=== PATIENT | female | born 1960 | race Caucasian/White ===

== ENCOUNTER 2017-02-24 10:51 | Observation (INO) | payer OTHER ==
[2017-02-24] MEDS ORDERED: NITROGLYCERIN SL TABS 0.4 MG TAB SUBLINGUAL STA ×3 (11:09)
[2017-02-24] MEDS ORDERED: ASPIRIN 81 MG CHEW PO STA (11:09)
--- NOTE | 2017-02-24 11:11 | ED ---
General Adult HPI - General Chief complaint: Chest Pain Stated complaint: CHEST PAIN Time Seen by Provider: 02/24/17 11:06 Source: patient, RN notes reviewed Mode of arrival: wheelchair Limitations: no limitations - History of Present Illness Initial comments: Patient is a pleasant 56-year-old female presenting to the emergency department complaining of chest discomfort. Symptoms have been intermittent over the past week. Patient has pressure in the left sternal region. Discomfort somewhat improves with pushing on the area. Patient did feel nauseated earlier. No dyspnea or diaphoresis. No history of similar symptoms previously. No leg pain or swelling. No radiation of pain. - Related Data Home Medications Medication Instructions Recorded Confirmed ARIPiprazole [Abilify] 10 mg PO HS 02/24/17 02/24/17 Cholecalciferol (Vitamin D3) 2,000 unit PO DAILY 02/24/17 02/24/17 [Vitamin D3] FLUoxetine HCL [PROzac] 80 mg PO DAILY 02/24/17 02/24/17 Levothyroxine Sodium [Synthroid] 50 mcg PO DAILY 02/24/17 02/24/17 Allergies Allergy/AdvReac Type Severity Reaction Status Date / Time No Known Allergies Allergy Verified 02/24/17 12:16 Review of Systems ROS Statement: Those systems with pertinent positive or pertinent negative responses have been documented in the HPI. ROS Other: All systems not noted in ROS Statement are negative. Constitutional: Denies: fever Eyes: Denies: eye pain ENT: Denies: ear pain Respiratory: Denies: cough, dyspnea Cardiovascular: Reports: chest pain Endocrine: Denies: fatigue Gastrointestinal: Denies: abdominal pain Genitourinary: Denies: dysuria Musculoskeletal: Denies: back pain Skin: Denies: rash Neurological: Denies: weakness Past Medical History Past Medical History: No Reported History History of Any Multi-Drug Resistant Organisms: None Reported Past Surgical History: No Surgical Hx Reported Past Anesthesia/Blood Transfusion Reactions: No Reported Reaction Past Psychological History: Bipolar Smoking Status: Current every day smoker Past Alcohol Use History: Occasional Past Drug Use History: None Reported General Exam Limitations: no limitations General appearance: alert, in no apparent distress Head exam: Present: atraumatic Eye exam: Present: normal appearance, PERRL ENT exam: Present: normal oropharynx Neck exam: Present: normal inspection Respiratory exam: Present: normal lung sounds bilaterally. Absent: chest wall tenderness Cardiovascular Exam: Present: normal rhythm, bradycardia Expanded Peripheral pulses: 2+: Radial (R), Radial (L), Posterior Tibialis (R), Posterior Tibialis (L) GI/Abdominal exam: Present: soft. Absent: tenderness Extremities exam: Present: normal inspection. Absent: pedal edema, calf tenderness Neurological exam: Present: alert Psychiatric exam: Present: normal affect, normal mood Skin exam: Present: normal color Course Vital Signs 02/24/17 02/24/17 02/24/17 10:59 11:23 11:28 Temperature 98.3 F Pulse Rate 50 L 50 L 51 L Respiratory 18 16 15 Rate Blood Pressure 150/77 131/65 105/52 O2 Sat by Pulse 92 L 97 97 Oximetry 02/24/17 11:42 Temperature Pulse Rate 54 L Respiratory 15 Rate Blood Pressure 109/71 O2 Sat by Pulse 95 Oximetry EKG Findings - EKG Comments: EKG Findings:: Sinus bradycardia 49. ID 172. QRS 78. QTC 464. QTC 419. Normal axis. Low QRS voltage. No acute ST change. Medical Decision Making - Medical Decision Making Patient reexamined and resting comfortably in bed. Patient states symptoms have improved with nitroglycerin. Patient updated on results and plan. Case discussed in detail with Dr. Richards, who will admit for hospital call. - Lab Data Result diagrams: 02/24/17 11:15 02/24/17 11:15 Lab Results 02/24/17 02/24/17 02/24/17 Range/Units 11:15 11:15 11:15 WBC 8.0 (3.8-10.6) k/uL RBC 5.10 (3.80-5.40) m/uL Hgb 16.0 (11.4-16.0) gm/dL Hct 48.8 H (34.0-46.0) % MCV 95.5 (80.0-100.0) fL MCH 31.4 (25.0-35.0) pg MCHC 32.8 (31.0-37.0) g/dL RDW 14.7 (11.5-15.5) % Plt Count 305 (150-450) k/uL Neutrophils % 67 % Lymphocytes % 24 % Monocytes % 5 % Eosinophils % 2 % Basophils % 1 % Neutrophils # 5.4 (1.3-7.7) k/uL Lymphocytes # 1.9 (1.0-4.8) k/uL Monocytes # 0.4 (0-1.0) k/uL Eosinophils # 0.1 (0-0.7) k/uL Basophils # 0.1 (0-0.2) k/uL PT (9.0-12.0) sec INR (<1.2) APTT (22.0-30.0) sec Sodium 142 (137-145) mmol/L Potassium 4.1 (3.5-5.1) mmol/L Chloride 109 H (98-107) mmol/L Carbon Dioxide 22 (22-30) mmol/L Anion Gap 11 mmol/L BUN 11 (7-17) mg/dL Creatinine 0.85 (0.52-1.04) mg/dL Est GFR (MDRD) Af Amer >60 (>60 ml/min/1.73 sqM) Est GFR (MDRD) Non-Af >60 (>60 ml/min/1.73 sqM) Glucose 93 (74-99) mg/dL Calcium 9.3 (8.4-10.2) mg/dL Magnesium 1.8 (1.6-2.3) mg/dL Total Bilirubin 0.6 (0.2-1.3) mg/dL AST 23 (14-36) U/L ALT 37 (9-52) U/L Alkaline Phosphatase 93 (38-126) U/L Total Creatine Kinase 252 H (30-135) U/L CK-MB (CK-2) 1.7 (0.0-2.4) ng/mL CK-MB (CK-2) Rel Index 0.7 Troponin I <0.012 (0.000-0.034) ng/mL Total Protein 7.4 (6.3-8.2) g/dL Albumin 4.2 (3.5-5.0) g/dL 02/24/17 Range/Units 11:15 WBC (3.8-10.6) k/uL RBC (3.80-5.40) m/uL Hgb (11.4-16.0) gm/dL Hct (34.0-46.0) % MCV (80.0-100.0) fL MCH (25.0-35.0) pg MCHC (31.0-37.0) g/dL RDW (11.5-15.5) % Plt Count (150-450) k/uL Neutrophils % % Lymphocytes % % Monocytes % % Eosinophils % % Basophils % % Neutrophils # (1.3-7.7) k/uL Lymphocytes # (1.0-4.8) k/uL Monocytes # (0-1.0) k/uL Eosinophils # (0-0.7) k/uL Basophils # (0-0.2) k/uL PT 10.3 (9.0-12.0) sec INR 1.0 (<1.2) APTT 25.0 (22.0-30.0) sec Sodium (137-145) mmol/L Potassium (3.5-5.1) mmol/L Chloride (98-107) mmol/L Carbon Dioxide (22-30) mmol/L Anion Gap mmol/L BUN (7-17) mg/dL Creatinine (0.52-1.04) mg/dL Est GFR (MDRD) Af Amer (>60 ml/min/1.73 sqM) Est GFR (MDRD) Non-Af (>60 ml/min/1.73 sqM) Glucose (74-99) mg/dL Calcium (8.4-10.2) mg/dL Magnesium (1.6-2.3) mg/dL Total Bilirubin (0.2-1.3) mg/dL AST (14-36) U/L ALT (9-52) U/L Alkaline Phosphatase (38-126) U/L Total Creatine Kinase (30-135) U/L CK-MB (CK-2) (0.0-2.4) ng/mL CK-MB (CK-2) Rel Index Troponin I (0.000-0.034) ng/mL Total Protein (6.3-8.2) g/dL Albumin (3.5-5.0) g/dL - Radiology Data Radiology results: image reviewed (Chest x-ray shows no acute process) Critical Care Time Critical Care Time: Yes Total Critical Care Time: 31 Disposition Clinical Impression: Unstable angina pectoris Disposition: ADMITTED IP TO THIS [facility] Referrals: Kirsty Neal MD [Primary Care Provider] - 1-2 days Decision Time: 12:57
[2017-02-24 11:24] LABS: Basophils # (A) 0.1 k/uL (0-0.2); Basophils % (A) 1 %; CH 32.2; CHCM 33.9; Eosinophils # (A) 0.1 k/uL (0-0.7); Eosinophils % (A) 2 %; HCT 48.8 % (34.0-46.0); Luc # (Auto) 0.15; Luc % (Auto) 2; Lymphocytes # (A) 1.9 k/uL (1.0-4.8); Lymphocytes % (A) 24 %; MCH 31.4 pg (25.0-35.0); MCHC 32.8 g/dL (31.0-37.0); MCV 95.5 fL (80.0-100.0); Mean Platelet Volume 7.4; Monocytes # (A) 0.4 k/uL (0-1.0); Monocytes % (A) 5 %; Neutrophils # (A) 5.4 k/uL (1.3-7.7); Neutrophils % (A) 67 %; RDW 14.7 % (11.5-15.5); WBC (Perox) 8.15
[2017-02-24 11:33] LABS: ALT 37 U/L (9-52); AST 23 U/L (14-36); Alkaline Phosphatase 93 U/L (38-126); Anion Gap 11 mmol/L; Blood Urea Nitrogen 11 mg/dL (7-17); Calcium 9.3 mg/dL (8.4-10.2); Carbon Dioxide 22 mmol/L (22-30); Chloride 109 mmol/L (98-107); Glucose 93 mg/dL (74-99); Magnesium 1.8 mg/dL (1.6-2.3); Non-African American GFR(MDRD) >60 (>60 ml/min/1.73 sqM); Potassium 4.1 mmol/L (3.5-5.1); Prothrombin Time 10.3 sec (9.0-12.0); Sodium 142 mmol/L (137-145); Total Bilirubin 0.6 mg/dL (0.2-1.3); Total Protein 7.4 g/dL (6.3-8.2)
--- NOTE | 2017-02-24 11:43 | XR ---
EXAMINATION TYPE: XR chest 2V DATE OF EXAM: 02/24/2017 HISTORY: Chest Pain. REFERENCE: Previous study dated 12/11/2012. FINDINGS: The lungs are clear. Pleural space are clear. The heart is not enlarged. IMPRESSION: NO ACTIVE INTRATHORACIC DISEASE.
[2017-02-24 12:09] LABS: Creatine Kinase 252 U/L (30-135)
[2017-02-24 12:21] LABS: Creatine Kinase MB 1.7 ng/mL (0.0-2.4); Troponin I <0.012 ng/mL (0.000-0.034)
[2017-02-24] MEDS ORDERED: NITROGLYCERIN SL TABS 0.4 MG TAB SUBLINGUAL PRN (12:57)
[2017-02-24] MEDS ORDERED: HEPARIN SODIUM,PORCINE 5,000 UNIT/ML 1 ML VIAL IV ONE (12:57)
[2017-02-24] MEDS ORDERED: HEPARIN SODIUM,PORCINE 5,000 UNIT/ML 1 ML VIAL IV PRN (12:57)
[2017-02-24] MEDS ORDERED: HEPARIN SODIUM,PORCINE/D5W PMX 25,000 UNIT in DEXTROSE/WATER 1 500ML.BAG IV SCH (13:00)
[2017-02-24 14:04] VITALS: BMI 40.8
--- NOTE | 2017-02-24 15:56 | P.HPIM ---
History of Present Illness 56-year-old female came in with complaints of chest discomfort patient has multiple similar episodes going on for about a week last for normally for an hour today lasted for 2 hours improved with nitroglycerin in about 6-7 x 10 in severity nonradiating pressure-like sensation not associated with food, denied any shortness of breath had some nausea today, denied any fever denied any cough nonpleuritic in nature, nonexertional denied any associated lightheadedness, diaphoresis. Patient denied any history of coronary artery disease in the past denied any premature coronary artery disease in the family. Patient does smoke. Denied any history of diabetes mellitus or hypertension, denied any history of hyperlipidemia. Review of Systems REVIEW OF SYSTEMS: CONSTITUTIONAL: No fever, no malaise, no fatigue. HEENT: No recent visual problems or hearing problems. Denied any sore throat. CARDIOVASCULAR: No orthopnea, PND, no palpitations, no syncope. PULMONARY: No shortness of breath, no cough, no hemoptysis. GASTROINTESTINAL: No diarrhea, no nausea, no vomiting, no abdominal pain. Normoactive bowel sounds. NEUROLOGICAL: No headaches, no weakness, no numbness. HEMATOLOGICAL: Denies any bleeding or petechiae. GENITOURINARY: Denies any burning micturition, frequency, or urgency. MUSCULOSKELETAL/RHEUMATOLOGICAL: Denies any joint pain, swelling, or any muscle pain. ENDOCRINE: Denies any polyuria or polydipsia. The rest of the 14-point review of systems is negative. Past Medical History Past Medical History: No Reported History Additional Past Medical History / Comment(s): pt states she had no medical hx History of Any Multi-Drug Resistant Organisms: None Reported Past Surgical History: No Surgical Hx Reported Additional Past Surgical History / Comment(s): pt states she has no sx hx Past Anesthesia/Blood Transfusion Reactions: No Reported Reaction Past Psychological History: Bipolar, Depression Additional Psychological History / Comment(s): pt states "personality disorder" Smoking Status: Current every day smoker Past Alcohol Use History: Occasional Additional Past Alcohol Use History / Comment(s): pt states she smokes 1/2 a ppd. Past Drug Use History: None Reported - Past Family History Father Additional Family Medical History / Comment(s): pt states heart dx runs in the family Mother Family Medical History: Diabetes Mellitus Additional Family Medical History / Comment(s): pt states heart disease runs in the family Medications and Allergies Home Medications Medication Instructions Recorded Confirmed Type ARIPiprazole [Abilify] 10 mg PO HS 02/24/17 02/24/17 History Cholecalciferol (Vitamin D3) 2,000 unit PO DAILY 02/24/17 02/24/17 History [Vitamin D3] FLUoxetine HCL [PROzac] 80 mg PO DAILY 02/24/17 02/24/17 History Levothyroxine Sodium [Synthroid] 50 mcg PO DAILY 02/24/17 02/24/17 History Allergies Allergy/AdvReac Type Severity Reaction Status Date / Time No Known Allergies Allergy Verified 02/24/17 12:16 Physical Exam Vitals: Vital Signs Temp Pulse Pulse Pulse Resp BP BP 02/24/17 14:10 97.9 F 45 L 45 L 14 122/68 02/24/17 13:23 97.5 F L 45 L 14 126/62 02/24/17 12:57 47 L 15 113/66 02/24/17 11:42 54 L 15 109/71 02/24/17 11:28 51 L 15 105/52 02/24/17 11:23 50 L 16 131/65 02/24/17 10:59 98.3 F 50 L 18 150/77 Pulse Ox 02/24/17 14:10 92 L 02/24/17 13:23 02/24/17 12:57 99 02/24/17 11:42 95 02/24/17 11:28 97 02/24/17 11:23 97 02/24/17 10:59 92 L Intake and Output 02/24/17 02/24/17 02/24/17 06:59 14:59 22:59 Other: Voiding Method Toilet Weight 108.1 kg Patient Weight 02/25/17 06:59 Weight 108.1 kg PHYSICAL EXAMINATION: GENERAL: The patient is alert and oriented x3, not in any acute distress. Well developed, well nourished. HEENT: Pupils are round and equally reacting to light. EOMI. No scleral icterus. No conjunctival pallor. Normocephalic, atraumatic. No pharyngeal erythema. No thyromegaly. CARDIOVASCULAR: S1 and S2 present. No murmurs, rubs, or gallops. PULMONARY: Chest is clear to auscultation, no wheezing or crackles. ABDOMEN: Soft, nontender, nondistended, normoactive bowel sounds. No palpable organomegaly. MUSCULOSKELETAL: No joint swelling or deformity. EXTREMITIES: No cyanosis, clubbing, or pedal edema. NEUROLOGICAL: Gross neurological examination did not reveal any focal deficits. SKIN: No rashes. Results CBC & Chem 7: 02/24/17 11:15 02/24/17 11:15 Labs: Abnormal Lab Results - Last 24 Hours (Table) 02/24/17 02/24/17 02/24/17 Range/Units 11:15 11:15 11:15 Hct 48.8 H (34.0-46.0) % Chloride 109 H (98-107) mmol/L Total Creatine Kinase 252 H (30-135) U/L Thrombosis Risk Factor Assmnt - Choose All That Apply Any of the Below Risk Factors Present?: Yes Each Factor Represents 1 point: Age 41-60 years, Obesity (BMI >25) Other Risk Factors: No Thrombosis Risk Factor Assessment Total Risk Factor Score: 2 Thrombosis Risk Factor Assessment Level: Low Risk Assessment and Plan Plan: #1 chest pain: We'll rule out acute coronary syndromes and unstable angina. One set of troponin is negative EKG showed sinus bradycardia a symptomatically from sinus bradycardia at this time. TSH level will be obtained. And patient will be a valid by cardiology. Patient regarding stress test will be made by cardiology. #2 hypothyroidism: Obtain TSH continue with present dose of levothyroxine. #3 depression continue with fluoxetine. And Abilify. #4 sinus bradycardia:asymptomatic.
[2017-02-24] MEDS: NITROGLYCERIN OINT 1 INCH/GM PACKET TOPICAL SCH (18:47)
[2017-02-24 18:54] LABS: Creatine Kinase 200 U/L (30-135)
[2017-02-24 19:07] LABS: Creatine Kinase MB 1.4 ng/mL (0.0-2.4); Troponin I <0.012 ng/mL (0.000-0.034)
[2017-02-24] MEDS ORDERED: ARIPiprazole 10 MG TAB PO SCH (21:00)
[2017-02-25 00:33] LABS: Creatine Kinase 191 U/L (30-135)
[2017-02-25 00:46] LABS: Creatine Kinase MB 1.2 ng/mL (0.0-2.4); Troponin I <0.012 ng/mL (0.000-0.034)
[2017-02-25] MEDS: NITROGLYCERIN OINT 1 INCH/GM PACKET TOPICAL SCH ×2 (06:00→11:45)
[2017-02-25] MEDS ORDERED: LEVOTHYROXINE 50 MCG TAB PO SCH (06:30)
[2017-02-25 07:38] VITALS: RESP 18
[2017-02-25 07:45] LABS: Cholesterol 210 mg/dL (<200); HDL Cholesterol 50 mg/dL (40-60)
[2017-02-25] MEDS ORDERED: FLUoxetine HCL 20 MG CAP PO SCH (09:00)
[2017-02-25] MEDS ORDERED: ASPIRIN 325 MG TAB PO SCH (09:00)
[2017-02-25 11:53] VITALS: BP 103/59; PULSE 58; TEMP 97.5
--- NOTE | 2017-02-25 12:20 | ECHOF ---
Referral Reason:chest pain MEASUREMENTS -------- HEIGHT: 162.6 cm WEIGHT: 108.0 kg BP: 140/40 IVSd: 1.1 cm (0.6 - 1.1) LVIDd: 4.3 cm (3.9 - 5.3) LVPWd: 1.1 cm (0.6 - 1.1) IVSs: 1.5 cm LVIDs: 2.7 cm LVPWs: 1.1 cm LAESV Index (A-L): 26.52 ml/m Ao Diam: 2.5 cm (2.0 - 3.7) AV Cusp: 1.7 cm (1.5 - 2.6) LA Diam: 4.0 cm (2.7 - 3.8) MV EXCURSION: 15.271 mm (> 18.000) MV EF SLOPE: 57 mm/s (70 - 150) EPSS: 0.9 cm MV E Ariel: 0.77 m/s MV DecT: 246 ms MV A Ariel: 0.27 m/s MV E/A Ratio: 2.80 RAP: 5.00 mmHg RVSP: 26.63 mmHg FINDINGS -------- Sinus rhythm. This was a technically adequate study. There is mild concentric left ventricular hypertrophy. Overall left ventricular systolic function is normal with, an EF between 55 - 60 %. The right ventricle is normal in size. Normal LA size by volume 22+/-6 ml/m2. The right atrial size is normal. The aortic valve is trileaflet, and appears structurally normal. No aortic stenosis or regurgitation. Mild mitral regurgitation is present. Mild tricuspid regurgitation present. There is no evidence of pulmonary hypertension. The right ventricular systolic pressure, as measured by Doppler, is 26.63mmHg. There is no pulmonic regurgitation present. The aortic root size is normal. There is no pericardial effusion. CONCLUSIONS -------- 1. There is mild concentric left ventricular hypertrophy. 2. Overall left ventricular systolic function is normal with, an EF between 55 - 60 %. 3. Mild mitral regurgitation is present. 4. Mild tricuspid regurgitation present. 5. There is no evidence of pulmonary hypertension. 6. The right ventricular systolic pressure, as measured by Doppler, is 26.63mmHg. 7. There is no pulmonic regurgitation present. 8. The aortic root size is normal. 9. There is no pericardial effusion. RESPIRATORY CLINICIAN: Sarahi Boland RDCS
--- NOTE | 2017-02-25 13:15 | P.CRDCN ---
History of Present Illness Consult date: 02/25/17 History of present illness: This is a 56-year-old female who presented to the emergency department with complaints of chest pressure. The pressure is located in the left chest wall. She states she has been having this discomfort off and on for the previous week. She states the pain comes on when she is up walking and she can usually make it go away with gentle massage to the anterior chest wall. This episode that she had yesterday she could not relieve with gentle massage. It persisted until she presented to the emergency department and was given nitroglycerin. She also had mild nausea with this episode. She denies palpitations, dizziness , diaphoresis, radiation of the pain or vomiting. She denies any chest pain at this time. The pain is nonreproducible and not associated with deep inspiration. Her troponins have been negative 3. EKG indicates sinus bradycardia. Her cardiac tracings indicate her heart rate in the 50s although her EKG this morning shows heart rate of 33. She has no significant abnormalities. EKG is sinus bradycardia. She has a daily smoker for greater than 30 years. Denies history of diabetes, hypertension or hyperlipidemia. She states she has never seen a pouch maker for any reason and does recall having a stress test many years ago with her primary care doctor. Review of Systems REVIEW OF SYSTEMS: Patient denies any chest discomfort. No shortness of breath. No diaphoresis. He denies headache, dizziness, blurred vision, double vision. No dyspnea on exertion. Patient denies any stomach discomfort. No nausea, vomiting. No hematochezia. No hematemesis. Denies any black stools or blood in his stools. No syncope. No palpitations. No cough. No recent fever or chills. Denies dysuria or hematuria. No muscle weakness or numbness. Past Medical History Past Medical History: No Reported History Additional Past Medical History / Comment(s): pt states she had no medical hx History of Any Multi-Drug Resistant Organisms: None Reported Past Surgical History: No Surgical Hx Reported Additional Past Surgical History / Comment(s): pt states she has no sx hx Past Anesthesia/Blood Transfusion Reactions: No Reported Reaction Past Psychological History: Bipolar, Depression Additional Psychological History / Comment(s): pt states "personality disorder" Smoking Status: Current every day smoker Past Alcohol Use History: Occasional Additional Past Alcohol Use History / Comment(s): pt states she smokes 1/2 a ppd. Past Drug Use History: None Reported - Past Family History Father Additional Family Medical History / Comment(s): pt states heart dx runs in the family Mother Family Medical History: Diabetes Mellitus Additional Family Medical History / Comment(s): pt states heart disease runs in the family Medications and Allergies Home Medications Medication Instructions Recorded Confirmed Type ARIPiprazole [Abilify] 10 mg PO HS 02/24/17 02/24/17 History Cholecalciferol (Vitamin D3) 2,000 unit PO DAILY 02/24/17 02/24/17 History [Vitamin D3] FLUoxetine HCL [PROzac] 80 mg PO DAILY 02/24/17 02/24/17 History Levothyroxine Sodium [Synthroid] 50 mcg PO DAILY 02/24/17 02/24/17 History Allergies Allergy/AdvReac Type Severity Reaction Status Date / Time No Known Allergies Allergy Verified 02/24/17 12:16 Physical Exam Vitals: Vital Signs Temp Pulse Pulse Pulse Resp BP BP 02/25/17 07:37 98.1 F 46 L 18 104/59 02/25/17 04:00 44 L 16 02/25/17 03:25 98.0 F 50 L 16 140/62 02/25/17 00:00 42 L 16 02/24/17 23:27 98.1 F 43 L 16 100/56 02/24/17 21:05 02/24/17 20:00 55 L 16 02/24/17 19:33 97.9 F 52 L 16 110/64 02/24/17 16:00 45 L 51 L 12 02/24/17 15:53 97.6 F 51 L 12 105/56 02/24/17 14:10 97.9 F 45 L 45 L 14 122/68 02/24/17 13:23 97.5 F L 45 L 14 126/62 02/24/17 12:57 47 L 15 113/66 02/24/17 11:42 54 L 15 109/71 02/24/17 11:28 51 L 15 105/52 02/24/17 11:23 50 L 16 131/65 02/24/17 10:59 98.3 F 50 L 18 150/77 Pulse Ox 02/25/17 07:37 98 02/25/17 04:00 02/25/17 03:25 94 L 02/25/17 00:00 02/24/17 23:27 93 L 02/24/17 21:05 95 02/24/17 20:00 02/24/17 19:33 94 L 02/24/17 16:00 02/24/17 15:53 94 L 02/24/17 14:10 92 L 02/24/17 13:23 02/24/17 12:57 99 02/24/17 11:42 95 02/24/17 11:28 97 02/24/17 11:23 97 02/24/17 10:59 92 L Intake and Output 02/24/17 02/25/17 02/25/17 22:59 06:59 14:59 Intake Total 352.333 Balance 352.333 Intake: Intake, IV Titration 112.333 Amount Heparin Sodium,Porcine/ 112.333 D5w Pmx 25,000 unit In Dextrose/Water 1 500ml. bag @ 9.59 UNITS/KG/HR 20 mls/hr IV .Q24H [facility] Rx#: [id number] Oral 240 Other: Voiding Method Toilet Toilet # Voids 1 1 Weight 108.1 kg GENERAL: This is a 56-year-old female in no apparent distress at the time of my examination. HEENT: Head is atraumatic, normocephalic. Pupils are equal, round. Sclerae anicteric. Conjunctivae are clear. Mucous membranes of the mouth are moist. Neck is supple. There is no jugular venous distention. No carotid bruit is heard. LUNGS: Clear to auscultation and precussion. No chest wall tenderness is noted on palpation or with deep breathing. HEART: Regular rate and rhythm without murmurs, rubs or gallops. S1 and S2 heard. ABDOMEN: Soft, nontender. Bowel sounds are heard. No organomegaly noted. EXTREMITIES: 2+ peripheral pulses with no evidence of peripheral edema and no calf tenderness noted]. NEUROLOGIC: Patient is awake, alert and oriented x3. Results 02/25/17 06:44 02/24/17 11:15 Cardiac Enzymes 02/24/17 02/24/17 02/24/17 Range/Units 11:15 11:15 18:16 AST 23 (14-36) U/L CK-MB (CK-2) 1.7 1.4 (0.0-2.4) ng/mL Troponin I <0.012 <0.012 (0.000-0.034) ng/mL 02/24/17 Range/Units 23:50 AST (14-36) U/L CK-MB (CK-2) 1.2 (0.0-2.4) ng/mL Troponin I <0.012 (0.000-0.034) ng/mL Coagulation 02/24/17 02/24/17 02/24/17 Range/Units 11:15 18:16 23:50 PT 10.3 (9.0-12.0) sec APTT 25.0 45.8 H 75.9 H (22.0-30.0) sec Lipids 02/25/17 Range/Units 06:42 Triglycerides 148 (<150) mg/dL Cholesterol 210 H (<200) mg/dL HDL Cholesterol 50 (40-60) mg/dL CBC 02/24/17 02/25/17 Range/Units 11:15 06:44 WBC 8.0 (3.8-10.6) k/uL RBC 5.10 (3.80-5.40) m/uL Hgb 16.0 (11.4-16.0) gm/dL Hct 48.8 H (34.0-46.0) % Plt Count 305 250 (150-450) k/uL Comprehensive Metabolic Panel 02/24/17 Range/Units 11:15 Sodium 142 (137-145) mmol/L Potassium 4.1 (3.5-5.1) mmol/L Chloride 109 H (98-107) mmol/L Carbon Dioxide 22 (22-30) mmol/L BUN 11 (7-17) mg/dL Creatinine 0.85 (0.52-1.04) mg/dL Glucose 93 (74-99) mg/dL Calcium 9.3 (8.4-10.2) mg/dL AST 23 (14-36) U/L ALT 37 (9-52) U/L Alkaline Phosphatase 93 (38-126) U/L Total Protein 7.4 (6.3-8.2) g/dL Albumin 4.2 (3.5-5.0) g/dL Current Medications Generic Name Dose Route Start Last Admin Trade Name Freq PRN Reason Stop Dose Admin Aripiprazole 10 mg 02/24/17 21:00 02/24/17 19:54 Abilify PO 10 mg HS AJ Administration Aspirin 325 mg 02/25/17 09:00 Aspirin PO DAILY AJ Fluoxetine HCl 80 mg 02/25/17 09:00 Prozac PO DAILY AJ Heparin Sodium (Porcine) 0 unit 02/24/17 12:57 02/24/17 18:55 Heparin IV 2,702.5 unit Q6HR PRN Administration Low PTT Protocol Heparin Sodium/Dextrose 25,000 500 mls @ 20 mls/hr 02/24/17 13:00 02/24/17 18 :56 unit/ IV Solution IV 11.59 units/kg/hr .Q24H AJ 24.18 mls/hr Protocol Titration 9.59 UNITS/KG/HR Levothyroxine Sodium 50 mcg 02/25/17 06:30 02/25/17 06:34 Synthroid PO Not Given DAILY@0630 [facility] Nitroglycerin 1 inch 02/24/17 18:00 02/25/17 06:00 Nitro-Bid Oint TOPICAL Not Given Q6HR [facility] Nitroglycerin 0.4 mg 02/24/17 12:57 Nitrostat SUBLINGUAL Q5M PRN Chest Pain Sodium Chloride 10 ml 02/24/17 21:00 02/24/17 23:45 Saline Flush IV Not Given BID AJ Intake and Output 02/24/17 02/25/17 02/25/17 22:59 06:59 14:59 Intake Total 352.333 Balance 352.333 Intake: Intake, IV Titration 112.333 Amount Heparin Sodium,Porcine/ 112.333 D5w Pmx 25,000 unit In Dextrose/Water 1 500ml. bag @ 9.59 UNITS/KG/HR 20 mls/hr IV .Q24H [facility] Rx#: [id number] Oral 240 Other: Voiding Method Toilet Toilet # Voids 1 1 Weight 108.1 kg 02/25/17 06:44 02/24/17 11:15 - EKG Interpretation EKG: sinus rhythm, normal QRS, normal ST/T EKG shows: bradycardia Assessment and Plan Plan: ASSESSMENT 1. Chest pain, atypical. 2. Bradycardia. 3. Hypothyroidism. 4. []. 5. []. PLAN We will obtain echocardiogram and stress echo to rule out coronary artery stenosis. If these tests are normal the patient can be discharged home from a cardiac standpoint. We will recommend for the patient have a 30 day event monitor to rule out high degree AV block or arrhythmia. We'll increase her dose of Synthroid to 75 mcg daily. The patient can follow-up with Dr. VC Vergara in the office in 2 weeks. Nurse Practitioner note has been reviewed, I agree with a documented findings and plan of care. Patient was seen and examined.
--- NOTE | 2017-02-25 15:40 | P.DS ---
Providers Date of admission: 02/24/17 12:57 Attending physician: Zita Richards Consults: 02/24/17 12:57 Consult Physician Urgent Consulting Provider: Shabbir Samayoa Consult Reason/Comments: ua Do you want consulting provider notified?: Yes Primary care physician: Kirsty Neal [facility] Course: Patient was admitted for chest pain rule out acute coronary syndromes underwent stress test which was negative, cleared by cardiology patient will be discharged today patient just pain is probably related to her anxiety disorder. PHYSICAL EXAMINATION: GENERAL: The patient is alert and oriented x3, not in any acute distress. Well developed, well nourished. HEENT: Pupils are round and equally reacting to light. EOMI. No scleral icterus. No conjunctival pallor. Normocephalic, atraumatic. No pharyngeal erythema. No thyromegaly. CARDIOVASCULAR: S1 and S2 present. No murmurs, rubs, or gallops. PULMONARY: Chest is clear to auscultation, no wheezing or crackles. ABDOMEN: Soft, nontender, nondistended, normoactive bowel sounds. No palpable organomegaly. MUSCULOSKELETAL: No joint swelling or deformity. EXTREMITIES: No cyanosis, clubbing, or pedal edema. NEUROLOGICAL: Gross neurological examination did not reveal any focal deficits. SKIN: No rashes. Plan - Discharge Summary New Discharge Prescriptions: New Levothyroxine Sodium [Synthroid] 75 mcg PO DAILY@0630 #30 tab Discontinued Levothyroxine Sodium [Synthroid] 50 mcg PO DAILY No Action FLUoxetine HCL [PROzac] 80 mg PO DAILY Cholecalciferol (Vitamin D3) [Vitamin D3] 2,000 unit PO DAILY ARIPiprazole [Abilify] 10 mg PO HS Discharge Medication List ARIPiprazole [Abilify] 10 mg PO HS 02/24/17 [History] Cholecalciferol (Vitamin D3) [Vitamin D3] 2,000 unit PO DAILY 02/24/17 [History] FLUoxetine HCL [PROzac] 80 mg PO DAILY 02/24/17 [History] Levothyroxine Sodium [Synthroid] 75 mcg PO DAILY@0630 #30 tab 02/25/17 [Rx] Follow up Appointment(s)/Referral(s): Kirsty Neal MD [Primary Care Provider] - 3 Days Faith Vergara MD [STAFF PHYSICIAN] - 2 Weeks (Office will mail out monitor to patients home) Patient Instructions/Handouts: Chest Pain (DC) Activity/Diet/Wound Care/Special Instructions: Cardiology mailing out heart monitor with instructions. Discharge Disposition: HOME SELF-CARE
--- NOTE | 2017-02-25 16:10 | EST ---
Referral Reason:chest pain MEASUREMENTS -------- HEIGHT: 162.6 cm WEIGHT: 108.0 kg BP: 130/60 FINDINGS -------- Utilizing the standard Luiz protocol the patient was exercised for 5 minutes, 30seconds, achieving a maximum heart rate of 124 , which is 75 % of predicted maximal heart rate. There was physiologic heart rate and blood pressure response to exercise. Max Heart Rate: 124 % of Max Predicted Heart Rate: 75 Rest Heart Rate: 45 Rest BP: 122/59 Max BP: 228/71 Mets Achieved: 7 Sinus rhythm. Resting bradycardia (HR<60bpm). In response to stress, the ECG showed no ST-T wave changes (see exercise report for details). LV size, wall thickness and systolic function are normal, with an EF of 60%. Echo images were acquired at peak stress which demonstrated appropriate augmentation of all left ventricular segments with slight decrease in cavity size. CONCLUSIONS -------- 1. Sinus rhythm. 2. Resting bradycardia (HR<60bpm). 3. In response to stress, the ECG showed no ST-T wave changes (see exercise report for details). 4. LV size, wall thickness and systolic function are normal, with an EF of 60%. 5. Echo images were acquired at peak stress which demonstrated appropriate augmentation of all left ventricular segments with slight decrease in cavity size. 6. No 2D echocardiographic evidence of inducible ischemia to achieved workload. ACTIVITY DIRECTOR: Sarahi Boland RDCS MTDD
[2017-02-26] MEDS ORDERED: LEVOTHYROXINE 75 MCG TAB PO SCH (06:30)
== END 2017-02-25 15:11 | disposition home or self-care (01) ==
LOC: EC 10:51 → 3OBS 12:57
PROVIDERS: ADMIT Internal Medicine; ATTEND Internal Medicine
DX: R07.89 Other chest pain (principal); Z79.899 Other long term (current) drug therapy; F17.200 Nicotine dependence, unspecified, uncomplicated; F31.9 Bipolar disorder, unspecified; Z83.3 Family history of diabetes mellitus; E03.9 Hypothyroidism, unspecified; R00.1 Bradycardia, unspecified; F41.9 Anxiety disorder, unspecified
CPT/HCPCS: 99291; 96376 ×3; 96365; 96366 ×2; 36415; 94760; 93005; 93017; 93306; 80061; 80053; 82550; 82553; 83735; 84443; 84484; 85025; 85049; 85610; 85730; 71020; G0378 ×2; C8928; J1644 ×2; Q9957; 93350

== ENCOUNTER 2019-10-08 09:21 | Emergency (ER) | payer OTHER ==
[2019-10-08 09:27] VITALS: TEMP 98.4
--- NOTE | 2019-10-08 11:12 | ED ---
General Adult HPI - General Source: patient, RN notes reviewed Mode of arrival: ambulatory Limitations: no limitations <Juan C Auguste - Last Filed: 10/08/19 17:15> <Tiffanie Calzada - Last Filed: 10/13/19 01:06> - General Chief complaint: Psychiatric Symptoms Stated complaint: Mental Health Time Seen by Provider: 10/08/19 09:36 - History of Present Illness Initial comments: 59-year-old female presents to the emergency department for a chief complaint of depression. Patient states that she has always felt depressed her whole life. However this has worsened over the past few days. Patient states that she is taking care of her granddaughter at home who is a 5-year-old and it is very difficult. States over the past few days she has had thoughts of harming herself. Patient has not thought of a plan of doing this. Patient was previously taking medications for depression and insomnia however stopped these about a year ago after she left them at her previous house. Patient has no other complaints at this time including shortness of breath, chest pain, abdominal pain, nausea or vomiting, headache, or visual changes. (Juan C Auguste) - Related Data Home Medications Medication Instructions Recorded Confirmed No Known Home Medications 10/08/19 10/08/19 Allergies Allergy/AdvReac Type Severity Reaction Status Date / Time No Known Allergies Allergy Verified 10/12/19 16:22 Review of Systems ROS Other: All systems not noted in ROS Statement are negative. <Juan C Auguste - Last Filed: 10/08/19 17:15> ROS Other: All systems not noted in ROS Statement are negative. <Tiffanie Calzada - Last Filed: 10/13/19 01:06> ROS Statement: Those systems with pertinent positive or pertinent negative responses have been documented in the HPI. Past Medical History Past Medical History: No Reported History Additional Past Medical History / Comment(s): pt states she had no medical hx History of Any Multi-Drug Resistant Organisms: None Reported Past Surgical History: No Surgical Hx Reported Additional Past Surgical History / Comment(s): pt states she has no sx hx Past Anesthesia/Blood Transfusion Reactions: No Reported Reaction Past Psychological History: Bipolar, Depression Smoking Status: Current every day smoker Past Alcohol Use History: Occasional Past Drug Use History: Marijuana - Past Family History Father Additional Family Medical History / Comment(s): pt states heart dx runs in the family Mother Family Medical History: Diabetes Mellitus Additional Family Medical History / Comment(s): pt states heart disease runs in the family <Juan C Auguste - Last Filed: 10/08/19 17:15> General Exam Limitations: no limitations General appearance: alert, in no apparent distress Head exam: Present: atraumatic, normocephalic, normal inspection Eye exam: Present: normal appearance, PERRL, EOMI. Absent: scleral icterus, conjunctival injection, periorbital swelling ENT exam: Present: normal exam, mucous membranes moist Neck exam: Present: normal inspection, full ROM. Absent: tenderness, meningismus, lymphadenopathy Respiratory exam: Present: normal lung sounds bilaterally. Absent: respiratory distress, wheezes, rales, rhonchi, stridor Cardiovascular Exam: Present: regular rate, normal rhythm, normal heart sounds. Absent: systolic murmur, diastolic murmur, rubs, gallop, clicks GI/Abdominal exam: Present: soft, normal bowel sounds. Absent: distended, tenderness, guarding, rebound, rigid Psychiatric exam: Present: depressed (Tearful) <Juan C Auguste - Last Filed: 10/08/19 17:15> Course Vital Signs 10/08/19 10/08/19 09:23 12:41 Temperature 98.4 F Pulse Rate 103 H 81 Respiratory 18 16 Rate Blood Pressure 171/103 133/76 O2 Sat by Pulse 98 99 Oximetry Medical Decision Making <Juan C Auguste - Last Filed: 10/08/19 17:15> <Tiffanie Calzada - Last Filed: 10/13/19 01:06> - Medical Decision Making Patient was evaluated by EPS, currently recommending outpatient treatment. They have appointment set up with [facility] and access has been contacted. I reevaluated patient and she is not having any thoughts of harming herself. She is in much better. She appears upbeat. She is in agreement with treatment plan. She is also agreeable to returning if symptoms worsen. (Juan C Auguste) I was available for consultation in the emergency department. The history and physical exam were done by the midlevel provider. I was consulted for this patients care. I reviewed the case with the midlevel provider and based on their presentation of the patient, I agree with the assessment, medical decision making and plan of care as documented. Chart was dictated using [employer] dictation software. Attempts were made to correct any dictation errors however some typographical errors may persist. (Tiffanie Calzada) - Lab Data Lab Results 10/08/19 Range/Units 10:48 Urine Opiates Screen Not Detected (NotDetected) Ur Oxycodone Screen Not Detected (NotDetected) Urine Methadone Screen Not Detected (NotDetected) Ur Propoxyphene Screen Not Detected (NotDetected) Ur Barbiturates Screen Not Detected (NotDetected) U Tricyclic Antidepress Not Detected (NotDetected) Ur Phencyclidine Scrn Not Detected (NotDetected) Ur Amphetamines Screen Not Detected (NotDetected) U Methamphetamines Scrn Not Detected (NotDetected) U Benzodiazepines Scrn Not Detected (NotDetected) Urine Cocaine Screen Not Detected (NotDetected) U Marijuana (THC) Screen Detected H (NotDetected) Disposition Is patient prescribed a controlled substance at d/c from ED?: No Time of Disposition: 12:35 <Juan C Auguste - Last Filed: 10/08/19 17:15> <Tiffanie Calzada - Last Filed: 10/13/19 01:06> Clinical Impression: Depression Disposition: HOME SELF-CARE Condition: Good Instructions (If sedation given, give patient instructions): Depression (ED) Additional Instructions: Please follow up with access tonight. If you have any worsening symptoms return to the emergency department. Referrals: Kirsty Neal MD [Primary Care Provider] - 1-2 days
[2019-10-08 11:26] LABS: Amphetamine Screen,Urine Not Detected (NotDetected); Barbiturate Screen,Urine Not Detected (NotDetected); Benzodiazepines Screen,Urine Not Detected (NotDetected); Cocaine Screen,Urine Not Detected (NotDetected); Methadone Screen, Urine Not Detected (NotDetected); Opiate Screen,Urine Not Detected (NotDetected); Oxycodone Screen, Urine Not Detected (NotDetected); Phencyclidine Screen,Urine Not Detected (NotDetected); Tricyclic Antidepressant,Urine Not Detected (NotDetected); Urn Cannabinoid Scrn Detected (NotDetected)
[2019-10-08 12:42] VITALS: BP 133/76; PULSE 81; RESP 16
== END 2019-10-08 12:42 | disposition home or self-care (01) ==
LOC: EC 09:21
DX: F32.9 Major depressive disorder, single episode, unspecified (principal); F17.200 Nicotine dependence, unspecified, uncomplicated
CPT/HCPCS: 80306; 82075; 99284

== ENCOUNTER 2019-10-12 16:20 | Emergency (ER) | payer OTHER ==
--- NOTE | 2019-10-12 16:44 | ED ---
General Adult HPI - General Source: patient, RN notes reviewed, old records reviewed Mode of arrival: ambulatory Limitations: no limitations <Justice Petty - Last Filed: 10/12/19 16:41> <Tiffanie Calzada - Last Filed: 10/12/19 21:05> - General Chief complaint: Psychiatric Symptoms Stated complaint: Mental Health Time Seen by Provider: 10/12/19 16:28 - History of Present Illness Initial comments: 59-year-old female presents for mental health evaluation. This is patient's repeat visit she was here several days ago with similar complaints of increased depression and suicidal thoughts. She states that she's had worsening depression for some time and has been thinking of hurting herself. She is currently homeless and does not have a place to stay. She denies any specific suicide attempt. She does not have an exact plan. She denies any self-harm. She has no physical complaints. (Justice Petty) - Related Data Home Medications Medication Instructions Recorded Confirmed No Known Home Medications 10/08/19 10/08/19 Allergies Allergy/AdvReac Type Severity Reaction Status Date / Time No Known Allergies Allergy Verified 10/12/19 16:22 Review of Systems ROS Other: All systems not noted in ROS Statement are negative. <Justice Petty - Last Filed: 10/12/19 16:41> ROS Other: All systems not noted in ROS Statement are negative. <Tiffanie Calzada - Last Filed: 10/12/19 21:05> ROS Statement: Those systems with pertinent positive or pertinent negative responses have been documented in the HPI. Past Medical History Past Medical History: No Reported History Additional Past Medical History / Comment(s): pt states she had no medical hx History of Any Multi-Drug Resistant Organisms: None Reported Past Surgical History: No Surgical Hx Reported Additional Past Surgical History / Comment(s): pt states she has no sx hx Past Anesthesia/Blood Transfusion Reactions: No Reported Reaction Past Psychological History: Bipolar, Depression Smoking Status: Current every day smoker Past Alcohol Use History: None Reported Past Drug Use History: Marijuana - Past Family History Father Additional Family Medical History / Comment(s): pt states heart dx runs in the family Mother Family Medical History: Diabetes Mellitus Additional Family Medical History / Comment(s): pt states heart disease runs in the family <Justice Petty - Last Filed: 10/12/19 16:41> General Exam Limitations: no limitations General appearance: alert, in no apparent distress Head exam: Present: atraumatic, normocephalic Eye exam: Present: normal appearance, PERRL, EOMI ENT exam: Present: normal exam Neck exam: Present: normal inspection. Absent: tenderness, meningismus Respiratory exam: Present: normal lung sounds bilaterally. Absent: respiratory distress, wheezes, rales Cardiovascular Exam: Present: regular rate, normal rhythm GI/Abdominal exam: Present: soft. Absent: distended, tenderness, guarding Extremities exam: Present: normal inspection, normal capillary refill. Absent: pedal edema Neurological exam: Present: alert, oriented X3, CN II-XII intact. Absent: motor sensory deficit Psychiatric exam: Present: depressed, flat affect, suicidal ideation Skin exam: Present: warm, dry, intact. Absent: cyanosis, diaphoretic <Justice Petty - Last Filed: 10/12/19 16:41> Course <Justice Petty - Last Filed: 10/12/19 16:41> Vital Signs 10/12/19 10/12/19 10/12/19 16:27 17:27 18:17 Respiratory 18 20 20 Rate 10/12/19 18:27 Respiratory 20 Rate - Reevaluation(s) Reevaluation #1: 10/12/19 1700 Patient's care is signed out at shift change to Dr. Calzada awaiting EPS evaluation. (Justice Petty) Medical Decision Making <Tiffanie Calzada - Last Filed: 10/12/19 21:05> - Medical Decision Making The patient was signed out to me. She was evaluated by EPS. The patient states that she is not suicidal. She does live with her daughter states that her statements were due to the fact that they were arguing. She does not want be hospitalized at this time and she is concerned about the current pandemic. She states that she does feel comfortable going home and wants to live. She is able to contract for safety. Denies suicidal or homicidal ideations. Yanna does set her up with [facility]. Patient is to follow up as directed. Return to the emergency room for any new or worsening symptoms. Patient is discharged in stable condition (Tiffanie Calzada) Disposition <Justice Petty - Last Filed: 10/12/19 16:41> Is patient prescribed a controlled substance at d/c from ED?: No Time of Disposition: 18:01 <Tiffanie Calzada - Last Filed: 10/12/19 21:05> Clinical Impression: Depression Disposition: HOME SELF-CARE Condition: Stable Instructions (If sedation given, give patient instructions): Depression (ED) Additional Instructions: Please follow-up with your appointment at [facility]. Return to the emergency room for any new or worsening symptoms Referrals: Kirsty Neal MD [Primary Care Provider] - 1-2 days
[2019-10-12 18:18] VITALS: RESP 20
[2019-10-12 23:16] LABS: Urine Alcohol Negative (Negative); Urine Barbiturate Negative (Negative); Urine Cocaine Negative (Negative); Urine Methadone Negative (Negative); Urine Opiates Negative (Negative); Urine Phencyclidine Negative (Negative)
== END 2019-10-12 18:30 | disposition home or self-care (01) ==
LOC: EC 16:20
DX: F32.9 Major depressive disorder, single episode, unspecified (principal); R45.851 Suicidal ideations; F17.200 Nicotine dependence, unspecified, uncomplicated; Z59.0 Homelessness
CPT/HCPCS: 80306; 99285

== ENCOUNTER 2019-10-26 07:46 | Inpatient (IN) | payer OTHER ==
[2019-10-26] MEDS ORDERED: SODIUM CHLORIDE 0.9% 1,000 ML IV ONE ×2 (07:53)
[2019-10-26 08:02] LABS: Glucose,Whole Blood 203 mg/dL (75-99)
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
[2019-10-26 08:27] LABS: Basophils % (A) 0 %; Eosinophils # (A) 0.1 k/uL (0-0.7); Eosinophils % (A) 0 %; Lymphocytes # (A) 4.4 k/uL (1.0-4.8); Lymphocytes % (A) 21 %; MCH 30.9 pg (25.0-35.0); MCHC 31.6 g/dL (31.0-37.0); MCV 98.1 fL (80.0-100.0); Mean Platelet Volume 8.3; Monocytes # (A) 0.7 k/uL (0-1.0); Monocytes % (A) 3 %; Neutrophils # (A) 15.8 k/uL (1.3-7.7); Neutrophils % (A) 74 %; Platelet Count 380 k/uL (150-450); RBC 5.81 m/uL (3.80-5.40); RDW 13.2 % (11.5-15.5); WBC 21.5 k/uL (3.8-10.6)
[2019-10-26 08:38] LABS: HCT 56.9 % (34.0-46.0)
[2019-10-26 08:48] LABS: Appearance,Urine Turbid (Clear); Bacteria,Urine Many /hpf; Bilirubin,Urine Negative (Negative); Blood,Urine Small (Negative); Color,Urine Yellow; Glucose,Urine (UA) Negative (Negative); Ketones,Urine Negative (Negative); Leukocyte Esterase,Urine Small (Negative); Mucus,Urine Moderate /hpf; Nitrite,Urine Negative (Negative); PH, Urine 5.5 (5.0-8.0); Protein,Urine 1+ (Negative); RBC,Urine 8 /hpf (0-5); Specific Gravity,Urine 1.025 (1.001-1.035); Squamous Epithelial Cell,Urine 10 /hpf (0-4); Urobilinogen,Urine <2.0 mg/dL (<2.0); WBC,Urine 37 /hpf (0-5)
[2019-10-26 08:51] LABS: Amphetamine Screen,Urine Not Detected (NotDetected); Barbiturate Screen,Urine Not Detected (NotDetected); Benzodiazepines Screen,Urine Not Detected (NotDetected); Cocaine Screen,Urine Not Detected (NotDetected); Methadone Screen, Urine Not Detected (NotDetected); Opiate Screen,Urine Not Detected (NotDetected); Oxycodone Screen, Urine Not Detected (NotDetected); Phencyclidine Screen,Urine Detected (NotDetected); Tricyclic Antidepressant,Urine Not Detected (NotDetected); Urn Cannabinoid Scrn Detected (NotDetected)
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
--- NOTE | 2019-10-26 09:00 | XR ---
EXAMINATION TYPE: XR chest 1V portable DATE OF EXAM: 10/26/2019 COMPARISON: 02/24/2017 HISTORY: Altered mental status TECHNIQUE: Single frontal view of the chest is obtained. FINDINGS: Patchy right infrahilar airspace disease is seen. Remainder the lungs are well aerated. Ca rdiomediastinal silhouette is mildly enlarged although may be exaggerated due to portable technique. No acute osseous process seen. IMPRESSION: Right basilar patchy opacity could represent pulmonary edema, atelectasis or pneumonia. Cardiomediastinal silhouette is relatively enlarged in comparison to the prior however this could rel ate to portable technique.
[2019-10-26] MEDS ORDERED: cefTRIAXone IN SWFI 1,000 MG/10 ML SYRINGE IVP STA (09:38)
[2019-10-26 09:43] LABS: INR 0.9 (<1.2)
[2019-10-26 09:45] LABS: Partial Thromboplastin Time 21.4 sec (22.0-30.0); Prothrombin Time 9.7 sec (9.0-12.0)
[2019-10-26] MEDS: SODIUM CHLORIDE 0.9% 1,000 ML IV SCH ×2 (09:55→20:54)
[2019-10-26 10:08] LABS: ALT 17 U/L (4-34); Acetaminophen <10.0 ug/mL; African American GFR (CKD) 70 (>60 ml/min/1.73 sqM); Albumin 3.5 g/dL (3.5-5.0); Alcohol <10 mg/dL; Anion Gap 10 mmol/L; Blood Urea Nitrogen 19 mg/dL (7-17); Calcium 8.2 mg/dL (8.4-10.2); Carbon Dioxide 19 mmol/L (22-30); Chloride 109 mmol/L (98-107); Creatine Kinase 502 U/L (30-135); Glucose 176 mg/dL (74-99); Non-African American GFR(CKD) 61 (>60 ml/min/1.73 sqM); Salicylate <1.0 mg/dL; Sodium 138 mmol/L (137-145); Total Bilirubin 0.3 mg/dL (0.2-1.3); Total Protein 6.4 g/dL (6.3-8.2)
[2019-10-26 10:12] LABS: AST 31 U/L (14-36); Alkaline Phosphatase 86 U/L (38-126); Potassium 4.1 mmol/L (3.5-5.1)
[2019-10-26] MEDS ORDERED: NALOXONE 0.4 MG/ML 1 ML VIAL IV PRN (10:44)
[2019-10-26] MEDS ORDERED: PNEUMOCOCCAL VACC-PNEUMOVAX 23 25 MCG/0.5 ML VIAL IM ONE (11:35)
[2019-10-26 12:16] LABS: Glucose,Whole Blood 84 mg/dL (75-99)
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
[2019-10-26 13:30] VITALS: BMI 46.9
--- NOTE | 2019-10-26 14:01 | P.CN ---
Psychiatric Consult - . Consult date: 10/26/19 Consult:: 10/26/19 13:50 IDENTIFYING DATA: This patient is a 59-year-old female who is currently homeless has 1 kid and is single and currently unemployed. HISTORY OF PRESENT ILLNESS: The patient presented to the hospital today via EMS after patient was found minimally responsive in the river. Patient was noted to not be completely submerged into the river at the time she was found. Patient did not have any signs of trauma and was initially uncooperative and guarded during questioning. Patient's creatinine kinase was elevated at 502 her white cell count was elevated at 25 and ANC elevated at 15.8. Patient's CT of her head and neck did not show any hemorrhages or any fractures that were significant. Patient was noted by nurse to be guarded and constricted in her affect. Patient was seen at the bedside with a sitter and appeared to have a depressed affect. She was able to speak with chief underwriter however was fairly guarded and evasive about the events that occurred. She states that she has been seen in the ER several times for depression and suicidal ideations however states that she has not followed up with [facility] and also has not been taking her medications at home. She states that she was recently kicked out of her home for "stealing medications and possibly money" and states that she was not allowed back and was feeling overwhelmed and worthless along with feeling depressed. She claimed that she "wished I never was born" and spoke about "hatred towards everybody". She admitted to anhedonia and guilt. She claimed that she had nowhere to go. She admitted to it being a suicide attempt to drown herself however patient did not elaborate how it happened. She also did speak of overdosing on Tegretol. She admitted to poor sleep and poor appetite. At this time patient denies any homical ideations, intent or plan however did state that she has continuing suicidal ideations however no specific plan to hurt herself in the hospital. Patient denies any visual hallucinations and denies any paranoia or delusions patient did admit to hearing voices however could not describe them. Patients admits to using cigarettes and marijuana in her UDS was positive for PCP however patient declined using this at this time. PAST PSYCHIATRIC HISTORY: She has a history of Bipolar depression. She has been seen several times in the ER for suicidal ideations and impressions and patient has not followed up with [facility] for her appointments. Patient was previously on Celexa 40 mg daily and Trileptal 3 mg twice a day. Patient admitted to 2 times in the past cutting herself in a suicide attempt. She denies any outpatient psychiatric follow-up. PAST MEDICAL HISTORY: denies. ALLERGIES: as per EMR. CHEMICAL DEPENDENCY HISTORY: as per HPI. FAMILY PSYCHIATRIC/SUBSTANCE USE HISTORY: denies SOCIAL HISTORY: She states that she was born and raised in [facility] and moved to [place] and lived there for 28 years and recently moved back to [place]. She claims that she is now homeless and has 1 kid and is single. She completed college in [place] and worked in [employer]. MENTAL STATUS EXAM: General Appearance: Patient appears to be stated age is obese, alert, guarded/evasive. Patient appears to have poor hygiene and grooming wearing hospital gown with poor eye contact. Behavior: Patient is calmly lying in bed without any agitated behavior. Evasive/guarded. Speech: Patient's speech is fluent and nonpressured. Mood/Affect: Patient reports their mood is "depressed and hopeless", affect is congruent and constricted. Suicidality/Homicidality: Patient denies having any suicidal or homicidal ideation intent or plan. Perceptions: Patient denies any visual hallucinations and admits to auditory hallucinations hearing voices however cannot describe them. Though content/process: [place], guarded/evasive. No delusions or preoccupations. Depressive content. Memory and concentration: AOX3, grossly intact for the purposes of this session. Can spell "WORLD" backwards Judgment and insight: poor/impulsive. IMPRESSIONS: Bipolar disorder, currently depressed Cannabis use disorder Nicotine dependence. PLAN: -At this time patient DOES meet criteria for inpatient psychiatric admission. -Would recommend the following medication changes/additions: Will hold off on psychiatric medications at this time this patient claims that she overdosed on Tegretol. -Continue 1:1 sitter for safety -Cannot leave AMA at this time. Patient will need a petition and certification if attempting to leave AMA. -When medically stable, patient is eligible for transfer to a psych bed when available. Patient's white count and electrolytes should be stabilized within the next 24-48 hours and patient should have stable vital signs before being transferred to mental health unit. -Psychiatry will sign off at this point, please contact with any questions.
[2019-10-26] MEDS ORDERED: OXcarbazepine 300 MG TAB PO SCH (21:00)
[2019-10-26] MEDS ORDERED: MELATONIN 3 MG TABLET PO SCH (21:00)
[2019-10-26 22:38] VITALS: RESP 16
[2019-10-27] MEDS: SODIUM CHLORIDE 0.9% 1,000 ML IV SCH (04:17)
[2019-10-27 05:29] VITALS: PULSE 53
[2019-10-27 08:15] LABS: African American GFR (CKD) >90 (>60 ml/min/1.73 sqM); Anion Gap 6 mmol/L; Blood Urea Nitrogen 11 mg/dL (7-17); Calcium 8.4 mg/dL (8.4-10.2); Carbon Dioxide 22 mmol/L (22-30); Chloride 107 mmol/L (98-107); Glucose 134 mg/dL (74-99); Non-African American GFR(CKD) 84 (>60 ml/min/1.73 sqM); Potassium 4.4 mmol/L (3.5-5.1); Sodium 135 mmol/L (137-145)
[2019-10-27 08:38] LABS: HCT 44.6 % (34.0-46.0); MCH 30.7 pg (25.0-35.0); MCHC 32.9 g/dL (31.0-37.0); MCV 93.3 fL (80.0-100.0); Mean Platelet Volume 7.5; Platelet Count 285 k/uL (150-450); RBC 4.78 m/uL (3.80-5.40); RDW 13.4 % (11.5-15.5)
[2019-10-27] MEDS ORDERED: CITALOPRAM HYDROBROMIDE 20 MG TAB PO SCH (09:00)
[2019-10-27 09:03] LABS: HGB 14.7 gm/dL (11.4-16.0)
[2019-10-27] MEDS ORDERED: NICOTINE 14MG/24HR PATCH TRANSDERM SCH (12:15)
[2019-10-27 12:17] VITALS: BP 142/80; TEMP 97.5
--- NOTE | 2019-10-27 12:30 | P.DS ---
Providers Date of admission: 10/26/19 10:44 Expected date of discharge: 10/27/19 Attending physician: Zita Richards Consults: 10/26/19 10:44 Consult Physician Urgent Consulting Provider: Mundo Ochoa Consult Reason/Comments: acute suicide attempt Do you want consulting provider notified?: Already Contacted Primary care physician: [facility] Course: Final diagnosis -Hyperlipidemia, leukocytosis: Secondary to some anticoagulation in [place] no evidence of infection at this time -Lactic acidosis secondary to decreased organ perfusion secondary to hypothermia -Leukocytosis secondary to hypovolemia -Depression and suicidal ideation -anion gap metabolic acidosis secondary to lactic acidosis -Marijuana and other drug abuse -DVT prophylaxis Discharge disposition Patient is being transferred in a stable condition to inpatient psychiatric facility here in [facility]. It is recommended for repeat labs tomorrow. Total time taken is 35 minutes. History of present illness This is a 59-year-old female who was recently found unresponsive and found in the river with admission to suicidal attempt and was being closely monitored. Patient sitter at the bedside at all times. Patient was seen and evaluated by psychiatry recommending inpatient psychiatric admission once stabilized. Patient's repeat labs today continue to improve and recommend repeat labs in the morning to monitor white blood count. Scripts were provided. Currently no reports of chest pain, worsening shortness of breath, or palpitations. Patient states she has intermittent shortness of breath because she smokes about a pack of cigarettes a day. Nicotine patch was provided as well. No reports of nausea or vomiting and patient is tolerating diet. Currently patient's condition is stable and medically clear for inpatient psychiatric transfer today. On exam vital signs are stable. Temp is 97.5F, pulse is 53, respirations are 16, blood pressure is 142/80, oxygen saturation is 95% on room air. Cardio S1, S2 are present. Respiratory sounds clear to auscultation. Abdomen is soft and nontender. Nervous system shows no focal deficits. Please refer to medication reconciliation sheet for a list of medications. Patient Condition at Discharge: Stable Plan - Discharge Summary Discharge Rx Participant: No New Discharge Prescriptions: New Nicotine 14Mg/24Hr Patch [Habitrol] 1 patch TRANSDERM DAILY patch Melatonin 3 mg PO HS tablet Continue Citalopram Hydrobromide [CeleXA] 40 mg PO DAILY Discontinued OXcarbazepine [Trileptal] 300 mg PO BID Discharge Medication List Citalopram Hydrobromide [CeleXA] 40 mg PO DAILY 10/26/19 [History] Melatonin 3 mg PO HS tablet 10/27/19 [Rx] Nicotine 14Mg/24Hr Patch [Habitrol] 1 patch TRANSDERM DAILY patch 10/27/19 [Rx] Follow up Appointment(s)/Referral(s): Kirsty Neal MD [Primary Care Provider] - 1-2 days Ambulatory/Diagnostic Orders: Basic Metabolic Panel [LAB.AMB] Time Frame: 1 Day, Location: None Selected Complete Blood Count w/diff [LAB.AMB] Time Frame: 1 Day, Location: None Selected Activity/Diet/Wound Care/Special Instructions: Patient going to inpatient psychiatric unit Continue with regular diet Repeat labs in one day Discharge Disposition: TRANSFER TO PSYCH HOSP/UNIT
--- NOTE | 2019-10-27 14:14 | P.GSCN ---
History of Present Illness History of present illness: This is a pleasant 59-year-old female past medical history significant for bipolar depression, previous suicide attempts, chronic nicotine and marijuana dependence. She was brought to the emergency department yesterday morning via EMS after being found unresponsive in the river. According to the ER documentation she was not completely submerged and there was an unknown amount of time she was in the river. She was minimally responsive upon arrival. Core temperature was 91.2F. Bear hugger was applied and she was initially sent to the intensive care unit. She is seen and examined today sitting up eating lunch in no acute distress. Oral temperature this morning was 98.2F blood pressure 114/68 heart rate 53. She denies symptoms of chest pain, shortness of breath, dizziness, nausea, vomiting or headache. She has no outward signs of injury. Laboratory data reviewed WBC on admission 21.5, repeat today 13, hemoglobin 18 on admission repeat today 14.7, platelets 285, sodium 135, potassium 4.4, creatinine 0.79, lactic acid on admission 8.1 repeat today 1.3, CK 502. REVIEW OF SYSTEMS At the time of my exam: CONSTITUTIONAL: Denies fever or chills. CARDIOVASCULAR: Denies chest pain, shortness of breath, orthopnea, PND or palpitations. RESPIRATORY: Denies cough. GASTROINTESTINAL: Denies abdominal pain, diarrhea, constipation, nausea or vomiting. MUSCULOSKELETAL: Denies myalgias. NEUROLOGIC: Denies numbness, tingling or weakness. ENDOCRINE: Denies fatigue, weight change, polydipsia or polyurina. GENITOURINARY: Denies burning, hematuria or urgency with micturation. HEMATOLOGIC: Denies history of anemia or bleeding. PHYSICAL EXAMINATION CONSTITUTIONAL: No apparent distress. HEENT: Head is normocephalic. Pupils are equal, round. Sclerae anicteric. Mucous membranes of the mouth are moist. No JVD. No carotid bruit. ABDOMEN: Soft, nontender. Positive bowel sounds. EXTREMITIES: 2+ peripheral pulses, no lower extremity edema and no calf tenderness. NEUROLOGIC EXAMINATION: Patient is awake, alert and oriented x3. ASSESSMENT Hypothermia, improved Leukocytosis, improved Lactic acidosis, improved Suicidal ideation status post suicide attempt. Sitter at the bedside. History of bipolar depression PLAN Stable from a surgical/trauma perspective. There are no surgical injuries related to her suicide attempt. No plans for surgical intervention. Stable for discharge to mental health unit. Thank you kindly for this consultation. The above impression and plan of care have been discussed and directed by the signing physician. Carolyn Blum, nurse practitioner, acting as scribe for signing physician. Past Medical History Past Medical History: Cancer, Chest Pain / Angina, GERD/Reflux, Hyperlipidemia, Thyroid Disorder Additional Past Medical History / Comment(s): Hidradenitis suppurativa axillaes, rectal/buttock abscesses, cervical cancer with procedure. History of Any Multi-Drug Resistant Organisms: None Reported Past Surgical History: No Surgical Hx Reported Additional Past Surgical History / Comment(s): I&Ds rectal/buttock abscesses, I&Ds multiple axillae abscesses, procedure to remove cervical cancer. Past Anesthesia/Blood Transfusion Reactions: No Reported Reaction Past Psychological History: Bipolar, Depression Additional Psychological History / Comment(s): Pt states she is homeless and has been moving around and staying with friends and family. She states she is suicidal and that she walked into the river to committ suicide. Smoking Status: Current every day smoker Past Alcohol Use History: None Reported Additional Past Alcohol Use History / Comment(s): Pt started smoking in 1975 and is a half ppd smoker. Past Drug Use History: Marijuana Additional Drug Use History / Comment(s): Pt states she smokes medical marijuana. - Past Family History Father History Unknown: Yes Additional Family Medical History / Comment(s): Father is . Mother Family Medical History: Coronary Artery Disease (CAD), Diabetes Mellitus Additional Family Medical History / Comment(s): Mother is . Medications and Allergies Home Medications Medication Instructions Recorded Confirmed Type Citalopram Hydrobromide [CeleXA] 40 mg PO DAILY 10/26/19 10/26/19 History Melatonin 3 mg PO HS tablet 10/27/19 Rx Nicotine 14Mg/24Hr Patch [Habitrol] 1 patch TRANSDERM DAILY patch 10/27/19 Rx Allergies Allergy/AdvReac Type Severity Reaction Status Date / Time No Known Allergies Allergy Verified 10/26/19 10:32 Surgical - Exam Vital Signs Temp Pulse Resp BP Pulse Ox 91.2 F L 98 30 H 148/122 100 10/26/19 07:47 10/26/19 07:47 10/26/19 07:47 10/26/19 07:47 10/26/19 07:47 Results - Labs 10/27/19 07:46 10/27/19 07:46 Abnormal Lab Results - Last 24 Hours (Table) 10/27/19 10/27/19 Range/Units 07:46 07:46 WBC 13.0 H (3.8-10.6) k/uL Sodium 135 L (137-145) mmol/L Glucose 134 H (74-99) mg/dL Microbiology - Last 24 Hours (Table) 10/26/19 10:04 Blood Culture - Preliminary Blood No Growth after 24 hours 10/26/19 08:13 Urine Culture - Final Urine,Voided Diabetes panel 10/27/19 Range/Units 07:46 Sodium 135 L (137-145) mmol/L Potassium 4.4 (3.5-5.1) mmol/L Chloride 107 (98-107) mmol/L Carbon Dioxide 22 (22-30) mmol/L BUN 11 (7-17) mg/dL Creatinine 0.79 (0.52-1.04) mg/dL Glucose 134 H (74-99) mg/dL Calcium 8.4 (8.4-10.2) mg/dL Calcium panel 10/27/19 Range/Units 07:46 Calcium 8.4 (8.4-10.2) mg/dL Pituitary panel 10/27/19 Range/Units 07:46 Sodium 135 L (137-145) mmol/L Potassium 4.4 (3.5-5.1) mmol/L Chloride 107 (98-107) mmol/L Carbon Dioxide 22 (22-30) mmol/L BUN 11 (7-17) mg/dL Creatinine 0.79 (0.52-1.04) mg/dL Glucose 134 H (74-99) mg/dL Calcium 8.4 (8.4-10.2) mg/dL Adrenal panel 10/27/19 Range/Units 07:46 Sodium 135 L (137-145) mmol/L Potassium 4.4 (3.5-5.1) mmol/L Chloride 107 (98-107) mmol/L Carbon Dioxide 22 (22-30) mmol/L BUN 11 (7-17) mg/dL Creatinine 0.79 (0.52-1.04) mg/dL Glucose 134 H (74-99) mg/dL Calcium 8.4 (8.4-10.2) mg/dL
== END 2019-10-27 17:21 | DRG 923 ==
LOC: EC 07:46 → 2SICU 10:44 → 5NMEDONC 14:48
PROVIDERS: ADMIT Internal Medicine; ATTEND Internal Medicine
DX: T75.1XXA Unspecified effects of drowning and nonfatal submersion, initial encounter (principal); E87.2 Acidosis; F31.30 Bipolar disorder, current episode depressed, mild or moderate severity, unspecified; T68.XXXA Hypothermia, initial encounter; E78.5 Hyperlipidemia, unspecified; E86.1 Hypovolemia; D64.9 Anemia, unspecified; K21.9 Gastro-esophageal reflux disease without esophagitis; E07.9 Disorder of thyroid, unspecified; F12.10 Cannabis abuse, uncomplicated; F17.210 Nicotine dependence, cigarettes, uncomplicated; Z71.6 Tobacco abuse counseling; X71.9XXA Intentional self-harm by drowning and submersion, unspecified, initial encounter; Z79.899 Other long term (current) drug therapy; Z71.51 Drug abuse counseling and surveillance of drug abuser; Z85.41 Personal history of malignant neoplasm of cervix uteri; Z59.0 Homelessness; Z98.890 Other specified postprocedural states; Z91.5 Personal history of self-harm; Z82.49 Family history of ischemic heart disease and other diseases of the circulatory system; Z83.3 Family history of diabetes mellitus
CPT/HCPCS: 36415; 70450; 71045; 72125; 80048; 80053; 80306; 80320; 80329; 81001; 82550; 83520; 83605; 85025; 85027; 85610; 85730; 87040; 87086; 90732; 96360; 96361; 96374; 99285

== ENCOUNTER 2019-10-27 17:30 | Inpatient (IN) | payer MEDICAID ==
[2019-10-27] MEDS ORDERED: MAGNESIUM HYDROXIDE 2,400 MG/10 ML CUP PO PRN (17:40)
[2019-10-27] MEDS ORDERED: MAG HYDROX/AL HYDROX/SIMETH 30 ML CUP PO PRN (17:40)
[2019-10-27] MEDS ORDERED: LORazepam 1 MG TAB PO PRN (17:40)
[2019-10-27] MEDS: MELATONIN 3 MG TABLET PO SCH (22:00)
[2019-10-27 23:16] LABS: Cholesterol 167 mg/dL (<200); HDL Cholesterol 44 mg/dL (40-60); LDL Cholesterol,Calculated 91 mg/dL (0-99); Triglycerides 162 mg/dL (<150)
[2019-10-28] MEDS: ACETAMINOPHEN TAB 325 MG TAB PO PRN (00:51)
[2019-10-28] MEDS: CITALOPRAM HYDROBROMIDE 20 MG TAB PO SCH (08:49)
[2019-10-28] MEDS: NICOTINE 14MG/24HR PATCH TRANSDERM SCH (08:49)
--- NOTE | 2019-10-28 11:24 | P.HP ---
Psychiatric H&P - . History & Physical: IDENTIFYING DATA: This patient is a 59-year-old female who is currentl y homeless has 1 kid and is single and currently unemployed. HISTORY OF PRESENT ILLNESS: The patient presented to the hospital today via EMS after patient was found minimally responsive in the river. Patient was noted to not be completely submerged into the river at the time she was found. Patient did not have any signs of trauma and was initially uncooperative and guarded during questioning. Patient's creatinine kinase was elevated at 502 her white cell count was elevated at 25 and ANC elevated at 15.8. Patient's CT of her head and neck did not show any hemorrhages or any fractures that were significant. She states that she has been seen in the ER several times for depression and suicidal ideations however states that she has not followed up with [facility] and also has not been taking her medications at home. She states that she was recently kicked out of her home for "stealing medications and possibly money" and states that she was not allowed back and was feeling overwhelmed and worthless along with feeling depressed. She claimed that she "wished I never was born" and spoke about "hatred towards everybody". She admitted to anhedonia and guilt. She claimed that she had nowhere to go. She admitted to it being a suicide attempt to drown herself however patient did not elaborate how it happened. She also did speak of overdosing on Tegretol. She admitted to poor sleep and poor appetite. At this time patient denies any homicidal ideations, intent or plan however did state that she has continuing suicidal ideations however no specific plan to hurt herself in the hospital. Patient denies any visual hallucinations and denies any paranoia or delusions patient did admit to hearing voices however could not describe them. Patients admits to using cigarettes and marijuana in her UDS was positive for PCP however patient declined using this at this time. PAST PSYCHIATRIC HISTORY: She has a history of Bipolar depression. She has been seen several times in the ER for suicidal ideations and impressions and patient has not followed up with [facility] for her appointments. Patient was previously on Celexa 40 mg daily and Trileptal 3 mg twice a day. Patient admitted to 2 times in the past cutting herself in a suicide attempt. She denies any outpatient psychiatric follow-up. PAST MEDICAL HISTORY: denies. ALLERGIES: as per EMR. CHEMICAL DEPENDENCY HISTORY: Patients admits to using cigarettes and marijuana in her UDS was positive for PCP however patient declined using this at this time. FAMILY PSYCHIATRIC/SUBSTANCE USE HISTORY: denies SOCIAL HISTORY: She states that she was born and raised in [facility] and moved to [place] and lived there for 28 years and recently moved back to [place]. She claims that she is now homeless and has 1 kid and is single. 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 MENTAL STATUS EXAM: General Appearance: Patient appears to be stated age is obese, alert, guarded/evasive. Patient appears to have poor hygiene and grooming wearing hospital gown with poor eye contact. Behavior: Patient is sitting comfortably without any agitated behavior. Evasive/guarded. Speech: Patient's speech is fluent and nonpressured. Mood/Affect: Patient reports their mood is "depressed", affect is congruent and constricted. Suicidality/Homicidality: Patient denies having any suicidal or homicidal ideation intent or plan. Perceptions: Patient denies any visual hallucinations and admits to auditory hallucinations hearing voices however cannot describe them. Though content/process: [place], guarded/evasive. No delusions or preoccupations. Depressive content. Memory and concentration: AOX3, grossly intact for the purposes of this session. Judgment and insight: poor/impulsive. Allergies Allergy/AdvReac Type Severity Reaction Status Date / Time No Known Allergies Allergy Verified 10/27/19 21:20 Vital Signs Temp 98.2 F 10/28/19 06:32 Pulse 72 10/28/19 06:32 Resp 16 10/28/19 06:32 BP 163/94 10/28/19 06:32 Pulse Ox 93 L 10/28/19 06:32 Intake & Output 10/27/19 10/28/19 10/28/19 18:59 06:59 18:59 Weight 106.8 kg Laboratory Last Values Triglycerides 162 mg/dL (<150) H 10/27/19 07:46 Cholesterol 167 mg/dL (<200) 10/27/19 07:46 LDL Cholesterol, Calc 91 mg/dL (0-99) 10/27/19 07:46 HDL Cholesterol 44 mg/dL (40-60) 10/27/19 07:46 10/28/19 10:52 Assessment and Plan Assessment: IMPRESSIONS: Bipolar disorder, currently depressed Cannabis use disorder Nicotine dependence. Plan: PLAN: PLAN: Admit to the mental health unit. Placed on suicidal precautions and 15 minute checks for safety. Consults internal medicine team for history and physical and management of medical problems. Provide the patient individual, group therapy, substance use disorder counseling to give better insight and learn coping skills. Medications: Continue Celexa 40 mg by mouth daily. Decrease Ativan to 1 mg by mouth daily at bedtime. Start Trileptal 300 mg by mouth twice a day. Adjust medications and monitor closely for the patient's symptoms getting worse and /or possible side effects on medications. Discharge patient to OUTPATIENT services upon a stabilization Expected LOS: 3-5 days
[2019-10-28] MEDS ORDERED: LORazepam 1 MG TAB PO PRN (11:27)
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
[2019-10-28] MEDS: risperiDONE 0.5 MG TAB PO SCH ×2 (11:58→21:10)
[2019-10-28 13:41] LABS: Hemoglobin A1C 5.8 % (4.0-6.0)
[2019-10-28] MEDS: OXcarbazepine 150 MG TAB PO SCH (21:10)
[2019-10-28] MEDS: MELATONIN 3 MG TABLET PO SCH (21:10)
[2019-10-29] MEDS: NICOTINE 14MG/24HR PATCH TRANSDERM SCH (08:43)
[2019-10-29] MEDS: risperiDONE 0.5 MG TAB PO SCH ×2 (08:43→21:27)
[2019-10-29] MEDS: CITALOPRAM HYDROBROMIDE 20 MG TAB PO SCH (08:44)
[2019-10-29] MEDS: OXcarbazepine 150 MG TAB PO SCH (08:44)
[2019-10-29] MEDS ORDERED: LORazepam 0.5 MG TAB PO PRN (11:57)
--- NOTE | 2019-10-29 11:59 | P.PN ---
Subjective Progress Note Date: 10/29/19 Chief complaint: "I still feel tired and confused" Subjective: The patient has been seen today as follow-up, chart reviewed, case discussed with the treatment team. Patient has been going to selected groups and other unit activities. Patient reports poor appetite. She reports improved sleep last night. The patient denies any auditory or visual hallucinations. Also the patient denies any paranoid ideation. The patient denies any suicidal or homicidal ideations. The patient is compliant with his medications and denies any adverse reactions. Objective - Vital Signs Vital signs: Vital Signs Temp 97.9 F 10/29/19 06:18 Pulse 84 10/29/19 06:18 Resp 16 10/29/19 06:18 BP 144/88 10/29/19 06:18 Pulse Ox 96 10/28/19 19:31 - Exam Mental Status Exam: General Appearance: Patient appears to be stated age is alert, directable. fPatient has fair eye contact. Behavior: Patient is seated without any agitated behavior. Appears to be anxious Speech: Patient's speech is goal-directed and nonpressured. Slow and soft tone. Mood/Affect: Patient reports their mood/anxiety is depressed, affect is congruent Suicidality/Homicidality: Patient reports having suicidal ideation. Perceptions: Patient reports auditory hallucinations. Though content/process: Paranoia Memory and concentration: AOX3, grossly intact for the purposes of this session. Judgment and insight: Limited Assessment and Plan Assessment: IMPRESSIONS: Bipolar disorder, currently depressed Cannabis use disorder Nicotine dependence. Plan: PLAN: PLAN: Admit to the mental health unit. Placed on suicidal precautions and 15 minute checks for safety. Consults internal medicine team for history and physical and management of medical problems. Provide the patient individual, group therapy, substance use disorder counseling to give better insight and learn coping skills. Medications: Continue Celexa 40 mg by mouth daily. Decrease Ativan to 0.5 mg by mouth daily at bedtime. Increase Trileptal 300 mg by mouth twice a day. Adjust medications and monitor closely for the patient's symptoms getting worse and /or possible side effects on medications. Discharge patient to OUTPATIENT services upon a stabilization Expected LOS: 3-5 days
[2019-10-29] MEDS: MELATONIN 3 MG TABLET PO SCH (21:27)
[2019-10-29] MEDS: OXcarbazepine 300 MG TAB PO SCH (21:27)
[2019-10-30] MEDS: NICOTINE 14MG/24HR PATCH TRANSDERM SCH (08:54)
[2019-10-30] MEDS: risperiDONE 0.5 MG TAB PO SCH ×2 (08:54→21:17)
[2019-10-30] MEDS: OXcarbazepine 300 MG TAB PO SCH ×2 (08:54→21:17)
[2019-10-30] MEDS: CITALOPRAM HYDROBROMIDE 20 MG TAB PO SCH (08:54)
--- NOTE | 2019-10-30 12:21 | P.PN ---
Subjective Progress Note Date: 10/30/19 Chief complaint: "I feel the same as yesterday" Subjective: The patient has been seen today as follow-up, chart reviewed, case discussed with the treatment team. The patient continues to report feeling depressed and complains of having racing thoughts. The patient remained withdrawn and isolative on the unit. Patient has been going to selected groups and other unit activities. Patient reports poor appetite but reports some improvement in sleep last night. The patient denies any auditory or visual hallucinations. Also the patient denies any paranoid ideation but appears preoccupied. The patient denies any suicidal or homicidal ideations. The patient is compliant with his medications and denies any adverse reactions. Objective - Vital Signs Vital signs: Vital Signs Temp 98.2 F 10/30/19 12:00 Pulse 62 10/30/19 06:10 Resp 16 10/30/19 06:10 BP 135/74 10/30/19 06:10 Pulse Ox 98 10/30/19 06:10 - Exam Mental Status Exam: General Appearance: Patient appears to be stated age is alert, directable. fPatient has fair eye contact. Behavior: Patient is seated without any agitated behavior. Appears to be anxious Speech: Patient's speech is goal-directed and nonpressured. Slow and soft tone. Mood/Affect: Patient reports their mood/anxiety is depressed, affect is congruent Suicidality/Homicidality: Patient reports having suicidal ideation. Perceptions: Patient reports auditory hallucinations. Though content/process: Paranoia Memory and concentration: AOX3, grossly intact for the purposes of this session. Judgment and insight: Limited Assessment and Plan Assessment: IMPRESSIONS: Bipolar disorder, currently depressed Cannabis use disorder Nicotine dependence. Plan: PLAN: PLAN: Admit to the mental health unit. Placed on suicidal precautions and 15 minute checks for safety. Consults internal medicine team for history and physical and management of med ical problems. Provide the patient individual, group therapy, substance use disorder counseling to give better insight and learn coping skills. Medications: Continue Celexa 40 mg by mouth daily. Discontinue Ativan. Start Abilify 2 mg PO qam and plan to titrate up the dose if tolerated. Continue Trileptal 300 mg by mouth twice a day. Adjust medications and monitor closely for the patient's symptoms getting worse and /or possible side effects on medications. Discharge patient to OUTPATIENT services upon a stabilization Expected LOS: 3-5 days
[2019-10-30] MEDS: MELATONIN 3 MG TABLET PO SCH (21:17)
[2019-10-31] MEDS: NICOTINE 14MG/24HR PATCH TRANSDERM SCH (08:23)
[2019-10-31] MEDS: OXcarbazepine 300 MG TAB PO SCH ×2 (08:23→21:10)
[2019-10-31] MEDS: CITALOPRAM HYDROBROMIDE 20 MG TAB PO SCH (08:23)
[2019-10-31] MEDS: risperiDONE 0.5 MG TAB PO SCH (08:24)
--- NOTE | 2019-10-31 10:07 | P.PN ---
Progress Note - Text Progress Note Date: 10/31/19 Interval history: Patient was seen laying down in her bed and was directable and agreeable to s peak with junior underwriter. Patient appeared to be lethargic and mildly confused this morning. Patient was oriented 3. She spoke more about her suicide attempt and states that she wanted to "end my life". She understood the reasons why she is in the hospital and states that she is continuing to have some suicidal ideations. She claims that she is feeling depressed still. She did not endorse any delusions or any paranoia at this time. She states that she had trouble sleeping last night and feels tired this morning. At this time patient denies any homicidal ideations intent or plan. Denies any Auditory or visual hallucinations. Patient denies any side effects from the medications and has been compliant with meds. Mental status exam: General Appearance: Patient appears to be overweight, stated age is alert, directable, and appears to be lethargic. Poor hygiene and grooming. Behavior: No agitated behavior. Patient is calm and directable Speech: Patient's speech is fluent and nonpressured. Mood/Affect: Mood is depressed, affect is congruent and constricted Suicidality/Homicidality: Patient denies having any suicidal or homicidal ideation intent or plan. Perceptions: Patient denies any auditory or visual hallucinations. Though content/process: There is no evidence of any delusional thought content and thought process is linear and goal-directed. Poverty of content. Memory and concentration: AOX3, grossly intact for the purposes of this session Judgment and insight: improving mildly Assessment/Plan: Continue with current diagnosis. Patient continues to meet criteria for inpatient psychiatric admission for symptom stabilization and safety.Patient will be maintained on current psychotropic medication regimen with the exception of changing Risperdal by mouth to 2mg daily at bedtime to help with sleep and mood stabilization. Monitor for medication compliance and for any psychotropic medication side effects. Will continue to monitor ongoing response to treatment. Encouraged participation in milieu.
[2019-10-31] MEDS: MELATONIN 3 MG TABLET PO SCH (21:09)
[2019-10-31] MEDS: risperiDONE 2 MG TAB PO SCH (21:10)
[2019-11-01] MEDS: NICOTINE 14MG/24HR PATCH TRANSDERM SCH (08:46)
[2019-11-01] MEDS: CITALOPRAM HYDROBROMIDE 20 MG TAB PO SCH (08:46)
[2019-11-01] MEDS: OXcarbazepine 300 MG TAB PO SCH ×2 (08:47→20:23)
--- NOTE | 2019-11-01 09:38 | P.PN ---
Progress Note - Text Progress Note Date: 11/01/19 Interval history: Patient was seen laying down in her bed this morning was directable to speak to the telegraphic typewriter operator chief. Patient continues to appear lethargic and have poor hygiene and grooming. She states that she is continuing to feel "about the same depression". She claims that she went to 2 groups yesterday however was not finding them helpful. She is continuing to have some suicidal ideations which are fleeting however states that she has no intent or plan in the hospital. She did not endorse any delusions or any paranoia at this time. She stated that she slept better last night. At this time patient denies any homicidal ideations intent or plan. Denies any Auditory or visual hallucinations. Patient denies any side effects from the medications and has been compliant with meds. Mental status exam: General Appearance: Patient appears to be overweight, stated age is alert, directable, and appears to be lethargic. Poor hygiene and grooming. Behavior: No agitated behavior. Patient is calm and directable Speech: Patient's speech is fluent and nonpressured. Mood/Affect: Mood is depressed, affect is congruent and constricted Suicidality/Homicidality: Patient denies having any homicidal ideation intent or plan. Admits to fleeting thoughts of suicide no intent or plan. Perceptions: Patient denies any auditory or visual hallucinations. Though content/process: There is no evidence of any delusional thought content and thought process is linear and goal-directed. Poverty of content. Memory and concentration: AOX3, grossly intact for the purposes of this session Judgment and insight: improving mildly Assessment/Plan: Continue with current diagnosis. Patient continues to meet criteria for inpatient psychiatric admission for symptom stabilization and safety.Patient will be maintained on current psychotropic medication regimen. Monitor for medication compliance and for any psychotropic medication side effects. Will continue to monitor ongoing response to treatment. Encouraged participation in milieu.
[2019-11-01] MEDS: MELATONIN 3 MG TABLET PO SCH (20:23)
[2019-11-01] MEDS: risperiDONE 2 MG TAB PO SCH (20:23)
[2019-11-02] MEDS: OXcarbazepine 300 MG TAB PO SCH ×2 (08:41→21:21)
[2019-11-02] MEDS: NICOTINE 14MG/24HR PATCH TRANSDERM SCH (08:41)
[2019-11-02] MEDS: CITALOPRAM HYDROBROMIDE 20 MG TAB PO SCH (08:41)
--- NOTE | 2019-11-02 13:26 | P.PN ---
Subjective Progress Note Date: 11/02/19 Chief complaint: "I feel better today" Subjective: The patient has been seen today as follow-up, chart reviewed, case discussed with the treatment team. The patient reports slow improvement in mood and functioning. She continues to report poor concentration and racing thoughts. The patient remained withdrawn and isolative on the unit. Patient has been going to selected groups and other unit activities. Patient reports improved sleep and appetite. The patient denies any auditory or visual hallucinations. The patient denies any paranoid ideation but appears preoccupied. The patient denies any suicidal or homicidal ideations. The patient is compliant with his medications and denies any adverse reactions. Objective - Vital Signs Vital signs: Vital Signs Temp 97.3 F L 11/02/19 12:00 Pulse 57 L 11/02/19 06:48 Resp 16 11/02/19 06:48 BP 112/85 11/02/19 06:48 Pulse Ox 96 10/31/19 08:00 Intake & Output 11/01/19 11/02/19 11/02/19 18:59 06:59 18:59 Weight 103.6 kg - Exam Mental Status Exam: General Appearance: Patient appears to be stated age is alert, directable. fPatient has fair eye contact. Behavior: Patient is seated without any agitated behavior. Appears to be anxious Speech: Patient's speech is goal-directed and nonpressured. Slow and soft tone. Mood/Affect: Patient reports their mood/anxiety is improving, affect is congrue nt Suicidality/Homicidality: Patient reports having suicidal ideation. Perceptions: Patient denies any auditory or visual hallucinations. Though content/process: No thought disorder Memory and concentration: AOX3, grossly intact for the purposes of this session. Judgment and insight: Limited Assessment and Plan Assessment: IMPRESSIONS: Bipolar disorder, currently depressed Cannabis use disorder Nicotine dependence. Plan: PLAN: PLAN: Admit to the mental health unit. Placed on suicidal precautions and 15 minute checks for safety. Consults internal medicine team for history and physical and management of medical problems. Provide the patient individual, group therapy, substance use disorder counseling to give better insight and learn coping skills. Medications: Continue Celexa 40 mg by mouth daily. Continue Risperdal 2 mg by mouth daily at bedtime Continue Trileptal 300 mg by mouth twice a day. Adjust medications and monitor closely for the patient's symptoms getting worse and /or possible side effects on medications. Will initiate discharge planning Discharge patient to OUTPATIENT services upon a stabilization. Expected LOS: 3-5 days
[2019-11-02] MEDS: risperiDONE 2 MG TAB PO SCH (21:21)
[2019-11-02] MEDS: MELATONIN 3 MG TABLET PO SCH (21:21)
[2019-11-03] MEDS: NICOTINE 14MG/24HR PATCH TRANSDERM SCH (08:14)
[2019-11-03] MEDS: OXcarbazepine 300 MG TAB PO SCH ×2 (08:15→21:43)
[2019-11-03] MEDS: CITALOPRAM HYDROBROMIDE 20 MG TAB PO SCH (08:15)
[2019-11-03] MEDS: ACETAMINOPHEN TAB 325 MG TAB PO PRN (11:46)
--- NOTE | 2019-11-03 12:43 | P.PN ---
Subjective Progress Note Date: 11/03/19 Chief complaint: "I feel tired" Subjective: The patient has been seen today as follow-up, chart reviewed, case discussed with the treatment team. The patient reports feeling tired and exhausted. She reports lack of energy and motivation. She continues to report poor concentration and racing thoughts. The patient remained withdrawn and isolative on the unit. Patient has been going to selected groups and other unit activities. Patient reports improved sleep and appetite. The patient denies any auditory or visual hallucinations. The patient denies any paranoid ideation but appears preoccupied. The patient denies any suicidal or homicidal ideations. The patient is compliant with his medications and denies any adverse reactions. Objective - Vital Signs Vital signs: Vital Signs Temp 98.8 F 11/03/19 12:24 Pulse 63 11/03/19 06:45 Resp 16 11/03/19 06:45 BP 148/90 11/03/19 06:45 Pulse Ox 97 11/03/19 06:45 - Exam Mental Status Exam: General Appearance: Patient appears to be stated age is alert, directable. fPatient has fair eye contact. Behavior: Patient is seated without any agitated behavior. Speech: Patient's speech is goal-directed and nonpressured. Slow and soft tone. Mood/Affect: Patient reports their mood/anxiety is improving, affect is congruent Suicidality/Homicidality: Patient denies any active suicidal or homicidal ideations at this time. Perceptions: Patient denies any auditory or visual hallucinations. Though content/process: No thought disorder Memory and concentration: AOX3, grossly intact for the purposes of this session. Judgment and insight: Limited Assessment and Plan Assessment: IMPRESSIONS: Bipolar disorder, currently depressed Cannabis use disorder Nicotine dependence. Plan: PLAN: Continue inpatient care. Provide the patient individual, group therapy, substance use disorder counseling to give better insight and learn coping skills. Medications: Continue Celexa 40 mg by mouth daily. Continue Risperdal 2 mg by mouth daily at bedtime Continue Trileptal 300 mg by mouth twice a day. Adjust medications and monitor closely for the patient's symptoms getting worse and /or possible side effects on medications. Will initiate discharge planning Discharge patient to OUTPATIENT services upon a stabilization. Expected LOS: 3-5 days
[2019-11-03] MEDS: risperiDONE 2 MG TAB PO SCH (21:43)
[2019-11-03] MEDS: MELATONIN 3 MG TABLET PO SCH (21:43)
[2019-11-04] MEDS: NICOTINE 14MG/24HR PATCH TRANSDERM SCH (09:02)
[2019-11-04] MEDS: OXcarbazepine 300 MG TAB PO SCH ×2 (09:03→20:59)
[2019-11-04] MEDS: CITALOPRAM HYDROBROMIDE 20 MG TAB PO SCH (09:03)
--- NOTE | 2019-11-04 14:46 | P.PN ---
Subjective Progress Note Date: 11/04/19 Chief complaint: "I feel better" Subjective: The patient has been seen today as follow-up, chart reviewed, case discussed with the treatment team. The patient reports feeling a little better. She reports improvement in her mood but continues to report periods of anxiety. The patient reports improved sleep and fair appetite. She reports improvement in energy and motivation and has been less withdrawn. Patient has been going to selected groups and other unit activities. The patient denies any auditory or visual hallucinations but reports weak paranoid ideations about people trying to avoid her. The patient denies any suicidal or homicidal ideations. The patient tried to leave another message for her daughter who has not been returning her phone calls. The transition social worker is working on placement. The patient is compliant with his medications and denies any adverse reactions. Objective - Vital Signs Vital signs: Vital Signs Temp 97.5 F L 11/04/19 06:41 Pulse 88 11/04/19 09:03 Resp 16 11/04/19 06:41 BP 121/57 11/04/19 09:03 Pulse Ox 97 11/03/19 06:45 - Exam Mental Status Exam: General Appearance: Patient appears to be stated age is alert, directable. Patient has fair eye contact. Behavior: Patient is seated without any agitated behavior. Speech: Patient's speech is goal-directed and nonpressured. Slow and soft tone. Mood/Affect: Patient reports their mood/anxiety is improving, affect is congruent Suicidality/Homicidality: Patient denies any active suicidal or homicidal ideations at this time. Perceptions: Patient denies any auditory or visual hallucinations. Though content/process: Patient reports vague paranoid ideations about people trying to avoid her. Memory and concentration: AOX3, grossly intact for the purposes of this session. Judgment and insight: Limited Assessment and Plan Assessment: IMPRESSIONS: Bipolar disorder, currently depressed Cannabis use disorder Nicotine dependence. Plan: PLAN: Continue inpatient care. Provide the patient individual, group therapy, substance use disorder counseling to give better insight and learn coping skills. Medications: Continue Celexa 40 mg by mouth daily. Continue Risperdal 2 mg by mouth daily at bedtime Continue Trileptal 300 mg by mouth twice a day. Adjust medications and monitor closely for the patient's symptoms getting worse and /or possible side effects on medications. Will initiate discharge planning Discharge plans in progress. The daughter has not returned the phone calls. The transition social worker is looking for placement. Discharge patient to OUTPATIENT services upon a stabilization. Expected LOS: 3-5 days
[2019-11-04] MEDS: MELATONIN 3 MG TABLET PO SCH (20:59)
[2019-11-04] MEDS: risperiDONE 2 MG TAB PO SCH (21:00)
[2019-11-05] MEDS: NICOTINE 14MG/24HR PATCH TRANSDERM SCH (08:10)
[2019-11-05] MEDS: CITALOPRAM HYDROBROMIDE 20 MG TAB PO SCH (08:10)
[2019-11-05] MEDS: OXcarbazepine 300 MG TAB PO SCH ×2 (08:11→20:54)
--- NOTE | 2019-11-05 11:41 | P.PN ---
Subjective Progress Note Date: 11/05/19 The patient seen in the chart was reviewed. The patient complained of feeling increasingly depressed and anxious. She reports feeling worried about having [place] The patient complained of poor sleep last night. She reports fair appetite. The patient reports having crying spells and was tearful during the session. She denies any auditory or visual hallucinations. She denies any active suicidal or homicidal ideations at this time. The patient has been compliant with the medications and denies any side effects on them. Objective - Vital Signs Vital signs: Vital Signs Temp 97.8 F 11/05/19 06:36 Pulse 83 11/05/19 08:13 Resp 17 11/05/19 06:36 BP 113/66 11/05/19 06:36 Pulse Ox 95 11/05/19 08:13 Intake & Output 11/04/19 11/05/19 11/05/19 18:59 06:59 18:59 Weight 103.6 kg - Exam Mental Status Exam: General Appearance: Patient appears to be stated age is alert, directable. Patient has fair eye contact. She was tearful during this session. Behavior: Patient is seated without any agitated behavior. Speech: Patient's speech is goal-directed and nonpressured. Slow and soft tone. Mood/Affect: Patient reports their mood/anxiety is "not good", affect is congruent Suicidality/Homicidality: Patient denies any active suicidal or homicidal ideations at this time. Perceptions: Patient denies any auditory or visual hallucinations. Though content/process: Patient reports vague paranoid ideations about people trying to avoid her. Memory and concentration: AOX3, grossly intact for the purposes of this session. Judgment and insight: Limited Assessment and Plan Assessment: IMPRESSIONS: Bipolar disorder, currently depressed Cannabis use disorder Nicotine dependence. Plan: PLAN: Continue inpatient care. Provide the patient individual, group therapy, substance use disorder counseling to give better insight and learn coping skills. Medications: Continue Celexa 40 mg by mouth daily. Continue Risperdal 2 mg by mouth daily at bedtime Continue Trileptal 300 mg by mouth twice a day. Adjust medications and monitor closely for the patient's symptoms getting worse and /or possible side effects on medications. Will initiate discharge planning Discharge plans in progress. The daughter has not returned the phone calls. The professor of social work is looking for placement. Discharge patient to OUTPATIENT services upon a stabilization. Expected LOS: 3-5 days
[2019-11-05] MEDS: MELATONIN 3 MG TABLET PO SCH (20:55)
[2019-11-05] MEDS: risperiDONE 2 MG TAB PO SCH (20:55)
[2019-11-06] MEDS: NICOTINE 14MG/24HR PATCH TRANSDERM SCH (08:01)
[2019-11-06] MEDS: CITALOPRAM HYDROBROMIDE 20 MG TAB PO SCH (08:01)
[2019-11-06] MEDS: OXcarbazepine 300 MG TAB PO SCH ×2 (08:01→20:41)
--- NOTE | 2019-11-06 12:09 | P.PN ---
Subjective Progress Note Date: 11/06/19 The patient seen in the chart was reviewed. The patient reports feeling depressed but reports a little improvement in her depression and anxiety. She continues to report feelings of hopelessness and helplessness. The patient reports good sleep and appetite. The patient reports having lesser crying spel ls. She remains withdrawn and isolative on the unit and does not attend milieu therapy. She denies any auditory or visual hallucinations. She denies any active suicidal or homicidal ideations at this time. The patient has been compliant with the medications and denies any side effects on them. Objective - Vital Signs Vital signs: Vital Signs Temp 97.9 F 11/06/19 06:15 Pulse 51 L 11/06/19 06:15 Resp 15 11/06/19 06:15 BP 126/60 11/06/19 06:15 Pulse Ox 95 11/05/19 08:13 - Exam Mental Status Exam: General Appearance: Patient appears to be stated age is alert, directable. Patient has fair eye contact. Behavior: Patient is seated without any agitated behavior. Speech: Patient's speech is goal-directed and nonpressured. Slow and soft tone. Mood/Affect: Patient reports their mood/anxiety is "not good", affect is congruent Suicidality/Homicidality: Patient denies any active suicidal or homicidal ideations at this time. Perceptions: Patient denies any auditory or visual hallucinations. Though content/process: Patient reports vague paranoid ideations about people trying to avoid her. Memory and concentration: AOX3, grossly intact for the purposes of this session. Judgment and insight: Limited Assessment and Plan Assessment: IMPRESSIONS: Bipolar disorder, currently depressed Cannabis use disorder Nicotine dependence. Plan: PLAN: Continue inpatient care. Provide the patient individual, group therapy, substance use disorder counseling to give better insight and learn coping skills. Medications: Continue Celexa 40 mg by mouth daily. Continue Risperdal 2 mg by mouth daily at bedtime Continue Trileptal 300 mg by mouth twice a day. Adjust medications and monitor closely for the patient's symptoms getting worse and /or possible side effects on medications. Will initiate discharge planning Discharge plans in progress. The daughter has not returned the phone calls. The social services counselor is looking for placement. Discharge patient to OUTPATIENT services upon a stabilization. Expected LOS: 3-5 days
[2019-11-06] MEDS: risperiDONE 2 MG TAB PO SCH (20:42)
[2019-11-06] MEDS: MELATONIN 3 MG TABLET PO SCH (20:42)
[2019-11-07] MEDS: OXcarbazepine 300 MG TAB PO SCH ×2 (08:19→20:57)
[2019-11-07] MEDS: NICOTINE 14MG/24HR PATCH TRANSDERM SCH (08:19)
[2019-11-07] MEDS: CITALOPRAM HYDROBROMIDE 20 MG TAB PO SCH (08:19)
[2019-11-07] MEDS: risperiDONE 2 MG TAB PO SCH ×2 (15:06→20:58)
--- NOTE | 2019-11-07 18:17 | PN ---
PROGRESS NOTE DATE OF SERVICE: 11/07/2019. CHIEF COMPLAINT: [place]. She had been kicked out of her home. She has poor self-esteem. INTERVAL HISTORY: Patient continues to have significant problems with mood and functions. She generally does not attend groups. It is noted that she made a comment today that she does not feel she is worth taking up other people's time in groups. She was reporting some improvement in mood yesterday, though today I did not get a sense that she felt that there was much change since coming into the hospital. She continues to have a poor outlook. She notes that she spends a lot of time in her room and just will sleep. She does not interact much with others. She was able to acknowledge that poor self-esteem issues go back to much of her life and were clearly present in her growing up. She reports no problems with her psychotropic medications. MENTAL STATUS: Patient sat with some restlessness. Eye contact was fair at best. She answered questions with brief responses. Her thoughts were clear and coherent. She did not say a lot. She was not spontaneous or interactive. Her affect was flat. Her mood depressed. She was significantly distressed. There was no outward evidence of thought disorder. Cognition was clear. ASSESSMENT: I will continue the current diagnosis and treatment plan. I had an extensive discussion with the patient regarding medication issues. Given that she is on 40 mg of Celexa, there would not be any further dose increase. There might be consideration for starting an alternative antidepressant if she does not show response. I discussed that Respirdal she is on may help reduce physiologic stress response relating to some of the stress issue she has been experiencing including the situation of her being kicked out of her home and homeless. Also, her very significant negative self issue may reflect some degree of thought disorder. As such, I will increase her Risperdal to 2 mg twice a day. She will continue Celexa 40 mg a day and Trileptal 300 mg twice a day. I strongly encouraged the patient to attend groups and that the goal could be for her just to be in group and not to feel she needed to share anything. I discussed her getting into some therapeutic walking to help reduce some of her anxiety complaints. We will continue to focus on stabilization and discharge planning. MMODL / IJN: [id number] /
[2019-11-07] MEDS: MELATONIN 3 MG TABLET PO SCH (20:57)
[2019-11-08] MEDS: CITALOPRAM HYDROBROMIDE 20 MG TAB PO SCH (09:49)
[2019-11-08] MEDS: NICOTINE 14MG/24HR PATCH TRANSDERM SCH (09:49)
[2019-11-08] MEDS: OXcarbazepine 300 MG TAB PO SCH ×2 (09:50→20:56)
[2019-11-08] MEDS: risperiDONE 2 MG TAB PO SCH ×2 (09:50→20:56)
--- NOTE | 2019-11-08 16:06 | PN ---
PROGRESS NOTE DATE OF SERVICE: 11/08/2019. CHIEF COMPLAINT: The patient [place] the [place] minimally responsive in a suicide attempt. She had been kicked out of her home. She has poor self-esteem. INTERVAL HISTORY: The patient has been doing fair. She had a quiet evening last night. The patient tends to keep to herself. She will spend a fair amount of time in her room. It is noteworthy that she attended two groups yesterday afternoon. In one of the groups, she made the comment that she did not want to engage in the group process because it made her nervous. On the other hand, it seemed to be a plus that she actually came to the group. She slept fairly well last night. Today she again has spent a fair amount of time in her room. She so far has been reluctant to go to groups. She did not really identify any immediate concerns or issues, though she does not communicate much about her thoughts or feelings. She appears to tolerate her psychotropic medications. MENTAL STATUS: Patient gave fair eye contact at best. Psychomotor activity was slowed. Speech was monotone. She did not say much. She gave brief answers. Her affect was flat. Her mood depressed. She seemed moderately distressed. It was difficult to assess thought disorder. She did not voice thoughts of harm to self or others. Cognition was clear. ASSESSMENT: I will continue the current diagnosis and treatment plan. The patient continues to show difficulty in making progress regarding mood as well as her own self-esteem. She tolerates psychotropic medications which will be continued the same. I encouraged the patient to continue to make efforts to get involved in groups. We will focus on stabilization and discharge planning. OSBALDO / LOU: [id number] /
[2019-11-08] MEDS: MELATONIN 3 MG TABLET PO SCH (20:56)
[2019-11-09] MEDS: OXcarbazepine 300 MG TAB PO SCH ×2 (08:59→20:51)
[2019-11-09] MEDS: CITALOPRAM HYDROBROMIDE 20 MG TAB PO SCH (08:59)
[2019-11-09] MEDS: NICOTINE 14MG/24HR PATCH TRANSDERM SCH (08:59)
[2019-11-09] MEDS: risperiDONE 2 MG TAB PO SCH ×2 (08:59→20:51)
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
[2019-11-09] MEDS: MELATONIN 3 MG TABLET PO SCH (20:51)
[2019-11-10] MEDS: risperiDONE 2 MG TAB PO SCH (08:57)
[2019-11-10] MEDS: OXcarbazepine 300 MG TAB PO SCH (08:57)
[2019-11-10] MEDS: NICOTINE 14MG/24HR PATCH TRANSDERM SCH (08:57)
[2019-11-10] MEDS: CITALOPRAM HYDROBROMIDE 20 MG TAB PO SCH (08:58)
[2019-11-10] MEDS: OXcarbazepine 150 MG TAB PO SCH ×2 (10:43→21:03)
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
[2019-11-10] MEDS: LITHIUM CARBONATE 300 MG CAP PO SCH (21:02)
[2019-11-10] MEDS: risperiDONE 1 MG TAB PO SCH (21:03)
[2019-11-10] MEDS: MELATONIN 3 MG TABLET PO SCH (21:03)
[2019-11-11] MEDS: risperiDONE 1 MG TAB PO SCH ×2 (09:03→21:02)
[2019-11-11] MEDS: LITHIUM CARBONATE 300 MG CAP PO SCH ×2 (09:03→21:02)
[2019-11-11] MEDS: NICOTINE 14MG/24HR PATCH TRANSDERM SCH (09:03)
[2019-11-11] MEDS: OXcarbazepine 150 MG TAB PO SCH ×2 (09:03→21:02)
[2019-11-11] MEDS: CITALOPRAM HYDROBROMIDE 20 MG TAB PO SCH (09:03)
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
[2019-11-11] MEDS: MELATONIN 3 MG TABLET PO SCH (21:02)
[2019-11-12] MEDS: risperiDONE 1 MG TAB PO SCH ×2 (08:14→20:48)
[2019-11-12] MEDS: OXcarbazepine 150 MG TAB PO SCH ×2 (08:14→20:48)
[2019-11-12] MEDS: LITHIUM CARBONATE 300 MG CAP PO SCH ×2 (08:14→20:48)
[2019-11-12] MEDS: CITALOPRAM HYDROBROMIDE 20 MG TAB PO SCH (08:14)
[2019-11-12] MEDS: NICOTINE 14MG/24HR PATCH TRANSDERM SCH (08:14)
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
[2019-11-12] MEDS: MELATONIN 3 MG TABLET PO SCH (20:48)
[2019-11-13] MEDS: LITHIUM CARBONATE 300 MG CAP PO SCH ×2 (08:17→21:02)
[2019-11-13] MEDS: NICOTINE 14MG/24HR PATCH TRANSDERM SCH (08:17)
[2019-11-13] MEDS: OXcarbazepine 150 MG TAB PO SCH ×2 (08:17→21:03)
[2019-11-13] MEDS: CITALOPRAM HYDROBROMIDE 20 MG TAB PO SCH (08:17)
[2019-11-13] MEDS: risperiDONE 1 MG TAB PO SCH ×2 (08:18→21:03)
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
[2019-11-13] MEDS: MELATONIN 3 MG TABLET PO SCH (21:02)
[2019-11-14] MEDS: NICOTINE 14MG/24HR PATCH TRANSDERM SCH (08:46)
[2019-11-14] MEDS: LITHIUM CARBONATE 300 MG CAP PO SCH ×2 (08:46→20:42)
--- NOTE | 2019-11-14 12:42 | P.PN ---
Progress Note - Text Interval history: The patient is found in the [facility] she follows me to an interview room. She reports that her mood is okay. She describes the circumstances precipitating this admission. She states that she attempted suicide by going into the [place]. She states that her suicidal thoughts are gone but she is worried about where she is going once discharged. She indicates that she was staying with her daughter until her daughter asked her to leave and she has nowhere else to go. The patient states that she has been unable to reach her daughter via phone. We discussed the lithium the patient has no questions. She reports that she has been eating but she has more gas since using the lithium. She describes no other side effect. She has been attempting to attend groups. Mental status exam: The patient is a female appearing her stated age she is dressed in her own clothing eye contact is appropriate speech is fluent and spontaneous nonpressured. She maintains a constricted to bland affect. She reports that her mood is better than when she came in. She is reporting no suicidal ideation intent or plan. She does express concern repetitively regarding her disposition upon discharge. She reports no homicidal ideation intent or plan. She is reporting no auditory or visual hallucinations or any specific delusions there is no observed evidence of psychosis. She demonstrates no tangential thinking loose associations or flight of ideas. She demonstrates no verbal or physical aggressiveness. She demonstrates no repetitive involuntary movements. With outstretched arms there is a very fine tremor noted of her fingers. She is not sure if that was present prior to use of lithium. Insight and judgment improving. Plan: The patient will continue on her current psychotropic medication, the lithium level drawn in the morning. We will continue to monitor her for safety. She is encouraged to participate in the milieu. Vital signs reviewed.
[2019-11-14] MEDS: MELATONIN 3 MG TABLET PO SCH (20:42)
[2019-11-15] MEDS: LITHIUM CARBONATE 300 MG CAP PO SCH ×2 (08:55→20:39)
[2019-11-15] MEDS: NICOTINE 14MG/24HR PATCH TRANSDERM SCH (08:55)
--- NOTE | 2019-11-15 11:44 | P.PN ---
Progress Note - Text Interval history: The patient is found in the [facility] she follows me to an interview room. She reports that her mood is depressed. She continues to report hopelessness thinking. She feels that suicidal thoughts are absent at this time. She states that on a scale of 0-10 with 0 being the worst and 10 the best she is a 6. She states it was a 0 when she was admitted. She indicates her appetite is stable she indicates she slept last night she states that she has not showered since she's been here stating she has no energy or motivation to do so. She states "I know I'm not meeting my needs". Mental status exam: The patient is a female appearing her stated age she is dressed in her own clothing. She is mildly disheveled hygiene is impaired. Eye contact is appropriate speech is fluent nonspontaneous she provides answers to questions. She indicates her mood is still depressed she continues to endorse hopelessness thinking. She reports no thoughts of harming others. She is endorsing no auditory or visual hallucinations or any specific delusions. She demonstrates no clear evidence of psychosis. She demonstrates no tangential thinking loose associations or flight of ideas. Insight and judgment limited. Plan: The patient will continue on the lithium as written the lithium level was 0.6 which was drawn this morning. It appears that she may benefit from addition of an antidepressant and the patient will discuss this further with Dr. Yepez tomorrow. We will continue to monitor her for safety she is encouraged to participate fully in the milieu.
[2019-11-15 13:02] VITALS: BMI 39.8
[2019-11-15] MEDS: MELATONIN 3 MG TABLET PO SCH (20:39)
[2019-11-15 22:04] VITALS: RESP 18
[2019-11-15 22:43] VITALS: BP 166/100; PULSE 80
[2019-11-15 22:54] VITALS: TEMP 98.9
== END 2019-11-15 23:41 | disposition short-term general hospital (02) | DRG 885 ==
LOC: 3MHU 17:30
PROVIDERS: ADMIT Psychiatry & Neurology Psychiatry; ATTEND Psychiatry & Neurology Psychiatry
DX: F31.9 Bipolar disorder, unspecified (principal); T75.1XXA Unspecified effects of drowning and nonfatal submersion, initial encounter; L02.31 Cutaneous abscess of buttock; F41.9 Anxiety disorder, unspecified; F60.0 Paranoid personality disorder; L73.2 Hidradenitis suppurativa; E78.5 Hyperlipidemia, unspecified; F12.10 Cannabis abuse, uncomplicated; F17.210 Nicotine dependence, cigarettes, uncomplicated; T42.1X1A Poisoning by iminostilbenes, accidental (unintentional), initial encounter; X71.9XXA Intentional self-harm by drowning and submersion, unspecified, initial encounter; Z56.0 Unemployment, unspecified; L89.320 Pressure ulcer of left buttock, unstageable; Z59.0 Homelessness; Z79.899 Other long term (current) drug therapy; Z82.49 Family history of ischemic heart disease and other diseases of the circulatory system; Z83.3 Family history of diabetes mellitus; Z85.41 Personal history of malignant neoplasm of cervix uteri; Z91.5 Personal history of self-harm; E03.9 Hypothyroidism, unspecified
CPT/HCPCS: 80061; 80178; 83036; 93005

== ENCOUNTER 2019-11-15 23:41 | Inpatient (IN) | payer OTHER ==
[2019-11-16] MEDS: HEPARIN SODIUM,PORCINE 5,000 UNIT/ML 1 ML VIAL SQ SCH ×3 (00:30→22:54)
[2019-11-16 01:48] LABS: Basophils % (A) 0 %; Eosinophils # (A) 0.2 k/uL (0-0.7); Eosinophils % (A) 2 %; HCT 42.8 % (34.0-46.0); HGB 14.1 gm/dL (11.4-16.0); Lymphocytes # (A) 1.7 k/uL (1.0-4.8); Lymphocytes % (A) 17 %; MCH 31.6 pg (25.0-35.0); MCHC 32.9 g/dL (31.0-37.0); MCV 95.9 fL (80.0-100.0); Mean Platelet Volume 7.3; Monocytes # (A) 0.7 k/uL (0-1.0); Monocytes % (A) 7 %; Neutrophils % (A) 71 %; Platelet Count 263 k/uL (150-450); RBC 4.46 m/uL (3.80-5.40); RDW 13.3 % (11.5-15.5); WBC 9.9 k/uL (3.8-10.6)
[2019-11-16 01:55] LABS: ALT 18 U/L (4-34); AST 25 U/L (14-36); African American GFR (CKD) >90 (>60 ml/min/1.73 sqM); Albumin 3.8 g/dL (3.5-5.0); Alkaline Phosphatase 95 U/L (38-126); Anion Gap 9 mmol/L; Blood Urea Nitrogen 13 mg/dL (7-17); Calcium 9.4 mg/dL (8.4-10.2); Carbon Dioxide 23 mmol/L (22-30); Chloride 102 mmol/L (98-107); Glucose 122 mg/dL (74-99); Lithium 0.8 mmol/L; Non-African American GFR(CKD) 88 (>60 ml/min/1.73 sqM); Sodium 134 mmol/L (137-145); Total Bilirubin 0.3 mg/dL (0.2-1.3); Total Protein 6.9 g/dL (6.3-8.2)
[2019-11-16 06:25] LABS: Basophils % (A) 0 %; Eosinophils # (A) 0.2 k/uL (0-0.7); Eosinophils % (A) 2 %; HCT 43.1 % (34.0-46.0); HGB 14.2 gm/dL (11.4-16.0); Lymphocytes # (A) 1.8 k/uL (1.0-4.8); Lymphocytes % (A) 18 %; MCH 31.4 pg (25.0-35.0); MCHC 32.9 g/dL (31.0-37.0); MCV 95.6 fL (80.0-100.0); Mean Platelet Volume 7.4; Monocytes # (A) 0.8 k/uL (0-1.0); Monocytes % (A) 8 %; Neutrophils # (A) 6.8 k/uL (1.3-7.7); Neutrophils % (A) 69 %; Platelet Count 283 k/uL (150-450); RBC 4.51 m/uL (3.80-5.40); RDW 13.2 % (11.5-15.5); WBC 9.9 k/uL (3.8-10.6)
[2019-11-16 06:39] LABS: ALT 17 U/L (4-34); AST 23 U/L (14-36); African American GFR (CKD) >90 (>60 ml/min/1.73 sqM); Albumin 3.7 g/dL (3.5-5.0); Alkaline Phosphatase 102 U/L (38-126); Anion Gap 6 mmol/L; Blood Urea Nitrogen 11 mg/dL (7-17); Calcium 9.3 mg/dL (8.4-10.2); Carbon Dioxide 26 mmol/L (22-30); Chloride 103 mmol/L (98-107); Glucose 91 mg/dL (74-99); Lithium 0.6 mmol/L; Non-African American GFR(CKD) >90 (>60 ml/min/1.73 sqM); Potassium 4.1 mmol/L (3.5-5.1); Sodium 135 mmol/L (137-145); Total Bilirubin 0.2 mg/dL (0.2-1.3); Total Protein 6.7 g/dL (6.3-8.2)
--- NOTE | 2019-11-16 11:23 | P.CRDCN ---
<Nahed James - Last Filed: 11/16/19 09:57> History of Present Illness History of present illness: This is Nahed James PA-C dictating a consult on this patient The patient was interviewed and examined by Dr. Gutierrez HPI Patient is a 59-year-old female with a history of depression and sucidal ideations who was recently started on lithium. Cardiology is consulted for bradycardia. Patient had bradycardia in the 40s and 50s. EKG showed sinus bradycardia. She states she felt dizzy and lightheaded. No syncope. She denies any chest pain or shortness of breath. She denies any history of hypertension, dyslipidemia ROS: No fevers, chills or rigors, no cough, phlegm or expectoration, no nausea, vomiting or diarrhea, no hematuria, dysuria, no musculoskeletal complaints, no strokes or seizures, EXAMINATION: Patient is afebrile, pulse in the 50s, respirations 18, blood pressure 123/85, oxygen saturation 96% on room air Patient seen and examined by Dr. Gutierrez Heart is regular, normal S1-S2, no audible murmurs lungs are clear to auscultation bilaterally, no rhonchi, wheezing or crackles No lower extremity edema No hepatojugular reflux REVIEW OF LABS, ECG & MEDICAL DATA WBC 9.9, hemoglobin 14.2, platelets 283, sodium 135, potassium 4.1, BUN 11, creatinine 0.69, troponins negative IMPRESSION / ASSESSMENT: Symptomatic sinus bradycardia the 40s and 50s, likely secondary to lithium PLAN: discontinue [place] Obtain TSH and lipid panel Obtain 2-D echocardiogram and Doppler studies to assess cardiac structure and function Continue to monitor on telemetry Past Medical History Past Medical History: Cancer, Chest Pain / Angina, GERD/Reflux, Hyperlipidemia, Thyroid Disorder Additional Past Medical History / Comment(s): Hidradenitis suppurativa axillaes, rectal/buttock abscesses, cervical cancer with procedure. History of Any Multi-Drug Resistant Organisms: None Reported Past Surgical History: No Surgical Hx Reported Additional Past Surgical History / Comment(s): I&Ds rectal/buttock abscesses, I&Ds multiple axillae abscesses, procedure to remove cervical cancer. Past Anesthesia/Blood Transfusion Reactions: No Reported Reaction Past Psychological History: Anxiety, Bipolar, Depression Additional Psychological History / Comment(s): Pt states she is homeless and has been moving around and staying with friends and family. She states she is [place] and [place]. Smoking Status: Current every day smoker Past Alcohol Use History: None Reported Additional Past Alcohol Use History / Comment(s): Pt started smoking in 1975 and is a half ppd smoker. Past Drug Use History: Marijuana Additional Drug Use History / Comment(s): Pt states she smokes medical marijuana. - Past Family History Father History Unknown: Yes Additional Family Medical History / Comment(s): pt states heart dx runs in the family Mother Family Medical History: Diabetes Mellitus Additional Family Medical History / Comment(s): pt states heart disease runs in the family Medications and Allergies Home Medications Medication Instructions Recorded Confirmed Type Citalopram Hydrobromide [CeleXA] 40 mg PO DAILY 10/26/19 11/16/19 History Melatonin 3 mg PO HS tablet 10/27/19 11/16/19 Rx Nicotine 14Mg/24Hr Patch [Habitrol] 1 patch TRANSDERM DAILY patch 10/27/19 11/16/19 Rx Allergies Allergy/AdvReac Type Severity Reaction Status Date / Time No Known Allergies Allergy Verified 10/27/19 21:20 Physical Exam Vitals: Vital Signs Temp Pulse Resp BP Pulse Ox 11/16/19 04:00 97.7 F 49 L 18 107/59 96 11/16/19 00:00 97.4 F L 50 L 18 123/85 96 Intake and Output 11/15/19 11/16/19 11/16/19 22:59 06:59 14:59 Output Total 100 Balance -100 Output: Urine 100 Other: Voiding Method Toilet # Voids 1 # Bowel Movements 1 Weight 107.3 kg Results 11/16/19 06:01 11/16/19 06:01 Cardiac Enzymes 11/16/19 11/16/19 11/16/19 Range/Units 01:06 01:06 06:01 AST 25 23 (14-36) U/L Troponin I <0.012 (0.000-0.034) ng/mL 11/16/19 Range/Units 06:01 AST (14-36) U/L Troponin I <0.012 (0.000-0.034) ng/mL CBC 11/16/19 11/16/19 Range/Units 01:06 06:01 WBC 9.9 9.9 (3.8-10.6) k/uL RBC 4.46 4.51 (3.80-5.40) m/uL Hgb 14.1 14.2 (11.4-16.0) gm/dL Hct 42.8 43.1 (34.0-46.0) % Plt Count 263 283 (150-450) k/uL Comprehensive Metabolic Panel 11/16/19 11/16/19 Range/Units 01:06 06:01 Sodium 134 L 135 L (137-145) mmol/L Potassium 4.0 4.1 (3.5-5.1) mmol/L Chloride 102 103 (98-107) mmol/L Carbon Dioxide 23 26 (22-30) mmol/L BUN 13 11 (7-17) mg/dL Creatinine 0.75 0.69 (0.52-1.04) mg/dL Glucose 122 H 91 (74-99) mg/dL Calcium 9.4 9.3 (8.4-10.2) mg/dL AST 25 23 (14-36) U/L ALT 18 17 (4-34) U/L Alkaline Phosphatase 95 102 (38-126) U/L Total Protein 6.9 6.7 (6.3-8.2) g/dL Albumin 3.8 3.7 (3.5-5.0) g/dL Current Medications Generic Name Dose Route Start Last Admin Trade Name Freq PRN Reason Stop Dose Admin Heparin Sodium (Porcine) 5,000 unit 11/16/19 00:15 11/16/19 09:33 Heparin SQ 5,000 unit Q12HR AJ Administration Intake and Output 11/15/19 11/16/19 11/16/19 22:59 06:59 14:59 Output Total 100 Balance -100 Output: Urine 100 Other: Voiding Method Toilet # Voids 1 # Bowel Movements 1 Weight 107.3 kg 11/16/19 06:01 11/16/19 06:01 <Florin Gutierrez - Last Filed: 11/16/19 11:22> History of Present Illness History of present illness: TSH 13 Abnormal lipid panel noted Suggest Treatment of hypothyroidism Continue to hold lithium for now Start atorvastatin 20 mg by mouth daily Physical Exam Vitals: Vital Signs Temp Pulse Resp BP Pulse Ox 11/16/19 08:00 97.4 F L 51 L 18 97/54 94 L 11/16/19 04:00 97.7 F 49 L 18 107/59 96 11/16/19 00:00 97.4 F L 50 L 18 123/85 96 Intake and Output 11/15/19 11/16/19 11/16/19 22:59 06:59 14:59 Output Total 100 Balance -100 Output: Urine 100 Other: Voiding Method Toilet # Voids 1 # Bowel Movements 1 Weight 107.3 kg Results 11/16/19 06:01 11/16/19 06:01 Cardiac Enzymes 11/16/19 11/16/19 11/16/19 Range/Units 01:06 01:06 06:01 AST 25 23 (14-36) U/L Troponin I <0.012 (0.000-0.034) ng/mL 11/16/19 Range/Units 06:01 AST (14-36) U/L Troponin I <0.012 (0.000-0.034) ng/mL Lipids 11/16/19 Range/Units 06:01 Triglycerides 153 H (<150) mg/dL Cholesterol 213 H (<200) mg/dL HDL Cholesterol 44 (40-60) mg/dL CBC 11/16/19 11/16/19 Range/Units 01:06 06:01 WBC 9.9 9.9 (3.8-10.6) k/uL RBC 4.46 4.51 (3.80-5.40) m/uL Hgb 14.1 14.2 (11.4-16.0) gm/dL Hct 42.8 43.1 (34.0-46.0) % Plt Count 263 283 (150-450) k/uL Comprehensive Metabolic Panel 11/16/19 11/16/19 Range/Units 01:06 06:01 Sodium 134 L 135 L (137-145) mmol/L Potassium 4.0 4.1 (3.5-5.1) mmol/L Chloride 102 103 (98-107) mmol/L Carbon Dioxide 23 26 (22-30) mmol/L BUN 13 11 (7-17) mg/dL Creatinine 0.75 0.69 (0.52-1.04) mg/dL Glucose 122 H 91 (74-99) mg/dL Calcium 9.4 9.3 (8.4-10.2) mg/dL AST 25 23 (14-36) U/L ALT 18 17 (4-34) U/L Alkaline Phosphatase 95 102 (38-126) U/L Total Protein 6.9 6.7 (6.3-8.2) g/dL Albumin 3.8 3.7 (3.5-5.0) g/dL Current Medications Generic Name Dose Route Start Last Admin Trade Name Freq PRN Reason Stop Dose Admin Heparin Sodium (Porcine) 5,000 unit 11/16/19 00:15 11/16/19 09:33 Heparin SQ 5,000 unit Q12HR AJ Administration Intake and Output 11/15/19 11/16/19 11/16/19 22:59 06:59 14:59 Output Total 100 Balance -100 Output: Urine 100 Other: Voiding Method Toilet # Voids 1 # Bowel Movements 1 Weight 107.3 kg 11/16/19 06:01 11/16/19 06:01
[2019-11-16 11:28] LABS: T4, Free (Free Thyroxine) 0.8 ng/dL (0.78-2.19)
--- NOTE | 2019-11-16 15:20 | HP ---
HISTORY AND PHYSICAL DATE OF SERVICE: 11/16/2019 CHIEF COMPLAINTS: Bradycardia. HISTORY OF PRESENT ILLNESS: This is a 59-year-old woman with a past medical history of multiple medical problems including history of GERD, history of chest pain, angina, hyperlipidemia, hypothyroidism, history of anxiety, bipolar depression being followed by Dr. Kirsty Neal in the outpatient setting, was admitted to the psych floor for suicidal ideations, but apparently the [place] and the patient is started on lithium and the patient's noted to have bradycardia, the low straight was 37, sinus rhythm was noted. The patient was transferred to telemetry and admitted for evaluation and treatment. Patient's cholesterol, LDL is also elevated. TSH is always elevated up to 13.6, but free T4 is normal. There is no history of fever, rigors, no headache, loss of consciousness, seizures, history of chest pain, palpitations, hematochezia or melena at this time. [place] level of 0.8 and 0.6. PAST MEDICAL HISTORY: History of recent suicidal attempt as mentioned earlier, history of GERD, hyperlipidemia, hypothyroidism, and suppurative anxiety, bipolar depression. MEDICATIONS: Prior to admission the home medications include Habitrol 14 daily, melatonin 3 mg q.h.s., Celexa 40 mg p.o. daily. ALLERGIES: None. FAMILY HISTORY: History of diabetes in the family. SOCIAL HISTORY: History of THC, history of nicotine dependence. REVIEW OF SYSTEMS: ENT: No diminished vision or hearing. CARDIOVASCULAR: No angina or palpitations. RESPIRATORY: As mentioned earlier. GI: No nausea, vomiting, diarrhea. : No dysuria. NERVOUS SYSTEM: No numbness or weakness. ALLERGY/IMMUNOLOGY: No asthma or hay fever. MUSCULOSKELETAL: As mentioned earlier. HEMATOLOGY: No history of anemia. ENDOCRINE: No history of diabetes or hypothyroidism. CONSTITUTIONAL: As mentioned earlier. DERMATOLOGY: Negative. RHEUMATOLOGY: Negative. PSYCHIATRY: As mentioned earlier. PHYSICAL EXAMINATION: Patient is alert, oriented x3. Pulse is 51, blood pressure is 97/54, respiration 18, temperature 97.4, pulse ox 94% on room air. HEENT: Conjunctivae normal. Oral mucosa moist. NECK: No jugular venous distention. No lymph node enlargement. CARDIOVASCULAR SYSTEM: S1, S2, muffled. RESPIRATORY: Breath sounds diminished at the bases, no rhonchi, no crackles. ABDOMEN: Soft, nontender. No mass palpable. LEGS: No edema, no swelling. NERVOUS SYSTEM: Higher functions as mentioned earlier. Moves all 4 limbs. No focal motor deficits. LYMPHATICS: No lymph node enlargement in the neck or axillae. SKIN: No ulcer, no rash and no bleeding. JOINTS: No active deforming arthropathy. LABS: CBC within normal limits, sodium 135, triglycerides 153 and cholesterol 213, LDL is 138, TSH is 13.600. ASSESSMENT: 1. Severe sinus bradycardia, possibly lithium induced. 2. Hyponatremia. 3. Hypercholesteremia. 4. Hypertriglyceridemia. 5. Elevated ESR, normal free T4, possibly sick euthyroid syndrome. 6. History of depression and suicidal attempt recently. 7. History of chest pain angina. 8. History of gastroesophageal reflux disease. 9. Hyperlipidemia. 10.Hypothyroidism. 11.History of hydradenitis suppurative. 12.History of cervical cancer. 13.History of anxiety, bipolar depression. 14.History of nicotine dependence. 15.History of THC. 16.Obesity with body mass index of 40.6. RECOMMENDATION: This is a 59-year-old woman who presented with multiple complex medical issues, will monitor the patient closely. Continue with the current management. I recommend stop the lithium. Resume the home medications. Previous medications. Otherwise monitor closely and once the patient is stable, patient may be transferred back to the inpatient psych floor. The patient also had hyperlipidemia. I would recommend dietary evaluation and possibly address with medication management as outpatient. Once again, the prognosis extremely guarded because of multiple complex medical issues and further recommendations to follow. A copy of this will be forwarded to Dr. Kirsty Neal who is the primary physician. Closely follow with Cardiology, 2 D echo has been pending. MMODL / IJN: [id number] / SAMREEN
[2019-11-16] MEDS: CITALOPRAM HYDROBROMIDE 20 MG TAB PO SCH (18:09)
[2019-11-16] MEDS: NICOTINE 14MG/24HR PATCH TRANSDERM SCH (18:09)
[2019-11-16] MEDS ORDERED: MELATONIN 3 MG TABLET PO SCH (21:00)
[2019-11-17 05:58] LABS: Basophils % (A) 0 %; Eosinophils # (A) 0.2 k/uL (0-0.7); Eosinophils % (A) 2 %; HCT 44.2 % (34.0-46.0); HGB 14.3 gm/dL (11.4-16.0); Lymphocytes # (A) 1.9 k/uL (1.0-4.8); Lymphocytes % (A) 21 %; MCH 31.4 pg (25.0-35.0); MCHC 32.3 g/dL (31.0-37.0); MCV 97.1 fL (80.0-100.0); Mean Platelet Volume 7.4; Monocytes # (A) 0.5 k/uL (0-1.0); Monocytes % (A) 6 %; Neutrophils # (A) 6.1 k/uL (1.3-7.7); Neutrophils % (A) 67 %; Platelet Count 268 k/uL (150-450); RBC 4.55 m/uL (3.80-5.40); RDW 13.2 % (11.5-15.5)
[2019-11-17 06:11] LABS: ALT 17 U/L (4-34); AST 24 U/L (14-36); African American GFR (CKD) >90 (>60 ml/min/1.73 sqM); Albumin 3.5 g/dL (3.5-5.0); Alkaline Phosphatase 82 U/L (38-126); Anion Gap 8 mmol/L; Blood Urea Nitrogen 13 mg/dL (7-17); Calcium 8.9 mg/dL (8.4-10.2); Carbon Dioxide 22 mmol/L (22-30); Chloride 104 mmol/L (98-107); Glucose 104 mg/dL (74-99); Non-African American GFR(CKD) 84 (>60 ml/min/1.73 sqM); Potassium 4.2 mmol/L (3.5-5.1); Sodium 134 mmol/L (137-145); Total Bilirubin 0.3 mg/dL (0.2-1.3); Total Protein 6.6 g/dL (6.3-8.2)
[2019-11-17 08:48] VITALS: RESP 16
--- NOTE | 2019-11-17 08:50 | ECHOF ---
Referral Reason:presyncope MEASUREMENTS -------- HEIGHT: 162.6 cm WEIGHT: 107.0 kg BP: 107/59 RVIDd: 2.7 cm (< 3.3) IVSd: 1.5 cm (0.6 - 1.1) LVIDd: 2.8 cm (3.9 - 5.3) LVPWd: 1.5 cm (0.6 - 1.1) IVSs: 1.7 cm LVIDs: 2.0 cm LVPWs: 1.6 cm LAESV Index (A-L): 23.78 ml/m Ao Diam: 2.6 cm (2.0 - 3.7) AV Cusp: 1.9 cm (1.5 - 2.6) LA Diam: 3.4 cm (2.7 - 3.8) MV EXCURSION: 17.701 mm (> 18.000) MV EF SLOPE: 113 mm/s (70 - 150) EPSS: 0.4 cm MV E Ariel: 0.88 m/s MV DecT: 233 ms MV A Ariel: 0.98 m/s MV E/A Ratio: 0.90 RAP: 5.00 mmHg RVSP: 13.09 mmHg FINDINGS -------- Resting bradycardia (HR<60bpm). This was a technically good study. The left ventricular size is normal. There is moderate concentric left ventricular hypertrophy. O verall left ventricular systolic function is normal with, an EF between 55 - 60 %. The diastolic fi lling pattern is normal for the age of the patient 11.19. The right ventricle is normal in size. The left atrial size is normal. Normal LA size by volume 22+/-6 ml/m2. The right atrial size is normal. The aortic valve is trileaflet and appears structurally normal. The mitral valve is normal. There is trace mitral regurgitation. The tricuspid valve appears structurally normal. Mild tricuspid regurgitation present. Right vent ricular systolic pressure is normal at < 35 mmHg. There is no pulmonic regurgitation present. The aortic root size is normal. Normal inferior vena cava with normal inspiratory collapse consistent with estimated right atrial pre ssure of 5 mmHg. There is no pericardial effusion. CONCLUSIONS -------- 1. Resting bradycardia (HR<60bpm). 2. This was a technically good study. 3. The left ventricular size is normal. 4. There is moderate concentric left ventricular hypertrophy. 5. Overall left ventricular systolic function is normal with, an EF between 55 - 60 %. 6. The diastolic filling pattern is normal for the age of the patient 11.19 7. The right ventricle is normal in size. 8. The left atrial size is normal. 9. Normal LA size by volume 22+/-6 ml/m2. 10. The right atrial size is normal. 11. The aortic valve is trileaflet and appears structurally normal. 12. The mitral valve is normal. 13. There is trace mitral regurgitation. 14. The tricuspid valve appears structurally normal. 15. Right ventricular systolic pressure is normal at < 35 mmHg. 16. There is no pulmonic regurgitation present. 17. The aortic root size is normal. 18. Normal inferior vena cava with normal inspiratory collapse consistent with estimated right atrial pressure of 5 mmHg. 19. There is no pericardial effusion. PERSONNEL ADVISER: Carolyn Richey RDCS
[2019-11-17] MEDS: CITALOPRAM HYDROBROMIDE 20 MG TAB PO SCH (08:55)
[2019-11-17] MEDS: NICOTINE 14MG/24HR PATCH TRANSDERM SCH (08:56)
[2019-11-17] MEDS: HEPARIN SODIUM,PORCINE 5,000 UNIT/ML 1 ML VIAL SQ SCH (08:56)
--- NOTE | 2019-11-17 12:14 | P.DS ---
Providers Date of admission: 11/15/19 23:42 Expected date of discharge: 11/17/19 Attending physician: Missael Mantilla MD Consults: 11/15/19 23:56 Consult Physician Routine Consulting Provider: Demetrio Chawla Consult Reason/Comments: New onset bradycardia Do you want consulting provider notified?: Yes, Notify in am Placement Type Exists?: Yes Primary care physician: Stated None Hospital Course: Final diagnosis Severe sinus bradycardia, possibly lithium induced Hyponatremia Hypercholesteremia Hypertriglyceridemia Elevated ESR, normal free T4, possibly sick euthyroid syndrome History of depression and suicidal attempt recently History of chest pain angina history of gastroesophageal reflux disease Hyperlipidemia Hypothyroidism history of hydradenitis suppurative History of cervical cancer history of anxiety, bipolar depression History of nicotine dependence history of THC Obesity with body mass index of 40.6 Discharge disposition Patient is being transferred back to [facility] psychiatric unit. Total time taken is 35 minutes. History of present illness This is a 59-year-old female who was recently admitted to the inpatient psych floor for suicidal ideations with recent attempt and was initiated on lithium while inpatient. Patient was noted to have bradycardia and transferred to the inpatient cardiology unit for close monitoring and cardiology evaluation. [place] has been discontinued. Patient underwent 2-D echo showing overall left ventricular systolic function is normal with an EF between 55 and 60%. Patient was also found to have hyperlipidemia along with hypertriglyceridemia. Patient will need follow-up with primary care provider Dr. Steele once discharged to monitor cholesterol and thyroid in the outpatient setting. Currently no reports of chest pain, shortness of breath, or palpitations. Patient is afebrile. No reports of nausea or vomiting and patient is tolerating diet. Currently patient's condition is stable and is able to transfer back to psych unit. On exam vital signs are stable. Temp is 97.3F, pulse is 53-56, respirations are 16, blood pressure is 111/68, oxygen saturation is 100% on room air. Cardio S1, S2 are present. Respiratory system shows diminished breath sounds at the bases with no wheezing or rhonchi noted. Abdomen is soft and nontender. Nervous system shows no focal deficits. Please refer to medication reconciliation sheet for a list of medications. Patient Condition at Discharge: Stable Plan - Discharge Summary Discharge Rx Participant: No New Discharge Prescriptions: Continue Citalopram Hydrobromide [CeleXA] 40 mg PO DAILY Nicotine 14Mg/24Hr Patch [Habitrol] 1 patch TRANSDERM DAILY patch Melatonin 3 mg PO HS tablet Discharge Medication List Citalopram Hydrobromide [CeleXA] 40 mg PO DAILY 10/26/19 [History] Melatonin 3 mg PO HS tablet 10/27/19 [Rx] Nicotine 14Mg/24Hr Patch [Habitrol] 1 patch TRANSDERM DAILY patch 10/27/19 [Rx] Activity/Diet/Wound Care/Special Instructions: Patient to return to inpatient psych unit Continue low-cholesterol heart healthy diet Activity as tolerated Continue with inpatient psychiatric eval Discharge Disposition: TRANSFER TO PSYCH HOSP/UNIT Plan of Treatment: Patient to be transferred back to inpatient psychiatric unit after EPS nurse or psychiatry evaluation
[2019-11-17 16:36] VITALS: BP 103/52; PULSE 57; TEMP 98
== END 2019-11-17 17:40 | DRG 309 ==
LOC: 3SCARD 23:42
PROVIDERS: ADMIT Internal Medicine; ATTEND Internal Medicine
DX: R00.1 Bradycardia, unspecified (principal); F31.30 Bipolar disorder, current episode depressed, mild or moderate severity, unspecified; R45.851 Suicidal ideations; E87.1 Hypo-osmolality and hyponatremia; Z68.41 Body mass index [BMI] 40.0-44.9, adult; E78.5 Hyperlipidemia, unspecified; E03.9 Hypothyroidism, unspecified; K21.9 Gastro-esophageal reflux disease without esophagitis; F41.9 Anxiety disorder, unspecified; F17.210 Nicotine dependence, cigarettes, uncomplicated; E78.1 Pure hyperglyceridemia; E07.81 Sick-euthyroid syndrome; L73.2 Hidradenitis suppurativa; E66.9 Obesity, unspecified; F12.90 Cannabis use, unspecified, uncomplicated; T43.595A Adverse effect of other antipsychotics and neuroleptics, initial encounter; Z59.0 Homelessness; Z79.899 Other long term (current) drug therapy; Z85.41 Personal history of malignant neoplasm of cervix uteri; Z98.890 Other specified postprocedural states; Z83.3 Family history of diabetes mellitus
CPT/HCPCS: 80053; 80061; 80178; 84439; 84443; 84484; 85025; 93306

== ENCOUNTER 2019-11-17 16:38 | Inpatient (IN) | payer MEDICAID, OTHER ==
[2019-11-17] MEDS ORDERED: MAG HYDROX/AL HYDROX/SIMETH 30 ML CUP PO PRN (16:49)
[2019-11-17] MEDS ORDERED: MAGNESIUM HYDROXIDE 2,400 MG/10 ML CUP PO PRN (16:49)
[2019-11-17 18:14] VITALS: RESP 16
[2019-11-17] MEDS: MELATONIN 3 MG TABLET PO SCH (21:21)
[2019-11-18] MEDS: CITALOPRAM HYDROBROMIDE 20 MG TAB PO SCH (08:30)
[2019-11-18] MEDS: NICOTINE 14MG/24HR PATCH TRANSDERM SCH (08:30)
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
--- NOTE | 2019-11-18 20:48 | CONS ---
CONSULTATION DATE OF SERVICE: 11/18/2019 REASON FOR CONSULTATION: Advice regarding bradycardia and other medical issues, requested by Psychiatry. HISTORY OF PRESENT ILLNESS: This 59-year-old woman with a past medical history of multiple medical problems, including history of chest pain, history of GERD, hyperlipidemia, history of hypothyroidism, history of hidradenitis suppurative, history of anxiety, bipolar depression, being followed by Dr. Kirsty Neal in the outpatient setting, was admitted for psychiatric evaluation for evaluation of depression without any psychotic features. The patient was started on lithium. Patient developed bradycardia. Patient was subsequently sent to med/surge floor, which was monitored. Cardiology consultation was ordered and cardiac workup was basically negative. The patient was transferred back to the psych floor. The heart rate is 54 and 84 at this time. There is no history of chest pain, no history of palpitations, no history of headache, loss of consciousness, seizures. No history of any diarrhea, fever, rigor or chills at this time. PAST MEDICAL HISTORY: History of chest pain, history of GERD, history of hyperlipidemia, history of hypothyroidism, hidradenitis suppurativa, history of anxiety, bipolar depression. MEDICATIONS PRIOR TO ADMISSION: Her medications prior to admission include: 1. Habitrol 14 daily. 2. Melatonin 3 mg at bedtime. 3. Celexa 40 mg p.o. daily. ALLERGIES: NONE. FAMILY HISTORY: History of diabetes mellitus in the family. SOCIAL HISTORY: History of smoking. History of THC. REVIEW OF SYSTEMS: ENT: No diminished hearing. No diminished vision. CARDIOVASCULAR SYSTEM: No angina, palpitations. RESPIRATORY SYSTEM: No cough, hemoptysis. GI: No nausea, vomiting, diarrhea. : No dysuria or retention. NERVOUS SYSTEM: No numbness, weakness. ALLERGY/IMMUNOLOGY: No asthma, hayfever. MUSCULOSKELETAL: As mentioned earlier. HEMATOLOGY/ONCOLOGY: No history of anemia. ENDOCRINE: No history of diabetes, hypothyroidism. CONSTITUTIONAL: As mentioned earlier. DERMATOLOGY: Negative. RHEUMATOLOGY: Negative. PSYCHIATRY: As mentioned earlier. PHYSICAL EXAMINATION: Patient alert and oriented x3. Pulse 84, blood pressure 108/73, respirations 16, temperature 97.6, pulse ox normal. HEENT: Conjunctivae normal. Oral mucosa moist. NECK: No jugular venous distention. No carotid bruit. No lymph node enlargement. CARDIOVASCULAR SYSTEM: S1, S2 muffled. No S3. No S4. RESPIRATORY SYSTEM: Breath sounds diminished at the bases. No rhonchi. No crackles. ABDOMEN: Soft, non-tender. No mass palpable. LEGS: No edema. No swelling. NERVOUS SYSTEM: Higher functions as mentioned earlier. Cranial nerves 2 through 12 grossly intact. Eye movements are full in all directions. No nystagmus. No diplopia. No facial deviation. Moves all 4 limbs. No signs of cerebellar dysfunction. No motor or power loss. Gait is normal. SKIN: No ulcer, rash, bleeding. JOINTS: No active deforming arthropathy. LYMPHATICS: No lymph node palpable in neck, axillae or groin. LABS: Labs were recently done on medical floor. Hematology is okay, normal. Coags are normal. Sodium is 134, triglycerides 153 and cholesterol is 213. LDL 188. TSH of 13.6, but free T4 is normal at 0.8. ASSESSMENT: 1. Sinus bradycardia, possibly secondary to lithium. 2. Depression. 3. Hyponatremia, mild. 4. Hypercholesteremia. 5. Hypertriglyceridemia. 6. Elevated TSH and normal free T4, possibly sick euthyroid syndrome. 7. History of depression with suicidal attempts recently. 8. History of chest pain, angina. 9. History of gastroesophageal reflux disease. 10.Hyperlipidemia. 11.Hypothyroidism history. 12.History of hidradenitis suppurativa. 13.History of cervical cancer. 14.History of anxiety, bipolar depression. 15.History of nicotine dependence. 16.History of tetrahydrocannabinol. 17.Obesity with body mass index of 40.6. RECOMMENDATIONS AND DISCUSSION: In this 59-year-old woman who presented with multiple complex medical issues, we will monitor the patient closely, continue the current medications, continue symptomatic treatment. Otherwise, as mentioned earlier, the workup was done on the medical floor. I would recommend followup with primary physician and recommend low-fat, low- cholesterol diet and continue to monitor. Will check a lipid panel with the primary care physician in the next couple of months and adjust medication. Otherwise, thyroid function appears to be stable at this time. We will follow the patient closely with you. Thank you for letting us participate in the care of this patient. MMODL / IJN: [id number] /
[2019-11-18] MEDS: MELATONIN 3 MG TABLET PO SCH (20:55)
[2019-11-18] MEDS: ACETAMINOPHEN TAB 325 MG TAB PO PRN (21:38)
[2019-11-19] MEDS: CITALOPRAM HYDROBROMIDE 20 MG TAB PO SCH (09:18)
[2019-11-19] MEDS: NICOTINE 14MG/24HR PATCH TRANSDERM SCH (09:18)
--- NOTE | 2019-11-19 13:58 | P.PN ---
Subjective Progress Note Date: 11/19/19 Principal diagnosis: Bipolar disorder most recent episode depressed without psychotic features, lithium-induced bradycardia resolved, lack of income, lack of housing I reviewed the medical record, interviewed the patient and discussed her treatment and treatment plan during team meeting. She reported that she is feeling better. She denied feeling depressed and feels more hopeful the future. Her social media sr strategy manager has arranged to interview with a homeless long-term. Her only complaint was diarrhea. She experience constipation while she was taking lithium. After she stopped lithium he complained of frequent loose stools. We discussed treatment options and she agreed to a trial of Cymbalta. Objective - Vital Signs Vital signs: Vital Signs Temp 98.0 F 11/19/19 06:19 Pulse 54 L 11/19/19 06:19 Resp 16 11/19/19 06:19 BP 107/61 11/19/19 06:19 Pulse Ox 95 11/19/19 06:19 - Exam She was casually groomed and neatly dressed. She made eye contact and attended to interview. She had a blunted shipping and receiving weigher right facial expression. She has slight psychomotor retardation but no abnormal movements. Her speech was spontaneous with normal rate and rhythm but decreased volume. Her affect was blunted but stable and reactive. She denied suicidal ideation and wishes. She denied homicidal ideation. She denied feeling hopeless, helpless or worthless. She d id not express ideas reference, paranoid ideation or delusions. Her thinking was concrete. Associations were coherent and logical. She denied hallucinations and did not appear to responding to internal stimuli. Assessment and Plan Assessment: She is much improved from admission and is denying suicidal ideation and wishes. Plan: Continue inpatient hospitalization. Continue seeing precautions. Continue Celexa 40 mg daily and melatonin 3 mg at bedtime. Lomotil all 1 every 6 when necessary for diarrhea. Encourage continued participation in therapeutic groups and activities. Evaluate clinical status response to treatment daily basis.
[2019-11-19] MEDS: DIPHENOX-ATROP 2.5-0.025 MG 1 EACH TAB PO PRN (14:50)
[2019-11-19] MEDS: ACETAMINOPHEN TAB 325 MG TAB PO PRN (18:33)
[2019-11-19] MEDS: MELATONIN 3 MG TABLET PO SCH (20:38)
[2019-11-20 06:44] VITALS: BP 119/76; PULSE 73
[2019-11-20] MEDS: CITALOPRAM HYDROBROMIDE 20 MG TAB PO SCH (08:12)
[2019-11-20] MEDS: DIPHENOX-ATROP 2.5-0.025 MG 1 EACH TAB PO PRN (08:12)
[2019-11-20] MEDS: NICOTINE 14MG/24HR PATCH TRANSDERM SCH (08:12)
[2019-11-20 12:22] VITALS: TEMP 97
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
== END 2019-11-20 16:10 | disposition home or self-care (01) | DRG 885 ==
LOC: 3MHU 18:01
PROVIDERS: ADMIT Psychiatry & Neurology Psychiatry; ATTEND Psychiatry & Neurology Psychiatry
DX: F31.30 Bipolar disorder, current episode depressed, mild or moderate severity, unspecified (principal); E87.1 Hypo-osmolality and hyponatremia; Z68.41 Body mass index [BMI] 40.0-44.9, adult; T75.1XXA Unspecified effects of drowning and nonfatal submersion, initial encounter; E03.9 Hypothyroidism, unspecified; E66.9 Obesity, unspecified; E78.00 Pure hypercholesterolemia, unspecified; E78.1 Pure hyperglyceridemia; E78.5 Hyperlipidemia, unspecified; K59.00 Constipation, unspecified; X71.9XXA Intentional self-harm by drowning and submersion, unspecified, initial encounter; Z56.0 Unemployment, unspecified; Z59.0 Homelessness; Z79.899 Other long term (current) drug therapy; Z83.3 Family history of diabetes mellitus; Z85.41 Personal history of malignant neoplasm of cervix uteri; Z87.891 Personal history of nicotine dependence; Z91.5 Personal history of self-harm

== ENCOUNTER 2020-05-23 21:56 | Emergency (ER) | payer OTHER ==
[2020-05-23 22:00] VITALS: BP 128/81; PULSE 79; RESP 18; TEMP 98.8
[2020-05-23] MEDS ORDERED: LIDOCAINE 1%-EPI 1:100,000 20 ML VIAL SQ STA (22:43)
--- NOTE | 2020-05-23 22:51 | ED ---
Skin/Abscess/FB HPI - General Chief complaint: Skin/Abscess/Foreign Body Stated complaint: Poss Rectal Abscess Time Seen by Provider: 05/23/20 22:18 Source: patient Mode of arrival: ambulatory Limitations: no limitations - History of Present Illness Initial comments: Nahed is a 59yo F with PMH of perirectal abscess which was drained 5 years ago, she has no history of Crohn's or UC. Patient reports that over the past few days she has noted worsening pain in her buttock similar to previous abscess. She denies any fevers, chills, nausea or vomiting, she denies any pain with bowel movements. - Related Data Previous Rx's Medication Instructions Recorded Citalopram Hydrobromide [CeleXA] 40 mg PO DAILY #30 tab 11/20/19 Diphenox-Atrop 2.5-0.025 mg 1 each PO Q6HR PRN #30 tab 11/20/19 [Lomotil] Melatonin 3 mg PO HS #30 tablet 11/20/19 Nicotine 14Mg/24Hr Patch [Habitrol] 1 patch TRANSDERM DAILY #28 patch 11/20/19 Clindamycin [Cleocin] 450 mg PO Q8H #21 cap 05/23/20 Allergies Allergy/AdvReac Type Severity Reaction Status Date / Time Sulfa (Sulfonamide Allergy Rash/Hives Verified 05/23/20 22:00 Antibiotics) Review of Systems ROS Statement: Those systems with pertinent positive or pertinent negative responses have been documented in the HPI. ROS Other: All systems not noted in ROS Statement are negative. Past Medical History Past Medical History: Cancer, Chest Pain / Angina, GERD/Reflux, Hyperlipidemia, Thyroid Disorder Additional Past Medical History / Comment(s): Hidradenitis suppurativa axillaes, rectal/buttock abscesses, cervical cancer with procedure. History of Any Multi-Drug Resistant Organisms: None Reported Past Surgical History: No Surgical Hx Reported Additional Past Surgical History / Comment(s): I&Ds rectal/buttock abscesses, I&Ds multiple axillae abscesses, procedure to remove cervical cancer. Past Anesthesia/Blood Transfusion Reactions: No Reported Reaction Past Psychological History: Anxiety, Bipolar, Depression Smoking Status: Current every day smoker Past Alcohol Use History: None Reported Past Drug Use History: Marijuana - Past Family History Father History Unknown: Yes Additional Family Medical History / Comment(s): pt states heart dx runs in the family Mother Family Medical History: Diabetes Mellitus Additional Family Medical History / Comment(s): pt states heart disease runs in the family General Exam - General Exam Comments Initial Comments: Physical Exam GENERAL: Patient is well-developed and well-nourished. Patient is nontoxic and well-hydrated and is in no distress. HENT: Normocephalic, Atraumatic. EYES: PERRL, EOMI PULMONARY: Unlabored respirations. CARDIOVASCULAR: RRR Warm and well perfused extremities ABDOMEN: Non-distended SKIN: No rashes or bruising Abscess on buttock as noted below : Rectal exam with external hemorrhoids, no pain with digital rectal exam Abscess noted on left buttock approximately 2cm lateral to rectum Large scar on left buttock lateral to current abscess consistent with previous large I&D NEUROLOGIC: Alert and oriented Normal speech Normal gait MUSCULOSKELETAL: Moving all extremities with no apparent injury PSYCHIATRIC: No SI/HI Limitations: no limitations Course Vital Signs 05/23/20 21:58 Temperature 98.8 F Pulse Rate 79 Respiratory 18 Rate Blood Pressure 128/81 O2 Sat by Pulse 97 Oximetry Procedures - [place] Protocol (Time Out) Procedure Performed:: I&D Performing Provider: Essie Zavala Nurse: Kimberley Bonds Timeout Date: 05/23/20 Timeout Time: 23:10 Patient Identification (2 identifiers required): Chart, Verbal Patient/Legal Construction Checker has Confirmed: Identity, Site, Procedure, Consent Site Marked: No Site Verified With Patient/Guardian: Yes Final Confirmation: Procedure, Site, Laterality, Patient Position, Special Equipment, Confirmed w/Provider - Incision & Drainage Consent Obtained: verbal consent Indication: abscess Site: buttock Size (cm): 3 Anesthetic Used: lidocaine 1%, with epi Amount (mLs): 4 I&D Cleaning Method: Alcohol Wipe Sterile Field Used?: No Scalpel Used: #11 Needle Aspiration Performed?: Yes Irrigation Performed?: No I&D Drainage Obtained: Pus (approximately 30cc) Packing: Iodoform Culture Obtained?: No Patient Tolerated Procedure: well Disposition Clinical Impression: Abscess Disposition: HOME SELF-CARE Condition: Stable Instructions (If sedation given, give patient instructions): Abscess Incision and Drainage (DC) Prescriptions: Clindamycin [Cleocin] 450 mg PO Q8H #21 cap Is patient prescribed a controlled substance at d/c from ED?: No Referrals: Kirsty Neal MD [Primary Care Provider] - 1-2 days
[2020-05-23] MEDS ORDERED: CLINDAMYCIN 150 MG CAP PO STA (23:24)
== END 2020-05-24 00:02 | disposition home or self-care (01) ==
LOC: EC 21:56
DX: L02.31 Cutaneous abscess of buttock (principal); F17.200 Nicotine dependence, unspecified, uncomplicated; Z88.2 Allergy status to sulfonamides; Z85.41 Personal history of malignant neoplasm of cervix uteri
CPT/HCPCS: 10060; 99283

== ENCOUNTER 2021-05-05 23:23 | Observation (INO) | payer OTHER ==
--- NOTE | 2021-05-06 00:13 | ED ---
General Adult HPI - General Chief complaint: Shortness of Breath Stated complaint: Chest Pain Time Seen by Provider: 05/05/21 23:38 Source: patient, EMS Mode of arrival: EMS Limitations: no limitations - History of Present Illness Initial comments: 's patient is a 60-year-old woman who presents to be evaluated for shortness of breath and chest pain. She had mentioned going on for up to 3 days at triage staff but when I asked her she states that it started in the morning last for number of hours and resolved. She states that it recurred in the evening. She describes left upper chest wall with some numbness to the left arm. She also has been having some shortness of breath. Onset/Timin -: hour(s) Location: chest Radiation: non-radiation Quality: aching Consistency: intermittent Improves with: none Worsens with: none Associated Symptoms: denies other symptoms Treatments Prior to Arrival: none - Related Data Previous Rx's Medication Instructions Recorded Aspirin 81 mg PO DAILY tab 05/06/21 Allergies Allergy/AdvReac Type Severity Reaction Status Date / Time Sulfa (Sulfonamide Allergy Rash/Hives Verified 05/06/21 09:22 Antibiotics) Review of Systems ROS Statement: Those systems with pertinent positive or pertinent negative responses have been documented in the HPI. ROS Other: All systems not noted in ROS Statement are negative. Constitutional: Denies: fever, chills, weakness Respiratory: Reports: dyspnea. Denies: cough, wheezes, hemoptysis Cardiovascular: Reports: chest pain. Denies: palpitations, orthopnea, edema, syncope Gastrointestinal: Reports: diarrhea. Denies: abdominal pain, nausea, vomiting Genitourinary: Denies: dysuria, hematuria Musculoskeletal: Denies: back pain Skin: Denies: rash Neurological: Denies: headache, weakness, numbness Past Medical History Past Medical History: Cancer, Chest Pain / Angina, GERD/Reflux, Hyperlipidemia, Thyroid Disorder Additional Past Medical History / Comment(s): Hidradenitis suppurativa axillaes, rectal/buttock abscesses, cervical cancer with procedure. History of Any Multi-Drug Resistant Organisms: None Reported Past Surgical History: No Surgical Hx Reported Additional Past Surgical History / Comment(s): I&Ds rectal/buttock abscesses, I&Ds multiple axillae abscesses, procedure to remove cervical cancer. Past Anesthesia/Blood Transfusion Reactions: No Reported Reaction Past Psychological History: Anxiety, Bipolar, Depression Smoking Status: Current every day smoker Past Alcohol Use History: None Reported Past Drug Use History: Marijuana - Past Family History Father History Unknown: Yes Additional Family Medical History / Comment(s): pt states heart dx runs in the family Mother Family Medical History: Diabetes Mellitus Additional Family Medical History / Comment(s): pt states heart disease runs in the family General Exam General appearance: alert, in no apparent distress Head exam: Present: atraumatic, normocephalic Eye exam: Present: normal appearance. Absent: scleral icterus, conjunctival injection Neck exam: Present: normal inspection, full ROM Respiratory exam: Present: normal lung sounds bilaterally. Absent: respiratory distress, wheezes, rales, rhonchi, stridor, chest wall tenderness Cardiovascular Exam: Present: normal rhythm, bradycardia, normal heart sounds. Absent: systolic murmur, diastolic murmur, rubs, gallop GI/Abdominal exam: Present: soft. Absent: distended, tenderness, guarding, rebound, rigid, mass Extremities exam: Present: normal inspection, normal capillary refill. Absent: pedal edema, calf tenderness Back exam: Present: normal inspection. Absent: CVA tenderness (R), CVA tenderness (L) Neurological exam: Present: alert Skin exam: Present: warm, dry, intact, normal color. Absent: rash Course Vital Signs 05/05/21 05/05/21 05/06/21 23:28 23:49 01:51 Temperature 98.7 F Pulse Rate 50 L 57 L Pulse Rate [ 46 L Director Of Personnel ] Respiratory 16 16 16 Rate Blood Pressure 100/61 115/62 O2 Sat by Pulse 97 98 Oximetry EKG Findings - EKG Results: EKG: interpreted by ERMD, sinus rhythm (Normal), normal axis (Normal), normal QRS (Normal), normal ST/T (Normal) EKG shows: bradycardia (Rate 46 bpm) Medical Decision Making - Lab Data Result diagrams: 05/06/21 00:24 05/06/21 00:24 Lab Results 05/06/21 05/06/21 05/06/21 Range/Units 00:24 00:24 00:24 WBC 8.1 (3.8-10.6) k/uL RBC 4.19 (3.80-5.40) m/uL Hgb 13.4 (11.4-16.0) gm/dL Hct 41.1 (34.0-46.0) % MCV 97.9 (80.0-100.0) fL MCH 31.9 (25.0-35.0) pg MCHC 32.6 (31.0-37.0) g/dL RDW 13.8 (11.5-15.5) % Plt Count 278 (150-450) k/uL MPV 7.1 Neutrophils % 62 % Lymphocytes % 25 % Monocytes % 6 % Eosinophils % 3 % Basophils % 1 % Neutrophils # 5.0 (1.3-7.7) k/uL Lymphocytes # 2.0 (1.0-4.8) k/uL Monocytes # 0.5 (0-1.0) k/uL Eosinophils # 0.2 (0-0.7) k/uL Basophils # 0.0 (0-0.2) k/uL PT 9.8 (9.0-12.0) sec INR 0.9 (<1.2) APTT 24.0 (22.0-30.0) sec D-Dimer 0.34 (<0.60) mg/L FEU Sodium 138 (137-145) mmol/L Potassium 4.3 (3.5-5.1) mmol/L Chloride 110 H (98-107) mmol/L Carbon Dioxide 22 (22-30) mmol/L Anion Gap 6 mmol/L BUN 22 H (7-17) mg/dL Creatinine 0.99 (0.52-1.04) mg/dL Est GFR (CKD-EPI)AfAm 72 (>60 ml/min/1.73 sqM) Est GFR (CKD-EPI)NonAf 63 (>60 ml/min/1.73 sqM) Glucose 91 (74-99) mg/dL Calcium 9.1 (8.4-10.2) mg/dL Magnesium 2.1 (1.6-2.3) mg/dL Total Bilirubin 0.3 (0.2-1.3) mg/dL AST 25 (14-36) U/L ALT 17 (4-34) U/L Alkaline Phosphatase 100 (38-126) U/L Troponin I (0.000-0.034) ng/mL NT-Pro-B Natriuret Pep pg/mL Total Protein 6.5 (6.3-8.2) g/dL Albumin 3.4 L (3.5-5.0) g/dL TSH (0.350-5.500) uIU/mL 05/06/21 05/06/21 05/06/21 Range/Units 00:24 00:24 00:24 WBC (3.8-10.6) k/uL RBC (3.80-5.40) m/uL Hgb (11.4-16.0) gm/dL Hct (34.0-46.0) % MCV (80.0-100.0) fL MCH (25.0-35.0) pg MCHC (31.0-37.0) g/dL RDW (11.5-15.5) % Plt Count (150-450) k/uL MPV Neutrophils % % Lymphocytes % % Monocytes % % Eosinophils % % Basophils % % Neutrophils # (1.3-7.7) k/uL Lymphocytes # (1.0-4.8) k/uL Monocytes # (0-1.0) k/uL Eosinophils # (0-0.7) k/uL Basophils # (0-0.2) k/uL PT (9.0-12.0) sec INR (<1.2) APTT (22.0-30.0) sec D-Dimer (<0.60) mg/L FEU Sodium (137-145) mmol/L Potassium (3.5-5.1) mmol/L Chloride (98-107) mmol/L Carbon Dioxide (22-30) mmol/L Anion Gap mmol/L BUN (7-17) mg/dL Creatinine (0.52-1.04) mg/dL Est GFR (CKD-EPI)AfAm (>60 ml/min/1.73 sqM) Est GFR (CKD-EPI)NonAf (>60 ml/min/1.73 sqM) Glucose (74-99) mg/dL Calcium (8.4-10.2) mg/dL Magnesium (1.6-2.3) mg/dL Total Bilirubin (0.2-1.3) mg/dL AST (14-36) U/L ALT (4-34) U/L Alkaline Phosphatase (38-126) U/L Troponin I <0.012 (0.000-0.034) ng/mL NT-Pro-B Natriuret Pep 73 pg/mL Total Protein (6.3-8.2) g/dL Albumin (3.5-5.0) g/dL TSH 5.380 (0.350-5.500) uIU/mL Disposition Clinical Impression: Syncope, Bradycardia Disposition: ADMITTED IP TO THIS HOSP Condition: Good Is patient prescribed a controlled substance at d/c from ED?: No
[2021-05-06 00:40] LABS: Basophils % (A) 1 %; Eosinophils # (A) 0.2 k/uL (0-0.7); Eosinophils % (A) 3 %; HCT 41.1 % (34.0-46.0); HGB 13.4 gm/dL (11.4-16.0); Lymphocytes % (A) 25 %; MCH 31.9 pg (25.0-35.0); MCHC 32.6 g/dL (31.0-37.0); MCV 97.9 fL (80.0-100.0); Mean Platelet Volume 7.1; Monocytes # (A) 0.5 k/uL (0-1.0); Monocytes % (A) 6 %; Neutrophils % (A) 62 %; Platelet Count 278 k/uL (150-450); RBC 4.19 m/uL (3.80-5.40); RDW 13.8 % (11.5-15.5); WBC 8.1 k/uL (3.8-10.6)
[2021-05-06 00:56] LABS: INR 0.9 (<1.2); Prothrombin Time 9.8 sec (9.0-12.0)
[2021-05-06 01:02] LABS: Albumin 3.4 g/dL (3.5-5.0); Calcium 9.1 mg/dL (8.4-10.2); Magnesium 2.1 mg/dL (1.6-2.3); Total Bilirubin 0.3 mg/dL (0.2-1.3); Total Protein 6.5 g/dL (6.3-8.2)
[2021-05-06 01:04] LABS: Potassium 4.3 mmol/L (3.5-5.1)
--- NOTE | 2021-05-06 01:22 | XR ---
EXAMINATION TYPE: XR chest 2V DATE OF EXAM: 05/06/2021 COMPARISON: 10/26/2019 HISTORY: Chest pain TECHNIQUE: FINDINGS: Heart is normal. Lungs are clear. Costophrenic angles are clear. There are no hilar masses. There are chest leads. Bony thorax is intact. IMPRESSION: No active cardiopulmonary disease. No change.
[2021-05-06] MEDS ORDERED: NITROGLYCERIN SL TABS 0.4 MG TAB SUBLINGUAL PRN (01:31)
[2021-05-06 03:22] VITALS: RESP 18
[2021-05-06 07:49] VITALS: TEMP 98
--- NOTE | 2021-05-06 09:17 | P.CRDCN ---
History of Present Illness Consult date: 05/06/21 Requesting physician: Claude Holden Reason for Consult (text): chest pain Chief complaint: syncope History of present illness: A pleasant 60-year-old female patient with a history of bipolar depression, cervical cancer, and half to one pack per day smoking for over 40 years, denies history of hypertension, hyperlipidemia or diabetes. She does have a family history of CAD with her father passing away from an OH at the age of 42. She was admitted for chest discomfort and shortness of breath. Patient says yesterday she got up out of her chair and had a brief syncopal episode. There was no loss of bowel or bladder control. She did have some increased salivation and nausea around the time of syncope. She also complains of intermittent chest discomfort lasting for a minute or 2 a couple times a day over the last few days with no associated symptoms. She describes the discomfort as a aching in her left chest. She has also been complaining of some dyspnea on exertion which she does not normally experience. She's had some nausea on and off recently and some lower abdominal discomfort. EKG on presentation showed sinus bradycardia with a heart rate in the 40s. She has been afebrile. Chest x-ray on admission showed no active cardiopulmonary disease. Laboratory values showed a normal CBC, d-dimer 0.34, potassium 4.3, BUN 22, creatinine 0.99, NT proBNP 73 and troponins negative 3. Coronavirus PCR was not detected. Upon examination the patient is resting comfortably in bed. She has no current complaints at this time except for a cough which she says she does not normally have. She denies any complaints of orthopnea or PND. She denies any complaints of lower extr emity edema. Denies any complaints of recent weight gain. Past Medical History Past Medical History: Cancer, Chest Pain / Angina, GERD/Reflux, Hyperlipidemia, Thyroid Disorder Additional Past Medical History / Comment(s): Hidradenitis suppurativa axillaes, rectal/buttock abscesses, cervical cancer with procedure. History of Any Multi-Drug Resistant Organisms: None Reported Past Surgical History: No Surgical Hx Reported Additional Past Surgical History / Comment(s): I&Ds rectal/buttock abscesses, I&Ds multiple axillae abscesses, procedure to remove cervical cancer. Past Anesthesia/Blood Transfusion Reactions: No Reported Reaction Past Psychological History: Anxiety, Bipolar, Depression Smoking Status: Current every day smoker Past Alcohol Use History: None Reported Additional Past Alcohol Use History / Comment(s): Pt started smoking in 1975 and is a half ppd smoker. Past Drug Use History: Marijuana Additional Drug Use History / Comment(s): Pt states she smokes medical m josé miguel. - Past Family History Father History Unknown: Yes Additional Family Medical History / Comment(s): pt states heart dx runs in the family Mother Family Medical History: Diabetes Mellitus Additional Family Medical History / Comment(s): pt states heart disease runs in the family Medications and Allergies Home Medications Medication Instructions Recorded Confirmed Type No Known Home Medications 05/06/21 05/06/21 History Allergies Allergy/AdvReac Type Severity Reaction Status Date / Time Sulfa (Sulfonamide Allergy Rash/Hives Verified 05/06/21 09:22 Antibiotics) Physical Exam Vitals: Vital Signs Temp Pulse Pulse Pulse Resp BP BP 05/06/21 07:00 98 F 54 L 18 149/81 05/06/21 02:11 98.0 F 54 L 18 96/58 05/06/21 01:51 57 L 16 115/62 05/05/21 23:49 46 L 16 05/05/21 23:28 98.7 F 50 L 16 100/61 Pulse Ox 05/06/21 07:00 99 05/06/21 02:11 97 05/06/21 01:51 98 05/05/21 23:49 05/05/21 23:28 97 Intake and Output 05/05/21 05/06/21 05/06/21 22:59 06:59 14:59 Intake Total 0 Balance 0 Intake: Oral 0 Other: # Voids 1 Weight 87.543 kg PHYSICAL EXAMINATION: This is a 60-year-old female in no apparent distress at the time of my examination. VITAL SIGNS: Blood pressure 149/81, heart rate 54, respirations 18, temp 98F. Patient is 99 % on where. HEENT: Head is atraumatic, normocephalic. Pupils are equal, round. Sclerae anicteric. Conjunctivae are clear. Mucous membranes of the mouth are moist. Neck is supple. There is no elevated jugular venous pressure. No carotid bruit is heard. CHEST EXAMINATION: Clear to auscultation bilaterally. No wheezes rales or rhonchi. Respirations even and nonlabored. HEART EXAMINATION: Heart regular, positive S1 and S2. No S3. No S4. Soft systolic murmur at the base. ABDOMEN: Soft, bilateral lower quadrant tenderness. Bowel sounds are heard. No organomegaly noted. EXTREMITIES: 2+ peripheral pulses with no evidence of peripheral edema and no calf tenderness noted. NEUROLOGIC EXAMINATION: Patient is awake, alert and oriented x3. Results 05/06/21 00:24 05/06/21 00:24 Cardiac Enzymes 05/06/21 05/06/21 05/06/21 Range/Units 00:24 00:24 04:11 AST 25 (14-36) U/L Troponin I <0.012 <0.012 (0.000-0.034) ng/mL 05/06/21 Range/Units 06:19 AST (14-36) U/L Troponin I <0.012 (0.000-0.034) ng/mL Coagulation 05/06/21 Range/Units 00:24 PT 9.8 (9.0-12.0) sec APTT 24.0 (22.0-30.0) sec CBC 05/06/21 Range/Units 00:24 WBC 8.1 (3.8-10.6) k/uL RBC 4.19 (3.80-5.40) m/uL Hgb 13.4 (11.4-16.0) gm/dL Hct 41.1 (34.0-46.0) % Plt Count 278 (150-450) k/uL Comprehensive Metabolic Panel 05/06/21 Range/Units 00:24 Sodium 138 (137-145) mmol/L Potassium 4.3 (3.5-5.1) mmol/L Chloride 110 H (98-107) mmol/L Carbon Dioxide 22 (22-30) mmol/L BUN 22 H (7-17) mg/dL Creatinine 0.99 (0.52-1.04) mg/dL Glucose 91 (74-99) mg/dL Calcium 9.1 (8.4-10.2) mg/dL AST 25 (14-36) U/L ALT 17 (4-34) U/L Alkaline Phosphatase 100 (38-126) U/L Total Protein 6.5 (6.3-8.2) g/dL Albumin 3.4 L (3.5-5.0) g/dL Current Medications Generic Name Dose Route Start Last Admin Trade Name Freq PRN Reason Stop Dose Admin Aspirin 325 mg 05/07/21 09:00 Aspirin 325 Mg Tab PO DAILY AJ Nitroglycerin 0.4 mg 05/06/21 01:31 Nitroglycerin Sl Tabs 0.4 Mg Tab SUBLINGUAL Q5M PRN Chest Pain Intake and Output 05/05/21 05/06/21 05/06/21 22:59 06:59 14:59 Intake Total 0 Balance 0 Intake: Oral 0 Other: # Voids 1 Weight 87.543 kg 05/06/21 00:24 05/06/21 00:24 Assessment and Plan Assessment: #1 syncope, likely orthostasis #2 chest discomfort, acute coronary event has been ruled out, troponins of the negative 3 with no ischemic changes noted on EKG #3 shortness of breath, likely related to underlying lung disease secondary to smoking history #4 sinus bradycardia #5 bipolar #6 nicotine dependence Plan: From cardiology's perspective we will obtain a 2-D echo with Doppler study to assess cardiac structure and function. We'll obtain a TSH with reflex free T4. Check orthostatic blood pressures. Discussed and encouraged smoking cessation. We will continue to follow the patient provide further recommendations accordingly depending on clinical course and diagnostic findings. The above dictated assessment and findings were discussed with signing physician. The impression and plan of care have been directed as dictated. Renee Thomas, Nurse Practitioner, acting as scribe for signing physician.
--- NOTE | 2021-05-06 12:18 | ECHOF ---
Referral Reason:chest pain MEASUREMENTS -------- HEIGHT: 162.6 cm WEIGHT: 87.5 kg BP: 149/81 RVIDd: 3.7 cm (< 3.3) IVSd: 1.3 cm (0.6 - 1.1) LVIDd: 4.0 cm (3.9 - 5.3) LVPWd: 1.1 cm (0.6 - 1.1) IVSs: 2.0 cm LVIDs: 2.4 cm LVPWs: 1.6 cm LAESV Index (A-L): 28.03 ml/m Ao Diam: 3.0 cm (2.0 - 3.7) AV Cusp: 1.8 cm (1.5 - 2.6) LA Diam: 3.8 cm (2.7 - 3.8) MV EXCURSION: 18.450 mm (> 18.000) MV EF SLOPE: 102 mm/s (70 - 150) EPSS: 0.3 cm MV E Ariel: 1.00 m/s MV DecT: 379 ms MV A Ariel: 0.98 m/s MV E/A Ratio: 1.03 FINDINGS -------- This was a technically adequate study. The left ventricular size is normal. There is mild concentric left ventricular hypertrophy. Overa ll left ventricular systolic function is normal with, an EF between 55 - 60 %. The diastolic fillin g pattern is normal for the age of the patient 14.28. The right ventricle is mildly enlarged. Normal LA size by volume 22+/-6 ml/m2. The right atrial size is normal. Mobile interatrial septum. The aortic valve is trileaflet and appears structurally normal. There is no evidence of aortic regu rgitation. There is no evidence of aortic stenosis. Mild mitral regurgitation is present. Mild tricuspid regurgitation present. There is no evidence of pulmonary hypertension. The right v entricular systolic pressure, as measured by Doppler, is {RVSP}. There is no pulmonic regurgitation present. The aortic root size is normal. The inferior vena cava is mildly dilated. There is no pericardial effusion. CONCLUSIONS -------- 1. The left ventricular size is normal. 2. There is mild concentric left ventricular hypertrophy. 3. Overall left ventricular systolic function is normal with, an EF between 55 - 60 %. 4. The right ventricle is mildly enlarged. 5. Mobile interatrial septum. 6. Mild mitral regurgitation is present. 7. Mild tricuspid regurgitation present. 8. The inferior vena cava is mildly dilated. EELER: Susannah Penny RDCS
[2021-05-06 12:47] VITALS: BP 104/68; PULSE 50
[2021-05-07] MEDS ORDERED: ASPIRIN 81 MG PO SCH (09:00)
[2021-05-07] MEDS ORDERED: ASPIRIN 325 MG TAB PO SCH (09:00)
--- NOTE | 2021-05-17 08:01 | P.HPIM ---
History of Present Illness H&P Date: 05/06/21 Chief Complaint: CP/SOB 60-year-old woman who presents to be evaluated for shortness of breath and chest pain. She had mentioned going on for up to 3 days at triage staff but when I asked her she states that it started in the morning last for number of hours and resolved. She states that it recurred in the evening. She describes left upper chest wall with some numbness to the left arm. She also has been having some shortness of breath. EKG on presentation showed sinus bradycardia with a heart rate in the 40s. She has been afebrile. Chest x-ray on admission showed no active cardiopulmonary disease. Laboratory values showed a normal CBC, d-dimer 0.34, potassium 4.3, BUN 22, creatinine 0.99, NT proBNP 73 and troponins negative 3. Coronavirus PCR was not detected. Review of Systems General appearance: alert, in no apparent distress Head exam: Present: atraumatic, normocephalic Eye exam: Present: normal appearance. Absent: scleral icterus, conjunctival injection Neck exam: Present: normal inspection, full ROM Respiratory exam: Present: normal lung sounds bilaterally. Absent: respiratory distress, wheezes, rales, rhonchi, stridor, chest wall tenderness Cardiovascular Exam: Present: normal rhythm, bradycardia, normal heart sounds. Absent: systolic murmur, diastolic murmur, rubs, gallop GI/Abdominal exam: Present: soft. Absent: distended, tenderness, guarding, rebound, rigid, mass Extremities exam: Present: normal inspection, normal capillary refill. Absent: pedal edema, calf tenderness Back exam: Present: normal inspection. Absent: CVA tenderness (R), CVA tenderness (L) Neurological exam: Present: alert Skin exam: Present: warm, dry, intact, normal color. Absent: rash Past Medical History Past Medical History: Cancer, Chest Pain / Angina, GERD/Reflux, Hyperlipidemia, Thyroid Disorder Additional Past Medical History / Comment(s): Hidradenitis suppurativa axillaes, rectal/buttock abscesses, cervical cancer with procedure. History of Any Multi-Drug Resistant Organisms: None Reported Past Surgical History: No Surgical Hx Reported Additional Past Surgical History / Comment(s): I&Ds rectal/buttock abscesses, I&Ds multiple axillae abscesses, procedure to remove cervical cancer. Past Anesthesia/Blood Transfusion Reactions: No Reported Reaction Past Psychological History: Anxiety, Bipolar, Depression Smoking Status: Current every day smoker Past Alcohol Use History: None Reported Additional Past Alcohol Use History / Comment(s): Pt started smoking in 1975 and is a half ppd smoker. Past Drug Use History: Marijuana Additional Drug Use History / Comment(s): Pt states she smokes medical marijuana. - Past Family History Father History Unknown: Yes Additional Family Medical History / Comment(s): pt states heart dx runs in the family Mother Family Medical History: Diabetes Mellitus Additional Family Medical History / Comment(s): pt states heart disease runs in the family Medications and Allergies Home Medications Medication Instructions Recorded Confirmed Type Aspirin 81 mg PO DAILY tab 05/06/21 Rx Allergies Allergy/AdvReac Type Severity Reaction Status Date / Time Sulfa (Sulfonamide Allergy Rash/Hives Verified 05/06/21 09:22 Antibiotics) Physical Exam Vitals: Vital Signs Temp Pulse Pulse Pulse Resp BP BP 05/06/21 11:16 53 L 05/06/21 07:00 98 F 54 L 18 149/81 05/06/21 02:11 98.0 F 54 L 18 96/58 05/06/21 01:51 57 L 16 115/62 05/05/21 23:49 46 L 16 05/05/21 23:28 98.7 F 50 L 16 100/61 Pulse Ox 05/06/21 11:16 05/06/21 07:00 99 05/06/21 02:11 97 05/06/21 01:51 98 05/05/21 23:49 05/05/21 23:28 97 Intake and Output 05/05/21 05/06/21 05/06/21 22:59 06:59 14:59 Intake Total 0 Balance 0 Intake: Oral 0 Other: # Voids 1 Weight 87.543 kg VITAL SIGNS: Blood pressure 149/81, heart rate 54, respirations 18, temp 98F. Patient is 99 % on where. HEENT: Head is atraumatic, normocephalic. Pupils are equal, round. Sclerae anicteric. Conjunctivae are clear. Mucous membranes of the mouth are moist. Neck is supple. There is no elevated jugular venous pressure. No carotid bruit is heard. CHEST EXAMINATION: Clear to auscultation bilaterally. No wheezes rales or r honchi. Respirations even and nonlabored. HEART EXAMINATION: Heart regular, positive S1 and S2. No S3. No S4. Soft systolic murmur at the base. ABDOMEN: Soft, bilateral lower quadrant tenderness. Bowel sounds are heard. No organomegaly noted. EXTREMITIES: 2+ peripheral pulses with no evidence of peripheral edema and no calf tenderness noted. NEUROLOGIC EXAMINATION: Patient is awake, alert and oriented x3. Results CBC & Chem 7: 05/06/21 00:24 05/06/21 00:24 Labs: Abnormal Lab Results - Last 24 Hours (Table) 05/06/21 Range/Units 00:24 Chloride 110 H (98-107) mmol/L BUN 22 H (7-17) mg/dL Albumin 3.4 L (3.5-5.0) g/dL Thrombosis Risk Factor Assmnt - Choose All That Apply Each Factor Represents 1 point: Age 41-60 years, Obesity (BMI >25) Thrombosis Risk Factor Assessment Total Risk Factor Score: 2 Thrombosis Risk Factor Assessment Level: Low Risk Assessment and Plan Assessment: 1. Syncope, likely orthostasis 2. Chest Pain/ acute coronary event has been ruled out, troponins of the negative 3 with no ischemic changes noted on EKG 3. Dyspnea; likely related to underlying lung disease secondary to smoking history 4. Sinus bradycardia 5. Hyperlipidemia 6. Hypothyroidism 7. Bipolar disorder 8. Nicotine dependence Plan: Patient has been evaluated by cardiology; a 2-D echo with Doppler study to a [facility] cardiac structure and function. Patient currently not on thyroid replacement; TSH with reflex free T4 has been ordered. Check orthostatic blood pressures. Discussed and encouraged smoking cessation. We will continue to follow the patient provide further recommendations accordingly depending on clinical course and diagnostic findings.
--- NOTE | 2021-05-17 08:03 | P.DS ---
Providers Date of admission: 05/06/21 01:31 Expected date of discharge: 05/06/21 Attending physician: Claude Holden MD Consults: 05/06/21 01:31 Consult Physician Routine Consulting Provider: Sameera Camacho Consult Reason/Comments: chest pain Do you want consulting provider notified?: Yes Primary care physician: Kirsty [facility] Course: 60-year-old woman who presents to be evaluated for shortness of breath and chest pain. She had mentioned going on for up to 3 days at triage staff but when I asked her she states that it started in the morning last for number of hours and resolved. She states that it recurred in the evening. She describes left upper chest wall with some numbness to the left arm. She also has been having some shortness of breath. EKG on presentation showed sinus bradycardia with a heart rate in the 40s. She has been afebrile. Chest x-ray on admission showed no active cardiopulmonary disease. Laboratory values showed a normal CBC, d-dimer 0.34, potassium 4.3, BUN 22, creatinine 0.99, NT proBNP 73 and troponins negative 3. Coronavirus PCR was not detected. 1. Syncope, likely orthostasis 2. Chest Pain/ acute coronary event has been ruled out, troponins of the negative 3 with no ischemic changes noted on EKG 3. Dyspnea; likely related to underlying lung disease secondary to smoking history 4. Sinus bradycardia 5. Hyperlipidemia 6. Hypothyroidism 7. Bipolar disorder 8. Nicotine dependence Patient was evaluated by cardiology; a 2-D echo with Doppler study to assess cardiac structure and function. Patient currently not on thyroid replacement; TSH with reflex free T4 has been ordered. Check orthostatic blood pressures. Discussed and encouraged smoking cessation. We will continue to follow the patient provide further recommendations accordingly depending on clinical course and diagnostic findings. 2D ECHO was stable and patient was in'ed in stable condition for out patient f ollow up Plan - Discharge Summary Discharge Rx Participant: Yes New Discharge Prescriptions: New Aspirin 81 mg PO DAILY tab Discharge Medication List Aspirin 81 mg PO DAILY tab 05/06/21 [Rx] Follow up Appointment(s)/Referral(s): Kirsty Neal MD [Primary Care Provider] - 1-2 days Mckay Acosta MD [STAFF PHYSICIAN] - 2 Weeks Activity/Diet/Wound Care/Special Instructions: ECHO completed 05/06/2021 activity as tolerated regular diet Discharge Disposition: HOME SELF-CARE
== END 2021-05-06 14:18 | disposition home or self-care (01) ==
LOC: EC 23:23 → 6NMEDSUR 05-06 01:31
PROVIDERS: ADMIT Internal Medicine; ATTEND Internal Medicine
DX: R07.89 Other chest pain (principal); R06.09 Other forms of dyspnea; R55 Syncope and collapse; R20.0 Anesthesia of skin; R00.1 Bradycardia, unspecified; I51.7 Cardiomegaly; I08.1 Rheumatic disorders of both mitral and tricuspid valves; E78.5 Hyperlipidemia, unspecified; E03.9 Hypothyroidism, unspecified; K11.7 Disturbances of salivary secretion; K21.9 Gastro-esophageal reflux disease without esophagitis; L73.2 Hidradenitis suppurativa; F17.210 Nicotine dependence, cigarettes, uncomplicated; F31.9 Bipolar disorder, unspecified; F41.9 Anxiety disorder, unspecified; R11.0 Nausea; R05.9 Cough, unspecified; E66.9 Obesity, unspecified; Z68.33 Body mass index [BMI] 33.0-33.9, adult; Z71.6 Tobacco abuse counseling; Z20.822 Contact with and (suspected) exposure to COVID-19; Z79.899 Other long term (current) drug therapy; Z88.2 Allergy status to sulfonamides; Z85.41 Personal history of malignant neoplasm of cervix uteri; Z86.19 Personal history of other infectious and parasitic diseases; Z98.890 Other specified postprocedural states; Z83.3 Family history of diabetes mellitus; Z82.49 Family history of ischemic heart disease and other diseases of the circulatory system
CPT/HCPCS: 99285; 36415; 93005; 93306; 85379; 83880; 80053; 84443; 83735; 84484; 85025; 85610; 85730; 87635; 71046; G0378

== ENCOUNTER 2021-11-27 10:23 | Inpatient (IN) | payer MEDICAID, OTHER ==
--- NOTE | 2021-11-27 11:31 | ED ---
Psych HPI - General Chief Complaint: Psychiatric Symptoms Stated Complaint: petition Time Seen by Provider: 11/27/21 10:41 Source: patient, police, RN notes reviewed Mode of arrival: ambulatory Limitations: no limitations - History of Present Illness Initial Comments: This a 61-year-old female presents emergency from for psychiatric treatment. Patient presents with sure from [facility] this patient's been medication noncompliant history of bipolar disorder. Patient's been having some bizarre delusional behavior. Patient was petitioned by [facility] was sent over for admission to psych. Patient denies any physical complaints no other - Related Data Home Medications Medication Instructions Recorded Confirmed No Known Home Medications 11/27/21 11/27/21 Allergies Allergy/AdvReac Type Severity Reaction Status Date / Time Sulfa (Sulfonamide Allergy Rash/Hives Verified 11/27/21 15:06 Antibiotics) Review of Systems ROS Statement: Those systems with pertinent positive or pertinent negative responses have been documented in the HPI. ROS Other: All systems not noted in ROS Statement are negative. Past Medical History Past Medical History: Cancer, Chest Pain / Angina, GERD/Reflux, Hyperlipidemia, Thyroid Disorder Additional Past Medical History / Comment(s): Hidradenitis suppurativa axillaes, rectal/buttock abscesses, cervical cancer with procedure. History of Any Multi-Drug Resistant Organisms: None Reported Past Surgical History: No Surgical Hx Reported Additional Past Surgical History / Comment(s): I&Ds rectal/buttock abscesses, I&Ds multiple axillae abscesses, procedure to remove cervical cancer. Past Anesthesia/Blood Transfusion Reactions: No Reported Reaction Past Psychological History: Anxiety, Bipolar, Depression Smoking Status: Current every day smoker Past Alcohol Use History: None Reported Past Drug Use History: Marijuana - Past Family History Father History Unknown: Yes Additional Family Medical History / Comment(s): pt states heart dx runs in the family Mother Family Medical History: Diabetes Mellitus Additional Family Medical History / Comment(s): pt states heart disease runs in the family General Exam Limitations: no limitations General appearance: alert, in no apparent distress Head exam: Present: atraumatic, normocephalic, normal inspection Eye exam: Present: normal appearance, PERRL, EOMI. Absent: scleral icterus, conjunctival injection, periorbital swelling ENT exam: Present: normal exam, normal oropharynx, mucous membranes moist Neck exam: Present: normal inspection, full ROM. Absent: tenderness, meningismus, lymphadenopathy Respiratory exam: Present: normal lung sounds bilaterally. Absent: respiratory distress, wheezes, rales, rhonchi, stridor Cardiovascular Exam: Present: regular rate, normal rhythm, normal heart sounds. Absent: systolic murmur, diastolic murmur, rubs, gallop, clicks Course Vital Signs 11/27/21 10:27 Temperature 97.7 F Pulse Rate 56 L Respiratory 16 Rate Blood Pressure 144/97 O2 Sat by Pulse 100 Oximetry Medical Decision Making - Lab Data Lab Results 11/27/21 11/27/21 Range/Units 11:44 11:44 Urine Opiates Screen Not Detected (NotDetected) Ur Oxycodone Screen Not Detected (NotDetected) Urine Methadone Screen Not Detected (NotDetected) Ur Propoxyphene Screen Not Detected (NotDetected) Ur Barbiturates Screen Not Detected (NotDetected) U Tricyclic Antidepress Not Detected (NotDetected) Ur Phencyclidine Scrn Not Detected (NotDetected) Ur Amphetamines Screen Not Detected (NotDetected) U Methamphetamines Scrn Not Detected (NotDetected) U Benzodiazepines Scrn Not Detected (NotDetected) Urine Cocaine Screen Not Detected (NotDetected) U Marijuana (THC) Screen Not Detected (NotDetected) Coronavirus (PCR) Not Detected (Not Detectd) Disposition Clinical Impression: Bipolar disorder Disposition: TRANSFER TO PSYCH HOSP/UNIT Condition: Stable
[2021-11-27 12:36] LABS: Amphetamine Screen,Urine Not Detected (NotDetected); Barbiturate Screen,Urine Not Detected (NotDetected); Benzodiazepines Screen,Urine Not Detected (NotDetected); Cocaine Screen,Urine Not Detected (NotDetected); Methadone Screen, Urine Not Detected (NotDetected); Opiate Screen,Urine Not Detected (NotDetected); Oxycodone Screen, Urine Not Detected (NotDetected); Phencyclidine Screen,Urine Not Detected (NotDetected); Tricyclic Antidepressant,Urine Not Detected (NotDetected); Urn Cannabinoid Scrn Not Detected (NotDetected)
[2021-11-27] MEDS ORDERED: haloperidoL 5 MG TAB PO PRN (13:53)
[2021-11-27] MEDS ORDERED: LORazepam 2 MG/ML INJ IM PRN (13:53)
[2021-11-27] MEDS ORDERED: HALOPERIDOL LACTATE 5 MG/ML 1 ML VIAL IM PRN (13:53)
[2021-11-27] MEDS ORDERED: LORazepam 1 MG TAB PO PRN (13:53)
[2021-11-27] MEDS ORDERED: MAGNESIUM HYDROXIDE 2,400 MG/10 ML CUP PO PRN (13:55)
[2021-11-27] MEDS ORDERED: MAG HYDROX/AL HYDROX/SIMETH 30 ML CUP PO PRN (13:55)
[2021-11-27] MEDS ORDERED: ACETAMINOPHEN TAB 325 MG TAB PO PRN (13:55)
[2021-11-27] MEDS ORDERED: NICOTINE 14MG/24HR PATCH TRANSDERM SCH (14:00)
--- NOTE | 2021-11-27 18:16 | CONS ---
CONSULTATION REASON FOR CONSULTATION: Advice regarding hyperlipidemia and other medical issues. HISTORY OF PRESENT ILLNESS: This 61-year-old woman with a past medical history of chest pain, GERD, hyperlipidemia, was admitted for evaluation of psychiatric problems and bipolar through [facility]. There is no history of any fever, rigors or chills. No history of headache, chest pain, palpitations at this time. PAST MEDICAL HISTORY: GERD, hyperlipidemia, chest pain, angina. HOME MEDICATIONS: Reviewed. None. ALLERGIES: SULFA. FAMILY HISTORY: History of diabetes in the family. SOCIAL HISTORY: History of smoking, THC. REVIEW OF SYSTEMS: Fourteen-point review of systems negative except as mentioned earlier. PHYSICAL EXAMINATION: Pulse is 55, blood pressure 140/74, respiration 18. HEENT: Conjunctivae normal. Oral mucosa moist. NECK: No jugular venous distention. CARDIOVASCULAR: S1, S2 muffled. RESPIRATION: Breath sounds diminished at the bases. No rhonchi. No crackles. ABDOMEN: Soft, nontender. LEGS: No edema. No swelling. NERVOUS SYSTEM: Higher functions as mentioned earlier. Cranial nerves normal. No focal motor or sensory deficit. No signs of cerebellar dysfunction. Gait is normal. SKIN: No ulcer, rash, bleeding. JOINTS: No active deforming arthropathy. LABS: Not available. ASSESSMENT: 1. Bipolar. 2. History of gastroesophageal reflux disease. 3. Hyperlipidemia. 4. History of hypothyroidism. 5. Hidradenitis suppurativa. 6. Anxiety, bipolar, depression. RECOMMENDATIONS AND DISCUSSION: In this 61-year-old woman who presented for psychiatric evaluation, at this time I recommend to continue the current medication. Monitor closely. I will be happy to review any abnormal labs. Otherwise, currently the patient appears to be asymptomatic, but I will be glad to help; if any new symptoms arise, please call. Otherwise I recommend close followup with primary physician after discharge. Thank you for the consultation. MMODL / IJN: [id number] /
[2021-11-28 07:13] LABS: Basophils % (A) 1 %; Eosinophils # (A) 0.2 k/uL (0-0.7); Eosinophils % (A) 3 %; HCT 43.8 % (34.0-46.0); HGB 13.9 gm/dL (11.4-16.0); Lymphocytes # (A) 1.8 k/uL (1.0-4.8); Lymphocytes % (A) 26 %; MCHC 31.7 g/dL (31.0-37.0); Mean Platelet Volume 7.3; Monocytes # (A) 0.5 k/uL (0-1.0); Monocytes % (A) 7 %; Neutrophils # (A) 4.2 k/uL (1.3-7.7); Neutrophils % (A) 60 %; Platelet Count 259 k/uL (150-450); RBC 4.47 m/uL (3.80-5.40); RDW 12.7 % (11.5-15.5)
[2021-11-28 07:21] LABS: ALT 22 U/L (4-34); AST 35 U/L (14-36); African American GFR (CKD) 83 (>60 ml/min/1.73 sqM); Albumin 3.8 g/dL (3.5-5.0); Alkaline Phosphatase 93 U/L (38-126); Anion Gap 6 mmol/L; Bilirubin, Delta 0.1 mg/dL (0.0-0.2); Bilirubin,Unconjugated 0.4 mg/dL (0.0-1.1); Blood Urea Nitrogen 17 mg/dL (7-17); Calcium 9.2 mg/dL (8.4-10.2); Carbon Dioxide 29 mmol/L (22-30); Chloride 106 mmol/L (98-107); Glucose 101 mg/dL (74-99); Non-African American GFR(CKD) 72 (>60 ml/min/1.73 sqM); Potassium 4.6 mmol/L (3.5-5.1); Sodium 141 mmol/L (137-145); Total Bilirubin 0.5 mg/dL (0.2-1.3); Total Protein 7.1 g/dL (6.3-8.2)
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
[2021-11-28] MEDS: OLANZapine 5 MG TAB PO SCH ×2 (12:19→20:48)
[2021-11-28 16:35] LABS: Chol/HDL Ratio 3.39 Ratio; LDL Cholesterol,Calculated 105.1 mg/dL (0.0-131.0)
[2021-11-28] MEDS ORDERED: OLANZapine 5 MG TAB PO SCH (21:00)
[2021-11-29] MEDS: OLANZapine 5 MG TAB PO SCH ×2 (08:54→20:47)
--- NOTE | 2021-11-29 09:46 | P.PN ---
Subjective Progress Note Date: 11/29/21 Principal diagnosis: Bipolar disorder manic type Subjective data: I took that Ativan because I do sometimes get agitated but is making me tired Yes I'm open to taking the Haldol I might take it at nighttime but what if I get anxious in the daytime yes I will take it twice a day Objective data: Patient is somewhat more subdued and is more willing to consider taking medications Hygiene appears to be fair Interaction is more cordeal Thought processes are more organized Patient is more easily redirectable Patient is open to taking the Haldol and Depakote as suggested Plan: We'll start Haldol at 5 mg twice a day and Depakote ER 500 mg at bedtime Discussed effects and side effects Continue supportive care Patient encouraged to participate in the milieu treatment Yehuda Francis M.D. 11/29/2021 Objective - Vital Signs Vital signs: Vital Signs Temp 98.3 F 11/29/21 06:04 Pulse 63 11/29/21 06:04 Resp 18 11/29/21 06:04 BP 108/69 11/29/21 06:04 Pulse Ox 98 11/28/21 06:51 - Labs CBC & Chem 7: 11/28/21 06:19 11/28/21 06:19
[2021-11-29] MEDS: haloperidoL 5 MG TAB PO SCH (20:47)
[2021-11-29] MEDS: DIVALPROEX ER 500 MG TAB.ER.24H PO SCH (20:47)
[2021-11-30] MEDS: OLANZapine 5 MG TAB PO SCH ×2 (09:01→21:52)
[2021-11-30] MEDS: haloperidoL 5 MG TAB PO SCH ×2 (09:01→21:51)
--- NOTE | 2021-11-30 09:17 | P.PN ---
Subjective Progress Note Date: 11/30/21 Principal diagnosis: Bipolar disorder manic type Subjective data: I feel better I feel that they woke me up in the nighttime for my medication but I don't think that I needed it I will start taking the medications When I go home I need to start taking care of my taxes I have not been able to work for a couple of years rule out to start finding work Objective data: Patient still remains hyperverbal with the disorganized thought processes She was difficult to redirect but eventually was able to give information as requested Insight into her problem is partial Seems to rationalize intellectualize Plan: Continue current medications as prescribed Discussed effects and side effects Continue supportive care Patient encouraged to participate in the milieu treatment Yehuda Francis M.D. 11/30/2021 Objective - Vital Signs Vital signs: Vital Signs Temp 98.3 F 11/29/21 06:04 Pulse 63 11/29/21 06:04 Resp 18 11/29/21 06:04 BP 108/69 11/29/21 06:04 Pulse Ox 98 11/28/21 06:51 - Labs CBC & Chem 7: 11/28/21 06:19 11/28/21 06:19
[2021-11-30] MEDS: DIVALPROEX ER 500 MG TAB.ER.24H PO SCH (21:51)
[2021-12-01 06:54] VITALS: RESP 16
[2021-12-01] MEDS: haloperidoL 5 MG TAB PO SCH ×2 (08:42→22:02)
[2021-12-01] MEDS: OLANZapine 5 MG TAB PO SCH ×2 (08:43→22:02)
--- NOTE | 2021-12-01 08:59 | P.PN ---
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 12/01/2021 Objective - Vital Signs Vital signs: Vital Signs Temp 97.6 F 12/01/21 06:53 Pulse 60 12/01/21 06:53 Resp 16 12/01/21 06:53 BP 111/65 12/01/21 06:53 Pulse Ox 98 12/01/21 06:53 - Labs CBC & Chem 7: 11/28/21 06:19 11/28/21 06:19
[2021-12-01] MEDS: DIVALPROEX ER 500 MG TAB.ER.24H PO SCH (22:02)
[2021-12-02] MEDS: OLANZapine 5 MG TAB PO SCH ×2 (08:21→21:50)
[2021-12-02] MEDS: haloperidoL 5 MG TAB PO SCH ×2 (08:21→21:50)
--- NOTE | 2021-12-02 10:34 | P.PN ---
Subjective Progress Note Date: 12/02/21 Principal diagnosis: Bipolar disorder manic type Subjective data: I feel a lot better now I feel like I'm ready to go home I'm not hearing any voices or seeing things My thoughts are more organized The medicines are working good Objective data: The patient was appropriately dressed and groomed She was friendly and cooperative Patient shows no signs of any agitation Thought processes seem to be more organized and less flighty Patient has started to show improvement No agitation and paranoia or flight of ideas noted at this time Plan: Continue current medications as prescribed Discussed effects and side effects Continue supportive care Patient encouraged to participate in the milieu treatment No side effects [facility] or [facility] Objective - Vital Signs Vital signs: Vital Signs Temp 97.6 F 12/02/21 07:07 Pulse 62 12/02/21 07:07 Resp 16 12/01/21 06:53 BP 101/63 12/02/21 07:07 Pulse Ox 97 12/02/21 07:07 - Labs CBC & Chem 7: 11/28/21 06:19 11/28/21 06:19
[2021-12-02] MEDS: DIVALPROEX ER 500 MG TAB.ER.24H PO SCH (21:50)
--- NOTE | 2021-12-03 08:09 | P.PN ---
Subjective Progress Note Date: 12/03/21 Principal diagnosis: Bipolar disorder manic type Subjective data: Has started to feel a lot better But I have to get my life organized Have to get back into a job and I can start paying my bills Objective data: The patient was appropriately dressed and groomed She was friendly and cooperative Patient shows no signs of any agitation Thought processes still seem very flighty rationalization and intellectualization Insight into her problem remains partial Plan: Continue current medications as prescribed Discussed effects and side effects Continue supportive care Patient encouraged to participate in the milieu treatment No side effects reported or noted Yehuda Tito Wolfe 12/03/2021 Objective - Vital Signs Vital signs: Vital Signs Temp 97.9 F 12/03/21 06:37 Pulse 72 12/03/21 06:37 Resp 16 12/03/21 06:37 BP 127/76 12/03/21 06:37 Pulse Ox 98 12/03/21 06:37 - Labs CBC & Chem 7: 11/28/21 06:19 11/28/21 06:19
[2021-12-03] MEDS: haloperidoL 5 MG TAB PO SCH ×2 (08:17→21:17)
[2021-12-03] MEDS: OLANZapine 5 MG TAB PO SCH ×2 (08:17→21:17)
[2021-12-03] MEDS: DIVALPROEX ER 500 MG TAB.ER.24H PO SCH (21:17)
[2021-12-04] MEDS: haloperidoL 5 MG TAB PO SCH ×2 (07:46→21:29)
[2021-12-04] MEDS: OLANZapine 5 MG TAB PO SCH ×2 (07:46→21:29)
--- NOTE | 2021-12-04 17:41 | PN ---
PROGRESS NOTE CHIEF COMPLAINT: The patient was admitted for disorganized behavior and thoughts. INTERVAL HISTORY: The patient has been doing fair. She had a quiet day yesterday. She comes out on the unit. She interacts with others. She was not voicing any significant problems or concerns. She chose not to attend groups yesterday. She slept 6 hours last night. Today she has been up. It is noteworthy that she has attended all groups today. She has an even mood. She voices no specific concerns regarding her medication or care. She tolerates her psychotropic medications. MENTAL STATUS: Patient sat without restlessness. She gave fairly good eye contact. She answered questions with brief responses. Her thoughts were clear. Her affect was in a reasonable range. She had a quiet mood. She did not appear to be distressed in any way. There was no indication of thought disorder. She voiced no thoughts of harm. Cognition was clear. ASSESSMENT: I will continue the current diagnosis and treatment plan. The patient was started on Depakote on 11/29. I will get a valproic acid level in the morning. She will continue on Depakote 500 mg twice a day and Zyprexa 5 mg twice a day. It is noted that she had an elevated TSH of 4.9. I discussed this with her and she says that her primary care practitioner had indicated in the past that she should be started on thyroid replacement, though she never followed up with that. I will start her on Synthroid 50 mcg daily. It is noted that her free T4 was 1.0. The patient indicated that while she came from [facility], it is her understanding that she is due to be released from [facility] and needs to go back there to gather her belongings after discharge. Staff had indicated there was a question that she is actually a [facility] hold and may return to [facility]. I will have Social Work address the issue in the morning. It is anticipated the patient will be discharged within the next few days. MMODL / IJN: [id number] /
[2021-12-04] MEDS: DIVALPROEX ER 500 MG TAB.ER.24H PO SCH (21:29)
[2021-12-05] MEDS ORDERED: LEVOTHYROXINE 50 MCG TAB PO SCH (06:30)
[2021-12-05 06:56] VITALS: BP 151/61; PULSE 82; TEMP 98
[2021-12-05] MEDS: OLANZapine 5 MG TAB PO SCH (08:02)
[2021-12-05] MEDS: haloperidoL 5 MG TAB PO SCH (08:02)
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
== END 2021-12-05 15:40 | DRG 885 ==
LOC: EC 10:23 → 3MHU 13:51 → UNDODISIN 12-05 11:35
PROVIDERS: ADMIT Psychiatry & Neurology Psychiatry; ATTEND Psychiatry & Neurology Psychiatry
DX: F31.2 Bipolar disorder, current episode manic severe with psychotic features (principal); E03.9 Hypothyroidism, unspecified; E78.5 Hyperlipidemia, unspecified; F17.200 Nicotine dependence, unspecified, uncomplicated; F41.9 Anxiety disorder, unspecified; F90.9 Attention-deficit hyperactivity disorder, unspecified type; L73.2 Hidradenitis suppurativa; Z79.899 Other long term (current) drug therapy; Z83.3 Family history of diabetes mellitus; Z85.41 Personal history of malignant neoplasm of cervix uteri; Z91.14 Patient's other noncompliance with medication regimen; Z20.822 Contact with and (suspected) exposure to COVID-19
CPT/HCPCS: 80053; 80061; 80165; 80306; 82075; 82248; 83036; 84439; 84443; 85025; 87635; 99285

== ENCOUNTER 2021-12-19 14:27 | Emergency (ER) | payer OTHER ==
[2021-12-19 14:43] VITALS: TEMP 98.8
--- NOTE | 2021-12-19 16:36 | ED ---
General Adult HPI - General Source: patient Mode of arrival: ambulatory Limitations: no limitations <Héctor Gil - Last Filed: 12/19/21 16:36> <Connor Zaman - Last Filed: 12/24/21 21:18> - General Chief complaint: Psychiatric Symptoms Stated complaint: Mental health eval Time Seen by Provider: 12/19/21 16:20 - History of Present Illness Initial comments: Dictation was produced using [employer] dictation software. please excuse any grammatical, word or spelling errors. Chief Complaint: 61-year-old female past medical history of suicidal behavior presents to the ER for suicidal thoughts 24 hours History of Present Illness: 61-year-old female presents to the emergency department for suicidal thoughts for 24 hours she does not have a plan. She has no medical complaints. Patient states she has tried to harm herself in the past. Denies homicidal ideation. No visual auditory hallucinations. Denies any paranoia The ROS documented in this emergency department record has been reviewed and confirmed by me. Those systems with pertinent positive or negative responses have been documented in the HPI. All other systems are other negative and/or noncontributory. PHYSICAL EXAM: General Impression: Alert and oriented x3, not in acute distress HEENT: Normocephalic atraumatic, extra-ocular movements intact, pupils equal and reactive to light bilaterally, mucous membranes moist. Cardiovascular: Heart regular rate and rhythm Chest: Able to complete full sentences, no retractions, no tachypnea Abdomen: abdomen soft, non-tender, non-distended, no organomegaly Musculoskeletal: Pulses present and equal in all extremities, no peripheral edema Motor: no focal deficits noted Neurological: CN II-XII grossly intact, no focal motor or sensory deficits noted Skin: Intact with no visualized rashes Psych: Normal affect and mood ED course: 61 well-appearing female presents emergency department for suicidal ideation. Vital signs are stable. Patient showing signs of psychotic features. She has no medical complaints. Physical examination is benign. Patient medically cleared for EPS evaluation. (Héctor Gil) - Related Data Home Medications Medication Instructions Recorded Confirmed haloperidoL [Haldol] 5 mg PO DAILY 12/19/21 12/19/21 Previous Rx's Medication Instructions Recorded Divalproex ER [Depakote ER] 500 mg PO DAILY@2100 30 Days 12/05/21 Levothyroxine Sodium [Synthroid] 50 mcg PO DAILY@0630 30 Days tab 12/05/21 OLANZapine [ZyPREXA] 5 mg PO BID 30 Days tab 12/05/21 Allergies Allergy/AdvReac Type Severity Reaction Status Date / Time Sulfa (Sulfonamide Allergy Rash/Hives Verified 12/19/21 17:37 Antibiotics) Review of Systems ROS Other: All systems not noted in ROS Statement are negative. <Héctor Gil - Last Filed: 12/19/21 16:36> ROS Other: All systems not noted in ROS Statement are negative. <Connor Zaman - Last Filed: 12/24/21 21:18> ROS Statement: Those systems with pertinent positive or pertinent negative responses have been documented in the HPI. Past Medical History Past Medical History: Cancer, Chest Pain / Angina, GERD/Reflux, Hyperlipidemia, Thyroid Disorder Additional Past Medical History / Comment(s): Hidradenitis suppurativa axillaes, rectal/buttock abscesses, cervical cancer with procedure. History of Any Multi-Drug Resistant Organisms: None Reported Past Surgical History: No Surgical Hx Reported Additional Past Surgical History / Comment(s): I&Ds rectal/buttock abscesses, I&Ds multiple axillae abscesses, procedure to remove cervical cancer. Past Anesthesia/Blood Transfusion Reactions: No Reported Reaction Past Psychological History: Anxiety, Bipolar, Depression Smoking Status: Current every day smoker Past Alcohol Use History: None Reported Past Drug Use History: Marijuana - Past Family History Father History Unknown: Yes Additional Family Medical History / Comment(s): pt states heart dx runs in the family Mother Family Medical History: Diabetes Mellitus Additional Family Medical History / Comment(s): pt states heart disease runs in the family <Héctor Gil - Last Filed: 12/19/21 16:36> General Exam Limitations: no limitations <Héctor Gil - Last Filed: 12/19/21 16:36> Course <Connor Zaman - Last Filed: 12/24/21 21:18> Vital Signs 12/19/21 12/19/21 14:40 18:45 Temperature 98.8 F Pulse Rate 86 60 Respiratory 20 14 Rate Blood Pressure 130/82 123/83 O2 Sat by Pulse 97 98 Oximetry - Reevaluation(s) Reevaluation #1: Record is reviewed Medical clear for psychiatric evaluation (Connor Zaman) Medical Decision Making <Connor Zaman - Last Filed: 12/24/21 21:18> - Medical Decision Making 61 female who was seen and evaluated by psychiatry here in the ER and can be discharged home (Connor Zaman) - Lab Data Lab Results 12/19/21 Range/Units 16:46 Urine Opiates Screen Not Detected (NotDetected) Ur Oxycodone Screen Not Detected (NotDetected) Urine Methadone Screen Not Detected (NotDetected) Ur Propoxyphene Screen Not Detected (NotDetected) Ur Barbiturates Screen Not Detected (NotDetected) U Tricyclic Antidepress Not Detected (NotDetected) Ur Phencyclidine Scrn Not Detected (NotDetected) Ur Amphetamines Screen Not Detected (NotDetected) U Methamphetamines Scrn Not Detected (NotDetected) U Benzodiazepines Scrn Not Detected (NotDetected) Urine Cocaine Screen Not Detected (NotDetected) U Marijuana (THC) Screen Detected H (NotDetected) Disposition <Héctor Gil - Last Filed: 12/19/21 16:36> Is patient prescribed a controlled substance at d/c from ED?: No <Connor Zaman - Last Filed: 12/24/21 21:18> Clinical Impression: Depression Disposition: HOME SELF-CARE Condition: Fair Instructions (If sedation given, give patient instructions): Depression (ED) Referrals: Kirsty Neal MD [Primary Care Provider] - 1-2 days
[2021-12-19 17:35] LABS: Amphetamine Screen,Urine Not Detected (NotDetected); Barbiturate Screen,Urine Not Detected (NotDetected); Benzodiazepines Screen,Urine Not Detected (NotDetected); Cocaine Screen,Urine Not Detected (NotDetected); Methadone Screen, Urine Not Detected (NotDetected); Opiate Screen,Urine Not Detected (NotDetected); Oxycodone Screen, Urine Not Detected (NotDetected); Phencyclidine Screen,Urine Not Detected (NotDetected); Tricyclic Antidepressant,Urine Not Detected (NotDetected); Urn Cannabinoid Scrn Detected (NotDetected)
[2021-12-19 18:46] VITALS: BP 123/83; PULSE 60; RESP 14
== END 2021-12-20 01:45 | disposition home or self-care (01) ==
LOC: EC 14:27
DX: F32.A Depression, unspecified (principal); E78.5 Hyperlipidemia, unspecified; F17.200 Nicotine dependence, unspecified, uncomplicated; Z88.2 Allergy status to sulfonamides
CPT/HCPCS: 80306; 82075; 99284

== ENCOUNTER 2022-03-30 07:11 | Emergency (ER) | payer OTHER ==
[2022-03-30 07:29] VITALS: TEMP 97.9
[2022-03-30] MEDS ORDERED: LIDOCAINE 1% INJ 10MG/ML (20 ML MDV) SQ ONE (08:44)
--- NOTE | 2022-03-30 08:51 | ED ---
Skin/Abscess/FB HPI - General Chief complaint: Skin/Abscess/Foreign Body Stated complaint: Abscess on buttock Time Seen by Provider: 03/30/22 07:14 Source: patient, RN notes reviewed Mode of arrival: ambulatory Limitations: no limitations - History of Present Illness Initial comments: This is a 61-year-old female with a past medical history of hidradenitis suppurativa who presents to the emergency department for an abscess to the right gluteal Lexii. States that this is been present for 4 days. With the history of hidradenitis, she gets recurrent abscesses that require drainage. Most recently had an abscess to the buttocks one year ago. The area is getting very painful and she states that she needs it drained. She has not been able to expr ess any drainage at home. Denies any fevers or chills. Denies any fevers, chills, sore throat, cough, dyspnea, chest pain, palpitations, abdominal pain, nausea, vomiting, diarrhea, back pain, or headaches. MD complaint: abscess/boil Onset/Timin -: days(s) Location: buttocks - Related Data Home Medications Medication Instructions Recorded Confirmed haloperidoL [Haldol] 5 mg PO DAILY 12/19/21 12/19/21 Previous Rx's Medication Instructions Recorded Divalproex ER [Depakote ER] 500 mg PO DAILY@2100 30 Days 12/05/21 Levothyroxine Sodium [Synthroid] 50 mcg PO DAILY@0630 30 Days tab 12/05/21 OLANZapine [ZyPREXA] 5 mg PO BID 30 Days tab 12/05/21 Clindamycin [Cleocin] 450 mg PO Q8H 7 Days #63 cap 03/30/22 Allergies Allergy/AdvReac Type Severity Reaction Status Date / Time Sulfa (Sulfonamide Allergy Rash/Hives Verified 03/30/22 07:28 Antibiotics) Review of Systems ROS Statement: Those systems with pertinent positive or pertinent negative responses have been documented in the HPI. ROS Other: All systems not noted in ROS Statement are negative. Past Medical History Past Medical History: Cancer, Chest Pain / Angina, GERD/Reflux, Hyperlipidemia, Thyroid Disorder Additional Past Medical History / Comment(s): Hidradenitis suppurativa axillaes, rectal/buttock abscesses, cervical cancer with procedure. History of Any Multi-Drug Resistant Organisms: None Reported Past Surgical History: No Surgical Hx Reported Additional Past Surgical History / Comment(s): I&Ds rectal/buttock abscesses, I&Ds multiple axillae abscesses, procedure to remove cervical cancer. Past Anesthesia/Blood Transfusion Reactions: No Reported Reaction Past Psychological History: Anxiety, Bipolar, Depression Smoking Status: Current every day smoker Past Alcohol Use History: None Reported Past Drug Use History: Marijuana - Past Family History Father History Unknown: Yes Additional Family Medical History / Comment(s): pt states heart dx runs in the family Mother Family Medical History: Diabetes Mellitus Additional Family Medical History / Comment(s): pt states heart disease runs in the family General Exam Limitations: no limitations General appearance: alert, in no apparent distress Head exam: Present: atraumatic, normocephalic, normal inspection Respiratory exam: Present: normal lung sounds bilaterally. Absent: respiratory distress, wheezes, rales, rhonchi, stridor Cardiovascular Exam: Present: regular rate, normal rhythm, normal heart sounds. Absent: systolic murmur, diastolic murmur, rubs, gallop, clicks Neurological exam: Present: alert, oriented X3, CN II-XII intact Psychiatric exam: Present: normal affect, normal mood Skin exam: Present: other (3 x 3 cm fluctuant abscess to the middle of the right gluteal lexii near the gluteal cleft. No evidence of recent drainage.) Course Vital Signs 03/30/22 03/30/22 07:26 09:48 Temperature 97.9 F Pulse Rate 63 72 Respiratory 20 18 Rate Blood Pressure 118/76 122/79 O2 Sat by Pulse 98 99 Oximetry Procedures - Incision & Drainage Consent Obtained: verbal consent Indication: abscess Site: buttock Size (cm): 3 Anesthetic Used: lidocaine 1% Amount (mLs): 4 I&D Cleaning Method: Alcohol Wipe Sterile Field Used?: Yes Scalpel Used: #11 Needle Aspiration Performed?: No Irrigation Performed?: Yes I&D Drainage Obtained: Pus, Blood Culture Obtained?: Yes Medical Decision Making - Medical Decision Making This is a 61-year-old female who presents to the emergency department for an abscess to the buttocks. The location and appearance are not consistent with a pilonidal cyst. The abscess is fluctuant and ready to be drained. I and D was performed and both sanguinous and purulent material was expressed. Aerobic and anaerobic wound cultures were obtained. Rx for Clindamycin was provided to be taken for 7 days. Advised warm compresses and allowing the hot water from the shower to run over the area. Also advised ibuprofen and Tylenol as needed for pain relief. Return precautions reviewed in depth, the patient is instructed to return to the emergency department with any new, worsening, or concerning symptoms, especially if you develop increasing pain or fevers. Patient verbalized understanding. This case was discussed in detail with the attending ED physician. Presentation, findings, and treatment plan discussed in detail as well. Disposition Clinical Impression: Abscess of buttock, right Disposition: HOME SELF-CARE Instructions (If sedation given, give patient instructions): Abscess Incision and Drainage (ED), Abscess (ED) Additional Instructions: Return to the emergency department with any new, worsening, or concerning symptoms, especially if you develop fevers or increasing pain. Take the antibiotic as prescribed for 7 days. Let warm showers run over the area and apply warm compresses if possible. Prescriptions: Clindamycin [Cleocin] 450 mg PO Q8H 7 Days #63 cap Is patient prescribed a controlled substance at d/c from ED?: No Referrals: Kirsty Neal MD [Primary Care Provider] - 1-2 days
[2022-03-30 09:50] VITALS: BP 122/79; PULSE 72; RESP 18
== END 2022-03-30 09:49 | disposition home or self-care (01) ==
LOC: EC 07:11
DX: L02.31 Cutaneous abscess of buttock (principal); F17.200 Nicotine dependence, unspecified, uncomplicated; Z88.2 Allergy status to sulfonamides
CPT/HCPCS: 87070; 87205; 87075; 99282; 10060; J2001

== ENCOUNTER 2022-06-08 07:08 | Emergency (ER) | payer OTHER ==
[2022-06-08 07:21] VITALS: BP 122/83; PULSE 75; RESP 18; TEMP 97.4
[2022-06-08] MEDS ORDERED: DIPHENOX-ATROP 2.5-0.025 MG 1 EACH TAB PO STA (07:43)
[2022-06-08] MEDS ORDERED: SODIUM CHLORIDE 0.9% 1,000 ML IV ONE (07:51)
[2022-06-08 07:55] LABS: Basophils % (A) 1 %; Eosinophils # (A) 0.1 k/uL (0-0.7); Eosinophils % (A) 1 %; HCT 44.3 % (34.0-46.0); HGB 14.9 gm/dL (11.4-16.0); Lymphocytes # (A) 1.7 k/uL (1.0-4.8); Lymphocytes % (A) 25 %; MCH 32.3 pg (25.0-35.0); MCHC 33.6 g/dL (31.0-37.0); Mean Platelet Volume 7.6; Monocytes # (A) 0.6 k/uL (0-1.0); Monocytes % (A) 9 %; Neutrophils % (A) 61 %; Platelet Count 334 k/uL (150-450); RBC 4.62 m/uL (3.80-5.40); RDW 12.7 % (11.5-15.5); WBC 6.6 k/uL (3.8-10.6)
--- NOTE | 2022-06-08 08:03 | ED ---
General Adult HPI - General Chief complaint: Nausea/Vomiting/Diarrhea Stated complaint: Diarrhea Time Seen by Provider: 06/08/22 07:15 Source: patient, RN notes reviewed, old records reviewed Mode of arrival: ambulatory - History of Present Illness Initial comments: This is a 61-year-old female presents emergency Department complaining of diarrhea for 2 weeks. Patient states she was on antibiotics for a rectal abscess which is now healed. Patient denies any abdominal pain patient denies fever chills per patient denies any nausea vomiting. Patient denies any chest pain difficulty breathing first breath per patient denies any blood in the stool. Patient states she does feel she somewhat dehydrated but she is trying to keep up with fluids. - Related Data Home Medications Medication Instructions Recorded Confirmed ARIPiprazole [Abilify] 10 mg PO HS 06/08/22 06/08/22 DULoxetine HCL [Cymbalta] 30 mg PO HS 06/08/22 06/08/22 Levothyroxine Sodium [Synthroid] 88 mcg PO DAILY 06/08/22 06/08/22 Allergies Allergy/AdvReac Type Severity Reaction Status Date / Time Sulfa (Sulfonamide Allergy Rash/Hives Verified 06/08/22 07:57 Antibiotics) Review of Systems ROS Statement: Those systems with pertinent positive or pertinent negative responses have been documented in the HPI. ROS Other: All systems not noted in ROS Statement are negative. Past Medical History Past Medical History: Cancer, Chest Pain / Angina, GERD/Reflux, Hyperlipidemia, Thyroid Disorder Additional Past Medical History / Comment(s): Hidradenitis suppurativa axillaes, rectal/buttock abscesses, cervical cancer with procedure. History of Any Multi-Drug Resistant Organisms: None Reported Past Surgical History: No Surgical Hx Reported Additional Past Surgical History / Comment(s): I&Ds rectal/buttock abscesses, I &Ds multiple axillae abscesses, procedure to remove cervical cancer. Past Anesthesia/Blood Transfusion Reactions: No Reported Reaction Past Psychological History: Anxiety, Bipolar, Depression Smoking Status: Current every day smoker Past Alcohol Use History: None Reported Past Drug Use History: None Reported - Past Family History Father History Unknown: Yes Additional Family Medical History / Comment(s): pt states heart dx runs in the family Mother Family Medical History: Diabetes Mellitus Additional Family Medical History / Comment(s): pt states heart disease runs in the family General Exam - General Exam Comments Initial Comments: GENERAL: Patient is well-developed and well-nourished. Patient is nontoxic and well- hydrated and is in no acute distress. ENT: Neck is soft and supple. No significant lymphadenopathy is noted. Oropharynx is clear. Dry mucous membranes. Neck has full range of motion without eliciting any pain. EYES: The sclera were anicteric and conjunctiva were pink and moist. Extraocular movements were intact and pupils were equal round and reactive to light. Eyelids were unremarkable. PULMONARY: Unlabored respirations. Good breath sounds bilaterally. No audible rales rhonchi or wheezing was noted. CARDIOVASCULAR: There is a regular rate and rhythm without any murmurs gallops or rubs. ABDOMEN: Soft and nontender with normal bowel sounds. SKIN: Skin is clear with no lesions or rashes and otherwise unremarkable. NEUROLOGIC: Patient is alert and oriented x3. Cranial nerves II through XII are grossly intact. Motor and sensory are also intact. Normal speech, volume and content. Symmetrical smile. MUSCULOSKELETAL: Normal extremities with adequate strength and full range of motion. LYMPHATICS: No significant lymphadenopathy is noted PSYCHIATRIC: Normal psychiatric evaluation. Course Vital Signs 06/08/22 07:18 Temperature 97.4 F L Pulse Rate 75 Respiratory 18 Rate Blood Pressure 122/83 O2 Sat by Pulse 99 Oximetry Medical Decision Making - Lab Data Result diagrams: 06/08/22 07:44 06/08/22 07:44 Lab Results 06/08/22 06/08/22 06/08/22 Range/Units 07:44 07:44 08:21 WBC 6.6 (3.8-10.6) k/uL RBC 4.62 (3.80-5.40) m/uL Hgb 14.9 (11.4-16.0) gm/dL Hct 44.3 (34.0-46.0) % MCV 96.0 (80.0-100.0) fL MCH 32.3 (25.0-35.0) pg MCHC 33.6 (31.0-37.0) g/dL RDW 12.7 (11.5-15.5) % Plt Count 334 (150-450) k/uL MPV 7.6 Neutrophils % 61 % Lymphocytes % 25 % Monocytes % 9 % Eosinophils % 1 % Basophils % 1 % Neutrophils # 4.0 (1.3-7.7) k/uL Lymphocytes # 1.7 (1.0-4.8) k/uL Monocytes # 0.6 (0-1.0) k/uL Eosinophils # 0.1 (0-0.7) k/uL Basophils # 0.0 (0-0.2) k/uL Sodium 140 (137-145) mmol/L Potassium 4.2 (3.5-5.1) mmol/L Chloride 110 H (98-107) mmol/L Carbon Dioxide 24 (22-30) mmol/L Anion Gap 6 mmol/L BUN 20 H (7-17) mg/dL Creatinine 0.79 (0.52-1.04) mg/dL Est GFR (CKD-EPI)AfAm >90 (>60 ml/min/1.73 sqM) Est GFR (CKD-EPI)NonAf 82 (>60 ml/min/1.73 sqM) Glucose 102 H (74-99) mg/dL Calcium 8.6 (8.4-10.2) mg/dL Total Bilirubin 0.5 (0.2-1.3) mg/dL AST 24 (14-36) U/L ALT 19 (4-34) U/L Alkaline Phosphatase 108 (38-126) U/L Total Protein 7.0 (6.3-8.2) g/dL Albumin 4.2 (3.5-5.0) g/dL Urine Color Yellow Urine Appearance Clear (Clear) Urine pH 6.0 (5.0-8.0) Ur Specific [place] 1.033 (1.001-1.035) Urine Protein Trace H (Negative) Urine Glucose (UA) Negative (Negative) Urine Ketones Negative (Negative) Urine Blood Small H (Negative) Urine Nitrite Negative (Negative) Urine Bilirubin Negative (Negative) Urine Urobilinogen <2.0 (<2.0) mg/dL Ur Leukocyte Esterase Negative (Negative) Urine RBC 3 (0-5) /hpf Urine WBC 2 (0-5) /hpf Ur Squamous Epith Cells 5 H (0-4) /hpf Urine Bacteria Rare H (None) /hpf Urine Mucus Moderate H (None) /hpf Disposition Clinical Impression: Diarrhea Disposition: HOME SELF-CARE Instructions (If sedation given, give patient instructions): Acute Diarrhea (ED) Additional Instructions: Patient should only take Lomotil if she continues to have diarrhea Is patient prescribed a controlled substance at d/c from ED?: No Referrals: Kirsty Neal MD [Primary Care Provider] - 1-2 days Time of Disposition: 09:30
[2022-06-08 08:07] LABS: ALT 19 U/L (4-34); AST 24 U/L (14-36); African American GFR (CKD) >90 (>60 ml/min/1.73 sqM); Albumin 4.2 g/dL (3.5-5.0); Alkaline Phosphatase 108 U/L (38-126); Anion Gap 6 mmol/L; Blood Urea Nitrogen 20 mg/dL (7-17); Calcium 8.6 mg/dL (8.4-10.2); Carbon Dioxide 24 mmol/L (22-30); Chloride 110 mmol/L (98-107); Glucose 102 mg/dL (74-99); Non-African American GFR(CKD) 82 (>60 ml/min/1.73 sqM); Potassium 4.2 mmol/L (3.5-5.1); Sodium 140 mmol/L (137-145); Total Bilirubin 0.5 mg/dL (0.2-1.3)
[2022-06-08 09:21] LABS: Appearance,Urine Clear (Clear); Bacteria,Urine Rare /hpf; Bilirubin,Urine Negative (Negative); Blood,Urine Small (Negative); Color,Urine Yellow; Glucose,Urine (UA) Negative (Negative); Ketones,Urine Negative (Negative); Leukocyte Esterase,Urine Negative (Negative); Mucus,Urine Moderate /hpf; Nitrite,Urine Negative (Negative); Protein,Urine Trace (Negative); RBC,Urine 3 /hpf (0-5); Specific Gravity,Urine 1.033 (1.001-1.035); Squamous Epithelial Cell,Urine 5 /hpf (0-4); Urobilinogen,Urine <2.0 mg/dL (<2.0); WBC,Urine 2 /hpf (0-5)
== END 2022-06-08 12:13 | disposition home or self-care (01) ==
LOC: EC 07:08
DX: R19.7 Diarrhea, unspecified (principal); E78.5 Hyperlipidemia, unspecified; F41.9 Anxiety disorder, unspecified; E31.9 Polyglandular dysfunction, unspecified; F17.200 Nicotine dependence, unspecified, uncomplicated; Z79.890 Hormone replacement therapy; Z79.899 Other long term (current) drug therapy; Z88.2 Allergy status to sulfonamides
CPT/HCPCS: 36415; 80053; 81001; 85025; 87324; 96360; 99284

== ENCOUNTER 2022-06-28 00:48 | Observation (INO) | payer OTHER ==
[2022-06-28 01:35] LABS: Basophils % (A) 1 %; Eosinophils % (A) 0 %; HCT 36.6 % (34.0-46.0); HGB 12.6 gm/dL (11.4-16.0); Lymphocytes # (A) 0.3 k/uL (1.0-4.8); Lymphocytes % (A) 5 %; MCH 32.2 pg (25.0-35.0); MCHC 34.4 g/dL (31.0-37.0); MCV 93.6 fL (80.0-100.0); Monocytes # (A) 0.2 k/uL (0-1.0); Monocytes % (A) 4 %; Neutrophils # (A) 4.8 k/uL (1.3-7.7); Neutrophils % (A) 88 %; Platelet Count 221 k/uL (150-450); RBC 3.91 m/uL (3.80-5.40); RDW 13.6 % (11.5-15.5); WBC 5.5 k/uL (3.8-10.6)
[2022-06-28 01:46] LABS: ALT 25 U/L (4-34); AST 39 U/L (14-36); African American GFR (CKD) >90 (>60 ml/min/1.73 sqM); Albumin 3.5 g/dL (3.5-5.0); Alkaline Phosphatase 88 U/L (38-126); Anion Gap 7 mmol/L; Blood Urea Nitrogen 14 mg/dL (7-17); Calcium 8.2 mg/dL (8.4-10.2); Carbon Dioxide 22 mmol/L (22-30); Chloride 107 mmol/L (98-107); Glucose 91 mg/dL (74-99); Magnesium 1.9 mg/dL (1.6-2.3); Non-African American GFR(CKD) >90 (>60 ml/min/1.73 sqM); Sodium 136 mmol/L (137-145); Total Bilirubin 0.4 mg/dL (0.2-1.3); Total Protein 6.3 g/dL (6.3-8.2)
[2022-06-28 01:47] LABS: Partial Thromboplastin Time 28.1 sec (22.0-30.0); Prothrombin Time 10.6 sec (9.0-12.0)
--- NOTE | 2022-06-28 01:56 | XR ---
EXAMINATION TYPE: XR chest 2V DATE OF EXAM: 06/28/2022 COMPARISON: 05/06/2021 HISTORY: Chest pain TECHNIQUE: 2 view FINDINGS: There is some mild interstitial infiltrates in the left lower lobe. Heart size is normal. T here are no hilar masses. Mediastinum is normal. No pleural effusion. No heart failure. IMPRESSION: There is some mild left lower lobe interstitial pneumonia that is a change compared to ol d exam.
--- NOTE | 2022-06-28 02:58 | ED ---
Chest Pain HPI - General Chief Complaint: Chest Pain Stated Complaint: Shortness of Breath Time Seen by Provider: 06/28/22 02:44 Source: patient, RN notes reviewed, old records reviewed Mode of arrival: ambulatory Limitations: no limitations - History of Present Illness Initial Comments: This is a 62-year-old female DF for evaluation patient presents for not feeling well chest pain weakness shortness of breath. Possible exposure to flu. No fevers. No nausea and vomiting. Mild cough. No congestion. No shortness of breath just chest pain. Patient's chest pain here in the emergency department. No recent travel history sick contacts otherwise no recent hospital admissions. Does have history of chest pain angina and high blood pressure MD Complaint: chest pain -: hour(s) Onset: during rest Pain Location: substernal, left chest Pain Radiation: none Severity: moderate Severity scale (1-10): 3 Quality: tightness Consistency: intermittent Improves With: nothing Worsens With: nothing Anginal Symptoms: nausea Other Symptoms: palpitations Treatments Prior to Arrival: none - Related Data Home Medications Medication Instructions Recorded Confirmed ARIPiprazole [Abilify] 10 mg PO HS 06/08/22 06/08/22 DULoxetine HCL [Cymbalta] 30 mg PO HS 06/08/22 06/08/22 Levothyroxine Sodium [Synthroid] 88 mcg PO DAILY 06/08/22 06/08/22 Allergies Allergy/AdvReac Type Severity Reaction Status Date / Time Sulfa (Sulfonamide Allergy Rash/Hives Verified 06/28/22 01:36 Antibiotics) Review of Systems ROS Statement: Those systems with pertinent positive or pertinent negative responses have been documented in the HPI. ROS Other: All systems not noted in ROS Statement are negative. Past Medical History Past Medical History: Cancer, Chest Pain / Angina, GERD/Reflux, Hyperlipidemia, Thyroid Disorder Additional Past Medical History / Comment(s): Hidradenitis suppurativa axillaes, rectal/buttock abscesses, cervical cancer with procedure. History of Any Multi-Drug Resistant Organisms: None Reported Past Surgical History: No Surgical Hx Reported Additional Past Surgical History / Comment(s): I&Ds rectal/buttock abscesses, I&Ds multiple axillae abscesses, procedure to remove cervical cancer. Past Anesthesia/Blood Transfusion Reactions: No Reported Reaction Past Psychological History: Anxiety, Bipolar, Depression Smoking Status: Current every day smoker Past Alcohol Use History: None Reported Past Drug Use History: None Reported - Past Family History Father History Unknown: Yes Additional Family Medical History / Comment(s): pt states heart dx runs in the family Mother Family Medical History: Diabetes Mellitus Additional Family Medical History / Comment(s): pt states heart disease runs in the family General Exam General appearance: alert, in no apparent distress Head exam: Present: atraumatic, normocephalic, normal inspection Eye exam: Present: normal appearance, PERRL, EOMI. Absent: scleral icterus, conjunctival injection, periorbital swelling ENT exam: Present: normal exam, mucous membranes moist Neck exam: Present: normal inspection. Absent: tenderness, meningismus, lymphadenopathy Respiratory exam: Present: normal lung sounds bilaterally. Absent: respiratory distress, wheezes, rales, rhonchi, stridor Cardiovascular Exam: Present: regular rate, normal rhythm, normal heart sounds. Absent: systolic murmur, diastolic murmur, rubs, gallop, clicks GI/Abdominal exam: Present: soft, normal bowel sounds. Absent: distended, tenderness, guarding, rebound, rigid Extremities exam: Present: normal inspection, full ROM, normal capillary refill. Absent: tenderness, pedal edema, joint swelling, calf tenderness Back exam: Present: normal inspection Neurological exam: Present: alert, oriented X3, CN II-XII intact Psychiatric exam: Present: normal affect, normal mood Skin exam: Present: warm, dry, intact, normal color. Absent: rash Course Vital Signs 06/28/22 06/28/22 01:34 02:50 Temperature 100.1 F H 98.6 F Pulse Rate 56 L 56 L Respiratory 19 12 Rate Blood Pressure 112/72 123/87 O2 Sat by Pulse 93 L 92 L Oximetry - Reevaluation(s) Reevaluation #1: 06/28/22 03:12 Medical record is reviewed Reevaluation #2: 06/28/22 03:12 Patient has no real improvement here in the ER mild troponin leak Reevaluation #3: 06/28/22 03:12 Patient informed results and questions are answered Reevaluation #4: Studies Chest x-rays positive for pneumonia - Consultations Consultation #1: Spoke with sound who agrees to admit this patient Chest Pain MDM - MDM 62 female DF for evaluation. Patient presents today for evaluation in regards to chest pain. Patient has mild troponin leak. Also positive for influenza. Patient be admitted for trending of troponin and symptomatic care patient also has pneumonia on x-ray we'll treat with antibiotics Disposition Clinical Impression: Chest pain, Acute non-ST elevation myocardial infarction (NSTEMI), Community acquired pneumonia, Influenza, Fever Disposition: ADMITTED IP TO THIS HOSP Condition: Fair Is patient prescribed a controlled substance at d/c from ED?: No Referrals: Kirsty Neal MD [Primary Care Provider] - 1-2 days Time of Disposition: 03:15
[2022-06-28] MEDS ORDERED: MORPHINE SULFATE 4 MG/ML SYRINGE IV PRN (03:09)
[2022-06-28] MEDS ORDERED: ASPIRIN 325 MG TAB PO STA (03:09)
[2022-06-28] MEDS ORDERED: ONDANSETRON 4 MG/2 ML VIAL IVP PRN (03:09)
[2022-06-28] MEDS ORDERED: POTASSIUM BICARBONATE/CIT AC 20 MEQ TABLET.EFF PO STA ×2 (03:09)
[2022-06-28] MEDS ORDERED: NALOXONE 0.4 MG/ML 1 ML VIAL IV PRN (03:09)
[2022-06-28] MEDS ORDERED: ASPIRIN 81 MG PO STA (03:09)
[2022-06-28] MEDS ORDERED: AZITHROMYCIN 500 MG in SODIUM CHLORIDE 0.9% 250 ML IVPB STA (03:14)
--- NOTE | 2022-06-28 04:00 | P.HPIM ---
History of Present Illness H&P Date: 06/28/22 The patient is a 62-year-old female with a PMH of hypothyroidism and bipolar disorder who presents to the emergency room with complaints of chest pain and shortness of breath. Patient states that her symptoms started roughly at around 5 PM earlier today with gradually worsening shortness of breath. She reports associated substernal pressure-like chest discomfort, 7 out of 10 on maximal intensity, constant, with no alleviating or exacerbating features, nonradiating. She states that the pain had improved gradually after arrival at the emergency room and she was pain-free at the time of interview. Reported that she continues to have shortness of breath however. Reports a mild nonproductive cough. Denied lower extremities swelling or pain. Reports diarrhea over the past 2 weeks without blood or black tarry stools. Upon arrival at the emergency room, the patient's temp was 100.1F, BP 112/72, pulse 56, and SpO2 93% on room air. Laboratory evaluation was remarkable for influenza type A positive, potassium 3.0, and troponin 0.016. Chest x-ray was positive for mild left lower lobe pneumonia. Review of systems: Pertinent positives and negatives as discussed in HPI, a complete review of systems was performed and all other systems are negative. Physical examination: General: non toxic, no distress, appears at stated age, obese Derm: no unusual rashes/lesions, warm Head: atraumatic, normocephalic, symmetric Eyes: EOMI, no lid lag, anicteric sclera, pupils equal round reactive to light ENT: Nose and ears atraumatic Neck: No cervical lymphadenopathy, trachea midline, supple Mouth: no lip lesion, mucus membranes moist Cardiovascular: S1S2 reg, no murmur, positive dorsalis pedis pulse bilateral, no edema Lungs: Scattered rhonchi, no rales or wheezing, no accessory muscle use Abdominal: soft, nontender to palpation, no guarding Ext: muscle strength 5 out of 5 in all 4 extremities grossly, no gross muscle atrophy, no contractures, Neuro: CN II-XI grossly intact, no gross focal neuro deficits Psych: Alert, oriented, appropriate affect Assessment/plan Influenza type A infection with possible superimposed bacterial lobar pneumonia -Continue with Tamiflu -Continue with azithromycin and ceftriaxone -Obtain pro-calcitonin levels -IV fluids Chest pain, rule out ACS -Trend troponin -Cardiac monitoring -Cardiology consult -Continue with aspirin, statin Hypokalemia -Replace and monitor DVT prophylaxis -Heparin subcu The patient is admitted with an anticipated less than 2 midnight stay for evaluation of pneumonia. CODE STATUS: Full Code Discussed with: Patient Anticipated discharge date: In a.m. Anticipated discharge place: Home Past Medical History Past Medical History: Cancer, Chest Pain / Angina, GERD/Reflux, Hyperlipidemia, Thyroid Disorder Additional Past Medical History / Comment(s): Hidradenitis suppurativa axillaes, rectal/buttock abscesses, cervical cancer with procedure. History of Any Multi-Drug Resistant Organisms: None Reported Past Surgical History: No Surgical Hx Reported Additional Past Surgical History / Comment(s): I&Ds rectal/buttock abscesses, I&Ds multiple axillae abscesses, procedure to remove cervical cancer. Past Anesthesia/Blood Transfusion Reactions: No Reported Reaction Past Psychological History: Anxiety, Bipolar, Depression Smoking Status: Current every day smoker Past Alcohol Use History: None Reported Past Drug Use History: None Reported - Past Family History Father History Unknown: Yes Additional Family Medical History / Comment(s): pt states heart dx runs in the family Mother Family Medical History: Diabetes Mellitus Additional Family Medical History / Comment(s): pt states heart disease runs in the family Medications and Allergies Home Medications Medication Instructions Recorded Confirmed Type ARIPiprazole [Abilify] 10 mg PO HS 06/08/22 06/08/22 History DULoxetine HCL [Cymbalta] 30 mg PO HS 06/08/22 06/08/22 History Levothyroxine Sodium [Synthroid] 88 mcg PO DAILY 06/08/22 06/08/22 History Allergies Allergy/AdvReac Type Severity Reaction Status Date / Time Sulfa (Sulfonamide Allergy Rash/Hives Verified 06/28/22 01:36 Antibiotics) Physical Exam Vitals: Vital Signs Temp Pulse Resp BP Pulse Ox 06/28/22 02:50 98.6 F 56 L 12 123/87 92 L 06/28/22 01:34 100.1 F H 56 L 19 112/72 93 L Intake and Output 06/27/22 06/27/22 06/28/22 14:59 22:59 06:59 Other: Weight 83.915 kg Results CBC & Chem 7: 06/28/22 01:15 06/28/22 01:15 Labs: Abnormal Lab Results - Last 24 Hours (Table) 06/28/22 06/28/22 06/28/22 Range/Units 01:15 01:15 01:44 Lymphocytes # 0.3 L (1.0-4.8) k/uL Sodium 136 L (137-145) mmol/L Potassium 3.0 L (3.5-5.1) mmol/L Calcium 8.2 L (8.4-10.2) mg/dL AST 39 H (14-36) U/L Influenza Type A RNA Detected H (Not Detectd)
[2022-06-28] MEDS: ACETAMINOPHEN TAB 325 MG TAB PO PRN ×3 (06:41→20:40)
[2022-06-28] MEDS: SODIUM CHLORIDE 0.9% 1,000 ML IV SCH ×3 (07:06→19:32)
[2022-06-28] MEDS: HEPARIN SODIUM,PORCINE/PF 5,000 UNIT/0.5 ML SYRINGE SQ SCH ×3 (08:22→20:40)
[2022-06-28] MEDS: OSELTAMIVIR 75 MG CAP PO SCH ×2 (08:22→20:40)
[2022-06-28] MEDS: PANTOPRAZOLE 40 MG/10 ML VIAL IV SCH (08:22)
--- NOTE | 2022-06-28 11:20 | P.CRDCN ---
History of Present Illness Consult date: 06/28/22 Consult reason: chest pain History of present illness: This is a 62-year-old female past medical history significant for hypothyroidism, bipolar depression, previous suicide attempts, chronic nicotine and marijuana dependence. We are performing a chart review regarding chest pain. She was brought to the emergency department this morning due to not feeling well, chest pain, weakness and shortness of breath. She was positive for influenza a. Troponin negative on 3 draws. EKG is normal. Chest x-ray shows mild left lower lobe interstitial pneumonia. ASSESSMENT Influenza A pneumonia Chest pain secondary to influenza A pneumonia, acute coronary syndrome ruled out with normal troponins and normal EKG Hypothyroidism History of bipolar depression PLAN No further cardiac workup is necessary Cardiology we'll sign off this case and following on an as-needed basis. Please reconsult if any new concerns. Thank you kindly for this consultation. The above impression and plan of care have been discussed and directed by the signing physician. Carolyn Blum, nurse practitioner, acting as scribe for signing physician. Past Medical History Past Medical History: Cancer, Chest Pain / Angina, GERD/Reflux, Hyperlipidemia, Thyroid Disorder Additional Past Medical History / Comment(s): Hidradenitis suppurativa axillaes, rectal/buttock abscesses, cervical cancer with procedure. History of Any Multi-Drug Resistant Organisms: None Reported Past Surgical History: No Surgical Hx Reported Additional Past Surgical History / Comment(s): I&Ds rectal/buttock abscesses, I&Ds multiple axillae abscesses, procedure to remove cervical cancer. Past Anesthesia/Blood Transfusion Reactions: No Reported Reaction Past Psychological History: Anxiety, Bipolar, Depression Smoking Status: Current every day smoker Past Alcohol Use History: None Reported Past Drug Use History: None Reported - Past Family History Father History Unknown: Yes Additional Family Medical History / Comment(s): pt states heart dx runs in the family Mother Family Medical History: Diabetes Mellitus Additional Family Medical History / Comment(s): pt states heart disease runs in the family Medications and Allergies Home Medications Medication Instructions Recorded Confirmed Type ARIPiprazole [Abilify] 10 mg PO HS 06/08/22 06/28/22 History Levothyroxine Sodium [Synthroid] 88 mcg PO DAILY 06/08/22 06/28/22 History DULoxetine HCL [Cymbalta] 60 mg PO BID 06/28/22 06/28/22 History Allergies Allergy/AdvReac Type Severity Reaction Status Date / Time Sulfa (Sulfonamide Allergy Rash/Hives Verified 06/28/22 08:26 Antibiotics) Physical Exam Vitals: Vital Signs Temp Pulse Resp BP Pulse Ox 06/28/22 08:00 14 06/28/22 06:39 99.5 F 57 L 14 117/90 95 06/28/22 02:50 98.6 F 56 L 12 123/87 92 L 06/28/22 01:34 100.1 F H 56 L 19 112/72 93 L Intake and Output 06/27/22 06/28/22 06/28/22 22:59 06:59 14:59 Other: Voiding Method Toilet Weight 83.915 kg Results 06/28/22 01:15 06/28/22 01:15 Cardiac Enzymes 06/28/22 06/28/22 06/28/22 Range/Units 01:15 01:15 05:55 AST 39 H (14-36) U/L Troponin I 0.016 0.012 (0.000-0.034) ng/mL 06/28/22 Range/Units 09:56 AST (14-36) U/L Troponin I 0.013 (0.000-0.034) ng/mL Coagulation 06/28/22 Range/Units 01:15 PT 10.6 (9.0-12.0) sec APTT 28.1 (22.0-30.0) sec CBC 06/28/22 Range/Units 01:15 WBC 5.5 (3.8-10.6) k/uL RBC 3.91 (3.80-5.40) m/uL Hgb 12.6 (11.4-16.0) gm/dL Hct 36.6 (34.0-46.0) % Plt Count 221 (150-450) k/uL Comprehensive Metabolic Panel 06/28/22 Range/Units 01:15 Sodium 136 L (137-145) mmol/L Potassium 3.0 L (3.5-5.1) mmol/L Chloride 107 (98-107) mmol/L Carbon Dioxide 22 (22-30) mmol/L BUN 14 (7-17) mg/dL Creatinine 0.69 (0.52-1.04) mg/dL Glucose 91 (74-99) mg/dL Calcium 8.2 L (8.4-10.2) mg/dL AST 39 H (14-36) U/L ALT 25 (4-34) U/L Alkaline Phosphatase 88 (38-126) U/L Total Protein 6.3 (6.3-8.2) g/dL Albumin 3.5 (3.5-5.0) g/dL Current Medications Generic Name Dose Route Start Last Admin Trade Name Freq PRN Reason Stop Dose Admin Acetaminophen 650 mg 06/28/22 03:09 06/28/22 06:41 Acetaminophen Tab 325 Mg Tab PO 650 mg Q6HR PRN Administration Mild Pain or Fever > 100.5 Heparin Sodium (Porcine) 5,000 unit 06/28/22 08:00 06/28/22 08:22 Heparin Sodium,Porcine/Pf 5,000 Unit/0.5 Ml Syringe SQ 5,000 unit Q8HR AJ Administration Sodium Chloride 1,000 mls @ 130 mls/hr 06/28/22 03:15 06/28/22 07:06 Saline 0.9% IV 130 mls/hr .[id number] AJ Administration Ceftriaxone Sodium 1 gm/ 50 mls @ 100 mls/hr 06/28/22 18:00 Sodium Chloride IVPB Q12H AJ Protocol Azithromycin 500 mg/ Sodium 250 mls @ 250 mls/hr 06/29/22 06:00 Chloride IVPB 07/01/22 06:59 DAILY@0600 AJ Protocol Morphine Sulfate 4 mg 06/28/22 03:09 Morphine Sulfate 4 Mg/Ml Syringe IV Q4HR PRN Severe Pain (Scale 7 to 10) Naloxone HCl 0.2 mg 06/28/22 03:09 Naloxone 0.4 Mg/Ml 1 Ml Vial IV Q2M PRN Opioid Reversal Ondansetron HCl 4 mg 06/28/22 03:09 Ondansetron 4 Mg/2 Ml Vial IVP Q8HR PRN Nausea And Vomiting Oseltamivir Phosphate 75 mg 06/28/22 04:00 06/28/22 08:22 Oseltamivir 75 Mg Cap PO 07/02/22 21:01 75 mg Q12HR AJ Administration Protocol Pantoprazole Sodium 40 mg 06/28/22 09:00 06/28/22 08:22 Pantoprazole 40 Mg/10 Ml Vial IV 40 mg DAILY AJ Administration Intake and Output 06/27/22 06/28/22 06/28/22 22:59 06:59 14:59 Other: Voiding Method Toilet Weight 83.915 kg 06/28/22 01:15 06/28/22 01:15
[2022-06-28] MEDS: DULoxetine HCL 60 MG CAPSULE.DR PO SCH (20:40)
[2022-06-28] MEDS ORDERED: ARIPiprazole 10 MG TAB PO SCH (21:00)
[2022-06-29] MEDS: SODIUM CHLORIDE 0.9% 1,000 ML IV SCH (01:55)
[2022-06-29] MEDS ORDERED: AZITHROMYCIN 500 MG in SODIUM CHLORIDE 0.9% 250 ML IVPB SCH (06:00)
[2022-06-29] MEDS ORDERED: LEVOTHYROXINE 88 MCG TAB PO SCH (06:30)
[2022-06-29 08:01] VITALS: BP 111/61; PULSE 52; RESP 18; TEMP 98
[2022-06-29 08:55] LABS: Basophils # (A) 0.02 X 10*3/uL (0.00-0.10); Basophils % (A) 0.6 %; Eosinophils # (A) 0.01 X 10*3/uL (0.04-0.35); Eosinophils % (A) 0.3 %; HCT 37.8 % (37.2-46.3); HGB 12.2 g/dL (12.0-15.0); Immature Grans, Automated 0.3 %; Lymphocytes # (A) 1.45 X 10*3/uL (0.90-5.00); Lymphocytes % (A) 40.5 %; MCH 31.1 pg (27.0-32.0); MCHC 32.3 g/dL (32.0-37.0); MCV 96.4 fL (80.0-97.0); Mean Platelet Volume 10.5 fL (9.5-12.2); Monocytes # (A) 0.37 X 10*3/uL (0.20-1.00); Monocytes % (A) 10.3 %; NRBC Per 100 WBC 0 /100 WBCS (0.0-0.0); Neutrophils # (A) 1.72 X 10*3/uL (1.80-7.70); Platelet Count 208 X 10*3/uL (140-440); RBC 3.92 X 10*6/uL (4.10-5.20); RDW 13.7 % (11.5-14.5); WBC 3.58 X 10*3/uL (4.50-10.00)
[2022-06-29] MEDS: OSELTAMIVIR 75 MG CAP PO SCH (09:06)
[2022-06-29] MEDS: HEPARIN SODIUM,PORCINE/PF 5,000 UNIT/0.5 ML SYRINGE SQ SCH (09:06)
[2022-06-29] MEDS: DULoxetine HCL 60 MG CAPSULE.DR PO SCH (09:07)
[2022-06-29] MEDS: PANTOPRAZOLE 40 MG/10 ML VIAL IV SCH (09:07)
[2022-06-29 09:26] LABS: ALT 21 U/L (8-44); AST 36 U/L (13-35); Albumin 3.4 g/dL (3.8-4.9); Alkaline Phosphatase 71 U/L (41-126); BUN/Creat Ratio 18.36 Ratio (12.00-20.00); Blood Urea Nitrogen 12.3 mg/dL (9.0-27.0); Calcium 8.2 mg/dL (8.7-10.3); Carbon Dioxide 23.8 mmol/L (20.0-27.5); Chloride 105 mmol/L (96-109); Globulin 2.4 g/dL (1.6-3.3); Glucose 86 mg/dL (70-110); Magnesium 1.9 mg/dL (1.5-2.4); Non-African American GFR(CKD) 94.9 (60.0-200.0); Phosphorus 2.8 mg/dL (2.4-5.1); Potassium 3.7 mmol/L (3.5-5.5); Sodium 138 mmol/L (135-145); Total Bilirubin <0.15 mg/dL (0.30-1.20); Total Protein 5.8 g/dL (6.2-8.2)
--- NOTE | 2022-06-29 13:22 | P.DS ---
Providers Date of admission: 06/28/22 03:14 Expected date of discharge: 06/29/22 Attending physician: Dong Trent MD Consults: 06/28/22 03:58 Consult Physician Urgent Consulting Provider: Jonah Perez Consult Reason/Comments: chest pain Do you want consulting provider notified?: Yes Primary care physician: [facility] Course: Influenza type A infection with possible superimposed bacterial lobar pneumonia Chest pain, rule out ACS Hypokalemia The patient is a 62-year-old female with a PMH of hypothyroidism and bipolar disorder who presents to the emergency room with complaints of chest pain and shortness of breath. Upon arrival at the emergency room, the patient's temp was 100.1F, BP 112/72, pulse 56, and SpO2 93% on room air. Laboratory evaluation was remarkable for influenza type A positive, potassium 3.0, and troponin 0.016. Chest x-ray was positive for mild left lower lobe pneumonia versus atelectasis. Patient was treated with Tamiflu as well as antibiotics, however, pro- calcitonin levels indicated a level 0.08, not consistent with bacterial superinfection. Therefore, antibiotics or D escalated, patient did well overnight. Patient was subsequently discharged home with instructions to complete a total 5 day course of Tamiflu as well as follow-up with primary care physician. Notably, patient has small troponin leak which stayed stable, seen by cardiology and had acute coronary syndrome ruled out. Gen: awake, alert HEENT: normocephalic, atraumatic, good hearing acuity, moist mucous membranes Resp: good air exchange, breathing comfortably with no accessory muscle use CVS: good distal perfusion x 4, GI: soft, NTTP, ND : no SPT, no CVAT, barrios catheter not present MSK: no pitting edema, no clubbing Neuro: non-focal, moving all extremities Psych: cooperative, euthymic mood Patient Condition at Discharge: Good Plan - Discharge Summary Discharge Rx Participant: Yes New Discharge Prescriptions: New Oseltamivir [Tamiflu] 75 mg PO Q12HR #7 cap Acetaminophen Tab [Tylenol] 650 mg PO Q6HR PRN tab PRN Reason: Mild Pain Or Fever > 100.5 Continue Levothyroxine Sodium [Synthroid] 88 mcg PO DAILY ARIPiprazole [Abilify] 10 mg PO HS DULoxetine HCL [Cymbalta] 60 mg PO BID Discharge Medication List ARIPiprazole [Abilify] 10 mg PO HS 06/08/22 [History] Levothyroxine Sodium [Synthroid] 88 mcg PO DAILY 06/08/22 [History] DULoxetine HCL [Cymbalta] 60 mg PO BID 06/28/22 [History] Acetaminophen Tab [Tylenol] 650 mg PO Q6HR PRN tab 06/29/22 [Rx] Oseltamivir [Tamiflu] 75 mg PO Q12HR #7 cap 06/29/22 [Rx] Follow up Appointment(s)/Referral(s): Kirsty Neal MD [Primary Care Provider] - 1-2 days Patient Instructions/Handouts: Chest Pain (DC), Influenza (DC) Discharge Disposition: HOME SELF-CARE
[2022-06-30] MEDS ORDERED: PANTOPRAZOLE 40 MG TABLET PO SCH (07:30)
== END 2022-06-29 11:18 | disposition home or self-care (01) ==
LOC: EC 00:48 → 6NMEDSUR 03:14
PROVIDERS: ADMIT Internal Medicine; ATTEND Internal Medicine
DX: J10.1 Influenza due to other identified influenza virus with other respiratory manifestations (principal); J84.9 Interstitial pulmonary disease, unspecified; E87.6 Hypokalemia; R07.89 Other chest pain; R79.89 Other specified abnormal findings of blood chemistry; E78.5 Hyperlipidemia, unspecified; K21.9 Gastro-esophageal reflux disease without esophagitis; L73.2 Hidradenitis suppurativa; F31.30 Bipolar disorder, current episode depressed, mild or moderate severity, unspecified; F41.9 Anxiety disorder, unspecified; E03.9 Hypothyroidism, unspecified; R19.7 Diarrhea, unspecified; F17.200 Nicotine dependence, unspecified, uncomplicated; F12.20 Cannabis dependence, uncomplicated; Z79.890 Hormone replacement therapy; Z79.899 Other long term (current) drug therapy; Z88.2 Allergy status to sulfonamides; Z85.41 Personal history of malignant neoplasm of cervix uteri; Z87.2 Personal history of diseases of the skin and subcutaneous tissue; Z91.51 Personal history of suicidal behavior; Z98.890 Other specified postprocedural states; Z83.3 Family history of diabetes mellitus; Z82.49 Family history of ischemic heart disease and other diseases of the circulatory system
CPT/HCPCS: 96376; 96361 ×2; 96372 ×3; 96365; 96367; 96375; 99285; 36415; 94760; 93005; 80053 ×2; 83735 ×2; 84100; 84484; 85025 ×2; 85610; 85730; 87502; 84145; 87635; 71046; G0378 ×2; J0456; J0696; C9113 ×2; J1644 ×2

== ENCOUNTER 2023-05-07 15:19 | Observation (INO) | payer OTHER ==
[2023-05-07] MEDS ORDERED: NITROGLYCERIN OINT 1 INCH/GM PACKET TOPICAL STA (15:52)
--- NOTE | 2023-05-07 16:08 | ED ---
General Adult HPI - General Chief complaint: Chest Pain Stated complaint: CHEST PAIN Time Seen by Provider: 05/07/23 15:30 Source: patient, EMS, RN notes reviewed, old records reviewed Mode of arrival: EMS Limitations: no limitations - History of Present Illness Initial comments: This is a 62-year-old female presents to the emergency department via ambulance. Patient complains of chest pain for 4 days. She states in the anterior left side of her chest per patient denies radiation of the pain patient denies any shortness of breath or difficulty breathing. Patient denies any palpitations. Patient denies any nausea vomiting. Patient denies any diaphoretic episodes. Patient denies any recent fever chills or cough. Patient denies abdominal pain. Patient denies headache patient denies numbness weakness. Patient denies any back pain. - Related Data Home Medications Medication Instructions Recorded Confirmed No Known Home Medications 05/07/23 05/07/23 Allergies Allergy/AdvReac Type Severity Reaction Status Date / Time Sulfa (Sulfonamide Allergy Rash/Hives Verified 05/07/23 16:04 Antibiotics) Review of Systems ROS Statement: Those systems with pertinent positive or pertinent negative responses have been documented in the HPI. ROS Other: All systems not noted in ROS Statement are negative. Past Medical History Past Medical History: Cancer, Chest Pain / Angina, GERD/Reflux, Hyperlipidemia, Thyroid Disorder Additional Past Medical History / Comment(s): Hidradenitis suppurativa axillaes, rectal/buttock abscesses, cervical cancer with procedure. History of Any Multi-Drug Resistant Organisms: None Reported Past Surgical History: No Surgical Hx Reported Additional Past Surgical History / Comment(s): I&Ds rectal/buttock abscesses, I&Ds multiple axillae abscesses, procedure to remove cervical cancer. Past Anesthesia/Blood Transfusion Reactions: No Reported Reaction Past Psychological History: Anxiety, Bipolar, Depression Smoking Status: Current every day smoker Past Alcohol Use History: Occasional Past Drug Use History: None Reported - Past Family History Father History Unknown: Yes Additional Family Medical History / Comment(s): pt states heart dx runs in the family Mother Family Medical History: Diabetes Mellitus Additional Family Medical History / Comment(s): pt states heart disease runs in the family General Exam - General Exam Comments Initial Comments: GENERAL: Patient is well-developed and well-nourished. Patient is nontoxic and well- hydrated and is in mild distress. ENT: Neck is soft and supple. No significant lymphadenopathy is noted. Oropharynx is clear. Moist mucous membranes. Neck has full range of motion without eliciting any pain. EYES: The sclera were anicteric and conjunctiva were pink and moist. Extraocular movements were intact and pupils were equal round and reactive to light. Eyelids were unremarkable. PULMONARY: Unlabored respirations. Good breath sounds bilaterally. No audible rales rhonchi or wheezing was noted. CARDIOVASCULAR: There is a regular rate and rhythm without any murmurs gallops or rubs. ABDOMEN: Soft and nontender with normal bowel sounds. SKIN: Skin is clear with no lesions or rashes and otherwise unremarkable. NEUROLOGIC: Patient is alert and oriented x3. Cranial nerves II through XII are grossly intact. Motor and sensory are also intact. Normal speech, volume and content. Symmetrical smile. MUSCULOSKELETAL: Normal extremities with adequate strength and full range of motion. LYMPHATICS: No significant lymphadenopathy is noted PSYCHIATRIC: Normal psychiatric evaluation. Limitations: no limitations Course Vital Signs 05/07/23 05/07/23 15:29 18:00 Temperature 98.9 F Pulse Rate 75 62 Respiratory 20 20 Rate Blood Pressure 96/67 119/84 O2 Sat by Pulse 94 L 96 Oximetry Medical Decision Making - Medical Decision Making EKG was interpreted by myself. EKG shows sinus rhythm at 64 bpm SD interval 161 QRS is 78 QT interval 380 QTC is 390. Patient's EKG shows no ST segment elevation or depression. Was pt. sent in by a medical professional or institution (, [facility], FAMILY LAWYER, urgent care, hospital, or shelter...) When possible be specific @ -[No] Did you speak to anyone other than the patient for history (EMS, parent, family, police, friend...)? What history was obtained from this source @ -[No] Did you review nursing and triage notes (agree or disagree)? Why? @ -[I reviewed and agree with nursing and triage notes] Were old charts reviewed (outside hosp., previous admission, EMS record, old EKG, old radiological studies, urgent care reports/EKG's, shelter records)? Report findings @ -I reviewed prior charts in prior laboratory on this patient Differential Diagnosis (chest pain, altered mental status, abdominal pain women, abdominal pain men, vaginal bleeding, weakness, fever, dyspnea, syncope, headache, dizziness, GI bleed, back pain, seizure, CVA, palpatations, mental he alth, musculoskeletal)? @ -Differential Chest Pain: Stable Angina, Unstable Angina, STEMI, NSTEMI Aortic Dissection, Pneumothorax, Musculoskeletal, Esophageal Spasm GERD, Cholecystitis, Pancreatitis, Zoster, this is not meant to be an all-inclusive list. EKG interpreted by me (3pts min.). @ -[As above] X-rays interpreted by me (1pt min.). @ -Shows no acute abnormality CT interpreted by me (1pt min.). @ -[None done] U/S interpreted by me (1pt. min.). @ -[None done] What testing was considered but not performed or refused? (CT, X-rays, U/S, labs)? Why? @ -[None] What meds were considered but not given or refused? Why? @ -[None] Did you discuss the management of the patient with other professionals (britany weston i.e. , PA, FAMILY LAWYER, lab, RT, psych nurse, social services designee, section cutter, teacher, conservation science officer, pillowcase cutter)? Give summary @ -I spoke with [facility] hospitalist and they agreed to admit the patient Was smoking cessation discussed for >3mins.? @ -[No] Was critical care preformed (if so, how long)? @ -[No] Were there social determinants of health that impacted care today? How? (H omelessness, low income, unemployed, alcoholism, drug addiction, transportation, low edu. Level, literacy, decrease access to med. care, custodial, rehab)? @ -[No] Was there de-escalation of care discussed even if they declined (Discuss DNR or withdrawal of care, Hospice)? DNR status @ -[No] What co-morbidities impacted this encounter? (DM, HTN, Smoking, COPD, CAD, Cancer, CVA, ARF, Chemo, Hep., AIDS, mental health diagnosis, sleep apnea, morbid obesity)? @ -[None] Was patient admitted / discharged? Hospital course, mention meds given and route, prescriptions, significant lab abnormalities, going to OR and other pertinent info. @ -Patient continued to experience chest pain emergency department. Lab work was normal chest x-ray was normal I spoke with the physician was consulted agreed to admit the patient admitted the patient I wrote admitting orders I consulted cardiology Undiagnosed new problem with uncertain prognosis? @ -[No] Drug Therapy requiring intensive monitoring for toxicity (Heparin, Nitro, Insulin, Cardizem)? @ -[No] Were any procedures done? @ -[No] Diagnosis/symptom? @ -Chest pain Acute, or Chronic, or Acute on Chronic? @ -Acute Uncomplicated (without systemic symptoms) or Complicated (systemic symptoms)? @ -Complicated Side effects of treatment? @ -[No] Exacerbation, Progression, or Severe Exacerbation? @ -[No] Poses a threat to life or bodily function? How? (Chest pain, USA, PA, pneumonia, PE, COPD, DKA, ARF, appy, cholecystitis, CVA, Diverticulitis, Homicidal, Suicidal, threat to staff... and all critical care pts) @ -Yes this could lead to poor perfusion and end organ dysfunction - Lab Data Result diagrams: 05/07/23 16:06 05/07/23 16:06 Lab Results 05/07/23 05/07/23 05/07/23 Range/Units 16:06 16:06 16:06 WBC 10.3 (3.8-10.6) k/uL RBC 5.00 (3.80-5.40) m/uL Hgb 15.8 (11.4-16.0) gm/dL Hct 48.2 H (34.0-46.0) % MCV 96.4 (80.0-100.0) fL MCH 31.6 (25.0-35.0) pg MCHC 32.7 (31.0-37.0) g/dL RDW 13.4 (11.5-15.5) % Plt Count 351 (150-450) k/uL MPV 7.6 Neutrophils % 70 % Lymphocytes % 20 % Monocytes % 5 % Eosinophils % 3 % Basophils % 0 % Neutrophils # 7.2 (1.3-7.7) k/uL Lymphocytes # 2.1 (1.0-4.8) k/uL Monocytes # 0.6 (0-1.0) k/uL Eosinophils # 0.3 (0-0.7) k/uL Basophils # 0.0 (0-0.2) k/uL PT 10.1 (10.0-12.5) sec INR 0.9 (<1.2) APTT 24.1 (22.0-30.0) sec Sodium 138 (137-145) mmol/L Potassium 4.4 (3.5-5.1) mmol/L Chloride 106 (98-107) mmol/L Carbon Dioxide 21 L (22-30) mmol/L Anion Gap 11 mmol/L BUN 19 H (7-17) mg/dL Creatinine 0.78 (0.52-1.04) mg/dL Est GFR (CKD-EPI)AfAm >90 (>60 ml/min/1.73 sqM) Est GFR (CKD-EPI)NonAf 83 (>60 ml/min/1.73 sqM) Glucose 113 H (74-99) mg/dL Calcium 9.5 (8.4-10.2) mg/dL Magnesium 2.0 (1.6-2.3) mg/dL Total Bilirubin 0.4 (0.2-1.3) mg/dL AST 26 (14-36) U/L ALT 22 (4-34) U/L Alkaline Phosphatase 103 (38-126) U/L Troponin I (0.000-0.034) ng/mL Total Protein 7.5 (6.3-8.2) g/dL Albumin 4.1 (3.5-5.0) g/dL 05/07/23 Range/Units 16:06 WBC (3.8-10.6) k/uL RBC (3.80-5.40) m/uL Hgb (11.4-16.0) gm/dL Hct (34.0-46.0) % MCV (80.0-100.0) fL MCH (25.0-35.0) pg MCHC (31.0-37.0) g/dL RDW (11.5-15.5) % Plt Count (150-450) k/uL MPV Neutrophils % % Lymphocytes % % Monocytes % % Eosinophils % % Basophils % % Neutrophils # (1.3-7.7) k/uL Lymphocytes # (1.0-4.8) k/uL Monocytes # (0-1.0) k/uL Eosinophils # (0-0.7) k/uL Basophils # (0-0.2) k/uL PT (10.0-12.5) sec INR (<1.2) APTT (22.0-30.0) sec Sodium (137-145) mmol/L Potassium (3.5-5.1) mmol/L Chloride (98-107) mmol/L Carbon Dioxide (22-30) mmol/L Anion Gap mmol/L BUN (7-17) mg/dL Creatinine (0.52-1.04) mg/dL Est GFR (CKD-EPI)AfAm (>60 ml/min/1.73 sqM) Est GFR (CKD-EPI)NonAf (>60 ml/min/1.73 sqM) Glucose (74-99) mg/dL Calcium (8.4-10.2) mg/dL Magnesium (1.6-2.3) mg/dL Total Bilirubin (0.2-1.3) mg/dL AST (14-36) U/L ALT (4-34) U/L Alkaline Phosphatase (38-126) U/L Troponin I <0.012 (0.000-0.034) ng/mL Total Protein (6.3-8.2) g/dL Albumin (3.5-5.0) g/dL Disposition Clinical Impression: Chest pain Disposition: ADMITTED IP TO THIS [facility] Time of Disposition: 17:34
[2023-05-07 16:28] LABS: Basophils % (A) 0 %; Eosinophils # (A) 0.3 k/uL (0-0.7); Eosinophils % (A) 3 %; HCT 48.2 % (34.0-46.0); HGB 15.8 gm/dL (11.4-16.0); Lymphocytes # (A) 2.1 k/uL (1.0-4.8); Lymphocytes % (A) 20 %; MCH 31.6 pg (25.0-35.0); MCHC 32.7 g/dL (31.0-37.0); MCV 96.4 fL (80.0-100.0); Mean Platelet Volume 7.6; Monocytes # (A) 0.6 k/uL (0-1.0); Monocytes % (A) 5 %; Neutrophils # (A) 7.2 k/uL (1.3-7.7); Neutrophils % (A) 70 %; Platelet Count 351 k/uL (150-450); RDW 13.4 % (11.5-15.5); WBC 10.3 k/uL (3.8-10.6)
[2023-05-07 16:37] LABS: INR 0.9 (<1.2); Partial Thromboplastin Time 24.1 sec (22.0-30.0); Prothrombin Time 10.1 sec (10.0-12.5)
--- NOTE | 2023-05-07 16:43 | XR ---
EXAMINATION TYPE: XR chest 2V DATE OF EXAM: 05/07/2023 4:25 PM COMPARISON: Chest radiographs from 06/28/2022 TECHNIQUE: XR chest 2V Frontal and lateral views of the chest. CLINICAL INDICATION:Female, 62 years old with history of Chest Pain; FINDINGS: Lungs/Pleura: There is no evidence of pleural effusion, focal consolidation, or pneumothorax. Pulmonary vascularity: Unremarkable. Heart/mediastinum: Cardiomediastinal silhouette is unremarkable. Musculoskeletal: No acute osseous pathology. IMPRESSION: No acute cardiopulmonary disease/process.
[2023-05-07 16:44] LABS: ALT 22 U/L (4-34); AST 26 U/L (14-36); African American GFR (CKD) >90 (>60 ml/min/1.73 sqM); Albumin 4.1 g/dL (3.5-5.0); Alkaline Phosphatase 103 U/L (38-126); Anion Gap 11 mmol/L; Blood Urea Nitrogen 19 mg/dL (7-17); Calcium 9.5 mg/dL (8.4-10.2); Carbon Dioxide 21 mmol/L (22-30); Chloride 106 mmol/L (98-107); Glucose 113 mg/dL (74-99); Non-African American GFR(CKD) 83 (>60 ml/min/1.73 sqM); Potassium 4.4 mmol/L (3.5-5.1); Sodium 138 mmol/L (137-145); Total Bilirubin 0.4 mg/dL (0.2-1.3); Total Protein 7.5 g/dL (6.3-8.2)
[2023-05-07] MEDS ORDERED: NITROGLYCERIN SL TABS 0.4 MG TAB SUBLINGUAL PRN (17:45)
[2023-05-07] MEDS: NITROGLYCERIN OINT 1 INCH/GM PACKET TOPICAL SCH (18:09)
[2023-05-07] MEDS ORDERED: ONDANSETRON 4 MG/2 ML VIAL IVP PRN (18:30)
[2023-05-07] MEDS ORDERED: ACETAMINOPHEN TAB 325 MG TAB PO PRN (18:30)
[2023-05-08] MEDS: NITROGLYCERIN OINT 1 INCH/GM PACKET TOPICAL SCH ×2 (03:09→06:12)
[2023-05-08] MEDS: ASPIRIN 325 MG TAB PO SCH (09:10)
--- NOTE | 2023-05-08 10:00 | P.CRDCN ---
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 Patient states she has chest pain that was sharp for the past 4 days occurring at rest and lasting about 5 minutes. It goes away on its own without any treatment. Pain is on the left sternal border near the breast. Unsure if there is tenderness to palpation. Patient states feels like it is on the inside of her chest. Patient presented with blood pressure 96/67. This morning blood pressure 78/45 and Nitropaste was removed with improvement of her blood pressure to 129/72. She is an active smoker. Father had heart problems starting at age 42. EKG sinus rhythm with no acute ST-T wave changes 2 Chest x-ray: No acute changes CBC is unremarkable. INR 0.9. Electrolytes normal. BUN 19 creatinine 6.78. Troponin negative 3. Glucose 113. Magnesium 2.0. Liver function tests are normal. Home cardiac medications: None Echocardiogram 04/2021 revealed EF 55-60% with mild concentric left ventricular hypertrophy, mild mitral regurgitation, mild tricuspid regurgitation. Stress echo 2016 with EF 60% no inducible ischemia. Review Of Systems: At the time of my evaluation: Constitutional: No fever, no chills. No weakness, fatigue or lethargy. EENT: No headache. No dizziness. Lungs: No shortness of breath, cough, no sputum production. No wheezing. Cardiovascular: + intermittent chest pain, no lower extremity edema. No palpitations. No paroxysmal nocturnal dyspnea. No orthopnea. No lightheadedness or dizziness. No syncopal episodes. Abdominal: No abdominal pain. No nausea, vomiting. No diarrhea. Musculoskeletal: No myalgias. No muscle weakness, no frequent falls. Integumentary: No wounds. No rash. No unusual bruising. Neurologic: No aphasia. No facial droop. No change in mentation. Physical examination: Gen: This is an obese 62-year-old female. She is resting in bed. VS: reviewed HEENT: Head is atraumatic, normocephalic. Pupils equal, round. Sclerae is anicteric. NECK: Supple. No JVD. . LUNGS: Clear to auscultation. No wheezes or rhonchi. No intercostal retractions. HEART: Regular rate and rhythm. Soft Systolic murmur. ABDOMEN: Soft No tenderness. EXTREMITIES: No pedal edema. No calf tenderness. NEUROLOGICAL: Patient is awake, alert and oriented x3. Assessment: Chest pain, acute coronary syndrome ruled out Murmur Family history of premature coronary artery disease Active tobacco use and dependence Plan: Obtain A1c, lipid panel, TSH Discontinue Nitropaste due to hypotension Obtain 2-D echocardiogram and Doppler study with definitively to assess cardiac structure and function Further recommendations to follow based upon clinical course Thank you kindly for this consultation. Nurse practitioner note has been reviewed, I agree with documented findings and plan of care. Patient was seen and examined. Past Medical History Past Medical History: Cancer, Chest Pain / Angina, GERD/Reflux, Hyperlipidemia, Thyroid Disorder Additional Past Medical History / Comment(s): Hidradenitis suppurativa axillaes, rectal/buttock abscesses, cervical cancer with procedure. History of Any Multi-Drug Resistant Organisms: None Reported Past Surgical History: No Surgical Hx Reported Additional Past Surgical History / Comment(s): I&Ds rectal/buttock abscesses, I&Ds multiple axillae abscesses, procedure to remove cervical cancer. Past Anesthesia/Blood Transfusion Reactions: No Reported Reaction Past Psychological History: Anxiety, Bipolar, Depression Additional Psychological History / Comment(s): . Smoking Status: Current every day smoker Past Alcohol Use History: Occasional Additional Past Alcohol Use History / Comment(s): Pt started smoking in 1975 and is a half ppd smoker. Past Drug Use History: None Reported Additional Drug Use History / Comment(s): . - Past Family History Father History Unknown: Yes Additional Family Medical History / Comment(s): pt states heart dx runs in the family Mother Family Medical History: Diabetes Mellitus Additional Family Medical History / Comment(s): pt states heart disease runs in the family Medications and Allergies Home Medications Medication Instructions Recorded Confirmed Type No Known Home Medications 05/07/23 05/07/23 History Allergies Allergy/AdvReac Type Severity Reaction Status Date / Time Sulfa (Sulfonamide Allergy Rash/Hives Verified 05/07/23 16:04 Antibiotics) Physical Exam Vitals: Vital Signs Temp Pulse Pulse Resp BP BP Pulse Ox 05/08/23 07:00 97.6 F 62 16 78/45 98 05/08/23 01:00 97.3 F L 58 L 15 113/65 95 05/07/23 20:38 97.8 F 67 17 132/77 98 05/07/23 18:00 62 20 119/84 96 05/07/23 15:29 98.9 F 75 20 96/67 94 L Intake and Output 05/07/23 05/08/23 05/08/23 22:59 06:59 14:59 Other: Voiding Method Toilet # Voids 1 2 Weight 83.915 kg Results 05/07/23 16:06 05/07/23 16:06 Cardiac Enzymes 05/07/23 05/07/23 05/07/23 Range/Units 16:06 16:06 18:49 AST 26 (14-36) U/L Troponin I <0.012 <0.012 (0.000-0.034) ng/mL 05/07/23 Range/Units 23:25 AST (14-36) U/L Troponin I <0.012 (0.000-0.034) ng/mL Coagulation 05/07/23 Range/Units 16:06 PT 10.1 (10.0-12.5) sec APTT 24.1 (22.0-30.0) sec CBC 05/07/23 Range/Units 16:06 WBC 10.3 (3.8-10.6) k/uL RBC 5.00 (3.80-5.40) m/uL Hgb 15.8 (11.4-16.0) gm/dL Hct 48.2 H (34.0-46.0) % Plt Count 351 (150-450) k/uL Comprehensive Metabolic Panel 05/07/23 Range/Units 16:06 Sodium 138 (137-145) mmol/L Potassium 4.4 (3.5-5.1) mmol/L Chloride 106 (98-107) mmol/L Carbon Dioxide 21 L (22-30) mmol/L BUN 19 H (7-17) mg/dL Creatinine 0.78 (0.52-1.04) mg/dL Glucose 113 H (74-99) mg/dL Calcium 9.5 (8.4-10.2) mg/dL AST 26 (14-36) U/L ALT 22 (4-34) U/L Alkaline Phosphatase 103 (38-126) U/L Total Protein 7.5 (6.3-8.2) g/dL Albumin 4.1 (3.5-5.0) g/dL Current Medications Generic Name Dose Route Start Last Admin Trade Name Freq PRN Reason Stop Dose Admin Acetaminophen 650 mg 05/07/23 18:30 Acetaminophen Tab 325 Mg Tab PO Q6HR PRN Fever and/ or Pain Aspirin 325 mg 05/08/23 09:00 Aspirin 325 Mg Tab PO DAILY AJ Nitroglycerin 0.4 mg 05/07/23 17:45 Nitroglycerin Sl Tabs 0.4 Mg Tab SUBLINGUAL Q5M PRN Chest Pain Nitroglycerin 1 inch 05/07/23 18:00 05/08/23 06:12 Nitroglycerin Oint 1 Inch/Gm Packet TOPICAL Not Given Q6HR [facility] Ondansetron HCl 4 mg 05/07/23 18:30 Ondansetron 4 Mg/2 Ml Vial IVP Q6HR PRN Nausea And Vomiting Intake and Output 05/07/23 05/08/23 05/08/23 22:59 06:59 14:59 Other: Voiding Method Toilet # Voids 1 2 Weight 83.915 kg 05/07/23 16:06 05/07/23 16:06
--- NOTE | 2023-05-08 10:10 | P.HPIM ---
History of Present Illness 62-year-old a pleasant female without any significant past medical history but does have smoking history smokes about half a pack of cigarettes came in with constant sharp 7/10 chest pain which is relieved by Tylenol. Patient has mild tenderness to palpation. Troponins were negative patient was bit hypotensive secondary to nitro patch was sent which was subsequently discontinued patient denied any diaphoresis nausea chest pain is nonpleuritic d-dimer is negative. Chest x-ray did not show any significant abnormality patient denied any significant cough. Etiology valid the patient opting echocardiogram if that's negative patient will be discharged today to follow up with primary care physician as an outpatient EKG did not show any acute ST-T wave changes. REVIEW OF SYSTEMS: CONSTITUTIONAL: No fever, no malaise, no fatigue. HEENT: No recent visual problems or hearing problems. Denied any sore throat. CARDIOVASCULAR: No orthopnea, PND, no palpitations, no syncope. PULMONARY: No shortness of breath, no cough, no hemoptysis. GASTROINTESTINAL: No diarrhea, no nausea, no vomiting, no abdominal pain. NEUROLOGICAL: No headaches, no weakness, no numbness. HEMATOLOGICAL: Denies any bleeding or petechiae. GENITOURINARY: Denies any burning micturition, frequency, or urgency. MUSCULOSKELETAL/RHEUMATOLOGICAL: Denies any joint pain, swelling, or any muscle pain. ENDOCRINE: Denies any polyuria or polydipsia. The rest of the 14-point review of systems is negative. PHYSICAL EXAMINATION: GENERAL: The patient is alert and oriented x3, not in any acute distress. Well developed, well nourished. HEENT: Pupils are round and equally reacting to light. EOMI. No scleral icterus. No conjunctival pallor. Normocephalic, atraumatic. No pharyngeal erythema. No thyromegaly. CARDIOVASCULAR: S1 and S2 present. No rubs, or gallops. May have a systolic murmur in the aortic area PULMONARY: Chest is clear to auscultation, no wheezing or crackles. ABDOMEN: Soft, nontender, nondistended, normoactive bowel sounds. No palpable organomegaly. MUSCULOSKELETAL: No joint swelling or deformity. EXTREMITIES: No cyanosis, clubbing, or pedal edema. NEUROLOGICAL: Gross neurological examination did not reveal any focal deficits. SKIN: No rashes. Assessment and plan -Chest pain: Atypical, probably musculoskeletal obtain echocardiogram, if negative patient will be discharged today -Obesity: Counseling was provided -Hypotension secondary to nitroglycerin patch improved with discontinuation of this -Nicotine use: Counseling was provided If echocardiogram is negative patient will be discharged today Past Medical History Past Medical History: Cancer, Chest Pain / Angina, GERD/Reflux, Hyperlipidemia, Thyroid Disorder Additional Past Medical History / Comment(s): Hidradenitis suppurativa axillaes, rectal/buttock abscesses, cervical cancer with procedure. History of Any Multi-Drug Resistant Organisms: None Reported Past Surgical History: No Surgical Hx Reported Additional Past Surgical History / Comment(s): I&Ds rectal/buttock abscesses, I&Ds multiple axillae abscesses, procedure to remove cervical cancer. Past Anesthesia/Blood Transfusion Reactions: No Reported Reaction Past Psychological History: Anxiety, Bipolar, Depression Additional Psychological History / Comment(s): . Smoking Status: Current every day smoker Past Alcohol Use History: Occasional Additional Past Alcohol Use History / Comment(s): Pt started smoking in 1975 and is a half ppd smoker. Past Drug Use History: None Reported Additional Drug Use History / Comment(s): . - Past Family History Father History Unknown: Yes Additional Family Medical History / Comment(s): pt states heart dx runs in the family Mother Family Medical History: Diabetes Mellitus Additional Family Medical History / Comment(s): pt states heart disease runs in the family Medications and Allergies Home Medications Medication Instructions Recorded Confirmed Type No Known Home Medications 05/07/23 05/07/23 History Allergies Allergy/AdvReac Type Severity Reaction Status Date / Time Sulfa (Sulfonamide Allergy Rash/Hives Verified 05/07/23 16:04 Antibiotics) Physical Exam Vitals: Vital Signs Temp Pulse Pulse Resp BP BP Pulse Ox 05/08/23 08:29 129/72 05/08/23 07:00 97.6 F 62 16 78/45 98 05/08/23 01:00 97.3 F L 58 L 15 113/65 95 05/07/23 20:38 97.8 F 67 17 132/77 98 05/07/23 18:00 62 20 119/84 96 05/07/23 15:29 98.9 F 75 20 96/67 94 L Intake and Output 05/07/23 05/08/23 05/08/23 22:59 06:59 14:59 Other: Voiding Method Toilet # Voids 1 2 Weight 83.915 kg Results CBC & Chem 7: 05/07/23 16:06 05/07/23 16:06 Labs: Abnormal Lab Results - Last 24 Hours (Table) 05/07/23 05/07/23 Range/Units 16:06 16:06 Hct 48.2 H (34.0-46.0) % Carbon Dioxide 21 L (22-30) mmol/L BUN 19 H (7-17) mg/dL Glucose 113 H (74-99) mg/dL Thrombosis Risk Factor Assmnt - Choose All That Apply Any of the Below Risk Factors Present?: Yes Each Factor Represents 1 point: Obesity (BMI >25) Other Risk Factors: Yes Each Risk Factor Represents 2 Points: Age 61-74 years Other congenital or acquired thrombophilia - If yes, enter type in comment: No Thrombosis Risk Factor Assessment Total Risk Factor Score: 3 Thrombosis Risk Factor Assessment Level: Moderate Risk
[2023-05-08 11:08] LABS: Chol/HDL Ratio 5.57 Ratio; LDL Cholesterol,Calculated 138.5 mg/dL (0.0-131.0)
[2023-05-09 06:57] VITALS: TEMP 97.6
[2023-05-09 08:19] VITALS: BP 127/79; PULSE 57; RESP 18
[2023-05-09] MEDS: ASPIRIN 325 MG TAB PO SCH (08:42)
--- NOTE | 2023-05-09 08:43 | CA ---
Transthoracic Echo Report Name: Nahed Melgar Age: 62 Gender: F : 1960 Exam Date: 05/08/2023 12:29 Exam Location: [facility] Ht (in): 64 Wt (lb): 185 Ordering Physician: Jennifer Brewer Attending/Referring Phys: [id number], Daniella Sexual Assault Social Worker Victoria Maurice RDCS Procedure CPT: Indications: valves w difinity Cardiac Hx: Technical Quality: Technically difficult study Contrast 1: Total Dose (mL): Contrast 2: Total Dose (mL): MEASUREMENTS (Male / Female) Normal Values 2D ECHO LV Diastolic Diameter PLAX 3.8 cm 4.2 - 5.9 / 3.9 - 5.3 cm LV Systolic Diameter PLAX 2.6 cm IVS Diastolic Thickness 1.3 cm 0.6 - 1.0 / 0.6 - 0.9 cm LVPW Diastolic Thickness 1.2 cm 0.6 - 1.0 / 0.6 - 0.9 cm LV Relative Wall Thickness 0.7 RV Internal Dim ED PLAX 2.8 cm LA Systolic Diameter LX 3.7 cm 3.0 - 4.0 / 2.7 - 3.8 cm LV Diastolic Volume MOD 4C 51.3 cm??? LV Systolic Volume MOD 4C 25.3 cm??? LV Ejection Fraction MOD 4C 50.6 % LV Cardiac Index MOD 4C 748.8 cm???/min???m??? LV Diastolic Length 4C 7.9 cm LV Systolic Length 4C 6.5 cm LV Diastolic Volume MOD 2C 103.9 cm??? LV Systolic Volume MOD 2C 42.8 cm??? LV Ejection Fraction MOD 2C 58.8 % LV Cardiac Index MOD 2C 1761.4 cm???/min???m??? LV Diastolic Length 2C 8.5 cm LV Systolic Length 2C 6.5 cm LA Volume 39.1 cm??? 18 - 58 / 22 - 52 cm??? LA Volume Index 19.8 cm???/m??? 16 - 28 cm???/m??? M-MODE Aortic Root Diameter MM 3.0 cm MV E Point Septal Separation 0.6 cm AV Cusp Separation MM 1.7 cm DOPPLER AV Peak Velocity 146.5 cm/s AV Peak Gradient 8.6 mmHg MV Area PHT 2.8 cm??? Mitral E Point Velocity 81.1 cm/s Mitral A Point Velocity 98.2 cm/s Mitral E to A Ratio 0.8 MV Deceleration Time 272.5 ms MV E' Velocity 4.9 cm/s Mitral E to MV E' Ratio 16.4 FINDINGS Left Ventricle Left ventricular ejection fraction is estimated at 55-60 %. Small left ventricular cavity. Mildly increased septal wall thickness. Mildly increased posterior wall thickness. Right Ventricle Normal right ventricular size. Unable to estimate the right ventricular systolic pressure. Right Atrium Normal right atrial size. Left Atrium Normal left atrial size. Mitral Valve Structurally normal mitral valve. No mitral stenosis, regurgitation or prolapse. Aortic Valve Trileaflet aortic valve. No aortic valve stenosis or regurgitation. Tricuspid Valve Structurally normal tricuspid valve. No tricuspid stenosis, regurgitation or prolapse. Pulmonic Valve Pulmonic valve not well visualized. Pericardium No pericardial effusion. Aorta Normal size aortic root and proximal ascending aorta. CONCLUSIONS LVH with preserved systolic function Previewed by: Dr. Florin Gutierrez MD (Electronically Signed) Final Date: 09 May 2023 08:42
--- NOTE | 2023-05-09 15:31 | P.DS ---
Providers Date of admission: 05/07/23 17:49 Attending physician: Rusty Jaimes Consults: 05/07/23 17:49 Consult Physician Urgent Consulting Provider: [facility] Consult Reason/Comments: Chest pain Do you want consulting provider notified?: Yes Primary care physician: Kirsty Neal Hospital Course: Final Diagnosis -Chest pain: Atypical, probably musculoskeletal -Obesity: Counseling was provided -Hypotension secondary to nitroglycerin patch improved with discontinuation of this -Nicotine use: Counseling was provided Discharge Disposition Patient is stable for discharge home. Recommended to see her PCP in 1 to 2 days. Patient has been counseled on smoking cessation. Hospital Course 62-year-old a pleasant female without any significant past medical history but does have smoking history smokes about half a pack of cigarettes came in with constant sharp 7/10 chest pain which is relieved by Tylenol. Patient has mild tenderness to palpation. Troponins were negative patient was bit hypotensive secondary to nitro patch was sent which was subsequently discontinued patient denied any diaphoresis nausea chest pain is nonpleuritic d-dimer is negative. Chest x-ray did not show any significant abnormality patient denied any significant cough. EKG did not show any ST or T wave changes. Patient had echocardiogram done showing normal LV function. Cleared by cardiology. No further reports of chest pain. Patient will be discharged home. Thank you for allowing us to participate in the care of this patient. The impression and plan of care has been dictated by Gypsy Martinez, Nurse Practitioner as directed. Dr. Maurice MD I have performed a history and physical examination and medical decision making of this patient, discussed the same with the dictator, and agree with the dictators assessment and plan as written, documented as a scribe. Based on total visit time, I have performed more than 50% of this visit. Plan - Discharge Summary Discharge Rx Participant: Yes New Discharge Prescriptions: No Action No Known Home Medications Discharge Medication List No Known Home Medications 05/07/23 [History] Follow up Appointment(s)/Referral(s): Florin Gutierrez MD [STAFF PHYSICIAN] - 05/23/23 9:30 am Kirsty Neal MD [Primary Care Provider] - 3 Days Patient Instructions/Handouts: Chest Pain (GEN) Discharge Disposition: HOME SELF-CARE
[2023-05-10] MEDS ORDERED: PANTOPRAZOLE 40 MG TABLET PO SCH (07:30)
== END 2023-05-09 11:15 | disposition home or self-care (01) ==
LOC: EC 15:19 → INTOOBSV 17:49 → 6NMEDSUR 17:49
PROVIDERS: ADMIT Hospitalist; ATTEND Hospitalist
DX: R07.89 Other chest pain (principal); I95.9 Hypotension, unspecified; R01.1 Cardiac murmur, unspecified; K21.9 Gastro-esophageal reflux disease without esophagitis; E78.5 Hyperlipidemia, unspecified; F31.9 Bipolar disorder, unspecified; F41.9 Anxiety disorder, unspecified; E66.9 Obesity, unspecified; Z68.31 Body mass index [BMI] 31.0-31.9, adult; F17.210 Nicotine dependence, cigarettes, uncomplicated; Z85.41 Personal history of malignant neoplasm of cervix uteri; Z88.2 Allergy status to sulfonamides; Z82.49 Family history of ischemic heart disease and other diseases of the circulatory system
CPT/HCPCS: 99285; 36415; 94760; 93005; 85379; 80061; 80053; 84443; 83735; 84484; 85025; 85610; 85730; 83036; 71046; G0378 ×3; C8929; Q9950; 93306

== ENCOUNTER → 2024-01-02 | Outpatient (CLI) | payer OTHER ==
--- NOTE | 2024-01-02 13:55 | CTL ---
EXAMINATION TYPE: CT Low Dose Lung DATE OF EXAM ORDERED: 01/02/2024 HISTORY: History of smoking. Lung cancer screening CT DLP: 99.[address] CTDI: 2.4 mGy Automated exposure control for dose reduction was used. SCREENING VISIT: First screening visit COMPARISON: Chest radiograph 05/07/2023 TECHNIQUE: Low dose computed tomography scan was performed through the chest at 1 mm thick sections a nd reconstructed images in multiple planes at 1 mm and [address] DIAGNOSTIC QUALITY: Satisfactory FINDINGS: Nodules: Calcified granuloma within the right lower lobe. No clinically significant pulmonary nodules . LUNGS: COPD: Severity: Minimal Fibrosis: Severity: None Lymph nodes: None Other findings: None RIGHT PLEURAL SPACE: Effusion: None Calcification: None Thickening: None Pneumothorax: None LEFT PLEURAL SPACE: Effusion: None Calcification: None Thickening: None Pneumothorax: None HEART: Heart Size: Normal Coronary Calcification: Small Pericardial Effusion: None OTHER FINDINGS: Upper abdomen: None Bony thorax: None Supraclavicular region: None Other: None IMPRESSION: No clinically significant pulmonary nodules. CT LUNG RAD AND CT CHEST RECOMMENDATION: Lung-Rad 2 Benign Appearance or Behavior: Continue annual sc reening with LDCT in 12 months. S Modifier (other clinically significant findings): None
--- NOTE | 2024-01-07 13:54 | MM ---
Reason for Exam: Screening (asymptomatic). Last mammogram was performed 18 year(s) and 10 month(s) ago. Patient History: Menarche at age 13. First Full-Term at age 24. Postmenopausal. Risk Values: Christina 5 year model risk: 1.4%. NCI Lifetime model risk: 6.2%. Prior Study Comparison: 12/06/1997 Bilateral Special View Mammogram, [facility]. 03/02/2005 Bilateral Screening Mammogram, [facility]. 03/09/2005 Left Diagnostic Mammogram, [facility]. Tissue Density: The breasts are almost entirely fatty. Findings: Analyzed By CAD. Right breast: There is no suspicious group of microcalcifications or new suspicious mass. Left breast: There is no suspicious group of microcalcifications or new suspicious mass. Overall Assessment: Negative, BI-RAD 1 Management: Screening Mammogram of both breasts in [address] [facility] will attempt to contact patient to return for supplemental views and ultrasound if indicated. Patient should continue monthly self-breast exams. A clinical breast exam by your physician is recommended on an annual basis. This exam should not preclude additional follow-up of suspicious palpable abnormalities. Note on Christina scores and lifetime risk: 1. A Christina score greater than 3% is considered moderate risk. If this is the case, consider specialist referral to assess eligibility for a risk reducing agent. 2. If overall lifetime risk for the development of breast cancer is 20% or higher, the patient may qualify for future screening with alternating mammogram and breast MRI. Electronically signed and approved by: Justice Payan DO
== END | disposition home or self-care (01) ==
LOC: RADMAMWWP 12:32
PROVIDERS: ATTEND Family Medicine
DX: Z12.31 Encounter for screening mammogram for malignant neoplasm of breast (principal); Z12.2 Encounter for screening for malignant neoplasm of respiratory organs; Z87.891 Personal history of nicotine dependence; Z78.0 Asymptomatic menopausal state
CPT/HCPCS: 71271; 77067

== ENCOUNTER 2024-01-07 17:12 | Inpatient (IN) | payer OTHER ==
--- NOTE | 2024-01-07 17:40 | ED ---
General Adult HPI - General Chief complaint: Shortness of Breath Stated complaint: SOB Time Seen by Provider: 01/07/24 17:15 Source: patient, EMS, RN notes reviewed, old records reviewed Mode of arrival: EMS Limitations: no limitations - History of Present Illness Initial comments: This is a 63-year-old female who presents to the emergency department she states she walks 7 blocks in the hot weather and had some chest pain. Patient states that she is a diabetic who smokes and has a strong family history of heart disease. Patient states she also was suicidal and he thinks about taking sleeping pills to kill herself. Patient states currently the chest pain and difficulty breathing is gone. - Related Data Home Medications Medication Instructions Recorded Confirmed No Known Home Medications 05/07/23 01/07/24 Allergies Allergy/AdvReac Type Severity Reaction Status Date / Time Sulfa (Sulfonamide Allergy Rash/Hives Verified 01/07/24 17:20 Antibiotics) Review of Systems ROS Statement: Those systems with pertinent positive or pertinent negative responses have been documented in the HPI. ROS Other: All systems not noted in ROS Statement are negative. Past Medical History Past Medical History: Cancer, Chest Pain / Angina, GERD/Reflux, Hyperlipidemia, Thyroid Disorder Additional Past Medical History / Comment(s): Hidradenitis suppurativa axillaes, rectal/buttock abscesses, cervical cancer with procedure. History of Any Multi-Drug Resistant Organisms: None Reported Past Surgical History: No Surgical Hx Reported Additional Past Surgical History / Comment(s): I&Ds rectal/buttock abscesses, I&Ds multiple axillae abscesses, procedure to remove cervical cancer. Past Anesthesia/Blood Transfusion Reactions: No Reported Reaction Past Psychological History: Anxiety, Bipolar, Depression Smoking Status: Current every day smoker Past Alcohol Use History: Occasional Past Drug Use History: None Reported - Past Family History Father History Unknown: Yes Additional Family Medical History / Comment(s): pt states heart dx runs in the family Mother Family Medical History: Diabetes Mellitus Additional Family Medical History / Comment(s): pt states heart disease runs in the family General Exam - General Exam Comments Initial Comments: GENERAL: Patient is well-developed and well-nourished. Patient is nontoxic and well-hydrated and is in mild distress. ENT: Neck is soft and supple. No significant lymphadenopathy is noted. Oropharynx is clear. Moist mucous membranes. Neck has full range of motion without eliciting any pain. EYES: The sclera were anicteric and conjunctiva were pink and moist. Extraocular movements were intact and pupils were equal round and reactive to light. Eyelids were unremarkable. PULMONARY: Unlabored respirations. Good breath sounds bilaterally. No audible rales rhonchi or wheezing was noted. CARDIOVASCULAR: There is a regular rate and rhythm without any murmurs gallops or rubs. ABDOMEN: Soft and nontender with normal bowel sounds. SKIN: Skin is clear with no lesions or rashes and otherwise unremarkable. NEUROLOGIC: Patient is alert and oriented x3. Cranial nerves II through XII are grossly intact. Motor and sensory are also intact. Normal speech, volume and content. Symmetrical smile. MUSCULOSKELETAL: Normal extremities with adequate strength and full range of motion. LYMPHATICS: No significant lymphadenopathy is noted PSYCHIATRIC: Patient states she is suicidal and also hallucinating ever since she has been on Cymbalta. Limitations: no limitations Course Vital Signs 01/07/24 01/07/24 17:15 18:37 Pulse Rate 109 H 110 H Respiratory 22 22 Rate Blood Pressure 144/106 102/66 O2 Sat by Pulse 96 93 L Oximetry Medical Decision Making - Medical Decision Making EKG is interpreted by myself EKG shows a sinus tachycardia at 109 bpm parables 150 QRS of 77 QT interval 05 QTc is 369. Patient's EKG shows no ST segment elevation or depression Was pt. sent in by a medical professional or institution ([facility], [employer] AND DIE INSPECTOR, urgent care, hospital, or long-term...) When possible be specific @ -Patient was sent in by [facility]. Did you speak to anyone other than the patient for history (EMS, parent, family, police, friend...)? What history was obtained from this source @ -No Did you review nursing and triage notes (agree or disagree)? Why? @ -I reviewed and agree with nursing and triage notes Were old charts reviewed (outside hosp., previous admission, EMS record, old EKG, old radiological studies, urgent care reports/EKG's, long-term records)? Report findings @ -No old charts were reviewed Differential Diagnosis (chest pain, altered mental status, abdominal pain women, abdominal pain men, vaginal bleeding, weakness, fever, dyspnea, syncope, headache, dizziness, GI bleed, back pain, seizure, CVA, palpatations, mental health, musculoskeletal)? @ -Differential Mental Health Depression, anxiety, bipolar, psychosis, schizophrenia, borderline personality, situational depression, adjustment disorder, behavioral disorder, brain tumor, malingering, substance abuse, encephalopathy, medication reaction, dementia, hypothyroidism, degenerative neurologic disorder, lupus.... This is not meant to be all-inclusive list differential Chest Pain: Stable Angina, Unstable Angina, STEMI, NSTEMI Aortic Dissection, Pneumothorax, Musculoskeletal, Esophageal Spasm GERD, Cholecystitis, Pancreatitis, Zoster, this is not meant to be an all-inclusive list. EKG interpreted by me (3pts min.). @ -As above X-rays interpreted by me (1pt min.). @ -S x-ray shows no acute [place] CT interpreted by me (1pt min.). @ -None done U/S interpreted by me (1pt. min.). @ -None done What testing was considered but not performed or refused? (CT, X-rays, U/S, labs)? Why? @ -None What meds were considered but not given or refused? Why? @ -None Did you discuss the management of the patient with other professionals (professionals i.e. , PA, TOOL AND DIE INSPECTOR, lab, RT, psych nurse, social work specialist, seam steamer, teacher, deputy probation officer, sample case porter)? Give summary @ -I spoke with the significant hospitals and a agree to admit the patient to admit the patient consult cardiology and psychiatry Was smoking cessation discussed for >3mins.? @ -No Was critical care preformed (if so, how long)? @ -35 minutes Were there social determinants of health that impacted care today? How? (Homelessness, low income, unemployed, alcoholism, drug addiction, tra nsportation, low edu. Level, literacy, decrease access to med. care, longterm, rehab)? @ -No Was there de-escalation of care discussed even if they declined (Discuss DNR or withdrawal of care, Hospice)? DNR status @ -No What co-morbidities impacted this encounter? (DM, HTN, Smoking, COPD, CAD, Cancer, CVA, ARF, Chemo, Hep., AIDS, mental health diagnosis, sleep apnea, morbid obesity)? @ -None Was patient admitted / discharged? Hospital course, mention meds given and route, prescriptions, significant lab abnormalities, going to OR and other pertinent info. @ -Patient was chest pain-free throughout her duration of the ED. Patient's troponin was mildly elevated so patient will be admitted and a cardiology consult was placed. Patient also have a psychiatric consult since the patient is suicidal. Undiagnosed new problem with uncertain prognosis? @ -No Drug Therapy requiring intensive monitoring for toxicity (Heparin, Nitro, Insulin, Cardizem)? @ -No Were any procedures done? @ -No Diagnosis/symptom? @ -Suicidal ideations Acute, or Chronic, or Acute on Chronic? @ -Acute Uncomplicated (without systemic symptoms) or Complicated (systemic symptoms)? @ -Default Side effects of treatment? @ -No Exacerbation, Progression, or Severe Exacerbation? @ -No Poses a threat to life or bodily function? How? (Chest pain, [place], [place], pneumonia, PE, COPD, DKA, ARF, appy, cholecystitis, CVA, Diverticulitis, Homicidal, Suicidal, threat to staff... and all critical care pts) @ -Yes if this patient was discharged she states she will attempt suicide Diagnosis/symptom? @ -Chest pain Acute, or Chronic, or Acute on Chronic? @ -Acute Uncomplicated (without systemic symptoms) or Complicated (systemic symptoms)? @ -Complicated Side effects of treatment? @ -None Exacerbation, Progression, or Severe Exacerbation] @ -No Poses a threat to life or bodily function? @ -Yes this could lead to an [place] and endorgan dysfunction - Lab Data Result diagrams: 01/07/24 17:54 01/07/24 17:54 Lab Results 01/07/24 01/07/24 01/07/24 Range/Units 17:54 17:54 17:54 WBC 14.1 H (3.8-10.6) k/uL RBC 5.85 H (3.80-5.40) m/uL Hgb 17.7 H (11.4-16.0) gm/dL Hct 55.4 H (34.0-46.0) % MCV 94.6 (80.0-100.0) fL MCH 30.3 (25.0-35.0) pg MCHC 32.0 (31.0-37.0) g/dL RDW 14.3 (11.5-15.5) % Plt Count 405 (150-450) k/uL MPV 8.7 Neutrophils % 78 % Lymphocytes % 12 % Monocytes % 8 % Eosinophils % 0 % Basophils % 0 % Neutrophils # 11.0 H (1.3-7.7) k/uL Lymphocytes # 1.7 (1.0-4.8) k/uL Monocytes # 1.1 H (0-1.0) k/uL Eosinophils # 0.1 (0-0.7) k/uL Basophils # 0.0 (0-0.2) k/uL PT 10.6 (10.0-12.5) sec INR 1.0 (<1.2) APTT 24.9 (22.0-30.0) sec Sodium 141 (137-145) mmol/L Potassium 4.5 (3.5-5.1) mmol/L Chloride 106 (98-107) mmol/L Carbon Dioxide 23 (22-30) mmol/L Anion Gap 12 mmol/L BUN 18 H (7-17) mg/dL Creatinine 1.62 H (0.52-1.04) mg/dL Est GFR (CKD-EPI)AfAm 39 (>60 ml/min/1.73 sqM) Est GFR (CKD-EPI)NonAf 34 (>60 ml/min/1.73 sqM) Glucose 98 (74-99) mg/dL Calcium 10.2 (8.4-10.2) mg/dL Magnesium 2.3 (1.6-2.3) mg/dL Total Bilirubin 0.8 (0.2-1.3) mg/dL AST 28 (14-36) U/L ALT 21 (4-34) U/L Alkaline Phosphatase 118 (38-126) U/L Troponin I (0.000-0.034) ng/mL NT-Pro-B Natriuret Pep 125 pg/mL Total Protein 8.3 H (6.3-8.2) g/dL Albumin 4.9 (3.5-5.0) g/dL 01/07/24 Range/Units 17:54 WBC (3.8-10.6) k/uL RBC (3.80-5.40) m/uL Hgb (11.4-16.0) gm/dL Hct (34.0-46.0) % MCV (80.0-100.0) fL MCH (25.0-35.0) pg MCHC (31.0-37.0) g/dL RDW (11.5-15.5) % Plt Count (150-450) k/uL MPV Neutrophils % % Lymphocytes % % Monocytes % % Eosinophils % % Basophils % % Neutrophils # (1.3-7.7) k/uL Lymphocytes # (1.0-4.8) k/uL Monocytes # (0-1.0) k/uL Eosinophils # (0-0.7) k/uL Basophils # (0-0.2) k/uL PT (10.0-12.5) sec INR (<1.2) APTT (22.0-30.0) sec Sodium (137-145) mmol/L Potassium (3.5-5.1) mmol/L Chloride (98-107) mmol/L Carbon Dioxide (22-30) mmol/L Anion Gap mmol/L BUN (7-17) mg/dL Creatinine (0.52-1.04) mg/dL Est GFR (CKD-EPI)AfAm (>60 ml/min/1.73 sqM) Est GFR (CKD-EPI)NonAf (>60 ml/min/1.73 sqM) Glucose (74-99) mg/dL Calcium (8.4-10.2) mg/dL Magnesium (1.6-2.3) mg/dL Total Bilirubin (0.2-1.3) mg/dL AST (14-36) U/L ALT (4-34) U/L Alkaline Phosphatase (38-126) U/L Troponin I 0.042 H* (0.000-0.034) ng/mL NT-Pro-B Natriuret Pep pg/mL Total Protein (6.3-8.2) g/dL Albumin (3.5-5.0) g/dL Disposition Clinical Impression: Suicidal ideations, Chest pain Disposition: ADMITTED IP TO THIS HOSP Referrals: Kirsty Neal MD [Primary Care Provider] - 1-2 days Time of Disposition: 19:41
[2024-01-07] MEDS: LORazepam 2 MG/ML INJ IV STA (17:55)
[2024-01-07] MEDS: ASPIRIN 81 MG PO STA (17:55)
[2024-01-07] MEDS: NITROGLYCERIN OINT 1 INCH/GM PACKET TOPICAL STA (17:57)
[2024-01-07 18:26] LABS: ALT 21 U/L (4-34); AST 28 U/L (14-36); African American GFR (CKD) 39 (>60 ml/min/1.73 sqM); Albumin 4.9 g/dL (3.5-5.0); Alkaline Phosphatase 118 U/L (38-126); Anion Gap 12 mmol/L; Blood Urea Nitrogen 18 mg/dL (7-17); Calcium 10.2 mg/dL (8.4-10.2); Carbon Dioxide 23 mmol/L (22-30); Chloride 106 mmol/L (98-107); Glucose 98 mg/dL (74-99); Magnesium 2.3 mg/dL (1.6-2.3); Non-African American GFR(CKD) 34 (>60 ml/min/1.73 sqM); Potassium 4.5 mmol/L (3.5-5.1); Sodium 141 mmol/L (137-145); Total Bilirubin 0.8 mg/dL (0.2-1.3); Total Protein 8.3 g/dL (6.3-8.2)
[2024-01-07 18:28] LABS: Basophils % (A) 0 %; Eosinophils # (A) 0.1 k/uL (0-0.7); Eosinophils % (A) 0 %; HGB 17.7 gm/dL (11.4-16.0); Lymphocytes # (A) 1.7 k/uL (1.0-4.8); Lymphocytes % (A) 12 %; MCH 30.3 pg (25.0-35.0); MCV 94.6 fL (80.0-100.0); Mean Platelet Volume 8.7; Monocytes # (A) 1.1 k/uL (0-1.0); Monocytes % (A) 8 %; Neutrophils % (A) 78 %; Platelet Count 405 k/uL (150-450); RBC 5.85 m/uL (3.80-5.40); RDW 14.3 % (11.5-15.5); WBC 14.1 k/uL (3.8-10.6)
[2024-01-07 18:31] LABS: HCT 55.4 % (34.0-46.0)
[2024-01-07 18:34] LABS: NT-Pro-B-Type Natriuretic Pept 125 pg/mL
[2024-01-07 18:38] LABS: Partial Thromboplastin Time 24.9 sec (22.0-30.0); Prothrombin Time 10.6 sec (10.0-12.5)
--- NOTE | 2024-01-07 18:40 | XR ---
EXAMINATION TYPE: XR chest 2V DATE OF EXAM: 01/07/2024 COMPARISON: 05/07/2023 INDICATION: Chest pain, short of breath TECHNIQUE: Frontal and lateral views of the chest are obtained. FINDINGS: The heart size is normal. The pulmonary vasculature is normal. Minimal linear opacities at the cardiac apex at the left base. Findings likely related to some mild p late atelectasis. Lung recinos are otherwise clear. IMPRESSION: 1. Minimal plate atelectasis left lung base
[2024-01-07] MEDS: SODIUM CHLORIDE 0.9% 1,000 ML IV SCH (20:31)
[2024-01-08] MEDS: NITROGLYCERIN OINT 1 INCH/GM PACKET TOPICAL SCH (00:03)
[2024-01-08 00:57] LABS: Amphetamine Screen,Urine Not Detected (NotDetected); Barbiturate Screen,Urine Not Detected (NotDetected); Benzodiazepines Screen,Urine Detected (NotDetected); Cocaine Screen,Urine Not Detected (NotDetected); Methadone Screen, Urine Not Detected (NotDetected); Opiate Screen,Urine Not Detected (NotDetected); Oxycodone Screen, Urine Not Detected (NotDetected); Phencyclidine Screen,Urine Not Detected (NotDetected); Tricyclic Antidepressant,Urine Not Detected (NotDetected); Urn Cannabinoid Scrn Detected (NotDetected)
[2024-01-08] MEDS ORDERED: HEPARIN SODIUM 1,000 UN/ML (10ML VL) IV PRN (08:17)
[2024-01-08] MEDS ORDERED: NITROGLYCERIN SL TABS 0.4 MG TAB SUBLINGUAL PRN (08:19)
[2024-01-08] MEDS ORDERED: ALPRAZolam 0.5 MG TAB PO PRN (08:19)
[2024-01-08] MEDS ORDERED: ALPRAZolam 0.25 MG TAB PO PRN (08:19)
--- NOTE | 2024-01-08 08:42 | P.CRDCN ---
History of Present Illness Consult date: 01/08/24 Consult reason: chest pain History of present illness: This is a 63-year-old female patient previously seen in the office by Dr. Gutierrez in May 2023. She has a past medical history of hyperlipidemia, tobacco use and dependence, depression. We have been asked to evaluate the patient for chest pain. Patient states that she came into the hospital because she could not catch her breath. This was a sudden onset yesterday. She also was experiencing chest discomfort when she was walking that started yesterday. She denies having any chest pain in the past and no chest pain with exertion in the past. She denies having any dizziness, no palpitations. She thought she was going to pass out but had no syncopal episode. She denies abdominal pain. No blood in her stool or urine. No history of CVA or seizures. No history of diabetes or hypertension. She states she drinks 1 cup of coffee per day. No alcohol use. She is a smoker. Patient also denies any known history of renal disease. Patient is seen today in the emergency center waiting for a bed on the cardiac stepdown unit. Patient is also admitted for suicidal ideation and consult is in place with psychiatry. EKG: Sinus rhythm with no acute ST-T wave changes Chest x-ray: Minimal plate atelectasis left lung base. Laboratory studies: WBC 14.1, hemoglobin 17.7. INR 1.0. Sodium 141, potassium 4.5, BUN 18 and creatinine 1.62. Troponin 0.042, 0.056, 0.045. proBNP 125. Liver function tests are normal. Magnesium 2.3. Urinalysis positive for benzodiazepines and marijuana. Home cardiac medications: None Review Of Systems: At the time of my exam: CONSTITUTIONAL: Denies fever or chills. HEENT: Denies blurred vision, vision changes, or eye pain. Denies hemoptysis CARDIOVASCULAR: Denies chest pain. Denies orthopnea. Denies PND. Denies palpitations RESPIRATORY: Denies shortness of breath. GASTROINTESTINAL: Denies abdominal pain. Denies nausea or vomiting. HEMATOLOGIC: Denies bleeding disorders. GENITOURINARY: Denies any blood in urine. SKIN: Denies puritis. Denies rash. Physical examination: Gen: This is an obese 63-year-old female in no acute distress VS: reviewed, blood pressure 106/65, heart rate 61, pulse ox 93% on room air. HEENT: Head is atraumatic, normocephalic. Pupils equal, round. Sclerae is anicteric. NECK: Supple. No JVD. LUNGS: Clear to auscultation. No wheezes or rhonchi. No intercostal retractions. HEART: Regular rate and rhythm. No murmur. ABDOMEN: Soft No tenderness. EXTREMITIES: No pedal edema. No calf tenderness. NEUROLOGICAL: Patient is awake, alert and oriented x3. Assessment: Non-ST elevated myocardial infarction Hyperlipidemia Tobacco use and dependence Suicidal ideation Plan: Start patient on aspirin 81 mg daily, Lipitor 40 mg daily, Lopressor 25 mg twice daily Start patient on heparin drip Schedule patient for cardiac catheterization tomorrow with Dr. Chawla N.p.o. after midnight IV fluids 0.9 normal saline at 75 cc/h Recheck BMP in the morning Obtain 2-D echocardiogram and Doppler study to assess cardiac structure and function Further recommendations to follow based upon clinical course Thank you kindly for this consultation. Nurse practitioner note has been reviewed, I agree with documented findings and plan of care. Patient was seen and examined. Past Medical History Past Medical History: Cancer, Chest Pain / Angina, GERD/Reflux, Hyperlipidemia, Thyroid Disorder Additional Past Medical History / Comment(s): Hidradenitis suppurativa axillaes, rectal/buttock abscesses, cervical cancer with procedure. History of Any Multi-Drug Resistant Organisms: None Reported Past Surgical History: No Surgical Hx Reported Additional Past Surgical History / Comment(s): I&Ds rectal/buttock abscesses, I&Ds multiple axillae abscesses, procedure to remove cervical cancer. Past Anesthesia/Blood Transfusion Reactions: No Reported Reaction Past Psychological History: Anxiety, Bipolar, Depression Additional Psychological History / Comment(s): Borderline personality disorder. Smoking Status: Current every day smoker Past Alcohol Use History: Occasional Additional Past Alcohol Use History / Comment(s): Pt started smoking in 1975 and is a half ppd smoker. Past Drug Use History: None Reported Additional Drug Use History / Comment(s): . - Past Family History Father History Unknown: Yes Additional Family Medical History / Comment(s): pt states heart dx runs in the family Mother Family Medical History: Diabetes Mellitus Additional Family Medical History / Comment(s): pt states heart disease runs in the family Medications and Allergies Home Medications Medication Instructions Recorded Confirmed Type No Known Home Medications 05/07/23 01/07/24 History Allergies Allergy/AdvReac Type Severity Reaction Status Date / Time Sulfa (Sulfonamide Allergy Rash/Hives Verified 01/07/24 17:20 Antibiotics) Physical Exam Vitals: Vital Signs Pulse Resp BP Pulse Ox 01/08/24 06:00 61 20 106/65 93 L 01/08/24 04:00 76 19 112/72 93 L 01/08/24 00:00 90 22 90/73 93 L 01/07/24 20:00 92 24 97/69 93 L 01/07/24 18:37 110 H 22 102/66 93 L 01/07/24 17:15 109 H 22 144/106 96 Intake and Output 01/07/24 01/08/24 01/08/24 22:59 06:59 14:59 Other: Weight 97.976 kg Results 01/07/24 17:54 01/07/24 17:54 Cardiac Enzymes 01/07/24 01/07/24 01/07/24 Range/Units 17:54 17:54 20:43 AST 28 (14-36) U/L Troponin I 0.042 H* 0.056 H* (0.000-0.034) ng/mL 01/08/24 Range/Units 00:12 AST (14-36) U/L Troponin I 0.045 H* (0.000-0.034) ng/mL Coagulation 01/07/24 Range/Units 17:54 PT 10.6 (10.0-12.5) sec APTT 24.9 (22.0-30.0) sec CBC 01/07/24 Range/Units 17:54 WBC 14.1 H (3.8-10.6) k/uL RBC 5.85 H (3.80-5.40) m/uL Hgb 17.7 H (11.4-16.0) gm/dL Hct 55.4 H (34.0-46.0) % Plt Count 405 (150-450) k/uL Comprehensive Metabolic Panel 01/07/24 Range/Units 17:54 Sodium 141 (137-145) mmol/L Potassium 4.5 (3.5-5.1) mmol/L Chloride 106 (98-107) mmol/L Carbon Dioxide 23 (22-30) mmol/L BUN 18 H (7-17) mg/dL Creatinine 1.62 H (0.52-1.04) mg/dL Glucose 98 (74-99) mg/dL Calcium 10.2 (8.4-10.2) mg/dL AST 28 (14-36) U/L ALT 21 (4-34) U/L Alkaline Phosphatase 118 (38-126) U/L Total Protein 8.3 H (6.3-8.2) g/dL Albumin 4.9 (3.5-5.0) g/dL Current Medications Generic Name Dose Route Start Last Admin Trade Name Freq PRN Reason Stop Dose Admin Aspirin 325 mg 01/08/24 09:00 Aspirin 325 Mg Tab PO DAILY AJ Sodium Chloride 1,000 mls @ 75 mls/hr 01/07/24 20:00 01/07/24 20:31 Saline 0.9% IV 75 mls/hr .[id number] AJ Administration Nitroglycerin 0.4 mg 01/07/24 19:41 Nitroglycerin Sl Tabs 0.4 Mg Tab SUBLINGUAL Q5M PRN Chest Pain Nitroglycerin 1 inch 01/08/24 00:00 01/08/24 06:31 Nitroglycerin Oint 1 Inch/Gm Packet TOPICAL 1 inch Q6HR AJ Administration Intake and Output 01/07/24 01/08/24 01/08/24 22:59 06:59 14:59 Other: Weight 97.976 kg 01/07/24 17:54 01/07/24 17:54
[2024-01-08] MEDS: HEPARIN SODIUM 1,000 UN/ML (10ML VL) IV ONE (08:50)
[2024-01-08] MEDS: HEPARIN SOD,PORK IN 0.45% NACL 25,000 UNIT in 0.45% NACL 1 250ML.BAG IV SCH (08:50)
[2024-01-08] MEDS: ASPIRIN 81 MG PO SCH (08:50)
[2024-01-08] MEDS: METOPROLOL TARTRATE 25 MG TAB PO SCH (08:50)
[2024-01-08] MEDS: NITROGLYCERIN SL TABS 0.4 MG TAB SUBLINGUAL PRN (08:55)
[2024-01-08 08:56] LABS: Chol/HDL Ratio 6.44 Ratio; HDL Cholesterol 37.4 mg/dL (40.00-60.00)
[2024-01-08] MEDS ORDERED: ASPIRIN 325 MG TAB PO SCH (09:00)
[2024-01-08 09:16] LABS: Glucose,Whole Blood 254 mg/dL (70-110)
--- NOTE | 2024-01-08 09:36 | P.HPIM ---
History of Present Illness Patient is 63-year-old female with history of hyperlipidemia depression current complaints of chest pain and shortness of breath chest pain is nonexertional without any palpitations did have some dizziness. Patient was also complaining of suicidal ideations because of which psychiatry was consulted EKG showed sinus rhythm without any acute ST-T wave changes chest x-ray showed some atelectasis patient does have some leukocytosis. Urine drug screen is positive for benzodiazepines and marijuana. Patient has mild elevated troponin of 0.045 cardiology evaluated the patient. Patient has elevated creatinine of 1.6 baseline is within normal limits REVIEW OF SYSTEMS: CONSTITUTIONAL: No fever, no malaise, no fatigue. HEENT: No recent visual problems or hearing problems. Denied any sore throat. CARDIOVASCULAR: No orthopnea, PND, no palpitations, no syncope. PULMONARY: No shortness of breath, no cough, no hemoptysis. GASTROINTESTINAL: No diarrhea, no nausea, no vomiting, no abdominal pain. NEUROLOGICAL: No headaches, no weakness, no numbness. HEMATOLOGICAL: Denies any bleeding or petechiae. GENITOURINARY: Denies any burning micturition, frequency, or urgency. MUSCULOSKELETAL/RHEUMATOLOGICAL: Denies any joint pain, swelling, or any muscle pain. ENDOCRINE: Denies any polyuria or polydipsia. The rest of the 14-point review of systems is negative. PHYSICAL EXAMINATION: GENERAL: The patient is alert and oriented x3, not in any acute distress. Well developed, well nourished. HEENT: Pupils are round and equally reacting to light. EOMI. No scleral icterus. No conjunctival pallor. Normocephalic, atraumatic. No pharyngeal erythema. No thyromegaly. CARDIOVASCULAR: S1 and S2 present. No murmurs, rubs, or gallops. PULMONARY: Chest is clear to auscultation, no wheezing or crackles. ABDOMEN: Soft, nontender, nondistended, normoactive bowel sounds. No palpable organomegaly. MUSCULOSKELETAL: No joint swelling or deformity. EXTREMITIES: No cyanosis, clubbing, or pedal edema. NEUROLOGICAL: Gross neurological examination did not reveal any focal deficits. SKIN: No rashes. Assessment and plan Possible non-ST elevation myocardial infarction: Patient is on IV heparin patient undergo cardiac catheterization tomorrow cardiology evaluated the patient -Hyperlipidemia patient was started on high-dose statin -Acute renal failure probably prerenal azotemia from dehydration marijuana use IV fluids -Suicidal ideation psychiatry was consulted -Leukocytosis reactive without any evidence of infection patient does have atelectasis for which we will use incentive spirometry DVT prophylaxis: On IV heparin Past Medical History Past Medical History: Cancer, Chest Pain / Angina, GERD/Reflux, Hyperlipidemia, Thyroid Disorder Additional Past Medical History / Comment(s): Hidradenitis suppurativa axillaes, rectal/buttock abscesses, cervical cancer with procedure. History of Any Multi-Drug Resistant Organisms: None Reported Past Surgical History: No Surgical Hx Reported Additional Past Surgical History / Comment(s): I&Ds rectal/buttock abscesses, I&Ds multiple axillae abscesses, procedure to remove cervical cancer. Past Anesthesia/Blood Transfusion Reactions: No Reported Reaction Past Psychological History: Anxiety, Bipolar, Depression Additional Psychological History / Comment(s): Borderline personality disorder. Smoking Status: Current every day smoker Past Alcohol Use History: Occasional Additional Past Alcohol Use History / Comment(s): Pt started smoking in 1975 and is a half ppd smoker. Past Drug Use History: None Reported Additional Drug Use History / Comment(s): . - Past Family History Father History Unknown: Yes Additional Family Medical History / Comment(s): pt states heart dx runs in the family Mother Family Medical History: Diabetes Mellitus Additional Family Medical History / Comment(s): pt states heart disease runs in the family Medications and Allergies Home Medications Medication Instructions Recorded Confirmed Type No Known Home Medications 05/07/23 01/07/24 History Allergies Allergy/AdvReac Type Severity Reaction Status Date / Time Sulfa (Sulfonamide Allergy Rash/Hives Verified 01/07/24 17:20 Antibiotics) Physical Exam Vitals: Vital Signs Pulse Resp BP Pulse Ox 01/08/24 09:08 84 16 94/60 94 L 01/08/24 06:00 61 20 106/65 93 L 01/08/24 04:00 76 19 112/72 93 L 01/08/24 00:00 90 22 90/73 93 L 01/07/24 20:00 92 24 97/69 93 L 01/07/24 18:37 110 H 22 102/66 93 L 01/07/24 17:15 109 H 22 144/106 96 Intake and Output 01/07/24 01/08/24 01/08/24 22:59 06:59 14:59 Other: Weight 97.976 kg Results CBC & Chem 7: 01/07/24 17:54 01/07/24 17:54 Labs: Abnormal Lab Results - Last 24 Hours (Table) 01/07/24 01/07/24 01/07/24 Range/Units 17:54 17:54 17:54 WBC 14.1 H (3.8-10.6) k/uL RBC 5.85 H (3.80-5.40) m/uL Hgb 17.7 H (11.4-16.0) gm/dL Hct 55.4 H (34.0-46.0) % Neutrophils # 11.0 H (1.3-7.7) k/uL Monocytes # 1.1 H (0-1.0) k/uL BUN 18 H (7-17) mg/dL Creatinine 1.62 H (0.52-1.04) mg/dL POC Glucose (mg/dL) (70-110) mg/dL Troponin I 0.042 H* (0.000-0.034) ng/mL Total Protein 8.3 H (6.3-8.2) g/dL Triglycerides (0.00-149.00) mg/dL Cholesterol (0.00-200.00) mg/dL LDL Cholesterol Direct (0.00-129.00) mg/dL VLDL Cholesterol, Calc (5.00-40.00) mg/dL HDL Cholesterol (40.00-60.00) mg/dL U Benzodiazepines Scrn (NotDetected) U Marijuana (THC) Screen (NotDetected) 01/07/24 01/08/24 01/08/24 Range/Units 20:43 00:12 00:13 WBC (3.8-10.6) k/uL RBC (3.80-5.40) m/uL Hgb (11.4-16.0) gm/dL Hct (34.0-46.0) % Neutrophils # (1.3-7.7) k/uL Monocytes # (0-1.0) k/uL BUN (7-17) mg/dL Creatinine (0.52-1.04) mg/dL POC Glucose (mg/dL) (70-110) mg/dL Troponin I 0.056 H* 0.045 H* (0.000-0.034) ng/mL Total Protein (6.3-8.2) g/dL Triglycerides 460.00 H (0.00-149.00) mg/dL Cholesterol 241.00 H (0.00-200.00) mg/dL LDL Cholesterol Direct 136.00 H (0.00-129.00) mg/dL VLDL Cholesterol, Calc 92.00 H (5.00-40.00) mg/dL HDL Cholesterol 37.40 L (40.00-60.00) mg/dL U Benzodiazepines Scrn (NotDetected) U Marijuana (THC) Screen (NotDetected) 01/08/24 01/08/24 Range/Units 00:15 09:13 WBC (3.8-10.6) k/uL RBC (3.80-5.40) m/uL Hgb (11.4-16.0) gm/dL Hct (34.0-46.0) % Neutrophils # (1.3-7.7) k/uL Monocytes # (0-1.0) k/uL BUN (7-17) mg/dL Creatinine (0.52-1.04) mg/dL POC Glucose (mg/dL) 254 H (70-110) mg/dL Troponin I (0.000-0.034) ng/mL Total Protein (6.3-8.2) g/dL Triglycerides (0.00-149.00) mg/dL Cholesterol (0.00-200.00) mg/dL LDL Cholesterol Direct (0.00-129.00) mg/dL VLDL Cholesterol, Calc (5.00-40.00) mg/dL HDL Cholesterol (40.00-60.00) mg/dL U Benzodiazepines Scrn Detected H (NotDetected) U Marijuana (THC) Screen Detected H (NotDetected) Thrombosis Risk Factor Assmnt - Choose All That Apply Each Factor Represents 1 point: Obesity (BMI >25) Each Risk Factor Represents 2 Points: Age 61-74 years Thrombosis Risk Factor Assessment Total Risk Factor Score: 3 Thrombosis Risk Factor Assessment Level: Moderate Risk
[2024-01-08 10:18] LABS: Partial Thromboplastin Time 91.8 sec (22.0-30.0)
[2024-01-08 14:37] VITALS: BMI 37.0
[2024-01-08] MEDS: ATORVASTATIN 40 MG TAB PO SCH (20:02)
[2024-01-08] MEDS: CALCIUM CARBONATE 500 MG CHEWABLE PO PRN (20:57)
[2024-01-09 05:17] LABS: Basophils % (A) 1 %; Eosinophils # (A) 0.2 k/uL (0-0.7); Eosinophils % (A) 2 %; HCT 46.9 % (34.0-46.0); Lymphocytes # (A) 2.1 k/uL (1.0-4.8); Lymphocytes % (A) 28 %; MCH 29.7 pg (25.0-35.0); MCHC 30.4 g/dL (31.0-37.0); MCV 97.9 fL (80.0-100.0); Mean Platelet Volume 8.2; Monocytes # (A) 0.5 k/uL (0-1.0); Monocytes % (A) 6 %; Neutrophils # (A) 4.7 k/uL (1.3-7.7); Neutrophils % (A) 61 %; Platelet Count 307 k/uL (150-450); RBC 4.79 m/uL (3.80-5.40); RDW 14.2 % (11.5-15.5); WBC 7.7 k/uL (3.8-10.6)
[2024-01-09 05:28] LABS: HGB 14.2 gm/dL (11.4-16.0)
[2024-01-09 05:35] LABS: INR 0.9 (<1.2); Partial Thromboplastin Time 52.1 sec (22.0-30.0); Prothrombin Time 10.5 sec (10.0-12.5)
[2024-01-09 05:59] LABS: African American GFR (CKD) 83 (>60 ml/min/1.73 sqM); Anion Gap 8 mmol/L; Blood Urea Nitrogen 18 mg/dL (7-17); Calcium 8.6 mg/dL (8.4-10.2); Carbon Dioxide 21 mmol/L (22-30); Chloride 107 mmol/L (98-107); Glucose 106 mg/dL (74-99); Magnesium 2.1 mg/dL (1.6-2.3); Non-African American GFR(CKD) 72 (>60 ml/min/1.73 sqM); Potassium 4.2 mmol/L (3.5-5.1); Sodium 136 mmol/L (137-145)
[2024-01-09] MEDS: ATORVASTATIN 80 MG TAB PO ONE (06:10)
[2024-01-09] MEDS: ASPIRIN 325 MG TAB PO ONE (06:10)
[2024-01-09] MEDS ORDERED: HEPARIN SODIUM,PORCINE (1 ML) 2,500 UNIT in SODIUM CHLORIDE 0.9% 250 ML IRRIGATION PRN (07:00)
[2024-01-09] MEDS ORDERED: HEPARIN SODIUM,PORCINE 10,000 UNIT in SODIUM CHLORIDE 0.9% 1,000 ML IRRIGATION PRN (07:00)
--- NOTE | 2024-01-09 10:03 | CA ---
Transthoracic Echo Report Name: Nahed Melgar Age: 63 Gender: F : 1960 Exam Date: 01/08/2024 14:01 Exam Location: [facility] Ht (in): 64 Wt (lb): 216 Ordering Physician: Jennifer Brewer Attending/Referring Phys: [id number], Daniella Ski Maker Wood Raquel Donovan RDCS Procedure CPT: Indications: LVF Cardiac Hx: Technical Quality: Fair Contrast 1: Total Dose (mL): Contrast 2: Total Dose (mL): MEASUREMENTS (Male / Female) Normal Values 2D ECHO LV Diastolic Diameter PLAX 4.0 cm 4.2 - 5.9 / 3.9 - 5.3 cm LV Systolic Diameter PLAX 1.8 cm IVS Diastolic Thickness 1.2 cm 0.6 - 1.0 / 0.6 - 0.9 cm LVPW Diastolic Thickness 1.3 cm 0.6 - 1.0 / 0.6 - 0.9 cm LV Relative Wall Thickness 0.6 RV Internal Dim ED PLAX 2.1 cm LA Systolic Diameter LX 4.1 cm 3.0 - 4.0 / 2.7 - 3.8 cm LV Diastolic Volume MOD BP 43.3 cm??? 67 - 155 / 56 - 104 cm??? LV Systolic Volume MOD BP 18.5 cm??? / 19 - 49 cm??? LV Ejection Fraction MOD BP 57.3 % >= 55 % LV Cardiac Index MOD BP 692.9 cm???/min???m??? LV Diastolic Volume MOD 4C 39.0 cm??? LV Systolic Volume MOD 4C 16.9 cm??? LV Ejection Fraction MOD 4C 56.7 % LV Cardiac Index MOD 4C 617.2 cm???/min???m??? LV Diastolic Length 4C 6.7 cm LV Systolic Length 4C 5.9 cm LV Diastolic Volume MOD 2C 46.8 cm??? LV Systolic Volume MOD 2C 19.0 cm??? LV Ejection Fraction MOD 2C 59.4 % LV Cardiac Index MOD 2C 775.9 cm???/min???m??? LV Diastolic Length 2C 7.0 cm LV Systolic Length 2C 5.3 cm LA Volume 50.0 cm??? - / 22 - 52 cm??? LA Volume Index 23.3 cm???/m??? 16 - 28 cm???/m??? M-MODE Aortic Root Diameter MM 2.9 cm LA Systolic Diameter MM 3.8 cm LA Ao Ratio MM 1.3 AV Cusp Separation MM 2.0 cm DOPPLER MV Area PHT 2.5 cm??? Mitral E Point Velocity 48.1 cm/s Mitral A Point Velocity 90.7 cm/s Mitral E to A Ratio 0.5 MV Deceleration Time 306.3 ms FINDINGS Left Ventricle Left ventricular ejection fraction is estimated at 55-60 %. Mildly increased septal wall thickness. Moderately increased posterior wall thickness. Normal left ventricular wall motion. Left ventricular cavity size normal. Right Ventricle Normal right ventricular size and function. Right ventricular systolic pressure within normal limits. Right Atrium Mild right atrial dilatation. Left Atrium Mildly increased left atrial diameter. Mitral Valve Structurally normal mitral valve. Trace mitral regurgitation. Aortic Valve Trileaflet aortic valve. No aortic valve stenosis or regurgitation. Tricuspid Valve Structurally normal tricuspid valve. Trace tricuspid regurgitation. Pulmonic Valve Structurally normal pulmonic valve. Trace pulmonic regurgitation. Pericardium No pericardial or pleural effusion. Aorta Normal size aortic root and proximal ascending aorta. CONCLUSIONS Technically difficult study for interpretation Normal LV systolic function Poorly visualized intracardiac valves Previewed by: Dr. Jonah Perez MD (Electronically Signed) Final Date: 09 January 2024 10:02
[2024-01-09] MEDS ORDERED: VERAPAMIL 2.5 MG/ML 2 ML AMP ONE (10:48)
[2024-01-09] MEDS ORDERED: LIDOCAINE 1% INJ 10MG/ML (20 ML MDV) ONE (10:49)
[2024-01-09] MEDS ORDERED: fentaNYL (PF) 50 MCG/ML 2 ML AMP ONE (10:50)
[2024-01-09] MEDS ORDERED: HEPARIN SODIUM 1,000 UN/ML (10ML VL) ONE (10:50)
[2024-01-09] MEDS: IV FLUID CONTINUATION 1,000 ML IV ONE (10:57)
[2024-01-09] MEDS: fentaNYL (PF) 50 MCG/ML 2 ML AMP IVP ONE (11:23)
[2024-01-09] MEDS: LIDOCAINE 1% INJ 10MG/ML (10 ML MDV) SQ ONE (11:24)
[2024-01-09] MEDS: VERAPAMIL SYRINGE (5 MG/10 ML) INTRAARTER ONE (11:26)
[2024-01-09] MEDS: HEPARIN SODIUM 1,000 UN/ML (10ML VL) IVP ONE (11:28)
[2024-01-09] MEDS: IOPAMIDOL-370 200ML BTL INJ ONE (11:32)
[2024-01-09] MEDS ORDERED: RX INFO: IV CONTRAST WAS GIVEN 1 EACH MISC MISCELLANE PRN (11:42)
--- NOTE | 2024-01-09 11:48 | P.CARDCATH ---
Date of Procedure: 01/09/24 Description of Procedure: Cardiac Catheterization: The patient is a 63-year-old female with known history of tobacco use, hyperlipidemia who presented with symptoms of new onset dyspnea on exertion and chest discomfort and had mild troponin elevation. Recommendations were made regarding cardiac catheterization, the risks and the complications were discussed with the patient who is in full understanding and agreement. 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 Using Xylocaine Anesthesia and modified Seldinger technique, a 6-St Lucian sheath was introduced in the right radial artery . Subsequently, selective coronary angiography was performed using a 5-St Lucian 3.5 bend Jerod catheter. Multiple views of the coronary artery including hemiaxial views were obtained. The right Jerod catheter was used to cross the aortic valve and LVEDP was calculated. Following that, catheter and sheath were removed. Hemostasis was obtained with deployment of vascular band . There was no immediate complication. Patient was returned to room in stable condition. Of note, the patient received a total of 5000 units of intravenous heparin as well as intra-arterial verapamil. Findings: Left main: This is a large size vessel, bifurcating into LAD and left circumflex, left main has no obstructive disease LAD: This is a large size vessel, reaching to the apex with a wraparound apex segment, giving rise to a large diagonal branch. The LAD and its branches have no significant obstructive disease Left circumflex: This is a nondominant vessel, giving rise to 2 large obtuse marginal branch. The first obtuse marginal branch has a 50% ostial lesion. The circumflex after the obtuse marginal branch takeoff has a 10 to 20% plaque. The rest of the vessel has no high-grade stenosis. RCA: This is a moderately sized dominant vessel bifurcating distally to PDA and PLV. The mid RCA has a 20 to 30% plaque, the rest of the vessel has no high- grade stenosis. Left Ventriculogram: Not performed Hemodynamics: There was no gradient across aortic valve, LVEDP was 16-20 mmHg Conclusion: 1. Mild to moderate disease involving the ostium of the OM in the mid RCA 2. Right dominance 3. Mildly elevated LVEDP 4. No significant disease in the LAD Recommendations: I have recommended continued medical therapy with aggressive coronary risks modification and smoking cessation. It is possible that her presentation is related to a plaque rupture, we will attempt to maintain LDL below 70 mg/dL. The findings and the recommendations were discussed with the patient and the family and they were in full understanding and agreement. Duration of sedation is 10 minutes.
[2024-01-09 13:00] LABS: African American GFR (CKD) >90 (>60 ml/min/1.73 sqM); Anion Gap 7 mmol/L; Blood Urea Nitrogen 15 mg/dL (7-17); Calcium 8.7 mg/dL (8.4-10.2); Carbon Dioxide 19 mmol/L (22-30); Chloride 112 mmol/L (98-107); Glucose 103 mg/dL (74-99); Non-African American GFR(CKD) 81 (>60 ml/min/1.73 sqM); Potassium 4.7 mmol/L (3.5-5.1); Sodium 138 mmol/L (137-145)
--- NOTE | 2024-01-09 14:29 | P.CN ---
Psychiatric Consult - . Consult date: 01/09/24 Consult:: 01/09/24 14:04 IDENTIFYING DATA: This patient is a 63 yo female, , currently lives with a friend in a house, she is single, she has 1 daughter, she collects SSI. REASON FOR REFERRAL: Psychiatry was consulted for suicidal ideations HISTORY OF PRESENT ILLNESS: The patient presented to the hospital on 01/06 after having chest pain shortness of breath, she was found to have elevated troponins was diagnosed with an NSTEMI. Patient had elevated white count ANC, creatinine and BUN were also elevated. Patient did make comments when she came in and of having suicidal thoughts feeling depressed and wanting to overdose on her sl eeping medications. Patient was seen today at the bedside, states that she is feeling very depressed and anxious. Claims that she came in for having the shortness of breath and chest pain. States that she is having difficulty with her finances, claims that she feels fairly isolated, claims that she has poor social support and is feeling really depressed. She was tearful during the interview. States that she is still having suicidal thoughts, wanting to overdose on sleeping medications. Denies any homicidal ideations. Claims that she is starting to hear voices telling her "I am not a good person". Denies any visual hallucinations. denies any paranoia or delusions. Patients admits to using cigarettes only, claims that she has a history of polysubstance abuse however is fairly vague about what she had used. She did claim that she has a history of manic episodes, has been diagnosed with bipolar disorder since the . Claims that her sleep is poor, appetite is fair at this time. PAST PSYCHIATRIC HISTORY: Patient has a a history of bipolar disorder. She claims that she is not currently taking many medications except for Cymbalta prescribed by her PCP. States that she used to be on Haldol, Depakote and Zyprexa. Claims that she has been psychiatrically admitted several times in the past, her last admission was in November 2021. Patient denies any psychiatric outpatient follow-up. Patient denies any history of suicide attempts in the past. PAST MEDICAL HISTORY: Past Medical History: Cancer, Chest Pain / Angina, GERD/Reflux, Hyperlipidemia, Thyroid Disorder Additional Past Medical History / Comment(s): Hidradenitis suppurativa axillaes, rectal/buttock abscesses, cervical cancer with procedure. History of Any Multi-Drug Resistant Organisms: None Reported Past Surgical History: No Surgical Hx Reported Additional Past Surgical History / Comment(s): I&Ds rectal/buttock abscesses, I&Ds multiple axillae abscesses, procedure to remove cervical cancer. Past Anesthesia/Blood Transfusion Reactions: No Reported Reaction Past Psychological History: Anxiety, Bipolar, Depression Smoking Status: Current every day smoker Past Alcohol Use History: Occasional Past Drug Use History: None Reported ALLERGIES: as per EMR. CHEMICAL DEPENDENCY HISTORY: as per HPI. FAMILY PSYCHIATRIC/SUBSTANCE USE HISTORY: Claims that her nephew committed suicide SOCIAL HISTORY: Patient was born and raised in [place] and then moved to [place] for a while and then came back to live in [place]. 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 States that she does have 1 daughter that she is estranged from, collects SSI, she currently lives with a friend in a house. She states that she went to residential in 2021 for breaking and entering and also assault charges. MENTAL STATUS EXAM: General Appearance: Patient appears to be overweight, tearful, stated age is alert, attempts to be cooperative. Patient appears to have fair hygiene and grooming wearing hospital gown with [poor eye contact. Behavior: Patient is calmly lying in bed without any agitated behavior. Conc rete, hesitant Speech: Patient's speech is fluent and nonpressured. Hesitant. Soft tone Mood/Affect: Patient reports their mood is "depressed and anxious", affect is congruent and tearful Suicidality/Homicidality: Patient denies having any homicidal ideations intent or plan. Claims that she is having suicidal thoughts with plan to overdose on her sleeping pills Perceptions: Patient denies any visual hallucinations and states that she is hearing voices mainly negative in nature Though content/process: There is no evidence of any delusional thought content and thought process is linear and goal-directed. [place] Memory and concentration: AOX3, grossly intact for the purposes of this session. Can spell "WORLD" backwards Judgment and insight: Poor IMPRESSIONS: Bipolar disorder, current episode depressed Suicidal ideations Nicotine dependence PLAN: -At this time patient DOES meet criteria for inpatient psychiatric admission. -Would recommend the following medication changes/additions: Will hold off on psychiatric medications until patient is safely transferred to the mental health unit. Will consider starting patient on mood stabilizer medications including Seroquel versus Lamictal versus Abilify with a antidepressant medication. -Continue 1:1 sitter for safety until patient is safely transferred to the mental health unit -Cannot leave AMA at this time. Patient will need a petition and certification if attempting to leave AMA. -Communicated plan to patient's nurse -Psychiatry will sign off at this time -Please contact with any questions. 01/09/24 14:23
[2024-01-09] MEDS: SODIUM CHLORIDE 0.9% 1,000 ML IV SCH (20:11)
--- NOTE | 2024-01-10 06:06 | P.PN ---
Subjective Progress Note Date: 01/09/24 Patient is 63-year-old female with history of hyperlipidemia depression current complaints of chest pain and shortness of breath chest pain is nonexertional without any palpitations did have some dizziness. Patient was also complaining of suicidal ideations because of which psychiatry was consulted EKG showed sinus rhythm without any acute ST-T wave changes chest x-ray showed some atelectasis patient does have some leukocytosis. Urine drug screen is positive for benzodiazepines and marijuana. Patient has mild elevated troponin of 0.045 cardiology evaluated the patient. Patient has elevated creatinine of 1.6 baseline is within normal limits 01/09/2024 Patient is seen in follow-up today with cardiology following currently scheduled to undergo cardiac catheterization. Will await actual report. Patient also to be evaluated by psychiatry as patient reports feeling depressed and having suic idal thoughts. Patient is afebrile with reports of occasional chest pain. Patient currently denies shortness of breath with no reported nausea or vomiting and patient is currently NPO. Diet to be resumed after catheterization. Will await cardiology clearance as well as psychiatric evaluation. Review of systems: Constitutional: No reports of fatigue, fever, or chills Cardiovascular: reports of intermittent chest pain, no palpitations Respiratory: No reports of shortness of breath or cough GI: No reports of nausea, vomiting, or diarrhea : No reports of dysuria or retention Neurovascular: No reports of weakness or numbness All medications have been reviewed PHYSICAL EXAMINATION: GENERAL: The patient is alert and oriented x3, not in any acute distress. Well developed, well nourished. Obese HEENT: Pupils are round and equally reacting to light. EOMI. No scleral icterus. No conjunctival pallor. Normocephalic, atraumatic. No pharyngeal erythema. No thyromegaly. CARDIOVASCULAR: S1 and S2 present. No murmurs, rubs, or gallops. PULMONARY: Chest is clear to auscultation, no wheezing or crackles. ABDOMEN: Soft, obese, nontender, nondistended, normoactive bowel sounds. No palpable organomegaly. MUSCULOSKELETAL: No joint swelling or deformity. EXTREMITIES: No cyanosis, clubbing, or pedal edema. NEUROLOGICAL: Gross neurological examination did not reveal any focal deficits. SKIN: No rashes. Assessment and plan -Possible non-ST elevation myocardial infarction: Patient is on IV heparin patient undergo cardiac catheterization tomorrow cardiology evaluated the patient -Hyperlipidemia patient was started on high-dose statin -Acute renal failure probably prerenal azotemia from dehydration marijuana use, IV fluids -Suicidal ideation psychiatry was consulted -Leukocytosis reactive without any evidence of infection patient does have atelectasis for which we will use incentive spirometry -GI prophylaxis -Obesity with a BMI of 39.2 -Continued ongoing nicotine dependence -DVT prophylaxis: On IV heparin -Full code Plan: Continue on IV heparin and patient is scheduled to undergo cardiac catheterization with cardiology. Will await report Patient to be evaluated by psychiatry for depression and suicidal ideation. Continue with suicide sitter at this time Continue IV hydration and will follow-up on repeat labs Continue incentive spirometer use at least 10 times every hour while awake Await cardiology clearance and psychiatric evaluation for discharge planning The impression and plan of care has been dictated by Essie Shay, Nurse Practitioner as directed. Dr. Jeet MD I have performed a history and examination and MDM of this patient, discussed the same with the dictator, and agree with the dictator's assessment and plan as written ,documented as a scribe. Based on total visit time, I have performed more than 50% of the visit. Objective - Vital Signs Vital signs: Vital Signs Temp 97.6 F 01/09/24 08:00 Pulse 48 L 01/09/24 08:00 Resp 16 01/09/24 08:00 BP 113/71 01/09/24 08:00 Pulse Ox 96 01/09/24 08:00 FiO2 Intake & Output 01/08/24 01/09/24 01/09/24 18:59 06:59 18:59 Intake Total 228.896 Balance 228.896 Weight 97.976 kg 103.7 kg Intake: Intake, IV Titration 228.896 Amount Heparin Sod,Pork in 0.45% 228.896 NaCl 25,000 unit In 0.45 % NaCl 1 250ml.bag @ 10. 207 UNITS/KG/HR 10 mls/hr IV .Q24H AJ Rx#: [id number] Other: Voiding Method Toilet # Voids 1 - Labs CBC & Chem 7: 01/09/24 04:59 01/09/24 11:57 Labs: Abnormal Lab Results - Last 24 Hours (Table) 01/08/24 01/08/24 01/08/24 Range/Units 08:59 08:59 14:18 Hct (34.0-46.0) % MCHC (31.0-37.0) g/dL APTT 91.8 H 33.8 H (22.0-30.0) sec Sodium (137-145) mmol/L Carbon Dioxide (22-30) mmol/L BUN (7-17) mg/dL Glucose (74-99) mg/dL Procalcitonin 0.10 H (0.02-0.09) ng/mL 01/08/24 01/09/24 01/09/24 Range/Units 20:53 04:55 04:59 Hct 46.9 H (34.0-46.0) % MCHC 30.4 L (31.0-37.0) g/dL APTT 39.4 H 52.1 H (22.0-30.0) sec Sodium (137-145) mmol/L Carbon Dioxide (22-30) mmol/L BUN (7-17) mg/dL Glucose (74-99) mg/dL Procalcitonin (0.02-0.09) ng/mL 01/09/24 Range/Units 04:59 Hct (34.0-46.0) % MCHC (31.0-37.0) g/dL APTT (22.0-30.0) sec Sodium 136 L (137-145) mmol/L Carbon Dioxide 21 L (22-30) mmol/L BUN 18 H (7-17) mg/dL Glucose 106 H (74-99) mg/dL Procalcitonin (0.02-0.09) ng/mL
[2024-01-10 06:34] VITALS: RESP 18
[2024-01-10] MEDS: ACETAMINOPHEN TAB 325 MG TAB PO PRN (13:23)
--- NOTE | 2024-01-10 14:06 | P.PN ---
Subjective Progress Note Date: 01/10/24 Consult reason: chest pain History of present illness: This is a 63-year-old female patient previously seen in the office by Dr. Gutierrez in May 2023. She has a past medical history of hyperlipidemia, tobacco use and dependence, depression. We have been asked to evaluate the patient for chest pain. Patient states that she came into the hospital because she could not catch her breath. This was a sudden onset yesterday. She also was experiencing chest discomfort when she was walking that started yesterday. She denies having any chest pain in the past and no chest pain with exertion in the past. She denies having any dizziness, no palpitations. She thought she was going to pass out but had no syncopal episode. She denies abdominal pain. No blood in her stool or urine. No history of CVA or seizures. No history of diabetes or hypertension. She states she drinks 1 cup of coffee per day. No alcohol use. She is a smoker. Patient also denies any known history of renal disease. Patient is seen today in the emergency center waiting for a bed on the cardiac stepdown unit. Patient is also admitted for suicidal ideation and cons ult is in place with psychiatry. EKG: Sinus rhythm with no acute ST-T wave changes Chest x-ray: Minimal plate atelectasis left lung base. Laboratory studies: WBC 14.1, hemoglobin 17.7. INR 1.0. Sodium 141, potassium 4.5, BUN 18 and creatinine 1.62. Troponin 0.042, 0.056, 0.045. proBNP 125. Liver function tests are normal. Magnesium 2.3. Urinalysis positive for benzodiazepines and marijuana. Home cardiac medications: None 01/09 Yesterday, patient underwent cardiac catheterization with Dr. Chawla which revealed mild to moderate disease involving the ostium of the OM and the mid RCA, right dominance, mildly elevated LVEDP, no significant disease in the LAD. Recommendations are for medical management. Patient is seen today in follow-up. She states she slept okay last night. She denies having any chest pain. She denies sore throat. She does have a product safety test engineer at the bedside and is waiting to go to the mental health unit. Echocardiogram reveals EF of 55 to 60%. Technically difficult study for interpretation. Poorly visualized intracardiac valves. Physical examination: Gen: This is an obese 63-year-old female in no acute distress VS: reviewed LUNGS: Clear to auscultation. No wheezes or rhonchi. No intercostal retractions. HEART: Regular rate and rhythm. No murmur. ABDOMEN: Soft No tenderness. EXTREMITIES: No pedal edema. No calf tenderness. NEUROLOGICAL: Patient is awake, alert and oriented x3. Assessment: Non-ST elevated myocardial infarction ruled out by cardiac catheterization Hyperlipidemia Tobacco use and dependence Suicidal ideation Plan: Continue patient on aspirin 81 mg daily, Lipitor 40 mg daily Patient is cleared for discharge from cardiology. Cardiac monitoring can be discontinued and patient transferred to [facility] floor. Cardiology will sign off this case and follow on an as-needed basis. Please reconsult for any new concerns. Nurse practitioner note has been reviewed, I agree with documented findings and plan of care. Patient was seen and examined. Objective - Vital Signs Vital signs: Vital Signs Temp 97.5 F L 01/10/24 08:00 Pulse 54 L 01/10/24 08:00 Resp 18 01/10/24 08:00 BP 106/73 01/10/24 08:00 Pulse Ox 95 01/10/24 08:00 FiO2 Intake & Output 01/09/24 01/10/24 01/10/24 18:59 06:59 18:59 Intake Total 286 200 358 Balance 286 200 358 Intake: IV 50 Oral 236 200 358 Other: Voiding Method Toilet Toilet Toilet # Voids 1 2 1 - Labs CBC & Chem 7: 01/09/24 04:59 01/09/24 11:57
--- NOTE | 2024-01-10 14:47 | P.DS ---
Providers Date of admission: 01/07/24 19:45 Expected date of discharge: 01/10/24 Attending physician: Rusty Jaimes Consults: 01/07/24 19:41 Consult Physician Urgent Consulting Provider: [facility] Consult Reason/Comments: Chest pain Do you want consulting provider notified?: Yes Consult Physician Urgent Consulting Provider: Mundo Ochoa Reason/Comments: Suicidal ideations Do you want consulting provider notified?: Yes Primary care physician: Kirsty Neal Hospital Course: Final diagnosis -Possible non-ST elevation myocardial infarction: Ruled out by cardiac catheterization -Hyperlipidemia history -Acute renal failure, prerenal azotemia from dehydration and marijuana use, improved -Suicidal ideation -Depression -Leukocytosis reactive without any evidence of infection patient does have atelectasis for which we will use incentive spirometry -GI prophylaxis -Obesity with a BMI of 39.2 -Continued ongoing nicotine dependence -DVT prophylaxis -Full code Discharge disposition Patient is being transferred in a stable condition with guarded prognosis to [facility] [address]. inpatient psychiatric unit for further psychiatric evaluation . Patient will follow-up with Dr. Ronald Jaimes in the outpatient setting upon discharge. Patient is to continue with current medications and outpatient follow-up with cardiology as scheduled. Patient to be established with community health mental health outpatient as well. Total time taken is greater than 35 minutes. Hospital course This is a 63-year-old female who was recently admitted with chest pain and increased depression with suicidal ideation being closely monitored. Patient evaluated by cardiology and underwent cardiac catheterization recommending maximizing medical management with no intervention required. Patient has been cleared by cardiology for outpatient follow-up. Patient evaluated by psychiatry recommending inpatient psychiatric evaluation for further workup for depression. Patient continues to report suicidal ideation and continues with the suicide sitter. Patient has been cleared by cardiology for discharge today. Please refer to cardiology consultation notes for further HPI. Smoking cessation was extensively counseled and patient will continue with nicotine patch. Patient to follow-up with community health mental health in the outpatient setting as well. Currently no reports of chest pain, shortness of breath, or palpitations. Patient is afebrile. No reports of nausea or vomiting and patient is tolerating diet. Patient will be transferred to [address]. for further psychiatric care today. Physical exam: Gen: This is a 63-year-old female who is awake, alert and oriented x 3, well- developed, well-nourished, obese HEENT: Head is atraumatic, normocephalic. Pupils equal, round. Sclerae is anicteric. NECK: Supple. No JVD. No lymphadenopathy. No thyromegaly. LUNGS: Clear to auscultation. No wheezes or rhonchi. No intercostal retractions. HEART: Regular rate and rhythm. No murmur. ABDOMEN: Soft. Obese bowel sounds are present. No masses. No tenderness. EXTREMITIES: No pedal edema. No calf tenderness. NEUROLOGICAL: Patient is awake, alert and oriented x3. Cranial nerves 2 through 12 are grossly intact. Please refer to medication reconciliation sheet for a list of medications. The impression and plan of care has been dictated by Nurse Lane Hernandez as directed. Dr. Jeet MD I have performed a history and examination and MDM of this patient, discussed the same with the dictator, and agree with the dictator's assessment and plan as written ,documented as a scribe. Based on total visit time, I have performed more than 50% of the visit. Patient Condition at Discharge: Fair Plan - Discharge Summary New Discharge Prescriptions: New Aspirin 81 mg PO DAILY tab Atorvastatin [Lipitor] 40 mg PO HS tab Nitroglycerin Sl Tabs [Nitrostat] 0.4 mg SUBLINGUAL Q5M PRN tab PRN Reason: Chest Pain Calcium Carbonate [Tums] 1,000 mg PO TID PRN tab PRN Reason: Heartburn Discharge Medication List Aspirin 81 mg PO DAILY tab 01/10/24 [Rx] Atorvastatin [Lipitor] 40 mg PO HS tab 01/10/24 [Rx] Calcium Carbonate [Tums] 1,000 mg PO TID PRN tab 01/10/24 [Rx] Nitroglycerin Sl Tabs [Nitrostat] 0.4 mg SUBLINGUAL Q5M PRN tab 01/10/24 [Rx] Follow up Appointment(s)/Referral(s): Florin Gutierrez MD [STAFF PHYSICIAN] - 1 Week Demetrio Chawla MD [STAFF PHYSICIAN] - Kirsty Neal MD [Primary Care Provider] - 1-2 days Activity/Diet/Wound Care/Special Instructions: Patient is medically stable for transfer to inpatient psychiatric unit for further psychiatric evaluation Activity as tolerated Continue heart healthy diet Follow-up with cardiology outpatient Follow-up with primary care provider on discharge Follow-up community mental health in the outpatient setting once discharged from psychiatric unit Discharge Disposition: TRANSFER TO PSYCH HOSP/UNIT
[2024-01-10 20:18] VITALS: BP 125/78; PULSE 47; TEMP 97.6
--- NOTE | 2024-01-14 07:50 | CDI ---
Documentation Clarification Form Date: 01/13/25 From: Jelena Law Admit Date: 01/07/2024 07:45:00 PM Patient Name: Nahed Melgar Visit Number: [id number] Discharge Date: 01/10/2024 08:25:00 PM ATTENTION: The Clinical Documentation Specialists (CDI) and [facility] Coding Staff appreciate your assistance in clarifying documentation. Please respond to the clarification below the line at the bottom and electronically sign. The CDI & [facility] Coding staff will review the response and follow-up if needed. Please note: Queries are made part of the Legal Health Record. If you have any questions, please contact the author of this message via ITS. Dr. Timbo Marcano, Your patient has the documented symptom of chest pain in the H&P. Additional clarification regarding the etiology/cause of this symptom is requested. Patient C/O: Chest painandshortness of breathchest painis nonexertional without anypalpitationsdid have somedizziness. History/Risk factors: HLD, GERD, thyroid disorder Clinical Indicators: Cardiology documents non-ST elevated MA. Left Heart cath progress note documents unstable angina. Discharge summary documents - [place]-ST elevation myocardial infarction:Ruled outbycardiac catheterization. Labs: Troponin: 0.042, 0.056, 0.045, 0.045 (01/06-01/07) Treatment: [facility] Please provide additional clarification regarding the etiology/cause of the chest pain. [ x ] Non-ST myocardial infarction [ ] Chest pain due to CAD with angina (specify vessel and type of angina if known) [ ] Chest pain due to chest wall pain [ ] Chest pain due to unstable angina [ ] Chest pain due to other condition, please specify [ ] Unable to determine MTDD
== END 2024-01-10 20:25 | DRG 190 ==
LOC: EC 17:12 → 3SCARD 19:45
PROVIDERS: ADMIT Hospitalist; ATTEND Hospitalist
PROC: B2111ZZ Fluoroscopy of Multiple Coronary Arteries using Low Osmolar Contrast (ICD-10-PCS; principal; 2024-01-09 11:00)
PROC: 4A023N7 Measurement of Cardiac Sampling and Pressure, Left Heart, Percutaneous Approach (ICD-10-PCS; principal; 2024-01-09 11:00)
DX: I21.4 Non-ST elevation (NSTEMI) myocardial infarction (principal); I25.110 Atherosclerotic heart disease of native coronary artery with unstable angina pectoris; N17.9 Acute kidney failure, unspecified; R45.851 Suicidal ideations; F60.3 Borderline personality disorder; F31.30 Bipolar disorder, current episode depressed, mild or moderate severity, unspecified; E66.9 Obesity, unspecified; Z68.39 Body mass index [BMI] 39.0-39.9, adult; F19.11 Other psychoactive substance abuse, in remission; F12.90 Cannabis use, unspecified, uncomplicated; J98.11 Atelectasis; E86.0 Dehydration; E78.5 Hyperlipidemia, unspecified; D72.829 Elevated white blood cell count, unspecified; E07.9 Disorder of thyroid, unspecified; K21.9 Gastro-esophageal reflux disease without esophagitis; F17.210 Nicotine dependence, cigarettes, uncomplicated; Z71.6 Tobacco abuse counseling; Z59.819 Housing instability, housed unspecified; Z85.41 Personal history of malignant neoplasm of cervix uteri; Z71.3 Dietary counseling and surveillance; Z88.2 Allergy status to sulfonamides
CPT/HCPCS: 36415; 71046; 80048; 80053; 80061; 80306; 82075; 83721; 83735; 83880; 84145; 84484; 85025; 85610; 85730; 87635; 93005; 93306; 93458; 96361; 96365; 96366; 96375; 99291

== ENCOUNTER 2024-01-10 18:21 | Inpatient (IN) | payer MEDICAID ==
[2024-01-10] MEDS ORDERED: MAGNESIUM HYDROXIDE 2,400 MG/30 ML CUP PO PRN (20:39)
[2024-01-10] MEDS ORDERED: hydrOXYzine HCL 50 MG/ML 1 ML VIAL IM PRN (20:39)
[2024-01-10] MEDS ORDERED: NITROGLYCERIN SL TABS 0.4 MG TAB SUBLINGUAL PRN (20:53)
[2024-01-10] MEDS ORDERED: QUEtiapine 50 MG TAB PO PRN (21:15)
[2024-01-10] MEDS: ATORVASTATIN 40 MG TAB PO SCH (22:25)
[2024-01-10] MEDS: hydrOXYzine HCL 25 MG TAB PO PRN (22:37)
[2024-01-11] MEDS: NICOTINE 14MG/24HR PATCH TRANSDERM SCH (08:42)
[2024-01-11] MEDS: ASPIRIN 81 MG PO SCH (08:42)
--- NOTE | 2024-01-11 10:05 | P.HP ---
Psychiatric H&P - . H&P Date: 01/11/24 History & Physical: Allergies Allergy/AdvReac Type Severity Reaction Status Date / Time Sulfa (Sulfonamide Allergy Rash/Hives Verified 01/10/24 20:58 Antibiotics) Vital Signs Temp 97.8 F 01/11/24 06:00 Pulse 59 L 01/11/24 06:00 Resp 16 01/11/24 06:00 BP 100/67 01/11/24 06:00 Pulse Ox 93 L 01/11/24 06:00 FiO2 Intake & Output 01/10/24 01/11/24 01/11/24 18:59 06:59 18:59 Weight 106.736 kg 01/11/24 08:58 IDENTIFYING DATA: Patient is a single, unemployed, 63-year-old female who is presenting with suicidal ideation HPI: Patient was initially medically hospitalized for potential NSTEMI (s/p cardiac catheterization) and acute renal failure. During that admission, patient reported suicidal ideation and was evaluated by Dr. Ochoa from psychiatry. Her concerns during that evaluation are largely consistent with her reports today. Patient reports worsened depression, trouble with falling asleep and staying asleep (4 hours of sleep), thoughts of worthlessness, and poor energy for the past 1 month. She endorses fair appetite. She reports experiencing suicidal ideation and has considered taking sleeping pills. She was tearful during the interview. Acute stressors include financial trouble, social isolation, and concerns about housing. She also states that for the past 1 month, she has been experiencing auditory hallucinations "they are out to get me and want me to ". She reports seeing angels at times. Her thought process is quite organized ad she states that she has been experiencing paranoia but states this in a vague objective manner without without providing any details despite being asked to do so. Of note, patient did not endorse any visual hallucinations, paranoia or delusions when she was seen by psychiatry while medically hospitalized. She did claim that she has a history of manic episodes, has been diagnosed with bipolar disorder since the . She recalls at the time having a period wherein she did not sleep, had elevated energy, fair mood, impulsively attempted suicide, and had numerous indiscretions. PSYCH HX: Patient has a a history of bipolar disorder. She claims that she is not currently taking many medications except for Cymbalta prescribed by her PCP. States that she used to be on Haldol, Celexa, [place], Seroquel, Depakote and Zyprexa. Claims that she has been psychiatrically admitted several times in the past, her last admission was in November 2021. Hx of ycardia on Hurlock, per hospitalization here in 2019. Patient denies any current psychiatric outpatient follow-up but was in the process of setting up with [facility]. Suicide attempts: 3 times. PMH: Past Medical History: Cancer, Chest Pain / Angina, GERD/Reflux, Hyperlipidemia, Thyroid Disorder Additional Past Medical History / Comment(s): Hidradenitis suppurativa axillaes, rectal/buttock abscesses, cervical cancer with procedure. History of Any Multi-Drug Resistant Organisms: None Reported Past Surgical History: No Surgical Hx Reported Additional Past Surgical History / Comment(s): I&Ds rectal/buttock abscesses, I&Ds multiple axillae abscesses, procedure to remove cervical cancer. Past Anesthesia/Blood Transfusion Reactions: No Reported Reaction Past Psychological History: Anxiety, Bipolar, Depression Smoking Status: Current every day smoker Past Alcohol Use History: Occasional Past Drug Use History: None Reported Allergies: As per EMR SUBSTANCE HX: Alcohol: Denies heavy or consistent use. Denies recent use. Tobacco: 0.5 ppd Cannabis: Used 1 joint daily and quit 4 months ago. Denies using other substances SOCIAL/LEGAL HX: Patient was born in [place]. Her family lives in [place] but says she does not get along with them. Her brother last year and has 3 other siblings whom she does not see often. Father when patient was 9 years old. She moved to [place] for 30 years to be with her mother's family. 1 daughter, never . 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 Patient appears to have fair hygiene and grooming Behavior: Patient is calmly sitting without any agitated behavior. [place], hesitant Speech: Patient's speech is fluent and nonpressured. Hesitant. Soft tone Mood/Affect: Patient reports their mood is "depressed", affect is congruent and tearful Suicidality/Homicidality: Patient denies having any homicidal ideations intent or plan. Claims that she is having suicidal thoughts with plan to overdose on her sleeping pills Perceptions: Patient denies any current visual hallucinations and states that she is hearing voices mainly negative in nature Though content/process: There is no evidence of any delusional thought content and thought process is linear and goal-directed. [place] Memory and concentration: AOX3, grossly intact for the purposes of this session. Can spell "WORLD" backwards Judgment and insight: Poor STRENGTHS/WEAKNESSES: Strength is resilience. Weakness is poor outpatient f/u INTELLECT: average IMPRESSIONS: Bipolar disorder, currently depressed with psychotic features Nicotine dependence PLAN: -Patient is admitted under voluntary status to MHU for stabilization of psychiatric symptoms and safety. Patient signed adult voluntary form and medication consent and is placed in patient's chart. -Medications : Start Celexa 5 mg daily for depression Start Abilify 5 mg daily for psychosis and mood augmentation -Patient was counselled on substance abuse and desired to cut back on use. Motivational interviewing. Nicotine patch -Vistaril PRN for anxiety/sleep -Internal Medicine consult to perform medical evaluation and physical. -SW on board for discharge planning. Encourage patient to participate in groups to work on coping skills. 01/11/24 09:19 01/11/24 09:48
[2024-01-11] MEDS: CITALOPRAM HYDROBROMIDE 10 MG TAB PO SCH (10:23)
[2024-01-11] MEDS: ARIPiprazole 5 MG TAB PO SCH (10:23)
--- NOTE | 2024-01-11 12:24 | P.MDCNMH ---
History of Present Illness H&P Date: 01/11/24 History of present illness; patient is a 63-year-old female who was recently admitted with chest pain and increased depression with suicidal ideation . Patient was evaluated by cardiology and underwent cardiac catheterization recommending maximizing medical management with no intervention required. Patient was cleared by cardiology for outpatient follow-up. Patient evaluated by psychiatry recommending inpatient psychiatric evaluation for which patient was discharged to inpatient psych. REVIEW OF SYSTEMS: CONSTITUTIONAL: No fever, no malaise, no fatigue. HEENT: No recent visual problems or hearing problems. Denied any sore throat. CARDIOVASCULAR: No chest pain, orthopnea, PND, no palpitations, no syncope. PULMONARY: No shortness of breath, no cough, no hemoptysis. GASTROINTESTINAL: Complaining of diarrhea. No nausea, no vomiting, no abdominal pain. NEUROLOGICAL: No headaches, no weakness, no numbness. HEMATOLOGICAL: Denies any bleeding or petechiae. GENITOURINARY: Denies any burning micturition, frequency, or urgency. MUSCULOSKELETAL/RHEUMATOLOGICAL: Denies any joint pain, swelling, or any muscle pain. ENDOCRINE: Denies any polyuria or polydipsia. The rest of the 14-point review of systems is negative. PHYSICAL EXAMINATION: GENERAL: The patient is alert and oriented x3, not in any acute distress. Well developed, well nourished. HEENT: Pupils are round and equally reacting to light. EOMI. No scleral icterus. No conjunctival pallor. Normocephalic, atraumatic. No pharyngeal erythema. No thyromegaly. CARDIOVASCULAR: S1 and S2 present. No murmurs, rubs, or gallops. PULMONARY: Chest is clear to auscultation, no wheezing or crackles. ABDOMEN: Soft, nontender, nondistended, normoactive bowel sounds. No palpable organomegaly. MUSCULOSKELETAL: No joint swelling or deformity. EXTREMITIES: No cyanosis, clubbing, or pedal edema. NEUROLOGICAL: Gross neurological examination did not reveal any focal deficits. SKIN: No rashes. Assessment and plan Non-ST elevated myocardial infarction ruled out by recent cardiac catheterization Mild to moderate coronary artery disease involving ostium of the OM and mid RCA Hyperlipidemia Hypothyroidism with TSH of 10.5 -Suicidal ideation -Depression Monitor vital signs Continue aspirin, Lipitor Start Synthroid 25 mcg daily Continue psych meds per psychiatry team Labs and medication were reviewed.. Continue same treatment. Continue with symptomatic treatment. Resume home medication. Monitor labs and vitals. DVT and GI prophylaxis. Further recommendations as per clinical course of the patient Dictation was produced using [employer] dictation software. please excuse any grammatical, word or spelling errors. Past Medical History Past Medical History: Cancer, Chest Pain / Angina, GERD/Reflux, Hyperlipidemia, Thyroid Disorder Additional Past Medical History / Comment(s): Hidradenitis suppurativa axillaes, rectal/buttock abscesses, cervical cancer with procedure. History of Any Multi-Drug Resistant Organisms: None Reported Past Surgical History: No Surgical Hx Reported Additional Past Surgical History / Comment(s): I&Ds rectal/buttock abscesses, I&Ds multiple axillae abscesses, procedure to remove cervical cancer. Past Anesthesia/Blood Transfusion Reactions: No Reported Reaction Past Psychological History: Anxiety, Bipolar, Depression Additional Psychological History / Comment(s): Borderline personality disorder. Smoking Status: Current every day smoker Past Alcohol Use History: Occasional Additional Past Alcohol Use History / Comment(s): Pt started smoking in 1978 and is 1 ppd smoker. Past Drug Use History: None Reported Additional Drug Use History / Comment(s): . - Past Family History Father History Unknown: Yes Additional Family Medical History / Comment(s): pt states heart dx runs in the family Mother Family Medical History: Diabetes Mellitus Additional Family Medical History / Comment(s): pt states heart disease runs in the family Medications and Allergies Home Medications Medication Instructions Recorded Confirmed Type Aspirin 81 mg PO DAILY tab 01/10/24 01/10/24 Rx Atorvastatin [Lipitor] 40 mg PO HS tab 01/10/24 01/10/24 Rx Calcium Carbonate [Tums] 1,000 mg PO TID PRN tab 01/10/24 01/10/24 Rx Nitroglycerin Sl Tabs [Nitrostat] 0.4 mg SUBLINGUAL Q5M PRN tab 01/10/24 01/10/24 Rx Allergies Allergy/AdvReac Type Severity Reaction Status Date / Time Sulfa (Sulfonamide Allergy Rash/Hives Verified 01/10/24 20:58 Antibiotics) Physical Exam Vitals: Vital Signs Temp Pulse Resp BP Pulse Ox 01/11/24 06:00 97.8 F 59 L 16 100/67 93 L 01/10/24 22:15 97.7 F 56 L 15 109/71 95 Intake and Output 01/10/24 01/11/24 01/11/24 22:59 06:59 14:59 Other: Weight 106.736 kg Cranial Nerve Examination - Cranial Nerves Cranial Nerve II- Optic: Intact (Cranial nerves 2-12 intact) Cranial Nerve III- Oculomotor: Intact Cranial Nerve IV- Trochlear: Intact Cranial Nerve V- Trigeminal: Intact Cranial Nerve - Abducens: Intact Cranial Nerve VII- Facial: Intact Cranial Nerve VIII- Auditory: Intact Cranial Nerve IX- Glossopharyngeal: Intact Cranial Nerve X- Vagus: Intact Cranial Nerve XI- Accessory: Intact Cranial Nerve XII- Hypoglossal: Intact Results Labs: Abnormal Lab Results - Last 24 Hours (Table) 01/11/24 Range/Units 08:53 TSH 10.500 H (0.465-4.680) mIU/L
[2024-01-11] MEDS: MAG HYDROX/AL HYDROX/SIMETH 355 ML BOTTLE PO PRN (18:34)
[2024-01-12] MEDS: PANTOPRAZOLE 40 MG TABLET PO SCH (08:14)
[2024-01-12] MEDS: LEVOTHYROXINE 25 MCG TAB PO SCH (08:14)
[2024-01-12] MEDS: CALCIUM CARBONATE 500 MG CHEWABLE PO PRN (12:59)
--- NOTE | 2024-01-12 14:26 | P.PN ---
Progress Note - Text Progress Note Date: 01/12/24 Interval History: Patient was seen resting in her bed and was agreeable to be seen bedside. She was pleasant on interaction and said that her mood has been "all right ". She reports tolerating the medications and says that with them, she has noticed feeling slightly better. However, she continues to have reflux and gastritis and was asked to request Tums as needed. As a result of this though, patient reports having decreased appetite this afternoon although she reports good appetite this morning. She endorses fair sleep and energy levels. At this time patient denies any suicidal or homicidal ideations, intent or plan. Patient denies any auditory, visual hallucinations and denies any paranoia or delusions. Patient denies any side effects from the medications and has been compliant with meds. Mental Status Exam: General Appearance: Patient appears to be overweight, tearful, stated age is alert, attempts to be cooperative. Patient appears to have fair hygiene and grooming Behavior: Patient is calmly sitting without any agitated behavior. Speech: Patient's speech is fluent and nonpressured. Hesitant. Soft tone Mood/Affect: Patient reports their mood is "all right", affect is congruent Suicidality/Homicidality: Patient denies having any homicidal ideations intent or plan. Denies suicidal ideation Perceptions: Patient denies any current visual hallucinations and denies auditory hallucinations Though content/process: There is no evidence of any delusional thought content and thought process is linear and goal-directed. [place] Memory and concentration: AOX3, grossly intact for the purposes of this session. Can spell "WORLD" backwards Judgment and insight: Poor Assessment Bipolar disorder, currently depressed with psychotic features Nicotine dependence Plan: -Patient is admitted under voluntary status to MHU for stabilization of psychiatric symptoms and safety. Patient signed adult voluntary form and medication consent and is placed in patient's chart. -Medications : Continue Celexa 5 mg daily for depression Continue Abilify 5 mg daily for psychosis and mood augmentation -Patient was counselled on substance abuse and desired to cut back on use. Motivational interviewing. Nicotine patch -Vistaril PRN for anxiety/sleep -Internal Medicine consult to perform medical evaluation and physical. -SW on board for discharge planning. Encourage patient to participate in groups to work on coping skills.
--- NOTE | 2024-01-13 11:40 | P.PN ---
Progress Note - Text Progress Note Date: 01/13/24 Interval History: Patient was seen wandering the hallways and was directable and agreeable to iraida albert with global technical writer in the office. Patient states that she is "not good". She states that she is very depressed. She is endorsing auditory hallucinations, stating they are telling her that she needs to . She also claims to be having visual hallucinations. Patient complains of very loose stools, she claims it is from the celexa, will switch to Zoloft, patient agreeable. She states she is sleeping well at night, and her appetite is ok . At this time patient is endorsing suicidal thoughts, with no intent or plan today, denying homicidal ideations, intent or plan. Patient endorses auditory, visual hallucinations and denies any paranoia or delusions. Patient denies any side effects from the medications and has been compliant with meds. MENTAL STATUS EXAM: General Appearance: Patient appears to be overweight, tearful, stated age is alert, attempts to be cooperative. Patient appears to have fair hygiene and grooming. Dressed casually. Behavior: Patient is calmly sitting without any agitated behavior. [place], hesitant Speech: Patient's speech is fluent and nonpressured. Hesitant. Soft tone Mood/Affect: Patient reports their mood is "depressed", affect is congruent and tearful Suicidality/Homicidality: Patient denies having any homicidal ideations intent or plan. Claims that she is having suicidal thoughts with plan to overdose on her sleeping pills Perceptions: Patient denies any current visual hallucinations and states that she is hearing voices mainly negative in nature Though content/process: There is no evidence of any delusional thought content and thought process is linear and goal-directed. [place] Memory and concentration: AOX3, grossly intact for the purposes of this session. Judgment and insight: Poor IMPRESSIONS: Bipolar disorder, currently depressed with psychotic features Nicotine dependence PLAN: -Patient is admitted under voluntary status to MHU for stabilization of psychiatric symptoms and safety. Patient signed adult voluntary form and med ication consent and is placed in patient's chart. -Medications : d/c Celexa add Zoloft 50mg daily for depression, increase Abilify 7.5 mg daily for psychosis and mood augmentation -Vistaril PRN for anxiety/sleep -Nicotine patch -SW on board for discharge planning. Encourage patient to participate in groups to work on coping skills.
[2024-01-13] MEDS ORDERED: DEXTROSE 50% SYRINGE 50 ML IVP PRN ×2 (13:20)
[2024-01-13] MEDS: ARIPiprazole 5 MG TAB PO ONE (15:20)
[2024-01-13 17:34] LABS: Glucose,Whole Blood 113 mg/dL (70-110)
[2024-01-13] MEDS: INSULIN ASPART (NovoLOG) 100 UNIT/ML VIAL SQ SCH (17:39)
[2024-01-13 19:54] LABS: T4, Free (Free Thyroxine) 1.19 ng/dL (0.80-1.80)
[2024-01-13 20:10] LABS: Glucose,Whole Blood 129 mg/dL (70-110)
[2024-01-13] MEDS: ACETAMINOPHEN TAB 325 MG TAB PO PRN (21:04)
[2024-01-14 07:57] LABS: Glucose,Whole Blood 105 mg/dL (70-110)
[2024-01-14] MEDS: SERTRALINE 50 MG TAB PO SCH (08:30)
[2024-01-14] MEDS: ARIPiprazole 15 MG TAB PO SCH (08:30)
--- NOTE | 2024-01-14 12:23 | P.PN ---
Progress Note - Text Progress Note Date: 01/14/24 Interval History: Patient was seen wandering the hallways and was directable and agreeable to sp bety with field underwriter in the office. Patient states that she is ok today. She claims to be hearing voices still, but they are getting quieter. She complains of an abscess on her buttock, field underwriter examined this with gate cutter present, and will order antibiotics for this, it does appear to be red and indurated and slightly painful. She states she is sleeping well at night, and her appetite is ok. At this time patient is not endorsing suicidal thoughts, with no intent or plan today, denying homicidal ideations, intent or plan. Patient endorses auditory, denying visual hallucinations and denies any paranoia or delusions. Patient denies any side effects from the medications and has been compliant with meds. MENTAL STATUS EXAM: General Appearance: Patient appears to be overweight, tearful, stated age is alert, attempts to be cooperative. Patient appears to have fair hygiene and grooming. Dressed casually. Behavior: Patient is calmly sitting without any agitated behavior. mildly improving Speech: Patient's speech is fluent and nonpressured. Hesitant. Soft tone Mood/Affect: Patient reports their mood is "ok", affect is congruent and constricted Suicidality/Homicidality: Patient denies having any suicidal or homicidal ideations intent or plan. Perceptions: Patient denies any current visual hallucinations and states that she is hearing voices but they are getting quieter. Though content/process: There is no evidence of any delusional thought content and thought process is linear and goal-directed. [place] Memory and concentration: AOX3, grossly intact for the purposes of this session. Judgment and insight: Poor IMPRESSIONS: Bipolar disorder, currently depressed with psychotic features Nicotine dependence PLAN: -Patient is admitted under voluntary status to MHU for stabilization of psychiatric symptoms and safety. Patient signed adult voluntary form and medication consent and is placed in patient's chart. -Medications : increase Zoloft 100mg daily for depression, increase Abilify 10 mg daily for psychosis and mood augmentation, Add Augmentin tid for small abscess on buttock. -Vistaril PRN for anxiety/sleep -Nicotine patch -SW on board for discharge planning. Encourage patient to participate in groups to work on coping skills.
[2024-01-14] MEDS ORDERED: AMOXIC-POT CLAV 500-125 MG 1 EACH TAB PO SCH (12:30)
[2024-01-14 12:40] LABS: Glucose,Whole Blood 93 mg/dL (70-110)
[2024-01-14] MEDS: AMOXIC-POT CLAV 500-125 MG 1 EACH TAB PO SCH (12:46)
[2024-01-14 17:43] LABS: Glucose,Whole Blood 118 mg/dL (70-110)
[2024-01-14 19:49] LABS: Glucose,Whole Blood 125 mg/dL (70-110)
[2024-01-15 07:51] LABS: Glucose,Whole Blood 108 mg/dL (70-110)
[2024-01-15] MEDS: ARIPiprazole 10 MG TAB PO SCH ×2 (08:02→21:58)
[2024-01-15] MEDS: SERTRALINE 100 MG TAB PO SCH (08:02)
--- NOTE | 2024-01-15 11:14 | P.PN ---
Progress Note - Text Progress Note Date: 01/15/24 Interval History: Patient was seen wandering the hallways and was directable and agreeable to sp bety with internal communications writer in the office. Patient states that she is ok today. She states that she is a bit tired today. Typing Pool Supervisor will change the medications to qhs to help with daytime sedation. She complains of an abscess on her buttock, she states that it is more painful than yesterday. Typing Pool Supervisor will let medical know that she needs it to be lanced and drained and will contact surgery to perform this today. She states she is sleeping well at night, and her appetite is ok. At this time patient is not endorsing suicidal thoughts, no intent or plan today, denying homicidal ideations, intent or plan. Patient endorses auditory which are mildly improving, denying visual hallucinations and denies any paranoia or delusions. Patient denies any side effects from the medications and has been compliant with meds. MENTAL STATUS EXAM: General Appearance: Patient appears to be overweight, stated age is alert, attempts to be cooperative. Patient appears to have fair hygiene and grooming. Dressed casually. Behavior: Patient is calmly sitting without any agitated behavior. mildly improving Speech: Patient's speech is fluent and nonpressured. Hesitant. Soft tone Mood/Affect: Patient reports their mood is "ok", affect is congruent and constricted Suicidality/Homicidality: Patient denies having any suicidal or homicidal ideations intent or plan. Perceptions: Patient denies any current visual hallucinations and states that she is hearing voices but they are getting quieter. Though content/process: There is no evidence of any delusional thought content and thought process is linear and goal-directed. concrete. Memory and concentration: AOX3, grossly intact for the purposes of this session. Judgment and insight: Poor IMPRESSIONS: Bipolar disorder, currently depressed with psychotic features Nicotine dependence PLAN: -Patient is admitted under voluntary status to MHU for stabilization of psychiatric symptoms and safety. Patient signed adult voluntary form and medication consent and is placed in patient's chart. -Medications : Zoloft 100mg daily for depression, change Abilify 10 mg qhs for psychosis and mood augmentation, Augmentin tid for small abscess on buttock. -consult medical or surgery to help with I&D of abscess. -Vistaril PRN for anxiety/sleep -Nicotine patch -SW on board for discharge planning. Encourage patient to participate in groups to work on coping skills.
[2024-01-15 12:49] LABS: Glucose,Whole Blood 92 mg/dL (70-110)
[2024-01-15 15:47] LABS: Basophils # (A) 0.1 k/uL (0-0.2); Basophils % (A) 1 %; Eosinophils # (A) 0.1 k/uL (0-0.7); Eosinophils % (A) 1 %; HCT 47.4 % (34.0-46.0); Lymphocytes # (A) 1.7 k/uL (1.0-4.8); Lymphocytes % (A) 17 %; MCH 30.4 pg (25.0-35.0); MCHC 31.6 g/dL (31.0-37.0); MCV 96.3 fL (80.0-100.0); Mean Platelet Volume 7.8; Monocytes # (A) 0.6 k/uL (0-1.0); Monocytes % (A) 6 %; Neutrophils # (A) 7.3 k/uL (1.3-7.7); Neutrophils % (A) 73 %; Platelet Count 301 k/uL (150-450); RBC 4.92 m/uL (3.80-5.40); RDW 13.7 % (11.5-15.5); WBC 10.1 k/uL (3.8-10.6)
[2024-01-15 16:09] LABS: ALT 23 U/L (4-34); AST 24 U/L (14-36); African American GFR (CKD) 73 (>60 ml/min/1.73 sqM); Alkaline Phosphatase 121 U/L (38-126); Anion Gap 4 mmol/L; Blood Urea Nitrogen 18 mg/dL (7-17); Calcium 9.3 mg/dL (8.4-10.2); Carbon Dioxide 28 mmol/L (22-30); Chloride 104 mmol/L (98-107); Glucose 98 mg/dL (74-99); Non-African American GFR(CKD) 64 (>60 ml/min/1.73 sqM); Potassium 4.6 mmol/L (3.5-5.1); Sodium 136 mmol/L (137-145); Total Bilirubin 0.4 mg/dL (0.2-1.3); Total Protein 6.8 g/dL (6.3-8.2)
[2024-01-15] MEDS: valACYclovir HCL 1,000 MG TABLET PO SCH (16:34)
[2024-01-15] MEDS: AMOXIC-POT CLAV 875-125MG 1 EACH TAB PO SCH (16:34)
[2024-01-15 17:41] LABS: Glucose,Whole Blood 107 mg/dL (70-110)
[2024-01-15 19:42] LABS: Glucose,Whole Blood 146 mg/dL (70-110)
--- NOTE | 2024-01-15 21:58 | PN ---
PROGRESS NOTE DATE OF SERVICE: 01/15/2024 This is a 63-year-old woman, who was admitted for psychiatric evaluation and cardiac cath in the medical floor, showed [id number] coronary artery disease. Currently, the patient is complaining of pain and swelling and discharge from the left buttock area. The patient had this history of recurrent episodes previously and which was also incised at this time. The patient had severe pain also. There is no history of any lesions around the anus. PAST MEDICAL HISTORY: Reviewed. REVIEW OF SYSTEMS: Fourteen-point review of systems negative except as mentioned earlier. CURRENT MEDICATIONS: Reviewed include Augmentin and rest of medications reviewed. PHYSICAL EXAMINATION: VITAL SIGNS: Pulse 58, blood pressure n, respirations 15. HEENT: Conjunctivae normal. CARDIOVASCULAR: S1 and S2. ABDOMEN: Soft. BUTTOCKS: On the left buttock, there is an indurated area with some vesicles and some tenderness also present. Some erythema also present. NERVOUS SYSTEM: No focal deficits. LABORATORY DATA: Reviewed. CBC and BMP not available. ASSESSMENT: 1. Left gluteal abscess, possibly bacterial, rule out anogenital herpes simplex. 2. History of mmun-mr-fewqumep coronary artery disease. 4. Hyperlipidemia. 5. History of hidradenitis suppurativa and buttock abscesses. RECOMMENDATIONS: This is a 63-year-old woman, who presented with multiple medical issues. I would recommend to continue current management and treatment. I would recommend continue the antibiotics. The patient is started on Augmentin. I would recommend 875 b.i.d. and also recommend empiric antibiotic treatment and test for cultures especially to exclude MRSA and also the antiviral swaps. If the patient is not improving with p.o. medications, surgical evaluation may be sought later. Otherwise, we will continue to monitor. I would recommend Infectious Disease's evaluation also for continued outpatient followup as well. Thank you, Dr. Ochoa. MMDILLONL / ANTHONYN: [id number] / MTDD
[2024-01-16 07:45] LABS: Glucose,Whole Blood 104 mg/dL (70-110)
--- NOTE | 2024-01-16 12:19 | P.PN ---
Progress Note - Text Progress Note Date: 01/16/24 Interval History: Patient was seen wandering the hallways and was directable and agreeable to sp bety with leader writer in the office. Patient states that she is feeling better today. She states her abscess is feeling a bit better today. She is still endorsing auditory hallucinations, negative in nature, telling her to hurt herself, and that she is not a good person. She states she is sleeping well at night, and her appetite is good. At this time patient is not endorsing suicidal thoughts, no intent or plan today, denying homicidal ideations, intent or plan. Patient endorses auditory which are mildly improving however still present and telling her to harm herself and that shes not any good, denying visual hallucinations and denies any paranoia or delusions. Patient denies any side effects from the medications and has been compliant with meds. MENTAL STATUS EXAM: General Appearance: Patient appears to be overweight, stated age is alert, attempts to be cooperative. Patient appears to have fair hygiene and grooming. Dressed casually. Behavior: Patient is calmly sitting without any agitated behavior. mildly improving Speech: Patient's speech is fluent and nonpressured. Hesitant. Soft tone, mildly improving Mood/Affect: Patient reports their mood is "improving", affect is congruent and constricted, mildly improving Suicidality/Homicidality: Patient denies having any suicidal or homicidal ideations intent or plan. Perceptions: Patient denies any current visual hallucinations and states that she is hearing voices but they are getting quieter. Though content/process: There is no evidence of any delusional thought content and thought process is linear and goal-directed. Memory and concentration: AOX3, grossly intact for the purposes of this session. Judgment and insight: Poor, mildly improving IMPRESSIONS: Bipolar disorder, currently depressed with psychotic features Nicotine dependence PLAN: -Patient is admitted under voluntary status to MHU for stabilization of psychiatric symptoms and safety. Patient signed adult voluntary form and medication consent and is placed in patient's chart. -Medications : increase Zoloft 150mg daily for depression, Abilify 10 mg qhs for psychosis and mood augmentation, Augmentin 875mg bid per recommendation of medical and also valtrex for abscess on buttock. -Vistaril PRN for anxiety/sleep -Nicotine patch -SW on board for discharge planning. Encourage patient to participate in groups to work on coping skills. likely discharge next week if patient is improving.
[2024-01-16 12:43] LABS: Glucose,Whole Blood 92 mg/dL (70-110)
[2024-01-16] MEDS: MULTIVITAMINS, THERA 1 EACH TAB PO SCH (15:23)
[2024-01-16 17:50] LABS: Glucose,Whole Blood 125 mg/dL (70-110)
[2024-01-16 19:42] LABS: Glucose,Whole Blood 130 mg/dL (70-110)
--- NOTE | 2024-01-16 23:43 | PN ---
PROGRESS NOTE DATE OF SERVICE: 01/16/2024 SUBJECTIVE: This is a 63-year-old woman, who was admitted for psychiatric evaluation, had abscess in the left gluteal region. The patient is started on antibiotic and antivirals empirically. Cultures are pending at this time. The swelling appears to be slightly better today. OBJECTIVE: VITAL SIGNS: Pulse 53, blood pressure 89/50, respirations 14. CHEST: Clear to auscultation. CARDIOVASCULAR: S1, S2. ABDOMEN: Soft. Left gluteal area abscess and swelling and discharge persisting, but slightly better. LABORATORY DATA: Reviewed. ASSESSMENT: 1. Left gluteal abscess, possibly bacterial/viral. Rule out anogenital herpes simplex. 2. Ermh-wb-pevwblup coronary artery disease. 3. Hyperlipidemia. 4. History of hydradenitis suppurative and buttock abscesses. RECOMMENDATIONS: Recommended to continue current management. Continue symptomatic treatment. Continue with antibiotics. Continue to monitor and if the abscess is not resolving completely, the patient might need incision and drainage, but we will continue to follow probably over the weekend. Further recommendations to follow. MMODL / IJN: [id number] /
[2024-01-17 07:36] LABS: Glucose,Whole Blood 97 mg/dL (70-110)
[2024-01-17] MEDS: SERTRALINE 50 MG TAB PO SCH (08:24)
--- NOTE | 2024-01-17 11:44 | P.PN ---
Progress Note - Text Progress Note Date: 01/17/24 Interval History: Patient was seen wandering the hallways and was directable and agreeable to sp bety with food writer in the office. Patient states that she is doing better today. She states her abscess is feeling a tiny bit better. She is still endorsing auditory hallucinations, however, they are getting quieter. She is endorsing some depressing and anxiety today. She states she is sleeping well at night, and her appetite is good. She is attending groups. At this time patient is endorsing suicidal thoughts, no intent or plan today, denying homicidal ideations, intent or plan. Patient endorses auditory which are mildly improving however still present, denying visual hallucinations and denies any paranoia or delusions. Patient denies any side effects from the medications and has been compliant with meds. MENTAL STATUS EXAM: General Appearance: Patient appears to be overweight, stated age is alert, attempts to be cooperative. Patient appears to have fair hygiene and grooming. Dressed casually. Behavior: Patient is calmly sitting without any agitated behavior. mildly improving Speech: Patient's speech is fluent and nonpressured. Hesitant. Soft tone, mildly improving Mood/Affect: Patient reports their mood is "anxious and depressed", affect is congruent and constricted, mildly improving Suicidality/Homicidality: Patient denies having any suicidal or homicidal ideations intent or plan. Perceptions: Patient denies any current visual hallucinations and states that she is hearing voices but they are getting quieter. Though content/process: There is no evidence of any delusional thought content and thought process is linear and goal-directed. Memory and concentration: AOX3, grossly intact for the purposes of this session. Judgment and insight: Poor, mildly improving IMPRESSIONS: Bipolar disorder, currently depressed with psychotic features Nicotine dependence PLAN: -Patient is admitted under voluntary status to MHU for stabilization of psychiatric symptoms and safety. Patient signed adult voluntary form and medication consent and is placed in patient's chart. -Medications : Zoloft 150mg daily for depression, increase to 200mg over the weekend, increase Abilify 15 mg qhs for psychosis and mood augmentation, Augmentin 875mg bid per recommendation of medical and also valtrex for abscess on buttock. -Vistaril PRN for anxiety/sleep -Nicotine patch -SW on board for discharge planning. Encourage patient to participate in groups to work on coping skills. likely discharge next week if patient is improving.
[2024-01-17 12:32] LABS: Glucose,Whole Blood 75 mg/dL (70-110)
[2024-01-17] MEDS: metroNIDAZOLE 500 MG TAB PO SCH (17:14)
[2024-01-17 17:44] LABS: Glucose,Whole Blood 122 mg/dL (70-110)
[2024-01-17 19:37] LABS: Glucose,Whole Blood 137 mg/dL (70-110)
[2024-01-17] MEDS: ARIPiprazole 15 MG TAB PO SCH (20:27)
[2024-01-18 07:29] LABS: Glucose,Whole Blood 90 mg/dL (70-110)
[2024-01-18] MEDS: SERTRALINE 50 MG TAB PO SCH (08:50)
[2024-01-18 12:56] LABS: Glucose,Whole Blood 160 mg/dL (70-110)
[2024-01-18 17:37] LABS: Glucose,Whole Blood 93 mg/dL (70-110)
[2024-01-18 19:44] LABS: Glucose,Whole Blood 104 mg/dL (70-110)
--- NOTE | 2024-01-18 19:52 | P.PN ---
Progress Note - Text Progress Note Date: 01/18/24 Interval History: Patient was seen wandering the hallways and was directable and agreeable to sp bety with manual writer bedside. She is endorsing some depressing and anxiety today. she says that she has been thinking about her grandchildren who she is not able to see. She is agreeable with Zoloft being increased tomorrow. She states she is sleeping well at night, and her appetite is good. She was attending groups. At this time patient is denying suicidal thoughts, no intent or plan today, denying homicidal ideations, intent or plan. Patient denies auditory and visual hallucinations and denies any paranoia or delusions. Patient denies any side effects from the medications and has been compliant with meds. MENTAL STATUS EXAM: General Appearance: Patient appears to be overweight, stated age is alert, attempts to be cooperative. Patient appears to have fair hygiene and grooming. Dressed casually. Behavior: Patient is calmly sitting without any agitated behavior. mildly improving Speech: Patient's speech is fluent and nonpressured. Hesitant. Soft tone, mildly improving Mood/Affect: Patient reports their mood is "sad", affect is congruent and constricted, mildly improving Suicidality/Homicidality: Patient denies having any suicidal or homicidal ideations intent or plan. Perceptions: Patient denies any current visual hallucinations and states that she is hearing voices but they are getting quieter. Though content/process: There is no evidence of any delusional thought content and thought process is linear and goal-directed. Memory and concentration: AOX3, grossly intact for the purposes of this session. Judgment and insight: Poor, mildly improving IMPRESSIONS: Bipolar disorder, currently depressed with psychotic features Nicotine dependence PLAN: -Patient is admitted under voluntary status to MHU for stabilization of psychiatric symptoms and safety. Patient signed adult voluntary form and medication consent and is placed in patient's chart. -Medications : Zoloft 150mg daily for depression, increase to 200mg over the weekend, Abilify 15 mg qhs for psychosis and mood augmentation, Augmentin 875mg bid per recommendation of medical and also valtrex for abscess on buttock. -Vistaril PRN for anxiety/sleep -Nicotine patch -SW on board for discharge planning. Encourage patient to participate in groups to work on coping skills. likely discharge next week if patient is improving.
--- NOTE | 2024-01-19 02:07 | PN ---
PROGRESS NOTE DATE OF SERVICE: 01/18/2024 HISTORY OF PRESENT ILLNESS: This is a 63-year-old woman, who was admitted with abscess of the left gluteal area. It is improving. No chest pain. No palpitations. No fever. PHYSICAL EXAMINATION: VITAL SIGNS: Pulse 56, blood pressure 107/68, respirations 18. CHEST: Clear. CARDIOVASCULAR: S1, S2. ABDOMEN: Soft. Left gluteal area abscess improving. LABORATORY DATA: Labs are noted. ASSESSMENT: 1. Left gluteal abscess, possibly bacterial/viral, rule out anogenital herpes simplex. 2. Mild to moderate coronary artery disease. 3. Hyperlipidemia. RECOMMENDATIONS AND DISCUSSION: Recommended to continue with antibiotics. The patient will require at least 3 to 4 days of antibiotics, antivirals to complete a 10-day course of antibiotics. MMODL / ANTHONYN: [id number] /
[2024-01-19 07:46] LABS: Glucose,Whole Blood 82 mg/dL (70-110)
[2024-01-19 12:46] LABS: Glucose,Whole Blood 80 mg/dL (70-110)
[2024-01-19 17:46] LABS: Glucose,Whole Blood 100 mg/dL (70-110)
--- NOTE | 2024-01-19 17:58 | P.PN ---
Progress Note - Text Progress Note Date: 01/19/24 Interval History: Patient was seen wandering the hallways and was directable and agreeable to sp bety with sports writer in the interview room. patient says that she has been feeling better today compared to yesterday. She reports walking more than she has been. Discussed behavioral activation. Patient states that she is hoping to be discharged sometime this week. However, she admits that she is continuing to experience auditory hallucinations that tell her that she is a "bad person" especially in the mornings. She did agreeable with increasing Abilify. Patient was increased on Zoloft this morning and said that she has been tolerating this well. She denies any other concerns. Patient appears to be dysphoric and has downcast eyes. She states that she thinks about her grandchildren and this makes her sad at times. Discussed meditation tools. Patient reports fair sleep and appetite. At this time patient is denying suicidal thoughts, no intent or plan today, denying homicidal ideations, intent or plan. Patient denies visual hallucinations and denies any paranoia or delusions. Patient denies any side effects from the medications and has been compliant with meds. MENTAL STATUS EXAM: General Appearance: Patient appears to be overweight, stated age is alert, attempts to be cooperative. Patient appears to have fair hygiene and grooming. Dressed casually. Behavior: Patient is calmly sitting without any agitated behavior. mildly improving Speech: Patient's speech is fluent and nonpressured. Hesitant. Soft tone, mildly improving Mood/Affect: Patient reports their mood is depressed, affect is congruent and constricted, mildly improving Suicidality/Homicidality: Patient denies having any suicidal or homicidal ideations intent or plan. Perceptions: Patient denies any current visual hallucinations and states that she is hearing voices but they are getting quieter. Though content/process: There is no evidence of any delusional thought content and thought process is linear and goal-directed. Memory and concentration: AOX3, grossly intact for the purposes of this session. Judgment and insight: Poor, mildly improving IMPRESSIONS: Bipolar disorder, currently depressed with psychotic features Nicotine dependence PLAN: -Patient is admitted under voluntary status to [facility] for stabilization of psychiatric symptoms and safety. Patient signed adult voluntary form and medication consent and is placed in patient's chart. -Medications : Zoloft 200mg daily, Abilify increase to 20 mg qhs for psychosis and mood augmentation, Augmentin 875mg bid per recommendation of medical and also valtrex for abscess on buttock. -Vistaril PRN for anxiety/sleep -Nicotine patch -SW on board for discharge planning. Encourage patient to participate in groups to work on coping skills. likely discharge next week if patient is improving.
[2024-01-19 19:53] LABS: Glucose,Whole Blood 135 mg/dL (70-110)
[2024-01-20 07:48] LABS: Glucose,Whole Blood 95 mg/dL (70-110)
[2024-01-20] MEDS: SERTRALINE 100 MG TAB PO SCH (08:19)
--- NOTE | 2024-01-20 10:16 | P.PN ---
Progress Note - Text Progress Note Date: 01/20/24 Interval History: Patient was seen wandering the hallways and was directable and agreeable to sp bety with policy writer typist in the interview room. patient says that she has been feeling better. She admits that she is continuing to experience auditory hallucinations that tell her that she is a "bad person" , but they are improving drastically. She denies any other concerns. Patient claims that her abscess is getting better, and she can sit without being in pain. Patient reports fair sleep and appetite. At this time patient is denying suicidal thoughts, no intent or plan today, denying homicidal ideations, intent or plan. Patient denies visual hallucinations and denies any paranoia or delusions. Patient denies any side effects from the medications and has been compliant with meds. MENTAL STATUS EXAM: General Appearance: Patient appears to be overweight, stated age is alert, attempts to be cooperative. Patient appears to have fair hygiene and grooming. Dressed casually. Behavior: Patient is calmly sitting without any agitated behavior. mildly improving Speech: Patient's speech is fluent and nonpressured. Hesitant. Soft tone, mildly improving Mood/Affect: Patient reports their mood is improving, affect is congruent and constricted, mildly improving Suicidality/Homicidality: Patient denies having any suicidal or homicidal ideations intent or plan. Perceptions: Patient denies any current visual hallucinations and states that she is hearing voices but they are getting quieter. Though content/process: There is no evidence of any delusional thought content and thought process is linear and goal-directed. Memory and concentration: AOX3, grossly intact for the purposes of this session. Judgment and insight: Poor, mildly improving IMPRESSIONS: Bipolar disorder, currently depressed with psychotic features Nicotine dependence PLAN: -Patient is admitted under voluntary status to [facility] for stabilization of psychiatric symptoms and safety. Patient signed adult voluntary form and medication consent and is placed in patient's chart. -Medications : Zoloft 200mg daily, Abilify 20 mg qhs for psychosis and mood augmentation, Augmentin 875mg bid per recommendation of medical and also valtrex for abscess on buttock. -Vistaril PRN for anxiety/sleep -Nicotine patch -SW on board for discharge planning. Encourage patient to participate in groups to work on coping skills. likely discharge Saturday, if patient is improving.
[2024-01-20 12:48] LABS: Glucose,Whole Blood 95 mg/dL (70-110)
[2024-01-20 17:44] LABS: Glucose,Whole Blood 170 mg/dL (70-110)
[2024-01-20 19:58] LABS: Glucose,Whole Blood 127 mg/dL (70-110)
[2024-01-21 07:43] LABS: Glucose,Whole Blood 97 mg/dL (70-110)
--- NOTE | 2024-01-21 10:07 | P.PN ---
Progress Note - Text Progress Note Date: 01/21/24 Interval History: Patient was seen wandering the hallways and was directable and agreeable to sp bety with screen writer in the interview room. patient says that she has been feeling better. Cast Iron Drain Pipe Layer assured the patient it would get better after her antibiotics are finished. Cast Iron Drain Pipe Layer stressed the importance of keeping the area on her buttock clean. Patient verbalized understanding. She denies any other concerns. Patient claims that her abscess is getting better, and she can sit without being in pain. Patient reports fair sleep and appetite. At this time patient is denying suicidal thoughts, no intent or plan today, denying homicidal ideations, intent or plan. Patient denies visual hallucinations and denies any paranoia or delusions. Patient denies any side effects from the medications and has been compliant with meds. MENTAL STATUS EXAM: General Appearance: Patient appears to be overweight, stated age is alert, attempts to be cooperative. Patient appears to have fair hygiene and grooming. Dressed casually. Behavior: Patient is calmly sitting without any agitated behavior. mildly improv ing Speech: Patient's speech is fluent and nonpressured. Soft tone, mildly improving Mood/Affect: Patient reports their mood is improving, affect is congruent and constricted, mildly improving Suicidality/Homicidality: Patient denies having any suicidal or homicidal ideations intent or plan. Perceptions: Patient denies any current visual hallucinations and states that she is hearing voices but they are drastically better Though content/process: There is no evidence of any delusional thought content and thought process is linear and goal-directed. Memory and concentration: AOX3, grossly intact for the purposes of this session. Judgment and insight: Poor, mildly improving IMPRESSIONS: Bipolar disorder, currently depressed with psychotic features Nicotine dependence PLAN: -Patient is admitted under voluntary status to [facility] for stabilization of psychiatric symptoms and safety. Patient signed adult voluntary form and medication consent and is placed in patient's chart. -Medications : Zoloft 200mg daily, Abilify 20 mg qhs for psychosis and mood augmentation, Augmentin 875mg bid per recommendation of medical for abscess on buttock. d/c valtrex -Vistaril PRN for anxiety/sleep -Nicotine patch -SW on board for discharge planning. Encourage patient to participate in groups to work on coping skills. likely discharge Saturday, if patient is improving.
[2024-01-21 12:44] LABS: Glucose,Whole Blood 88 mg/dL (70-110)
--- NOTE | 2024-01-21 13:52 | PN ---
PROGRESS NOTE DATE OF SERVICE: 01/21/2024 SUBJECTIVE: This is a 63-year-old woman, who was admitted with left gluteal abscess, is improving significantly. No chest pain. No palpitation. OBJECTIVE: VITAL SIGNS: Pulse is 55, blood pressure 114/75, respirations 15. CHEST: Clear to auscultation. ABDOMEN: Soft. Gluteal abscess improving. LABORATORY DATA: Viral titers negative. Otherwise, microbiology showed anaerobic and Bacteroides. ASSESSMENT: 1. Left gluteal abscess, possibly anaerobic, improving. 2. Mild to moderate coronary artery disease. 3. Hyperlipidemia. RECOMMENDATIONS: Recommended to continue current management and continue symptomatic treatment as mentioned earlier. Three more days of antibiotics after discharge and follow closely with primary physician. MMODL / IJN: [id number] /
[2024-01-21 17:39] LABS: Glucose,Whole Blood 138 mg/dL (70-110)
[2024-01-21 19:34] LABS: Glucose,Whole Blood 110 mg/dL (70-110)
[2024-01-22 07:49] LABS: Glucose,Whole Blood 86 mg/dL (70-110)
--- NOTE | 2024-01-22 11:42 | P.PN ---
Progress Note - Text Progress Note Date: 01/22/24 Interval History: Patient was seen in her room and was directable and agreeable to speak with wr iter at the bedside. Patient stated that she did not sleep well last night, due to anxiety and also continuing to hear voices talking to her. She also claims to have had nightmares last night. She is still endorsing auditory hallucinations, negative in nature improving mildly. She denies any other concerns. Patient claims that her abscess is improving. Her appetite is good. At this time patient is denying suicidal thoughts, no intent or plan today, denying homicidal ideations, intent or plan. Patient denies visual hallucinations and denies any paranoia or delusions. Patient denies any side effects from the medications and has been compliant with meds. MENTAL STATUS EXAM: General Appearance: Patient appears to be overweight, stated age is alert, attempts to be cooperative. Patient appears to have fair hygiene and grooming. Dressed casually. Behavior: Patient is calmly sitting without any agitated behavior. mildly improving Speech: Patient's speech is fluent and nonpressured. Soft tone, mildly improving Mood/Affect: Patient reports their mood is improving, affect is congruent and constricted, mildly improving Suicidality/Homicidality: Patient denies having any suicidal or homicidal ideations intent or plan. Perceptions: Patient denies any current visual hallucinations and states that she is hearing voices, negative in nature. Though content/process: There is no evidence of any delusional thought content and thought process is linear and goal-directed. Memory and concentration: AOX3, grossly intact for the purposes of this session. Judgment and insight: Poor, mildly improving IMPRESSIONS: Bipolar disorder, currently depressed with psychotic features Nicotine dependence PLAN: -Patient is admitted under voluntary status to [facility] for stabilization of psychiatric symptoms and safety. Patient signed adult voluntary form and medication consent and is placed in patient's chart. -Medications : Zoloft 200 mg daily, increase Abilify 30 mg qhs for psychosis and mood augmentation, Augmentin 875 mg bid per recommendation of medical for abscess on buttock. add melatonin 5mg po qhs for sleep -Vistaril PRN for anxiety/sleep -Nicotine patch -SW on board for discharge planning. Encourage patient to participate in groups to work on coping skills. Discharge once patient is psychiatrically stable, likely by the end of the week if patient is improving
[2024-01-22 12:18] VITALS: BMI 43.2
[2024-01-22 12:51] LABS: Glucose,Whole Blood 79 mg/dL (70-110)
[2024-01-22 17:37] LABS: Glucose,Whole Blood 102 mg/dL (70-110)
[2024-01-22 19:47] LABS: Glucose,Whole Blood 139 mg/dL (70-110)
[2024-01-22] MEDS: ARIPiprazole 15 MG TAB PO SCH (20:43)
[2024-01-22] MEDS: MELATONIN 5 MG TABLET PO SCH (20:44)
[2024-01-23 07:52] LABS: Glucose,Whole Blood 95 mg/dL (70-110)
--- NOTE | 2024-01-23 11:13 | P.PN ---
Progress Note - Text Progress Note Date: 01/23/24 Interval History: Patient was seen in her room and was directable and agreeable to speak with wr iter at the bedside. Patient stated that she is ok today. She claims to have slept well last night. She is still endorsing mild auditory hallucinations, improving mildly. She claims that the abscess on her buttock is getting better. She denies any other concerns. Popcorn Machine Operator spoke with patient about recieving a BRUCE prior to discharge. Patient agreeable. Her appetite is good. At this time patient is denying suicidal thoughts, no intent or plan today, denying homicidal ideations, intent or plan. Patient denies visual hallucinations and denies any paranoia or delusions. Patient denies any side effects from the medications and has been compliant with meds. MENTAL STATUS EXAM: General Appearance: Patient appears to be overweight, stated age is alert, attempts to be cooperative. Patient appears to have fair hygiene and grooming. Dressed casually. Behavior: Patient is calmly sitting without any agitated behavior. mildly improving Speech: Patient's speech is fluent and nonpressured. Soft tone, mildly improving Mood/Affect: Patient reports their mood is improving, affect is congruent and constricted, mildly improving Suicidality/Homicidality: Patient denies having any suicidal or homicidal ideations intent or plan. Perceptions: Patient denies any current visual hallucinations and states that she is hearing voices, which are improving Though content/process: There is no evidence of any delusional thought content and thought process is linear and goal-directed. Memory and concentration: AOX3, grossly intact for the purposes of this session. Judgment and insight: Poor, mildly improving IMPRESSIONS: Bipolar disorder, currently depressed with psychotic features Nicotine dependence PLAN: -Patient is admitted under voluntary status to [facility] for stabilization of psychiatric symptoms and safety. Patient signed adult voluntary form and medication consent and is placed in patient's chart. -Medications : Zoloft 200 mg daily for mood/anxiety, Abilify 30 mg qhs for psychosis and mood augmentation, Add Abilify Maintena 400mg IM starting on 01/23, monthly, next dose due 02/20. Augmentin 875 mg bid per recommendation of medical for abscess on buttock. melatonin 5mg po qhs for sleep -Vistaril PRN for anxiety/sleep -Nicotine patch -SW on board for discharge planning. Encourage patient to participate in groups to work on coping skills. Discharge once patient is psychiatrically stable, likely early next week if patient is improving
[2024-01-23 12:28] LABS: Glucose,Whole Blood 95 mg/dL (70-110)
[2024-01-23 17:38] LABS: Glucose,Whole Blood 93 mg/dL (70-110)
[2024-01-23 19:34] LABS: Glucose,Whole Blood 144 mg/dL (70-110)
[2024-01-24 06:04] VITALS: RESP 17
[2024-01-24 07:32] LABS: Glucose,Whole Blood 114 mg/dL (70-110)
--- NOTE | 2024-01-24 10:15 | P.PN ---
Progress Note - Text Progress Note Date: 01/24/24 Interval History: Patient was seen in her room and was directable and agreeable to speak with wr iter at the bedside. Patient stated that she is good today. She is not endorsing any depression today, and she is mildly anxious about getting her BRUCE, because she does not like needles. Water Proofer spoke with the patient about the process for the BRUCE, and how it is done monthly She claims to have slept well last night. She is still endorsing mild auditory hallucinations, she says that they are getting very scarce. She claims that the abscess on her buttock is better. She denies any other concerns. Her appetite is good. At this time patient is denying suicidal thoughts, no intent or plan today, denying homicidal ideations, intent or plan. Patient denies visual hallucinations and denies any paranoia or delusions. Patient denies any side effects from the medications and has been compliant with meds. MENTAL STATUS EXAM: General Appearance: Patient appears to be overweight, stated age is alert, attempts to be cooperative. Patient appears to have fair hygiene and grooming. Dressed casually. Behavior: Patient is calmly sitting without any agitated behavior. mildly improving Speech: Patient's speech is fluent and nonpressured. Soft tone, mildly improving Mood/Affect: Patient reports their mood is improving, affect is congruent and constricted, mildly improving Suicidality/Homicidality: Patient denies having any suicidal or homicidal ideations intent or plan. Perceptions: Patient denies any current visual hallucinations and states that she is hearing voices, which are improving Though content/process: There is no evidence of any delusional thought content and thought process is linear and goal-directed. Memory and concentration: AOX3, grossly intact for the purposes of this session. Judgment and insight: Poor, mildly improving IMPRESSIONS: Bipolar disorder, currently depressed with psychotic features Nicotine dependence PLAN: -Patient is admitted under voluntary status to [facility] for stabilization of psychiatric symptoms and safety. Patient signed adult voluntary form and medication consent and is placed in patient's chart. -Medications : Zoloft 200 mg daily for mood/anxiety, Abilify 30 mg qhs for psychosis and mood augmentation, continue until 02/06, start Abilify Maintena 400mg IM starting on 01/23 and observe over the weekend, monthly, next dose due 8/2. Augmentin 875 mg bid and flagyl tid per recommendation of medical for abscess on buttock. melatonin 5mg po qhs for sleep -Vistaril PRN for anxiety/sleep -Nicotine patch -SW on board for discharge planning. Encourage patient to participate in groups to work on coping skills. Discharge once patient is psychiatrically stable, likely saturday back home if patient is improving
[2024-01-24 12:52] LABS: Glucose,Whole Blood 98 mg/dL (70-110)
[2024-01-24] MEDS: ARIPiprazole IM SYRINGE 400 MG (NO CHARGE) PHARMACY STOCK IM SCH (13:44)
[2024-01-24] MEDS: metroNIDAZOLE 500 MG TAB PO SCH (16:23)
[2024-01-24 17:35] LABS: Glucose,Whole Blood 101 mg/dL (70-110)
[2024-01-24 19:42] LABS: Glucose,Whole Blood 138 mg/dL (70-110)
[2024-01-24] MEDS: AMOXIC-POT CLAV 875-125MG 1 EACH TAB PO SCH (21:38)
[2024-01-25 07:34] LABS: Glucose,Whole Blood 111 mg/dL (70-110)
[2024-01-25 12:50] LABS: Glucose,Whole Blood 86 mg/dL (70-110)
[2024-01-25 17:47] LABS: Glucose,Whole Blood 114 mg/dL (70-110)
[2024-01-25 20:07] LABS: Glucose,Whole Blood 139 mg/dL (70-110)
[2024-01-26 07:48] LABS: Glucose,Whole Blood 115 mg/dL (70-110)
[2024-01-26 09:32] VITALS: TEMP 96.4
[2024-01-26 12:44] LABS: Glucose,Whole Blood 93 mg/dL (70-110)
[2024-01-26 17:34] LABS: Glucose,Whole Blood 117 mg/dL (70-110)
[2024-01-26 19:47] LABS: Glucose,Whole Blood 114 mg/dL (70-110)
--- NOTE | 2024-01-26 20:46 | P.PN ---
Progress Note - Text Progress Note Date: 01/25/24 Interval history: Patient was seen wandering the hallways and was directable and agreeable to speak with content writer. At this time, patient denies any suicidal or homicidal ideation, intent or plan. Denies any auditory or visual hallucinations. Patient denies any side effects from the medications and has been compliant with meds. Mental status exam: General Appearance: Patient appears to be stated age, obese, dressed in clean casual attire, average hygiene/grooming Behavior: No agitated behavior. Patient is calm and directable Speech: Patient's speech is fluent and non-pressured. Mood/Affect: Mood is improving mildly, affect is congruent and constricted. Suicidality/Homicidality: Patient denies having any suicidal or homicidal ideation intent or plan. Perceptions: Patient denies any auditory or visual hallucinations. Though content/process: There is no evidence of any delusional thought content and thought process is linear and goal-directed. Memory and concentration: AOX3, grossly intact for the purposes of this session Judgment and insight: improving mildly Assessment/Plan: Continue with current diagnosis. Patient continues to meet criteria for inpatient psychiatric admission for symptom stabilization and safety. Patient will be maintained on current psychotropic medication regimen. Monitor for medication compliance and for any psychotropic medication side effects. Will continue to monitor ongoing response to treatment. Encouraged participation in milieu.
--- NOTE | 2024-01-26 20:49 | P.PN ---
Progress Note - Text Progress Note Date: 01/26/24 Interval history: Patient was seen wandering the hallways and was directable and agreeable to speak with auto service writer. She reports she has cried several times today due to family problems including her daughter not allowing her to see her grandchildren. She denies depressed mood, just frustrated with family problems and thinking about things she needs to get done after discharge. At this time, patient denies any suicidal or homicidal ideation, intent or plan. Denies any auditory or visual hallucinations. Patient denies any side effects from the medications and has been compliant with meds. Mental status exam: General Appearance: Patient appears to be stated age, obese, dressed in clean casual attire, average hygiene/grooming Behavior: No agitated behavior. Patient is calm and directable Speech: Patient's speech is fluent and non-pressured. Mood/Affect: Mood is improving mildly, affect is congruent and constricted. Suicidality/Homicidality: Patient denies having any suicidal or homicidal ideation intent or plan. Perceptions: Patient denies any auditory or visual hallucinations. Though content/process: There is no evidence of any delusional thought content and thought process is linear and goal-directed. Memory and concentration: AOX3, grossly intact for the purposes of this session Judgment and insight: Improving mildly Assessment/Plan: Continue with current diagnosis. Patient continues to meet criteria for inpatient psychiatric admission for symptom stabilization and safety. Patient will be maintained on current psychotropic medication regimen. Monitor for medication compliance and for any psychotropic medication side effects. Supportive psychotherapy provided. Will continue to monitor ongoing response to treatment. Encouraged participation in milieu.
[2024-01-27 07:50] LABS: Glucose,Whole Blood 123 mg/dL (70-110)
[2024-01-27 08:32] VITALS: BP 120/68; PULSE 72
[2024-01-27 12:21] LABS: Glucose,Whole Blood 89 mg/dL (70-110)
--- NOTE | 2024-01-27 13:16 | P.DS ---
Providers Date of admission: 01/10/24 20:35 Expected date of discharge: 01/27/24 Attending physician: Mundo Ochoa MD Consults: 01/10/24 20:39 Consult Physician Routine Consulting Provider: Rusty Jaimes Consult Reason/Comments: For H & P for Medical follow Up Do you want consulting provider notified?: Yes Primary care physician: Physician Nonstaff Hospital Course: Admission HPI: Admission note was completed by [health underwriter] "[]" Hospital course: Upon admission to the unit patient was [directable and agreeable to commence treatment and signed adult voluntary form] [admitted involuntarily on a petition and certificate and a second certificate was completed and faxed with the courts]. [Patient ended up signing a deferral with the sales representative leather goods and agreeing to treatment.] [] Patient got along well with other patients on the unit and followed unit protocol. Patient was compliant with the medications and denied any side effects throughout hospital course. Patient was started on []. Patient spoke of [his] stressors and engaged in therapy both group and individual. Patient was also seen by medical team for history and physical exam. [] Throughout the course of the hospitalization patient gradually improved with regards to [mood, anxiety], sleep and [returned back to their baseline level of functioning][became more future oriented with improved insight and judgment]. On the day of discharge patient denied any suicidal or homicidal ideations intent or plan denied any auditory or visual hallucinations. Patient endorsed wanting to live for [his health and family.] The patient denied any access to guns or weapons. Patient denied any paranoia and did not endorse any delusions. Patient does [not] have a significant history of substance abuse [and] was counseled on abstaining from all substances including alcohol and marijuana. [Patient was offered however declined inpatient substance-abuse rehab.] [Patient elected to do outpatient substance use treatment program through [facility].] Patient was also counseled on the medications and need for regular compliance and was encouraged to follow-up with their outpatient appointment for mental health and also for primary care. [Prior to discharge a family meeting will be arranged by certified social workers in health care to answer any questions and ensure safety upon discharge.] [] Mental status exam: General Appearance: Patient appears to be []stated age is alert, pleasant, and cooperative. Patient is in no acute distress and has improved hygiene and grooming Behavior: Patient is calmly seated without any agitated behavior. Speech: Patient's speech is fluent and nonpressured. Mood/Affect: Patient reports their mood is "[better]", affect is congruent and euthymic. Suicidality/Homicidality: Patient denies having any suicidal or homicidal ideation intent or plan. Perceptions: Patient denies any auditory or visual hallucinations. Though content/process: There is no evidence of any delusional thought content and thought process is linear and goal-directed. [more future oriented] Memory and concentration: AOX3, grossly intact for the purposes of this session. Can spell "WORLD" backwards correctly. Judgment and insight: [chronically poor, however has] improved with guarded prognosis Impression: [] [Nicotine dependence] Plan: -Continue with discharge today as patient has improved and stabilized psychiatrically and is not currently an imminent threat to [himself] and/or others. [Patient will remain at chronically elevated risk for harm to self and/or others due to his impulsivity and polysubstance abuse.] -Continue medications: [] -Patient was counseled on the need for medication compliance and appropriate follow-up at mental health and also primary care for medical issues. Patient verbalized understanding and agreed. -Social work to [arrange for and conduct family meeting to ensure safety upon discharge and answer any questions/concerns.] Social work also to arrange for patients follow up appointments [with [facility]] for psychiatric care along with follow up with primary care provider. -Patient counseled on abstaining from recreational drugs and marijuana and alcohol. Was informed/educated on the adverse effects on their physical and mental health. [Patient verbally agreed and understood]. [Patient was offered substance abuse treatment however declined at this time.] -Patient was instructed to return to the hospital or seek immediate medical care if their psychiatric or medical symptoms do worsen or reoccur. [INSERT DATA FORMATS] Health Concerns: Follow closely with PCP for post antibiotic care of abscess. Patient Condition at Discharge: Stable Plan - Discharge Summary Discharge Rx Participant: Yes New Discharge Prescriptions: New ARIPiprazole IM SYRINGE [Abilify Maintena Syringe] 400 mg IM QMONTHLY 28 Days #1 each hydrOXYzine HCL [Atarax] 25 mg PO BID PRN 30 Days #60 tab PRN Reason: Anxiety Multivitamins, Thera [Multivitamin (formulary)] 1 each PO DAILY@1200 tab Pantoprazole [Protonix] 40 mg PO AC-BRKFST 30 Days #30 tab Levothyroxine Sodium [Synthroid] 25 mcg PO DAILY@629 30 Days #30 tab Sertraline [Zoloft] 200 mg PO DAILY 30 Days #60 tab Amoxic-Pot Clav 875-125Mg [Augmentin 875-125] 1 each PO Q12HR 3 Days #6 tab metroNIDAZOLE [Flagyl] 500 mg PO TID 3 Days #9 tab valACYclovir HCL [Valtrex] 1,000 mg PO BID 3 Days #6 tab ARIPiprazole [Abilify] 30 mg PO HS 30 Days #60 tab Melatonin 5 mg PO HS 30 Days #30 tab Continue Atorvastatin [Lipitor] 40 mg PO HS 30 Days #30 tab Calcium Carbonate [Tums] 1,000 mg PO TID PRN tab PRN Reason: Heartburn Aspirin 81 mg PO DAILY 30 Days #30 tab Nitroglycerin Sl Tabs [Nitrostat] 0.4 mg SUBLINGUAL Q5M PRN 30 Days #5 tab PRN Reason: Chest Pain Discharge Medication List Calcium Carbonate [Tums] 1,000 mg PO TID PRN tab 01/10/24 [Rx] Amoxic-Pot Clav 875-125Mg [Augmentin 875-125] 1 each PO Q12HR 3 Days #6 tab 01/20/24 [Rx] metroNIDAZOLE [Flagyl] 500 mg PO TID 3 Days #9 tab 01/20/24 [Rx] valACYclovir HCL [Valtrex] 1,000 mg PO BID 3 Days #6 tab 01/20/24 [Rx] ARIPiprazole IM SYRINGE [Abilify Maintena Syringe] 400 mg IM QMONTHLY 28 Days #1 each 01/27/24 [Rx] ARIPiprazole [Abilify] 30 mg PO HS 30 Days #60 tab 01/27/24 [Rx] Aspirin 81 mg PO DAILY 30 Days #30 tab 01/27/24 [Rx] Atorvastatin [Lipitor] 40 mg PO HS 30 Days #30 tab 01/27/24 [Rx] Levothyroxine Sodium [Synthroid] 25 mcg PO DAILY@0630 30 Days #30 tab 01/27/24 [Rx] Melatonin 5 mg PO HS 30 Days #30 tab 01/27/24 [Rx] Multivitamins, Thera [Multivitamin (formulary)] 1 each PO DAILY@1200 tab 01/27/24 [Rx] Nitroglycerin Sl Tabs [Nitrostat] 0.4 mg SUBLINGUAL Q5M PRN 30 Days #5 tab 01/27/24 [Rx] Pantoprazole [Protonix] 40 mg PO AC-BRKFST 30 Days #30 tab 01/27/24 [Rx] Sertraline [Zoloft] 200 mg PO DAILY 30 Days #60 tab 01/27/24 [Rx] hydrOXYzine HCL [Atarax] 25 mg PO BID PRN 30 Days #60 tab 01/27/24 [Rx] Follow up Appointment(s)/Referral(s): [facility] [Outside] - 01/28/24 3:00 pm (01/28/2024 3:00PM - 4:00PM EDDI HAYES 02/03/2024 9:30AM - 10:30AM KASHMIR LIPSCOMB ) [facility] [NON-STAFF] - 1 Week Patient Instructions/Handouts: Bipolar Disorder (DC), Brief Psychotic Disorder (DC) Activity/Diet/Wound Care/Special Instructions: Avoid the use of street drugs and alcohol. Take all medications as prescribed. When you are in need of refills on your medications, please contact your medical provider and/or outpatient psychiatrist/provider to have this done. Please go to your scheduled outpatient appointment for aftercare treatment. If symptoms return or become worse, call the crisis line at and/or go to the nearest emergency room for evaluation. National Suicide Hotline 518 Follow up outpatient with PCP regarding TSH and new order for synthroid. Continue with antibiotics and antivirals for 3 days on discharge Discharge Disposition: HOME SELF-CARE
== END 2024-01-27 14:37 | disposition home or self-care (01) | DRG 753 ==
LOC: 3MHU 20:35
PROVIDERS: ADMIT Psychiatry & Neurology Psychiatry; ATTEND Psychiatry & Neurology Psychiatry
DX: F31.5 Bipolar disorder, current episode depressed, severe, with psychotic features (principal); R45.851 Suicidal ideations; E03.9 Hypothyroidism, unspecified; E78.5 Hyperlipidemia, unspecified; R00.1 Bradycardia, unspecified; I21.4 Non-ST elevation (NSTEMI) myocardial infarction; I25.10 Atherosclerotic heart disease of native coronary artery without angina pectoris; F17.200 Nicotine dependence, unspecified, uncomplicated; Z71.51 Drug abuse counseling and surveillance of drug abuser; Z71.41 Alcohol abuse counseling and surveillance of alcoholic; Z59.9 Problem related to housing and economic circumstances, unspecified; Z56.0 Unemployment, unspecified; F19.10 Other psychoactive substance abuse, uncomplicated; F10.10 Alcohol abuse, uncomplicated; K21.9 Gastro-esophageal reflux disease without esophagitis; E66.9 Obesity, unspecified; Z68.41 Body mass index [BMI] 40.0-44.9, adult; F60.3 Borderline personality disorder; F41.9 Anxiety disorder, unspecified; L02.31 Cutaneous abscess of buttock; Z60.4 Social exclusion and rejection; Z63.9 Problem related to primary support group, unspecified; Z79.82 Long term (current) use of aspirin; Z79.890 Hormone replacement therapy; Z79.899 Other long term (current) drug therapy; Z28.21 Immunization not carried out because of patient refusal; Z88.2 Allergy status to sulfonamides; Z71.89 Other specified counseling
CPT/HCPCS: 80053; 83036; 84145; 84439; 84443; 84481; 85025; 87070; 87075; 87205; 87529

== ENCOUNTER 2024-02-15 15:10 | Observation (INO) | payer OTHER ==
--- NOTE | 2024-02-15 15:28 | ED ---
Dizziness HPI - General Chief Complaint: Syncope Stated Complaint: Possible syncope Time Seen by Provider: 02/15/24 15:24 Source: EMS Mode of arrival: EMS - History of Present Illness Initial Comments: Patient is a 63-year-old female presenting for 2 syncopal episodes today. Shaniqua ent states the first was this morning when she was walking to the kitchen. She had no prodrome. Denies any dizziness, lightheadedness prior to episode of syncope. Is unsure how long she was unconscious for. Denies hitting her head or neck. Happened again just prior to arrival while patient was walking through her house. Again without prodrome. Patient denies any history of seizures, no tongue biting or urinary incontinence during these episodes. Patient denies any complaints currently, no shortness of breath, chest pain, lightheadedness, dizziness, no episodes of vomiting, diarrhea, no dysuria, urinary frequency fevers or chills. Denies alcohol use. - Related Data Home Medications Medication Instructions Recorded Confirmed ARIPiprazole [Abilify] 30 mg PO HS 02/16/24 02/16/24 Multivitamins, Thera [Multivitamin 1 tab PO DAILY@1200 02/16/24 02/16/24 (formulary)] Previous Rx's Medication Instructions Recorded Calcium Carbonate [Tums] 1,000 mg PO TID PRN tab 01/10/24 ARIPiprazole IM SYRINGE [Abilify 400 mg IM QMONTHLY 28 Days #1 each 01/27/24 Maintena Syringe] Aspirin 81 mg PO DAILY 30 Days #30 tab 01/27/24 Atorvastatin [Lipitor] 40 mg PO HS 30 Days #30 tab 01/27/24 Melatonin 5 mg PO HS 30 Days #30 tab 01/27/24 Nitroglycerin Sl Tabs [Nitrostat] 0.4 mg SUBLINGUAL Q5M PRN 30 Days 01/27/24 #5 tab Pantoprazole [Protonix] 40 mg PO AC-BRKFST 30 Days #30 tab 01/27/24 Sertraline [Zoloft] 200 mg PO DAILY 30 Days #60 tab 01/27/24 hydrOXYzine HCL [Atarax] 25 mg PO BID PRN 30 Days #60 tab 01/27/24 Levothyroxine Sodium [Synthroid] 50 mcg PO DAILY@0630 #30 tab 02/18/24 Allergies Allergy/AdvReac Type Severity Reaction Status Date / Time Sulfa (Sulfonamide Allergy Rash/Hives Verified 02/16/24 11:22 Antibiotics) Review of Systems ROS Statement: Those systems with pertinent positive or pertinent negative responses have been documented in the HPI. Past Medical History Past Medical History: Cancer, Chest Pain / Angina, GERD/Reflux, Hyperlipidemia, Thyroid Disorder Additional Past Medical History / Comment(s): Hidradenitis suppurativa axillaes, rectal/buttock abscesses, cervical cancer with procedure. History of Any Multi-Drug Resistant Organisms: None Reported Past Surgical History: No Surgical Hx Reported Additional Past Surgical History / Comment(s): I&Ds rectal/buttock abscesses, I&Ds multiple axillae abscesses, procedure to remove cervical cancer. Past Anesthesia/Blood Transfusion Reactions: No Reported Reaction Past Psychological History: Anxiety, Bipolar, Depression Smoking Status: Current every day smoker Past Alcohol Use History: Occasional Past Drug Use History: None Reported - Past Family History Father History Unknown: Yes Additional Family Medical History / Comment(s): pt states heart dx runs in the family Mother Family Medical History: Diabetes Mellitus Additional Family Medical History / Comment(s): pt states heart disease runs in the family General Exam - General Exam Comments Initial Comments: GENERAL: Patient is well-developed and well-nourished. Patient is nontoxic and well-hydrated and is in no acute distress. ENT: Neck is soft and supple. No significant lymphadenopathy is noted. Oropharynx is clear. Moist mucous membranes. Neck has full range of motion without eliciting any pain. There is no thyroid enlargement and no masses were felt. EYES: The sclera were anicteric and conjunctiva were pink and moist. Extraocular movements were intact and pupils were equal round and reactive to light. Eyelids were unremarkable. Visual recinos grossly intact in all 4 quadrants PULMONARY: Unlabored respirations. Good breath sounds bilaterally. No audible rales rhonchi or wheezing was noted. CARDIOVASCULAR: There is a regular rate and rhythm without any murmurs gallops or rubs. Radial pulses strong, 2+. ABDOMEN: Soft and nontender with normal bowel sounds. No palpable organomegaly was noted. There is no palpable pulsatile mass. SKIN: Skin is clear with no lesions or rashes and otherwise unremarkable. NEUROLOGIC: Patient is alert and oriented x3. Cranial nerves II through XII are grossly intact. Motor and sensory are also intact. Normal speech, volume and content. Symmetrical smile. Cerebellar exam grossly intact. MUSCULOSKELETAL: Normal extremities with adequate strength and full range of motion. No lower extremity swelling or edema. No calf tenderness. PSYCHIATRIC: Normal psychiatric evaluation. Normal interpersonal interactions appears functionally intact in deals appropriately with others.. Thought process is clear and linear. Normal mood and affect. No delusions. No hallucinations. Course Vital Signs 02/15/24 02/15/24 02/15/24 15:16 17:55 18:01 Temperature 98.2 F Pulse Rate 53 L 47 L Respiratory 18 18 Rate Blood Pressure 123/89 113/65 Blood Pressure 119/74 [Right Arm Sitting] Blood Pressure 115/75 [Right Arm Standing] Blood Pressure 113/65 [Right Arm Supine] O2 Sat by Pulse 93 L 94 L Oximetry 02/15/24 02/15/24 02/15/24 18:59 20:22 21:31 Temperature 97.1 F L Pulse Rate 43 L 49 L 52 L Respiratory 16 20 18 Rate Blood Pressure 115/75 106/73 107/67 Blood Pressure [Right Arm Sitting] Blood Pressure [Right Arm Standing] Blood Pressure [Right Arm Supine] O2 Sat by Pulse 95 96 95 Oximetry EKG Findings - EKG Comments: EKG Findings:: EKG interpretation. Sinus bradycardia. Heart rate 50 bpm. Normal intervals. Normal axis. Compared to EKG performed on 01/10/2024, patient additionally bradycardic at that time as well, no significant changes from prior EKG on today's EKG. No ST elevations or depressions. No arrhythmia Medical Decision Making - Medical Decision Making Was pt. sent in by a medical professional or institution (, PA, POCKET SECRETARY ASSEMBLER, urgent care, hospital, or fpc...) When possible be specific @ -No Did you speak to anyone other than the patient for history (EMS, parent, family, police, friend...)? What history was obtained from this source @ -No Did you review nursing and triage notes (agree or disagree)? Why? @ -I reviewed and agree with nursing and triage notes Were old charts reviewed (outside hosp., previous admission, EMS record, old EKG, old radiological studies, urgent care reports/EKG's, fpc records)? Report findings @ -Reviewed discharge summary from 01/27/2024, patient was initially medically hospitalized for NSTEMI and acute renal failure. During admission patient was suicidal and evaluated by psychiatry. Differential Diagnosis (chest pain, altered mental status, abdominal pain women, abdominal pain men, vaginal bleeding, weakness, fever, dyspnea, syncope, head ache, dizziness, GI bleed, back pain, seizure, CVA, palpatations, mental health, musculoskeletal)? @ -Not applicable Differential Syncope: Valvular disease, hypertrophic cardiomyopathy, pulmonary embolism, tachycardia, symptomatic bradycardia, ACS hypovolemia, anemia, seizure, hypoglycemia, polysub stance abuse, this is not meant to be an all-inclusive list. EKG interpreted by me (3pts min.). @ -As above X-rays interpreted by me (1pt min.). @ -Chest x-ray read by radiologist no acute cardiopulmonary disease, I reviewed x-ray and agree with radiologist interpretation, I see no cardiomegaly, ef fusions, consolidations, pneumothorax or other acute abnormality CT interpreted by me (1pt min.). @ -CT brain negative for acute process, I reviewed CT brain and see no evidence of hemorrhage, mass, or other acute process U/S interpreted by me (1pt. min.). @ -None done What testing was considered but not performed or refused? (CT, X-rays, U/S, labs)? Why? @ -None What meds were considered but not given or refused? Why? @ -None Did you discuss the management of the patient with other professionals (professionals i.e. , PA, POCKET SECRETARY ASSEMBLER, lab, RT, psych nurse, psychiatric social worker supervisor, steel heater, teacher, botanical technical officer, watch case polisher)? Give summary @ -No Was smoking cessation discussed for >3mins.? @ -No Was critical care preformed (if so, how long)? @ -No Were there social determinants of health that impacted care today? How? (Homelessness, low income, unemployed, alcoholism, drug addiction, transportation, low edu. Level, literacy, decrease access to med. care, [place] [facility], rehab)? @ -No Was there de-escalation of care discussed even if they declined (Discuss DNR or withdrawal of care, Hospice)? DNR status @ -No What co-morbidities impacted this encounter? (DM, HTN, Smoking, COPD, CAD, Cancer, CVA, ARF, Chemo, Hep., AIDS, mental health diagnosis, sleep apnea, morbid obesity)? @ -None Was patient admitted / discharged? Hospital course, mention meds given and route, prescriptions, significant lab abnormalities, going to OR and other pertinent info. @ -Hospital course Triage note reviewed, patient presents for syncopal episode, history of cancer, angina, GERD, hyperlipidemia, thyroid disorder, pulse ox on arrival 92% on room air, blood pressure 123/89, heart rate 53, temperature 98.2 F respiratory rate 18 Patient is a pleasant 63-year-old female presenting today for syncope without prodrome. On assessment patient well-appearing. Bradycardic, currently asymptomatic. No gross visual field deficits. No focal neurologic deficits. CT brain ordered due to patient's reported feelings of "unsteadiness" over the last few days to assess for signs of recent occipital or cerebellar CVA, though of note, patient has no cerebellar signs on exam, no focal neurologic deficits and visual recinos are grossly intact on exam. Labs significant for: UDS shows marijuana potassium 3.2 Ordered replacement K. P sreedhar for admission due to high risk syncope. Patient agreeable with plan of care. Spoke with Essie Howell, NANCY, [facility], accepts for admission. Patient admitted in stable condition. Undiagnosed new problem with uncertain prognosis? @ -No Drug Therapy requiring intensive monitoring for toxicity (Heparin, Nitro, Insulin, Cardizem)? @ -No Were any procedures done? @ -No Diagnosis/symptom? @ -High risk syncope, hypokalemia Acute, or Chronic, or Acute on Chronic? @ -Acute Uncomplicated (without systemic symptoms) or Complicated (systemic symptoms)? @ Complicated Side effects of treatment? @ -No Exacerbation, Progression, or Severe Exacerbation? @ -No - Lab Data Result diagrams: 02/17/24 06:38 02/18/24 12:07 Lab Results 02/15/24 02/15/24 02/15/24 Range/Units 15:38 15:51 15:51 WBC 9.4 (3.8-10.6) k/uL RBC 4.48 (3.80-5.40) m/uL Hgb 13.8 (11.4-16.0) gm/dL Hct 42.3 (34.0-46.0) % MCV 94.5 (80.0-100.0) fL MCH 30.7 (25.0-35.0) pg MCHC 32.5 (31.0-37.0) g/dL RDW 14.6 (11.5-15.5) % Plt Count 338 (150-450) k/uL MPV 7.4 Neutrophils % 75 % Lymphocytes % 16 % Monocytes % 5 % Eosinophils % 2 % Basophils % 0 % Neutrophils # 7.1 (1.3-7.7) k/uL Lymphocytes # 1.5 (1.0-4.8) k/uL Monocytes # 0.5 (0-1.0) k/uL Eosinophils # 0.2 (0-0.7) k/uL Basophils # 0.0 (0-0.2) k/uL PT 10.1 (10.0-12.5) sec INR 0.9 (<1.2) APTT 24.3 (22.0-30.0) sec D-Dimer 0.56 (<0.60) mg/L FEU Sodium (137-145) mmol/L Potassium (3.5-5.1) mmol/L Chloride (98-107) mmol/L Carbon Dioxide (22-30) mmol/L Anion Gap mmol/L BUN (7-17) mg/dL Creatinine (0.52-1.04) mg/dL Est GFR (CKD-EPI)AfAm (>60 ml/min/1.73 sqM) Est GFR (CKD-EPI)NonAf (>60 ml/min/1.73 sqM) Glucose (74-99) mg/dL POC Glucose (mg/dL) 87 (70-110) mg/dL POC Glu Subscription Clerk ID Isabel, Alexia Calcium (8.4-10.2) mg/dL Magnesium (1.6-2.3) mg/dL Total Bilirubin (0.2-1.3) mg/dL AST (14-36) U/L ALT (4-34) U/L Alkaline Phosphatase (38-126) U/L Troponin I (0.000-0.034) ng/mL Total Protein (6.3-8.2) g/dL Albumin (3.5-5.0) g/dL TSH (0.465-4.680) mIU/L Urine Color Urine Appearance (Clear) Urine pH (5.0-8.0) Ur Specific Cable (1.001-1.035) Urine Protein (Negative) Urine Glucose (UA) (Negative) Urine Ketones (Negative) Urine Blood (Negative) Urine Nitrite (Negative) Urine Bilirubin (Negative) Urine Urobilinogen (<2.0) mg/dL Ur Leukocyte Esterase (Negative) Urine RBC (0-5) /hpf Urine WBC (0-5) /hpf Ur Squamous Epith Cells (0-4) /hpf Urine Bacteria (None) /hpf Urine Mucus (None) /hpf Urine Opiates Screen (NotDetected) Ur Oxycodone Screen (NotDetected) Urine Methadone Screen (NotDetected) Ur Barbiturates Screen (NotDetected) U Tricyclic Antidepress (NotDetected) Ur Phencyclidine Scrn (NotDetected) Ur Amphetamines Screen (NotDetected) U Methamphetamines Scrn (NotDetected) U Benzodiazepines Scrn (NotDetected) Urine Cocaine Screen (NotDetected) U Marijuana (THC) Screen (NotDetected) 02/15/24 02/15/24 02/15/24 Range/Units 15:51 15:51 15:51 WBC (3.8-10.6) k/uL RBC (3.80-5.40) m/uL Hgb (11.4-16.0) gm/dL Hct (34.0-46.0) % MCV (80.0-100.0) fL MCH (25.0-35.0) pg MCHC (31.0-37.0) g/dL RDW (11.5-15.5) % Plt Count (150-450) k/uL MPV Neutrophils % % Lymphocytes % % Monocytes % % Eosinophils % % Basophils % % Neutrophils # (1.3-7.7) k/uL Lymphocytes # (1.0-4.8) k/uL Monocytes # (0-1.0) k/uL Eosinophils # (0-0.7) k/uL Basophils # (0-0.2) k/uL PT (10.0-12.5) sec INR (<1.2) APTT (22.0-30.0) sec D-Dimer (<0.60) mg/L FEU Sodium 141 (137-145) mmol/L Potassium 3.2 L (3.5-5.1) mmol/L Chloride 111 H (98-107) mmol/L Carbon Dioxide 25 (22-30) mmol/L Anion Gap 5 mmol/L BUN 12 (7-17) mg/dL Creatinine 0.69 (0.52-1.04) mg/dL Est GFR (CKD-EPI)AfAm >90 (>60 ml/min/1.73 sqM) Est GFR (CKD-EPI)NonAf >90 (>60 ml/min/1.73 sqM) Glucose 80 (74-99) mg/dL POC Glucose (mg/dL) (70-110) mg/dL POC Glu Subscription Clerk ID Calcium 8.8 (8.4-10.2) mg/dL Magnesium 1.8 (1.6-2.3) mg/dL Total Bilirubin 0.4 (0.2-1.3) mg/dL AST 36 (14-36) U/L ALT 31 (4-34) U/L Alkaline Phosphatase 86 (38-126) U/L Troponin I <0.012 (0.000-0.034) ng/mL Total Protein 6.3 (6.3-8.2) g/dL Albumin 3.6 (3.5-5.0) g/dL TSH 4.210 (0.465-4.680) mIU/L Urine Color Yellow Urine Appearance Clear (Clear) Urine pH 6.5 (5.0-8.0) Ur Specific Cable 1.024 (1.001-1.035) Urine Protein Trace H (Negative) Urine Glucose (UA) Negative (Negative) Urine Ketones Negative (Negative) Urine Blood Small H (Negative) Urine Nitrite Negative (Negative) Urine Bilirubin Negative (Negative) Urine Urobilinogen <2.0 (<2.0) mg/dL Ur Leukocyte Esterase Negative (Negative) Urine RBC 4 (0-5) /hpf Urine WBC 3 (0-5) /hpf Ur Squamous Epith Cells 4 (0-4) /hpf Urine Bacteria Rare H (None) /hpf Urine Mucus Occasional H (None) /hpf Urine Opiates Screen (NotDetected) Ur Oxycodone Screen (NotDetected) Urine Methadone Screen (NotDetected) Ur Barbiturates Screen (NotDetected) U Tricyclic Antidepress (NotDetected) Ur Phencyclidine Scrn (NotDetected) Ur Amphetamines Screen (NotDetected) U Methamphetamines Scrn (NotDetected) U Benzodiazepines Scrn (NotDetected) Urine Cocaine Screen (NotDetected) U Marijuana (THC) Screen (NotDetected) 02/15/24 Range/Units 15:51 WBC (3.8-10.6) k/uL RBC (3.80-5.40) m/uL Hgb (11.4-16.0) gm/dL Hct (34.0-46.0) % MCV (80.0-100.0) fL MCH (25.0-35.0) pg MCHC (31.0-37.0) g/dL RDW (11.5-15.5) % Plt Count (150-450) k/uL MPV Neutrophils % % Lymphocytes % % Monocytes % % Eosinophils % % Basophils % % Neutrophils # (1.3-7.7) k/uL Lymphocytes # (1.0-4.8) k/uL Monocytes # (0-1.0) k/uL Eosinophils # (0-0.7) k/uL Basophils # (0-0.2) k/uL PT (10.0-12.5) sec INR (<1.2) APTT (22.0-30.0) sec D-Dimer (<0.60) mg/L FEU Sodium (137-145) mmol/L Potassium (3.5-5.1) mmol/L Chloride (98-107) mmol/L Carbon Dioxide (22-30) mmol/L Anion Gap mmol/L BUN (7-17) mg/dL Creatinine (0.52-1.04) mg/dL Est GFR (CKD-EPI)AfAm (>60 ml/min/1.73 sqM) Est GFR (CKD-EPI)NonAf (>60 ml/min/1.73 sqM) Glucose (74-99) mg/dL POC Glucose (mg/dL) (70-110) mg/dL POC Glu Subscription Clerk ID Calcium (8.4-10.2) mg/dL Magnesium (1.6-2.3) mg/dL Total Bilirubin (0.2-1.3) mg/dL AST (14-36) U/L ALT (4-34) U/L Alkaline Phosphatase (38-126) U/L Troponin I (0.000-0.034) ng/mL Total Protein (6.3-8.2) g/dL Albumin (3.5-5.0) g/dL TSH (0.465-4.680) mIU/L Urine Color Urine Appearance (Clear) Urine pH (5.0-8.0) Ur Specific Cable (1.001-1.035) Urine Protein (Negative) Urine Glucose (UA) (Negative) Urine Ketones (Negative) Urine Blood (Negative) Urine Nitrite (Negative) Urine Bilirubin (Negative) Urine Urobilinogen (<2.0) mg/dL Ur Leukocyte Esterase (Negative) Urine RBC (0-5) /hpf Urine WBC (0-5) /hpf Ur Squamous Epith Cells (0-4) /hpf Urine Bacteria (None) /hpf Urine Mucus (None) /hpf Urine Opiates Screen Not Detected (NotDetected) Ur Oxycodone Screen Not Detected (NotDetected) Urine Methadone Screen Not Detected (NotDetected) Ur Barbiturates Screen Not Detected (NotDetected) U Tricyclic Antidepress Not Detected (NotDetected) Ur Phencyclidine Scrn Not Detected (NotDetected) Ur Amphetamines Screen Not Detected (NotDetected) U Methamphetamines Scrn Not Detected (NotDetected) U Benzodiazepines Scrn Not Detected (NotDetected) Urine Cocaine Screen Not Detected (NotDetected) U Marijuana (THC) Screen Detected H (NotDetected) Disposition Clinical Impression: Syncope, Hypokalemia Disposition: ADMITTED IP TO THIS HOSP Condition: Stable
[2024-02-15 15:40] LABS: Glucose,Whole Blood 87 mg/dL (70-110)
[2024-02-15 16:03] LABS: Basophils % (A) 0 %; Eosinophils # (A) 0.2 k/uL (0-0.7); Eosinophils % (A) 2 %; HCT 42.3 % (34.0-46.0); HGB 13.8 gm/dL (11.4-16.0); Lymphocytes # (A) 1.5 k/uL (1.0-4.8); Lymphocytes % (A) 16 %; MCH 30.7 pg (25.0-35.0); MCHC 32.5 g/dL (31.0-37.0); MCV 94.5 fL (80.0-100.0); Mean Platelet Volume 7.4; Monocytes # (A) 0.5 k/uL (0-1.0); Monocytes % (A) 5 %; Neutrophils # (A) 7.1 k/uL (1.3-7.7); Neutrophils % (A) 75 %; Platelet Count 338 k/uL (150-450); RBC 4.48 m/uL (3.80-5.40); RDW 14.6 % (11.5-15.5); WBC 9.4 k/uL (3.8-10.6)
[2024-02-15 16:16] LABS: ALT 31 U/L (4-34); AST 36 U/L (14-36); African American GFR (CKD) >90 (>60 ml/min/1.73 sqM); Albumin 3.6 g/dL (3.5-5.0); Alkaline Phosphatase 86 U/L (38-126); Anion Gap 5 mmol/L; Appearance,Urine Clear (Clear); Bacteria,Urine Rare /hpf; Bilirubin,Urine Negative (Negative); Blood Urea Nitrogen 12 mg/dL (7-17); Blood,Urine Small (Negative); Calcium 8.8 mg/dL (8.4-10.2); Carbon Dioxide 25 mmol/L (22-30); Chloride 111 mmol/L (98-107); Color,Urine Yellow; Glucose 80 mg/dL (74-99); Glucose,Urine (UA) Negative (Negative); Ketones,Urine Negative (Negative); Leukocyte Esterase,Urine Negative (Negative); Magnesium 1.8 mg/dL (1.6-2.3); Mucus,Urine Occasional /hpf; Nitrite,Urine Negative (Negative); Non-African American GFR(CKD) >90 (>60 ml/min/1.73 sqM); PH, Urine 6.5 (5.0-8.0); Potassium 3.2 mmol/L (3.5-5.1); Protein,Urine Trace (Negative); RBC,Urine 4 /hpf (0-5); Sodium 141 mmol/L (137-145); Specific Gravity,Urine 1.024 (1.001-1.035); Squamous Epithelial Cell,Urine 4 /hpf (0-4); Total Bilirubin 0.4 mg/dL (0.2-1.3); Total Protein 6.3 g/dL (6.3-8.2); Urobilinogen,Urine <2.0 mg/dL (<2.0); WBC,Urine 3 /hpf (0-5)
[2024-02-15 16:19] LABS: INR 0.9 (<1.2); Partial Thromboplastin Time 24.3 sec (22.0-30.0); Prothrombin Time 10.1 sec (10.0-12.5)
--- NOTE | 2024-02-15 16:22 | XR ---
EXAMINATION TYPE: XR chest 2V DATE OF EXAM: 02/15/2024 HISTORY: Shortness of breath. COMPARISON: 01/07/2024 TECHNIQUE: Single view of the chest is submitted. FINDINGS: Demonstrated are scattered senescent parenchymal change. There is no evidence for focal infiltrate. The heart is stable. Hilar and mediastinal structures are within normal limits. Linear atelectasis left lung base. Degenerative changes are seen of the dorsal spine. IMPRESSION: 1. Chronic changes without evidence for acute pulmonary disease.
[2024-02-15 16:41] LABS: Amphetamine Screen,Urine Not Detected (NotDetected); Barbiturate Screen,Urine Not Detected (NotDetected); Benzodiazepines Screen,Urine Not Detected (NotDetected); Cocaine Screen,Urine Not Detected (NotDetected); Methadone Screen, Urine Not Detected (NotDetected); Opiate Screen,Urine Not Detected (NotDetected); Oxycodone Screen, Urine Not Detected (NotDetected); Phencyclidine Screen,Urine Not Detected (NotDetected); Tricyclic Antidepressant,Urine Not Detected (NotDetected); Urn Cannabinoid Scrn Detected (NotDetected)
--- NOTE | 2024-02-15 16:51 | CT ---
EXAMINATION TYPE: CT brain wo con DATE OF EXAM: 02/15/2024 COMPARISON: 10/26/2019 HISTORY: syncope episodes CT DLP: 2270.[address] of the brain was performed. The ventricles, basal cisterns and sulci overlying the cerebral convexities demonstrate mild enlargem ent. There is no evidence for intracranial hemorrhage or sulcal effacement. There is decreased attenuation about the periventricular white matter and deep white matter of both c erebral hemispheres, compatible with chronic small vessel ischemia. Differential diagnosis does inclu de demyelination. No mass effects are seen.No midline shift. Osseous calvarium is intact. If symptoms persist consider MRI. IMPRESSION: 1. Age related atrophic and chronic small vessel ischemic change without acute intracranial process s een at this time.
[2024-02-15] MEDS ORDERED: MAG HYDROX/AL HYDROX/SIMETH 30 ML CUP PO PRN (20:12)
[2024-02-15] MEDS ORDERED: NALOXONE 0.4 MG/ML 1 ML VIAL IV PRN (20:12)
[2024-02-15] MEDS ORDERED: ACETAMINOPHEN TAB 325 MG TAB PO PRN (20:12)
[2024-02-15] MEDS ORDERED: traMADol 50 MG TAB PO PRN (20:12)
[2024-02-15] MEDS: POTASSIUM BICARBONATE/CIT AC 20 MEQ TABLET.EFF PO ONE (20:19)
[2024-02-15] MEDS: FAMOTIDINE 20 MG TAB PO SCH (20:49)
[2024-02-16] MEDS ORDERED: CALCIUM CARBONATE 500 MG CHEWABLE PO PRN (00:06)
[2024-02-16] MEDS: ARIPiprazole 15 MG TAB PO SCH (00:40)
[2024-02-16] MEDS: ALPRAZolam 0.5 MG TAB PO STA (00:40)
[2024-02-16] MEDS: ATORVASTATIN 40 MG TAB PO SCH (00:40)
[2024-02-16] MEDS: valACYclovir HCL 1,000 MG TABLET PO SCH (00:40)
[2024-02-16] MEDS: metroNIDAZOLE 500 MG TAB PO SCH (00:41)
[2024-02-16] MEDS: MELATONIN 5 MG TABLET PO SCH (00:41)
[2024-02-16] MEDS: LEVOTHYROXINE 25 MCG TAB PO SCH (06:28)
[2024-02-16] MEDS: PANTOPRAZOLE 40 MG TABLET PO SCH (06:28)
[2024-02-16 07:33] LABS: Basophils % (A) 0 %; Eosinophils # (A) 0.2 k/uL (0-0.7); Eosinophils % (A) 2 %; HCT 40.7 % (34.0-46.0); HGB 13.4 gm/dL (11.4-16.0); Lymphocytes # (A) 1.4 k/uL (1.0-4.8); Lymphocytes % (A) 18 %; MCH 31.1 pg (25.0-35.0); MCV 94.3 fL (80.0-100.0); Mean Platelet Volume 6.9; Monocytes # (A) 0.5 k/uL (0-1.0); Monocytes % (A) 6 %; Neutrophils # (A) 5.7 k/uL (1.3-7.7); Neutrophils % (A) 72 %; Platelet Count 284 k/uL (150-450); RBC 4.32 m/uL (3.80-5.40); RDW 14.6 % (11.5-15.5); WBC 7.9 k/uL (3.8-10.6)
[2024-02-16] MEDS: SERTRALINE 100 MG TAB PO SCH (08:25)
[2024-02-16] MEDS: ASPIRIN 81 MG PO SCH (08:25)
[2024-02-16 08:28] LABS: African American GFR (CKD) >90 (>60 ml/min/1.73 sqM); Anion Gap 5 mmol/L; Blood Urea Nitrogen 10 mg/dL (7-17); Calcium 8.5 mg/dL (8.4-10.2); Carbon Dioxide 25 mmol/L (22-30); Chloride 110 mmol/L (98-107); Glucose 101 mg/dL (74-99); Magnesium 1.8 mg/dL (1.6-2.3); Non-African American GFR(CKD) >90 (>60 ml/min/1.73 sqM); Potassium 3.1 mmol/L (3.5-5.1); Sodium 140 mmol/L (137-145)
--- NOTE | 2024-02-16 08:54 | P.CRDCN ---
History of Present Illness Consult date: 02/16/24 History of present illness: This is a 64-year-old female patient who is known to our service from before with a past medical history significant for coronary artery disease documented to be nonobstructive on recent heart catheterization as well as dyslipidemia and also hypothyroidism as well as history of anxiety/depression. The patient presented to the hospital with syncope. She was in her usual state of health when she was at home yesterday standing and washing dishes when suddenly according to her she passed out. That was not witnessed by anyone. No prodrom al symptoms. No symptoms of dizziness or lightheadedness or palpitation or heart racing or fluttering and no symptoms of chest pain or chest discomfort or shortness of breath. She stated that she had another episode when she was walking to her bathroom. She presented to the hospital for further evaluation. The EKG showed sinus mechanism with low voltage QRS and nonspecific ST and T wave abnormalities. The first set of troponin came in to be unremarkable. CT scan of the brain did not show any acute abnormalities. The chest x-ray did not show any acute abnormalities. Please note that the patient heart rate has been in the upper 40s when she presented to the hospital. The TSH and free T4 came in to be unremarkable and she is not on AV kaylee cassie agents as an outpatient. Orthostatic blood pressure checked and came in to be unremarkable. Currently she is asymptomatic and she seems to be hemodynamically stable beside bradycardia with heart rate in the upper 40s. Please note that the patient was seen by our service back in October 2023 when she presented with acute non-ST ovation myocardial infarction and she underwent an echocardiogram which revealed normal biventricular dimension and systolic function with no significant valvular abnormalities and also she underwent a heart catheterization which revealed mild to moderate nonobstructive coronary artery disease. Also the EKG during this admission did not show any evidence of QT interval since she is taken sertraline. The examination is remarkable for regular rhythm with a distant heart sounds and systolic murmur at the right upper sternal border and clear breathing sounds bilaterally and no edema was noted Assessment Syncopal episode Sinus bradycardia with heart rate in the upper 40s Coronary artery disease documented to be nonobstructive on a heart catheterization was performed recently Thyroid disease with normal TSH and free T4 Depression/anxiety Plan Avoid any AV kaylee cassie agents Hypothyroidism was ruled out Continue monitor the heart rate for the next 24 hours Consider performing exercise treadmill stress test to assess for chronotropic incompetence unless the patient develop more episode of profound bradycardia Follow-up with the patient Past Medical History Past Medical History: Cancer, Chest Pain / Angina, GERD/Reflux, Hyperlipidemia, Thyroid Disorder Additional Past Medical History / Comment(s): Hidradenitis suppurativa axillaes, rectal/buttock abscesses, cervical cancer with procedure. History of Any Multi-Drug Resistant Organisms: None Reported Past Surgical History: No Surgical Hx Reported Additional Past Surgical History / Comment(s): I&Ds rectal/buttock abscesses, I&Ds multiple axillae abscesses, procedure to remove cervical cancer. Past Anesthesia/Blood Transfusion Reactions: No Reported Reaction Past Psychological History: Anxiety, Bipolar, Depression Additional Psychological History / Comment(s): Borderline personality disorder. Smoking Status: Current every day smoker Past Alcohol Use History: Occasional Additional Past Alcohol Use History / Comment(s): Pt started smoking in 1978 and is 1 ppd smoker. Past Drug Use History: None Reported Additional Drug Use History / Comment(s): . - Past Family History Father History Unknown: Yes Additional Family Medical History / Comment(s): pt states heart dx runs in the family Mother Family Medical History: Diabetes Mellitus Additional Family Medical History / Comment(s): pt states heart disease runs in the family Medications and Allergies Home Medications Medication Instructions Recorded Confirmed Type Calcium Carbonate [Tums] 1,000 mg PO TID PRN tab 01/10/24 02/15/24 Rx Amoxic-Pot Clav 875-125Mg 1 each PO Q12HR 3 Days #6 tab 01/20/24 02/15/24 Rx [Augmentin 875-125] metroNIDAZOLE [Flagyl] 500 mg PO TID 3 Days #9 tab 01/20/24 02/15/24 Rx valACYclovir HCL [Valtrex] 1,000 mg PO BID 3 Days #6 tab 01/20/24 02/15/24 Rx ARIPiprazole IM SYRINGE [Abilify 400 mg IM QMONTHLY 28 Days #1 each 01/27/24 02/15/24 Rx Maintena Syringe] ARIPiprazole [Abilify] 30 mg PO HS 30 Days #60 tab 01/27/24 02/15/24 Rx Aspirin 81 mg PO DAILY 30 Days #30 tab 07/08/24 07/27/24 Rx Atorvastatin [Lipitor] 40 mg PO HS 30 Days #30 tab 01/27/24 02/15/24 Rx Levothyroxine Sodium [Synthroid] 25 mcg PO DAILY@0630 30 Days #30 01/27/24 02/15/24 Rx tab Melatonin 5 mg PO HS 30 Days #30 tab 01/27/24 02/15/24 Rx Multivitamins, Thera [Multivitamin 1 each PO DAILY@1200 tab 01/27/24 02/15/24 Rx (formulary)] Nitroglycerin Sl Tabs [Nitrostat] 0.4 mg SUBLINGUAL Q5M PRN 30 Days 01/27/24 02/15/24 Rx #5 tab Pantoprazole [Protonix] 40 mg PO AC-BRKFST 30 Days #30 tab 01/27/24 02/15/24 Rx Sertraline [Zoloft] 200 mg PO DAILY 30 Days #60 tab 01/27/24 02/15/24 Rx hydrOXYzine HCL [Atarax] 25 mg PO BID PRN 30 Days #60 tab 01/27/24 02/15/24 Rx Allergies Allergy/AdvReac Type Severity Reaction Status Date / Time Sulfa (Sulfonamide Allergy Rash/Hives Verified 02/15/24 15:18 Antibiotics) Physical Exam Vitals: Vital Signs Temp Pulse Pulse Resp BP BP BP 02/16/24 08:26 47 L 02/16/24 08:21 97.5 F L 49 L 17 02/16/24 04:00 97.8 F 47 L 19 02/16/24 02:00 46 L 19 02/15/24 23:07 97.6 F 48 L 19 02/15/24 21:31 97.1 F L 52 L 18 107/67 02/15/24 20:22 49 L 20 106/73 02/15/24 18:59 43 L 16 115/75 02/15/24 18:01 119/74 115/75 02/15/24 17:55 47 L 18 113/65 02/15/24 15:16 98.2 F 53 L 18 123/89 BP Pulse Ox 02/16/24 08:26 02/16/24 08:21 95 02/16/24 04:00 108/64 96 02/16/24 02:00 02/15/24 23:07 117/73 100 02/15/24 21:31 95 02/15/24 20:22 96 02/15/24 18:59 95 02/15/24 18:01 113/65 02/15/24 17:55 94 L 02/15/24 15:16 93 L Intake and Output 02/15/24 02/16/24 02/16/24 22:59 06:59 14:59 Intake Total 240 Balance 240 Intake: Oral 240 Other: Voiding Method Toilet Toilet Bedside Commode # Voids 1 # Bowel Movements 1 Weight 105.233 kg 103.8 kg Results 02/16/24 07:13 02/16/24 07:13 Cardiac Enzymes 02/15/24 02/15/24 Range/Units 15:51 15:51 AST 36 (14-36) U/L Troponin I <0.012 (0.000-0.034) ng/mL Coagulation 02/15/24 Range/Units 15:51 PT 10.1 (10.0-12.5) sec APTT 24.3 (22.0-30.0) sec CBC 02/15/24 02/16/24 Range/Units 15:51 07:13 WBC 9.4 7.9 (3.8-10.6) k/uL RBC 4.48 4.32 (3.80-5.40) m/uL Hgb 13.8 13.4 (11.4-16.0) gm/dL Hct 42.3 40.7 (34.0-46.0) % Plt Count 338 284 (150-450) k/uL Comprehensive Metabolic Panel 02/15/24 02/16/24 Range/Units 15:51 07:13 Sodium 141 140 (137-145) mmol/L Potassium 3.2 L 3.1 L (3.5-5.1) mmol/L Chloride 111 H 110 H (98-107) mmol/L Carbon Dioxide 25 25 (22-30) mmol/L BUN 12 10 (7-17) mg/dL Creatinine 0.69 0.65 (0.52-1.04) mg/dL Glucose 80 101 H (74-99) mg/dL Calcium 8.8 8.5 (8.4-10.2) mg/dL AST 36 (14-36) U/L ALT 31 (4-34) U/L Alkaline Phosphatase 86 (38-126) U/L Total Protein 6.3 (6.3-8.2) g/dL Albumin 3.6 (3.5-5.0) g/dL Current Medications Generic Name Dose Route Start Last Admin Trade Name Freq PRN Reason Stop Dose Admin Acetaminophen 650 mg 02/15/24 20:12 Acetaminophen Tab 325 Mg Tab PO Q6HR PRN Mild Pain or Fever > 100.5 Al Hydroxide/Mg Hydroxide 15 ml 02/15/24 20:12 Mag Hydrox/Al Hydrox/Simeth 30 Ml Cup PO Q6HR PRN Indigestion Amoxicillin/Clavulanate Potassium 1 each 02/16/24 09:00 Amoxic-Pot Clav 875-125mg 1 Each Tab PO 02/18/24 21:01 Q12HR AJ Protocol Aripiprazole 30 mg 02/16/24 00:30 02/16/24 00:40 Aripiprazole 15 Mg Tab PO 30 mg HS AJ Administration Aspirin 81 mg 02/16/24 09:00 02/16/24 08:25 Aspirin 81 Mg PO 81 mg DAILY AJ Administration Atorvastatin Calcium 40 mg 02/16/24 00:30 02/16/24 00:40 Atorvastatin 40 Mg Tab PO 40 mg HS AJ Administration Calcium Carbonate/Glycine 1,000 mg 02/16/24 00:06 Calcium Carbonate 500 Mg Chewable PO TID PRN Heartburn Famotidine 20 mg 02/15/24 21:00 02/16/24 08:25 Famotidine 20 Mg Tab PO 20 mg BID AJ Administration Hydroxyzine HCl 25 mg 02/16/24 00:06 Hydroxyzine Hcl 25 Mg Tab PO BID PRN Anxiety Levothyroxine Sodium 25 mcg 02/16/24 06:30 02/16/24 06:28 Levothyroxine 25 Mcg Tab PO 25 mcg DAILY@0630 AJ Administration Melatonin 5 mg 02/16/24 00:30 02/16/24 00:41 Melatonin 5 Mg Tablet PO 5 mg HS AJ Administration Metronidazole 500 mg 02/16/24 00:30 02/16/24 00:41 Metronidazole 500 Mg Tab PO 500 mg TID AJ Administration Protocol Multivitamins 1 each 02/16/24 12:00 Multivitamins, Thera 1 Each Tab PO DAILY@1200 AJ Naloxone HCl 0.2 mg 02/15/24 20:12 Naloxone 0.4 Mg/Ml 1 Ml Vial IV Q2M PRN Opioid Reversal Pantoprazole Sodium 40 mg 02/16/24 07:30 02/16/24 06:28 Pantoprazole 40 Mg Tablet PO 40 mg AC-BRKFST AJ Administration Sertraline HCl 200 mg 02/16/24 09:00 02/16/24 08:25 Sertraline 100 Mg Tab PO 200 mg DAILY AJ Administration Tramadol HCl 50 mg 02/15/24 20:12 Tramadol 50 Mg Tab PO Q6H PRN Moderate Pain (Scale 4 to 6) Valacyclovir HCl 1,000 mg 02/16/24 00:30 02/16/24 00:40 Valacyclovir Hcl 1,000 Mg Tablet PO 02/18/24 09:01 1,000 mg BID AJ Administration Protocol Intake and Output 02/15/24 02/16/24 02/16/24 22:59 06:59 14:59 Intake Total 240 Balance 240 Intake: Oral 240 Other: Voiding Method Toilet Toilet Bedside Commode # Voids 1 # Bowel Movements 1 Weight 105.233 kg 103.8 kg 02/16/24 07:13 02/16/24 07:13
[2024-02-16 09:27] LABS: T4, Free (Free Thyroxine) 1.21 ng/dL (0.78-2.19)
[2024-02-16] MEDS: MULTIVITAMINS, THERA 1 EACH TAB PO SCH (11:41)
--- NOTE | 2024-02-16 12:02 | P.HPIM ---
History of Present Illness Patient is a pleasant 63 years old female with past medical history of multiple medical problems Patient presents because of syncope. Patient states she fainted twice at home before she comes to the hospital 1 time while she was ready to wash her dishes She was walking to the restroom for having bowel movement and found herself on the floor as well. She woke up immediately. She denies headache dizziness weakness or numbness No chest pain no dyspnea. No coughing. She has chronic diarrhea about 4-5 times per day, no abdominal pain and she tolerates diet. C. difficile was checked was negative She denies vertigo as well She smokes half pack per day and she was counseled to quit and she agrees. She declines nicotine patch. No alcohol or illicit drugs. Patient heart rate is about 48-52, afebrile and rest of vitals look stable Potassium on the low side 3.2 magnesium 1.8 She had negative orthostatic vitals Negative D-dimer 0.56 TSH 4.2, repeat TSH 3.9 and free T41.2 Urine analysis looks dehydrated sample Urine drug screen is positive for marijuana CT of the brain is negative for acute process Chest x-ray showing no consolidation and reviewed by myself Review of Systems Review of systems CONSTITUTIONAL: No fever, no malaise, no fatigue. HEENT: No recent visual problems or hearing problems. Denied any sore throat. CARDIOVASCULAR: No orthopnea, PND, no palpitations, no syncope. PULMONARY: No shortness of breath, no cough, no hemoptysis. GASTROINTESTINAL: No diarrhea, no nausea, no vomiting, no abdominal pain. Normoactive bowel sounds. NEUROLOGICAL: No headaches, no weakness, no numbness. HEMATOLOGICAL: Denies any bleeding or petechiae. GENITOURINARY: Denies any burning micturition, frequency, or urgency. MUSCULOSKELETAL/RHEUMATOLOGICAL: Denies any joint pain, swelling, or any muscle pain. ENDOCRINE: Denies any polyuria or polydipsia. Past Medical History Past Medical History: Cancer, Chest Pain / Angina, GERD/Reflux, Hyperlipidemia, Thyroid Disorder Additional Past Medical History / Comment(s): Hidradenitis suppurativa axillaes, rectal/buttock abscesses, cervical cancer with procedure. History of Any Multi-Drug Resistant Organisms: None Reported Past Surgical History: No Surgical Hx Reported Additional Past Surgical History / Comment(s): I&Ds rectal/buttock abscesses, I&Ds multiple axillae abscesses, procedure to remove cervical cancer. Past Anesthesia/Blood Transfusion Reactions: No Reported Reaction Past Psychological History: Anxiety, Bipolar, Depression Additional Psychological History / Comment(s): Borderline personality disorder. Smoking Status: Current every day smoker Past Alcohol Use History: Occasional Additional Past Alcohol Use History / Comment(s): Pt started smoking in 1978 and is 1 ppd smoker. Past Drug Use History: None Reported Additional Drug Use History / Comment(s): . - Past Family History Father History Unknown: Yes Additional Family Medical History / Comment(s): pt states heart dx runs in the family Mother Family Medical History: Diabetes Mellitus Additional Family Medical History / Comment(s): pt states heart disease runs in the family Medications and Allergies Home Medications Medication Instructions Recorded Confirmed Type Calcium Carbonate [Tums] 1,000 mg PO TID PRN tab 01/10/24 02/15/24 Rx ARIPiprazole IM SYRINGE [Abilify 400 mg IM QMONTHLY 28 Days #1 each 01/27/24 02/16/24 Rx Maintena Syringe] Aspirin 81 mg PO DAILY 30 Days #30 tab 01/27/24 02/16/24 Rx Atorvastatin [Lipitor] 40 mg PO HS 30 Days #30 tab 01/27/24 02/16/24 Rx Levothyroxine Sodium [Synthroid] 25 mcg PO DAILY@0630 30 Days #30 01/27/24 02/16/24 Rx tab Melatonin 5 mg PO HS 30 Days #30 tab 01/27/24 02/16/24 Rx Nitroglycerin Sl Tabs [Nitrostat] 0.4 mg SUBLINGUAL Q5M PRN 30 Days 01/27/24 02/15/24 Rx #5 tab Pantoprazole [Protonix] 40 mg PO AC-BRKFST 30 Days #30 tab 01/27/24 02/16/24 Rx Sertraline [Zoloft] 200 mg PO DAILY 30 Days #60 tab 01/27/24 02/16/24 Rx hydrOXYzine HCL [Atarax] 25 mg PO BID PRN 30 Days #60 tab 01/27/24 02/15/24 Rx ARIPiprazole [Abilify] 30 mg PO HS 02/16/24 02/16/24 History Multivitamins, Thera [Multivitamin 1 tab PO DAILY@1200 02/16/24 02/16/24 History (formulary)] Allergies Allergy/AdvReac Type Severity Reaction Status Date / Time Sulfa (Sulfonamide Allergy Rash/Hives Verified 02/16/24 11:22 Antibiotics) Physical Exam Vitals: Vital Signs Temp Pulse Pulse Resp BP BP BP 02/16/24 08:26 47 L 02/16/24 08:21 97.5 F L 49 L 17 02/16/24 04:00 97.8 F 47 L 19 02/16/24 02:00 46 L 19 02/15/24 23:07 97.6 F 48 L 19 02/15/24 21:31 97.1 F L 52 L 18 107/67 02/15/24 20:22 49 L 20 106/73 02/15/24 18:59 43 L 16 115/75 02/15/24 18:01 119/74 115/75 02/15/24 17:55 47 L 18 113/65 02/15/24 15:16 98.2 F 53 L 18 123/89 BP Pulse Ox 02/16/24 08:26 02/16/24 08:21 95 02/16/24 04:00 108/64 96 02/16/24 02:00 02/15/24 23:07 117/73 100 02/15/24 21:31 95 02/15/24 20:22 96 02/15/24 18:59 95 02/15/24 18:01 113/65 02/15/24 17:55 94 L 02/15/24 15:16 93 L Intake and Output 02/15/24 02/16/24 02/16/24 22:59 06:59 14:59 Intake Total 240 Balance 240 Intake: Oral 240 Other: Voiding Method Toilet Toilet Bedside Commode # Voids 1 # Bowel Movements 1 Weight 105.233 kg 103.8 kg Exam done in the presence of the bedside nurse broke after patient gave verbal consent -GENERAL: The patient is alert and oriented x3, not in any acute distress. Well developed, well nourished. Obese HEENT: Pupils are round and equally reacting to light. EOMI. No scleral icterus. No conjunctival pallor. Normocephalic, atraumatic. No pharyngeal erythema. No thyromegaly. CARDIOVASCULAR: S1 and S2 present. No murmurs, rubs, or gallops. PULMONARY: Chest is clear to auscultation, no wheezing , no crackles. -ABDOMEN: Soft, nontender, nondistended, normoactive bowel sounds. No palpable organomegaly. Healed right buttock infection, there is dry small superficial ulcer with no underlying cyst/abscess no surrounding cellulitis redness, skin looks normal. Nontender. Not warm looks like infection healed MUSCULOSKELETAL: No joint swelling or deformity. EXTREMITIES: No cyanosis, clubbing, or pedal edema. NEUROLOGICAL: Gross neurological examination did not reveal any focal deficits. SKIN: No rashes. no petechiae. Results CBC & Chem 7: 02/16/24 07:13 02/16/24 07:13 Labs: Abnormal Lab Results - Last 24 Hours (Table) 02/15/24 02/15/24 02/15/24 Range/Units 15:51 15:51 15:51 Potassium 3.2 L (3.5-5.1) mmol/L Chloride 111 H (98-107) mmol/L Glucose (74-99) mg/dL Urine Protein Trace H (Negative) Urine Blood Small H (Negative) Urine Bacteria Rare H (None) /hpf Urine Mucus Occasional H (None) /hpf U Marijuana (THC) Screen Detected H (NotDetected) 02/16/24 Range/Units 07:13 Potassium 3.1 L (3.5-5.1) mmol/L Chloride 110 H (98-107) mmol/L Glucose 101 H (74-99) mg/dL Urine Protein (Negative) Urine Blood (Negative) Urine Bacteria (None) /hpf Urine Mucus (None) /hpf U Marijuana (THC) Screen (NotDetected) Thrombosis Risk Factor Assmnt - Choose All That Apply Other Risk Factors: Yes Each Risk Factor Represents 2 Points: Age 61-74 years Thrombosis Risk Factor Assessment Total Risk Factor Score: 2 Thrombosis Risk Factor Assessment Level: Low Risk Assessment and Plan Assessment: Recurrent syncope Chronic bradycardia Hypothyroidism with borderline elevated TSH Chronic diarrhea Substance abuse with marijuana Obesity with BMI 39.3 Recent history of buttock abscess, completely healed now Plan: Cardiology consult with plan for stress test Continue telemetry monitoring Check orthostatic vitals is negative Increase dose of levothyroxine 25 mcg up to 50 mcg We advised to avoid substance abuse including smoking and marijuana add questran Her about abscess looks improved. Antibiotics can be stopped including Augmentin and Flagyl. Finish course of Valtrex Labs and medication were reviewed.. Continue same treatment. Continue with symptomatic treatment. Resume home medication. Monitor labs and vitals. DVT and GI prophylaxis. Further recommendations as per clinical course of the patient DVT prophylaxis: Subcutaneous heparin GI Prophylaxis: Pepcid PT/OT: Pending Prognosis is guarded
[2024-02-16] MEDS: AMOXIC-POT CLAV 875-125MG 1 EACH TAB PO SCH (12:45)
[2024-02-16] MEDS: CHOLESTYRAMINE (WITH SUGAR) 4 GM PACKET PO SCH (13:24)
[2024-02-16] MEDS ORDERED: Potassium Replacement Protocol 1 EACH MISC MISCELLANE PRN (17:35)
[2024-02-16] MEDS: POTASSIUM CHLORIDE ER 20 MEQ TAB.ER PO SCH (18:00)
[2024-02-17] MEDS: LEVOTHYROXINE 50 MCG TAB PO SCH (06:17)
[2024-02-17 07:34] LABS: Basophils % (A) 0 %; Eosinophils # (A) 0.1 k/uL (0-0.7); Eosinophils % (A) 2 %; HGB 13.1 gm/dL (11.4-16.0); Hypochromasia Slight; Lymphocytes # (A) 1.3 k/uL (1.0-4.8); Lymphocytes % (A) 18 %; MCH 30.8 pg (25.0-35.0); MCV 96.1 fL (80.0-100.0); Mean Platelet Volume 7.6; Monocytes # (A) 0.5 k/uL (0-1.0); Monocytes % (A) 6 %; Neutrophils # (A) 5.6 k/uL (1.3-7.7); Neutrophils % (A) 74 %; Platelet Count 298 k/uL (150-450); RBC 4.26 m/uL (3.80-5.40); RDW 14.6 % (11.5-15.5); WBC 7.6 k/uL (3.8-10.6)
[2024-02-17 08:00] LABS: African American GFR (CKD) >90 (>60 ml/min/1.73 sqM); Anion Gap 5 mmol/L; Blood Urea Nitrogen 10 mg/dL (7-17); Calcium 8.5 mg/dL (8.4-10.2); Carbon Dioxide 21 mmol/L (22-30); Chloride 112 mmol/L (98-107); Glucose 113 mg/dL (74-99); Non-African American GFR(CKD) >90 (>60 ml/min/1.73 sqM); Potassium 3.7 mmol/L (3.5-5.1); Sodium 138 mmol/L (137-145)
[2024-02-17] MEDS: hydrOXYzine HCL 25 MG TAB PO PRN (10:40)
[2024-02-17] MEDS: NICOTINE 7MG/24HR PATCH TRANSDERM STA (21:42)
[2024-02-18 08:46] LABS: African American GFR (CKD) >90 (>60 ml/min/1.73 sqM); Anion Gap 7 mmol/L; Blood Urea Nitrogen 10 mg/dL (7-17); Calcium 8.3 mg/dL (8.4-10.2); Carbon Dioxide 19 mmol/L (22-30); Chloride 112 mmol/L (98-107); Glucose 96 mg/dL (74-99); Non-African American GFR(CKD) >90 (>60 ml/min/1.73 sqM); Potassium 3.8 mmol/L (3.5-5.1); Sodium 138 mmol/L (137-145)
[2024-02-18 11:16] VITALS: RESP 16; TEMP 97
[2024-02-18 12:38] LABS: African American GFR (CKD) >90 (>60 ml/min/1.73 sqM); Blood Urea Nitrogen 11 mg/dL (7-17); Non-African American GFR(CKD) >90 (>60 ml/min/1.73 sqM)
--- NOTE | 2024-02-18 14:14 | P.PN ---
Subjective Progress Note Date: 02/17/24 This is a 64-year-old female patient who is known to our service from before with a past medical history significant for coronary artery disease documented to be nonobstructive on recent heart catheterization as well as dyslipidemia and also hypothyroidism as well as history of anxiety/depression. The patient presented to the hospital with syncope. She was in her usual state of health when she was at home yesterday standing and washing dishes when suddenly according to her she passed out. That was not witnessed by anyone. No prodromal symptoms. No symptoms of dizziness or lightheadedness or palpitation or heart racing or fluttering and no symptoms of chest pain or chest discomfort or shortness of breath. She stated that she had another episode when she was walking to her bathroom. She presented to the hospital for further evaluation. The EKG showed sinus mechanism with low voltage QRS and nonspecific ST and T wave abnormalities. The first set of troponin came in to be unremarkable. CT scan of the brain did not show any acute abnormalities. The chest x-ray did not show any acute abnormalities. Please note that the patient heart rate has been in the upper 40s when she presented to the hospital. The TSH and free T4 came in to be unremarkable and she is not on AV kaylee cassie agents as an outpatient. Orthostatic blood pressure checked and came in to be unremarkable. Currently she is asymptomatic and she seems to be hemodynamically stable beside bradycardia with heart rate in the upper 40s. Please note that the patient was seen by our service back in October 2023 when she presented with acute non-ST ovation myocardial infarction and she underwent an echocardiogram which revealed normal biventricular dimension and systolic function with no significant valvular abnormalities and also she underwent a heart catheterization which revealed mild to moderate nonobstructive coronary artery disease. Also the EKG during this admission did not show any evidence of QT interval since she is taken sertraline. The examination is remarkable for regular rhythm with a distant heart sounds and systolic murmur at the right upper sternal border and clear breathing sounds bilaterally and no edema was noted February 17, 2024 On patient's telemetry patient's resting heart rate is averaging around 40s, with movement like walking in the bathroom her heart rate would go up to 60s to 70s on telemetry. She has not had any pauses or any blocks noticed on ECG. She has not had any episodes of presyncope or syncope during hospitalization. Assessment Syncopal episode Sinus bradycardia with heart rate in the upper 40s Coronary artery disease documented to be nonobstructive on a heart catheterization was performed recently Thyroid disease with normal TSH and free T4 Depression/anxiety Plan Avoid any AV kaylee cassie agents Hypothyroidism was ruled out Continue monitor the heart rate for the next 24 hours Get a 30-day event monitor to go home with Objective - Vital Signs Vital signs: Vital Signs Temp 97.0 F L 02/18/24 08:00 Pulse 43 L 02/18/24 08:00 Resp 16 02/18/24 08:00 BP 99/63 02/18/24 08:00 Pulse Ox 96 02/18/24 08:00 FiO2 Intake & Output 02/17/24 02/18/24 02/18/24 18:59 06:59 18:59 Intake Total 896 238 Balance 896 238 Weight 105.2 kg Intake: Oral 896 238 Other: Voiding Method Toilet Toilet Toilet Bedside Commode # Voids 2 # Bowel Movements 1 - Labs CBC & Chem 7: 02/17/24 06:38 02/18/24 12:07 Labs: Abnormal Lab Results - Last 24 Hours (Table) 02/18/24 Range/Units 07:04 Chloride 112 H (98-107) mmol/L Carbon Dioxide 19 L (22-30) mmol/L Calcium 8.3 L (8.4-10.2) mg/dL
--- NOTE | 2024-02-18 14:39 | P.PN ---
Subjective Progress Note Date: 02/17/24 Objective - Vital Signs Vital signs: Vital Signs Temp 97.0 F L 02/18/24 08:00 Pulse 43 L 02/18/24 08:00 Resp 16 02/18/24 08:00 BP 99/63 02/18/24 08:00 Pulse Ox 96 02/18/24 08:00 FiO2 Intake & Output 02/17/24 02/18/24 02/18/24 18:59 06:59 18:59 Intake Total 896 238 Balance 896 238 Weight 105.2 kg Intake: Oral 896 238 Other: Voiding Method Toilet Toilet Toilet Bedside Commode # Voids 2 # Bowel Movements 1 - Labs CBC & Chem 7: 02/17/24 06:38 02/18/24 12:07 Labs: Abnormal Lab Results - Last 24 Hours (Table) 02/18/24 Range/Units 07:04 Chloride 112 H (98-107) mmol/L Carbon Dioxide 19 L (22-30) mmol/L Calcium 8.3 L (8.4-10.2) mg/dL
--- NOTE | 2024-02-18 14:43 | P.PN ---
Subjective Progress Note Date: 02/17/24 Patient is a pleasant 63 years old female with past medical history of multiple medical problems Patient presents because of syncope. Patient states she fainted twice at home before she comes to the hospital 1 time while she was ready to wash her dishes She was walking to the restroom for having bowel movement and found herself on the floor as well. She woke up immediately. She denies headache dizziness weakness or numbness No chest pain no dyspnea. No coughing. She has chronic diarrhea about 4-5 times per day, no abdominal pain and she tolerates diet. C. difficile was checked was negative She denies vertigo as well She smokes half pack per day and she was counseled to quit and she agrees. She declines nicotine patch. No alcohol or illicit drugs. Patient heart rate is about 48-52, afebrile and rest of vitals look stable Potassium on the low side 3.2 magnesium 1.8 She had negative orthostatic vitals Negative D-dimer 0.56 TSH 4.2, repeat TSH 3.9 and free T41.2 Urine analysis looks dehydrated sample Urine drug screen is positive for marijuana CT of the brain is negative for acute process Chest x-ray showing no consolidation and reviewed by myself 02/17/2024 Patient is currently lying in the bed. Awake alert and oriented x 3. She complains of dizziness. Heart rate is in 40s. On room air. No complaints of chest pain. No shortness of breath. No headache. Patient states that her dizziness gets worse when she gets out of the bed. No cough or sputum production. Patient has been afebrile. Laboratory data showed sodium 138 potassium 3.7 chloride 112 bicarb is 21 BUN 10 and creatinine 0.69 and blood sugar is 113. Procalcitonin level is 0.06. Free T4 within normal limits. Serum tox is negative. Cardiology is on board. EKG showed no AV block. Current medications reviewed. Objective - Vital Signs Vital signs: Vital Signs Temp 97.7 F 02/17/24 08:00 Pulse 53 L 02/17/24 08:00 Resp 16 02/17/24 08:00 BP 109/65 02/17/24 08:00 Pulse Ox 98 02/17/24 08:00 FiO2 Intake & Output 02/16/24 02/17/24 02/17/24 18:59 06:59 18:59 Intake Total 940 118 Balance 940 118 Weight 105.1 kg Intake: Oral 940 118 Other: Voiding Method Toilet Toilet Toilet Bedside Commode Bedside Commode Bedside Commode # Voids 2 3 # Bowel Movements 1 - Exam PHYSICAL EXAMINATION: Patient is lying in the bed comfortably, no acute distress, awake alert and oriented.. HEENT: Normocephalic. Neck is supple. Pupils reactive. Nostrils clear. Oral cavity is moist. Neck reveals no JVD, carotid bruits, or thyromegaly. CHEST EXAMINATION: Trachea is central. Symmetrical expansion. Lung recinos clear to auscultation and percussion. CARDIAC: Normal S1, S2 with no gallops. No murmurs ABDOMEN: Soft. Bowel sounds normal. No organomegaly. No abdominal bruits. Extremities: reveal no edema. No clubbing or cyanosis Neurologically awake, alert, oriented x3 with well-coordinated movements. No focal deficits noted Skin: No rash or skin lesions. Psychiatric: Coperative. Nonsuicidal Musculoskeletal: No joint swelling or deformity. Normal range of motion. - Labs CBC & Chem 7: 02/17/24 06:38 02/18/24 12:07 Labs: Abnormal Lab Results - Last 24 Hours (Table) 02/17/24 Range/Units 06:38 Chloride 112 H (98-107) mmol/L Carbon Dioxide 21 L (22-30) mmol/L Glucose 113 H (74-99) mg/dL Assessment and Plan Assessment: Recurrent syncope Chronic bradycardia with no sinus pauses or blocks in the EKG. Hypothyroidism with borderline elevated TSH. Free T4 within normal limits. Chronic diarrhea Substance abuse with marijuana Obesity with BMI 39.3 Recent history of buttock abscess, completely healed now Plan: Continue telemetry monitoring. Event monitor as per cardiology recommendations. Avoid AV kaylee blocking agents. Check orthostatic vitals is negative Increase dose of levothyroxine 25 mcg up to 50 mcg We advised to avoid substance abuse including smoking and marijuana add questran Her about abscess looks improved. Antibiotics can be stopped including Augmentin and Flagyl. Finish course of Valtrex Labs and medication were reviewed. Monitor labs and vitals. DVT and GI prophylaxis. Further recommendations as per clinical course of the patient DVT prophylaxis: Subcutaneous heparin GI Prophylaxis: Pepcid PT/OT: Pending Prognosis is guarded Time with Patient: Greater than 30
[2024-02-18 15:49] VITALS: BP 108/74; PULSE 47
== END 2024-02-18 16:42 | disposition home or self-care (01) ==
LOC: EC 15:10 → 3SCARD 20:12
PROVIDERS: ADMIT Hospitalist; ATTEND Hospitalist
DX: R55 Syncope and collapse (principal); R00.1 Bradycardia, unspecified; I25.10 Atherosclerotic heart disease of native coronary artery without angina pectoris; E03.9 Hypothyroidism, unspecified; F31.9 Bipolar disorder, unspecified; F41.9 Anxiety disorder, unspecified; E87.6 Hypokalemia; K21.9 Gastro-esophageal reflux disease without esophagitis; E78.5 Hyperlipidemia, unspecified; F17.200 Nicotine dependence, unspecified, uncomplicated; F12.10 Cannabis abuse, uncomplicated; E66.9 Obesity, unspecified; Z68.39 Body mass index [BMI] 39.0-39.9, adult; Z85.41 Personal history of malignant neoplasm of cervix uteri; Z79.899 Other long term (current) drug therapy; Z79.82 Long term (current) use of aspirin; Z79.890 Hormone replacement therapy; Z88.2 Allergy status to sulfonamides; K52.9 Noninfective gastroenteritis and colitis, unspecified
CPT/HCPCS: 99285; 36415; 93005; 93270; 85379; 84439; 80053; 80048 ×3; 84443 ×2; 82565; 83735 ×2; 84520; 84484; 85025 ×3; 85610; 85730; 81001; 87324; 80306; 84145; 71046; 70450; G0378 ×4; S4990

== ENCOUNTER 2024-02-27 05:17 | Emergency (ER) | payer OTHER ==
--- NOTE | 2024-03-19 15:21 | CT ---
EXAM: CT angiogram chest with IV contrast. DATE OF EXAM: 02/27/24 Reason for study: Shortness of breath, CTA CHEST, DLP 587.9, ISO 370 100ml COMPARISON: None, please note PACS downtime occurred during the radiologist interpretation of these i mages with limited priors/reports. TECHNIQUE: Axial CT images were obtained through the pulmonary vasculature after administration of Is ovue 370 100 cc. Multiplanar reformatted images were then made. Maximum intensity projection images w ere obtained. One or more CT dose reduction strategies were utilized during this examination. Total DLP administered was 587.9 mGycm . FINDINGS: Pulmonary Artery: There is no evidence for a filling defect within the pulmonary vasculature to sugge st acute pulmonary embolism. The pulmonary artery is of normal size. Lungs/Pleura right lateral groundglass peripheral opacities.: No evidence of focal consolidation, ple ural effusion or pneumothorax. Airway: Patent and grossly unremarkable. Heart: Within normal limits for size. Vasculature: No evidence of aortic aneurysm. Mediastinum: No gross evidence of adenopathy. Musculoskeletal: Moderate degenerative disc disease changes are present throughout the thoracolumbar spine. Soft Tissues: Unremarkable. Lower neck: No significant findings. Upper Abdomen: No significant findings. IMPRESSION: 1. No evidence of pulmonary embolism. 2. Some peripheral groundglass opacities along the right upper lobe peripherally possibly scarring/a telectasis less likely acute infectious process.
--- NOTE | 2024-04-06 13:05 | XR ---
Site ID synapse default Patient Nahed Melgar, William ID [id number] Age/Gender: 63Y, F Order # N/A Procedure [id number] Date 02/27/2024 7:03:31 AM EXAMINATION TYPE: Chest X-ray 2 Views DATE OF EXAM: 03/15/2024 11:58 PM COMPARISON: Chest radiographs from 02/15/2024 TECHNIQUE: Chest X-ray 2 Views Frontal and lateral views of the chest. CLINICAL INDICATION: Female, 63 year old with history of shortness of breath; FINDINGS: Lungs/Pleura: There is no evidence of pleural effusion, focal consolidation, or pneumothorax. Pulmonary vascularity: Unremarkable. Heart/mediastinum: Cardiomediastinal silhouette is unremarkable. Musculoskeletal: No acute osseous pathology. Mild multilevel degenerative disc disease. IMPRESSION: No acute cardiopulmonary disease/process.
== END 2024-02-27 11:48 | disposition home or self-care (01) ==
LOC: EC 05:17
CPT/HCPCS: 71046; 71275; 93005; 99285

== ENCOUNTER → 2024-11-26 | Outpatient (CLI) | payer OTHER ==
[2024-11-26 13:36] VITALS: BP 125/81; PULSE 94; RESP 16; TEMP 97.8
--- NOTE | 2024-11-26 13:58 | P.SLEEP ---
History of Present Illness DATE: 11/26/2024 CONSULTATION/NEW PATIENT EVALUATION HISTORY OF PRESENT ILLNESS/SLEEP-WAKE EVALUATION: 64-year-old lady had been ev aluated in the sleep center for possible obstructive sleep apnea hypopnea syndrome. SLEEP SCHEDULE: Usually sleep schedule from 10 PM to 6:30 AM. FALLING ASLEEP: Sometimes patient has difficulties to fall asleep, has TV set in bedroom. DURING SLEEP: Patient usually sleeps on the side position with loud snoring and awakenings from sleep with nocturia. Positive history of dry mouth. No history of hypnogogical hallucinations, sleep paralysis, or cataplexy. DURING THE DAY/WAKE STATE: In the morning patient wake up tired. Bulan sleepiness scale is 5. Patient usually does not take naps. PAST MEDICAL HISTORY: Depression. PAST SURGICAL HISTORY: None. MEDICATIONS: Prozac once a day. SOCIAL HISTORY: Please see below. FAMILY HISTORY: Please see below. REVIEW OF SYSTEMS: Snoring, awakenings from sleep. No fevers. No double vision. No recent chest pain. No shortness of breath. No abdominal pain. No bleeding episodes. No blood in urine. No seizure episodes. PHYSICAL EXAMINATION: GENERAL: A pleasant patient without any distress. VITAL SIGNS: Please see below, weight 253 pounds, BMI 45.9. HEENT: PERRLA, EOMI. Evaluation of oropharynx showed tongue protrudes midline, low position of soft palate Mallampati 4. NECK: Supple. No JVD. Thyroid is not palpable. 18 inches in circumference. LUNGS: Clear to percussion and to auscultation. Good air exchange. No wheezing or rhonchi. HEART: S1, S2 regular. No murmurs, gallops or rubs. ABDOMEN: Soft and nontender. Bowel sounds are present. No organomegaly appreciated. EXTREMITIES: No clubbing or cyanosis. 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 Cranial nerves 2 to 7 intact. There is no fasciculation or atrophy noted. No focal deficits observed. ASSESSMENT: 1. Loud snoring, awakenings from sleep with nocturia, extremely low position of soft palate Mallampati 4, weight neck 18 inches in circumference. Obstructive sleep apnea hypopnea syndrome. 2., BMI 45.9. 3. Depression. PLAN: 1. Polysomnography for evaluation of patient's breathing during sleep. 2. Following plan after reading sleep study. 3. Preferable position during sleep on the side. 4. No driving if patient feels any sleepiness. Patient is aware of civil and criminal liability for unsafe driving. 5. Sleep hygiene with regular sleep time for at least 7.5-8 hours. 6. Watching and losing weight. Thank you very much for referring this patient for consultation. Sincerely, Armaan Rush MD, PhD, FAASM. Diplomat of [employer] [employer], Sleep Medicine Board by [employer] [employer] [place] [employer] [facility] [place] cc: Kirsty Neal MD Past Medical History Past Medical History: Cancer, Chest Pain / Angina, GERD/Reflux, Hyperlipidemia, Thyroid Disorder Additional Past Medical History / Comment(s): Hidradenitis suppurativa axillaes, rectal/buttock abscesses, cervical cancer with procedure. History of Any Multi-Drug Resistant Organisms: None Reported Past Surgical History: No Surgical Hx Reported Additional Past Surgical History / Comment(s): I&Ds rectal/buttock abscesses, I&Ds multiple axillae abscesses, procedure to remove cervical cancer. Past Anesthesia/Blood Transfusion Reactions: No Reported Reaction Past Psychological History: Anxiety, Bipolar, Depression Additional Psychological History / Comment(s): Borderline personality disorder. Smoking Status: Current every day smoker Past Alcohol Use History: Occasional Additional Past Alcohol Use History / Comment(s): Pt started smoking in 1978 and is 1 ppd smoker. Past Drug Use History: None Reported Additional Drug Use History / Comment(s): . - Past Family History Father History Unknown: Yes Family Medical History: Coronary Artery Disease (CAD), Hypertension Additional Family Medical History / Comment(s): pt states heart dx runs in the family Mother Family Medical History: Coronary Artery Disease (CAD), Diabetes Mellitus, Hyperlipidemia Additional Family Medical History / Comment(s): pt states heart disease runs in the family Medications and Allergies Home Medications Medication Instructions Recorded Confirmed Type Calcium Carbonate [Tums] 1,000 mg PO TID PRN tab 01/10/24 02/15/24 Rx ARIPiprazole IM SYRINGE [Abilify 400 mg IM QMONTHLY 28 Days #1 each 01/27/24 02/16/24 Rx Maintena Syringe] Aspirin 81 mg PO DAILY 30 Days #30 tab 01/27/24 02/16/24 Rx Atorvastatin [Lipitor] 40 mg PO HS 30 Days #30 tab 01/27/24 02/16/24 Rx Melatonin 5 mg PO HS 30 Days #30 tab 01/27/24 02/16/24 Rx Nitroglycerin Sl Tabs [Nitrostat] 0.4 mg SUBLINGUAL Q5M PRN 30 Days 01/27/24 02/15/24 Rx #5 tab Pantoprazole [Protonix] 40 mg PO AC-BRKFST 30 Days #30 tab 01/27/24 02/16/24 Rx Sertraline [Zoloft] 200 mg PO DAILY 30 Days #60 tab 01/27/24 02/16/24 Rx hydrOXYzine HCL [Atarax] 25 mg PO BID PRN 30 Days #60 tab 01/27/24 02/15/24 Rx ARIPiprazole [Abilify] 30 mg PO HS 02/16/24 02/16/24 History Multivitamins, Thera [Multivitamin 1 tab PO DAILY@1200 02/16/24 02/16/24 History (formulary)] Levothyroxine Sodium [Synthroid] 50 mcg PO DAILY@0630 #30 tab 02/18/24 Rx FLUoxetine HCL [PROzac] 10 mg PO DAILY 11/26/24 11/26/24 History Allergies Allergy/AdvReac Type Severity Reaction Status Date / Time Sulfa (Sulfonamide Allergy Rash/Hives Verified 02/16/24 11:22 Antibiotics) Physical Exam Vitals: Vital Signs Temp Pulse Resp BP Pulse Ox 11/26/24 13:35 97.8 F 94 16 125/81 98 Intake and Output 11/25/24 11/26/24 11/26/24 22:59 06:59 14:59 Other: Weight 114.759 kg Sleep Note - Sleep Data ESS Total: 5 - Sleep Note Sleep Note: Temperature: 97.8 F Pulse Rate: 94 Respiratory Rate: 16 Blood Pressure: 125/81 SpO2: 98 Height: 5 ft 2.2 in Weight: 114.759 kg BMI: Neck Circumference: 18
== END ==
LOC: 3 N SLEEP 10:58
PROVIDERS: ATTEND Internal Medicine
DX: G47.33 Obstructive sleep apnea (adult) (pediatric) (principal); F32.A Depression, unspecified; F17.200 Nicotine dependence, unspecified, uncomplicated; Z88.2 Allergy status to sulfonamides
CPT/HCPCS: 99211

== ENCOUNTER → 2025-01-01 | Outpatient (CLI) | payer OTHER | LOC: 3 N SLEEP 12:31 | PROVIDERS: ATTEND Internal Medicine | DX: G47.33 Obstructive sleep apnea (adult) (pediatric) (principal); F12.90 Cannabis use, unspecified, uncomplicated; F17.200 Nicotine dependence, unspecified, uncomplicated; Z88.2 Allergy status to sulfonamides ==

== ENCOUNTER 2025-01-28 19:47 | Outpatient (CLI) | payer OTHER ==
--- NOTE | 2025-02-10 14:09 | P.PCN ---
Description of Procedure: CLINICAL: Titration with positive air pressure has been done for correction of respiratory abnormalities during sleep. DESCRIPTION OF PROCEDURE: The standard montage for clinical polysomnography included the electroencephalogram, the electrocardiogram, the mentalis surface electromyography and Lead II cardiography. The respiratory battery consisted of measurements of nasal /buccal air flow, pressure transducer measurements from the nose, thoracic and /or abdominal effort and intercostal surface electromyography. Video monitoring has been done to check for any parasomnia events. Nocturnal oxyhemoglobin saturations were obtained by finger oximetry. Step-neal titration with positive airway pressure was utilized to control respiratory events. Raw data of sleep recording has been reviewed and is adequate. RESULTS: Sleep efficiency was normal 89.2%. Latency to sleep onset was normal at 13.5 minutes.]. Sleep architecture showed stage N1 slightly short 4.0%, Delta sleep was absent 0%, REM sleep prolonged to 33.4%. Heart rate was minimum during 48 BPM, maximum 59 BPM, average 53 BPM. EMG showed 0 periodic limb movements per hour with 0 micriarousals per hour. PAP titration have been done with CPAP up to the pressure 15 cm H2O. Patient had problems with CPAP, switched to BPAP. BPAP titrated up to 23/19 cm H2O. The best results were at the pressure 21/17 cm H2O. Apnea hypopnea index reduced to 8.3.. IMPRESSION: 1. Extremely severe obstructive sleep apnea hypopnea syndrome original apnea- hypopnea index 64.2 improved on BPAP treatment. 2. No significant periodic limb movements have been documented. Please see other impressions from consultation. PLAN: 1. The patient will have treatment with positive air pressure equipment with the level of pressure Auto BiPAP with maximal inspiratory pressure 23 and minimal expiratory pressure 9, pressure support 4 cm H2O and should use it every night for the whole night. 2. Watching and losing weight. 3. Sleep hygiene with regular time in bed for at least 8 hours. 4. No driving if feeling any sleepiness. 5. I will see the patient for follow up visit to explain the results of the test, recommendations, check compliance with treatment and make any necessary adjustment related to mask fitting, pressure and humidification. Thank you very much for allowing me to participate in the management of your patient. Sincerely, Armaan Rush MD, PhD, FAASM Diplomat of [employer] Sleep Medicine Board of [employer] Department Chairperson of [facility] [place] cc: Kirsty Neal MD
== END 2025-01-29 06:50 | disposition home or self-care (01) ==
LOC: 3 N SLEEP 19:47
PROVIDERS: ATTEND Internal Medicine
DX: G47.33 Obstructive sleep apnea (adult) (pediatric) (principal); F12.90 Cannabis use, unspecified, uncomplicated; F17.200 Nicotine dependence, unspecified, uncomplicated; Z88.2 Allergy status to sulfonamides; Z99.89 Dependence on other enabling machines and devices
CPT/HCPCS: 95811